=== PATIENT | female | born 1970 | race Caucasian/White ===

== ENCOUNTER 2017-06-16 09:23 | Emergency (ER) | payer MEDICAID, OTHER ==
[~2017-06-16] VITALS: Ht 160 cm; Wt 68.4 kg
[~2017-06-16 09:23] MED LIST: ASPI1TAB2 PO; prenatal
[2017-06-16 09:25] VITALS: Ht 160 cm; Wt 68.4 kg
--- NOTE | 2017-06-16 11:37 | RADRPT ---
PROCEDURE: US Abdomen. CLINICAL INDICATION: abdominal pain , jaundice TECHNIQUE: Multiple real-time images were acquired of the patient's right upper quadrant abdomen a nd retroperitoneum utilizing a high resolution transducer. COMPARISON: None FINDINGS: The liver demonstrates increased and heterogeneous echogenicity. The liver is enlarged in size and no focal solid lesions are seen. The liver measures 21.3 cm in length. The portal vein is patent wit h normal direction of flow. No intrahepatic biliary dilatation is seen. No gallstones are identified within the gallbladder. There is no pericholecystic fluid or gallbladd er wall thickening. The common bile duct measures 5 mm in maximal dimension. The visualized portions of the pancreas are unremarkable. The tail of the pancreas is not seen. No free fluid is identified. The right kidney is normal in size, and demonstrate normal echogenicity and cortical thickness. The right kidney measures 10.7 cm in long dimension. There is no evidence of hydronephrosis. There are no kidney stones. RPTAT: AA IMPRESSION: Mild hepatomegaly with fatty infiltration of the liver. .Aric Tenorio MD, Date Time Electronically viewed and signed by .Aric Tenorio MD, on 06/16/2017 11:37 .S/
--- NOTE | 2017-06-16 11:38 | ERD ---
ER Documentation Chief Complaint Chief Complaint SENT BY PCP FOR ASSESSMENT FOR JAUNDICE HPI This is a 47-year-old female with known liver disease, hepatitis, gallstones who is presenting with progressive jaundice and scleral icterus for 1-2 weeks. She has noticed mild increase in abdominal distension as well. She has no abdominal pain or nausea or vomiting or urination/BM changes. She is not lightheaded or dizzy. She does take Tylenol occasionally for discomfort, but she does not endorse taking too much. She does not have any recent travel. She last traveled 1 year ago to [place]. The patient reports that this has happened before, but she does not know why. She called her PCP office. A nurse called and suggested that she be evaluated in the ER as they did not have any appointments. The patient denies feeling sick recently. The patient denies fever or chills. The patient has had no headache or vision changes. The patient does not endorse neck or back pain. The patient has had no chest pain or shortness of breath or trouble breathing, but she does endorse a chronic cough at night for 3 -4 months. The patient has had no focal deficits. The patient has had no weakness or numbness or tingling to the face or extremities. ROS All systems reviewed and are negative except as per history of present illness. Medications Home Meds Discontinued Reported Medications Aspirin/Acetaminophen/Caffeine (Excedrin Caplet) 1 Tab Tablet, 1 TAB PO Y 06/06/11 [] No Conflict Check 05/20/10 Allergies Allergies: Coded Allergies: No Known Drug Allergies (Verified Allergy, 06/06/11) Uncoded Allergies: none (Allergy, Mild, 05/20/10) PMhx/Soc History of Surgery: No Anesthesia Reaction: No Hx Neurological Disorder: No Hx Respiratory Disorders: No Hx Cardiac Disorders: No Hx Psychiatric Problems: No Hx Miscellaneous Medical Probl: Yes (Liver dysfunction, Chronic Hepatitis, Cholelithiasis) Hx Alcohol Use: Yes (2 drinks per day) Hx Substance Use: No Hx Tobacco Use: No FmHx Family History: No coronary disease, No diabetes Physical Exam Vitals Vital Signs Date Time Temp Pulse Resp B/P Pulse Ox O2 Delivery O2 Flow Rate FiO2 06/16/17 12:51 87 16 121/64 97 Room Air 06/16/17 09:25 97.8 92 18 111/59 97 Physical Exam Const: No apparent distress, well-developed, well-nourished Head: Atraumatic Eyes: Normal Conjunctiva. Extraocular movements intact. + Scleral icterus ENT: Normal External Ears, Nose and Mouth. Neck: Full range of motion. ~ No meningismus. Resp: Clear to auscultation bilaterally Cardio: Regular rate and rhythm, no murmurs Abd: Soft, + mild distension, + upper abdominal discomfort. Normal bowel sounds Skin: No petechiae or rashes, + jaundice Back: No midline or flank tenderness Ext: No cyanosis, or edema Neur: Awake and alert, oriented 4. Cranial nerves intact. No facial droop. Normal strength and sensation in all extremities. Coordination with finger to nose normal. Psych: Normal Mood and Affect Result Diagram: 06/16/17 1135 06/16/17 1135 Results 24 hrs Laboratory Tests Test 06/16/17 11:00 06/16/17 11:35 06/16/17 11:50 Urine Color SHAYLA Urine Clarity CLOUDY Urine pH 5.0 Urine Specific [place] 1.028 Urine Ketones 1+mg/dL Urine Nitrite NEGATIVEmg/dL Urine Bilirubin 2+mg/dL Urine Urobilinogen 2+mg/dL Urine Leukocyte Esterase NEGATIVELeu/ul Urine Microscopic RBC 1/HPF Urine Microscopic WBC 2/HPF Urine Squamous Epithelial Cells FEW/HPF Urine Hyaline Casts FEW/HPF Urine Mucus MANY/HPF Urine Hemoglobin NEGATIVEmg/dL Urine Glucose 1+mg/dL Urine Total Protein 2+mg/dl White Blood Count 13.510^3/ul Red Blood Count 3.1810^6/ul Hemoglobin 9.2g/dl Hematocrit 29.1% Mean Corpuscular Volume 91.5fl Mean Corpuscular Hemoglobin 28.9pg Mean Corpuscular Hemoglobin Concent 31.6g/dl Red Cell Distribution Width 22.7% Platelet Count 38202^3/UL Mean Platelet Volume 12.3fl Neutrophils % 82.0% Lymphocytes % 10.0% Monocytes % 6.3% Eosinophils % 0.5% Basophils % 0.4% Nucleated Red Blood Cells % 0.0/100WBC Neutrophils # 11.010^3/ul Lymphocytes # 1.310^3/ul Monocytes # 0.910^3/ul Eosinophils # 0.110^3/ul Basophils # 0.110^3/ul Nucleated Red Blood Cells # 0.010^3/ul Prothrombin Time 16.9Sec Prothrombin Time Ratio 1.3 INR International Normalized Ratio 1.37 Activated Partial Thromboplast Time 43.7Sec Sodium Level 138mmol/L Potassium Level 3.9mmol/L Chloride Level 102mmol/L Carbon Dioxide Level 27mmol/L Anion Gap 13 Blood Urea Nitrogen 5mg/dl Creatinine 0.39mg/dl Glucose Level 97mg/dl Calcium Level 8.3mg/dl Total Bilirubin 8.9mg/dl Direct Bilirubin 6.90mg/dl Indirect Bilirubin 2.0mg/dl Aspartate Amino Transf (AST/SGOT) 194IU/L Alanine Aminotransferase (ALT/SGPT) 35IU/L Alkaline Phosphatase 320IU/L Total Protein 7.8g/dl Albumin 3.1g/dl Globulin 4.70g/dl Albumin/Globulin Ratio 0.65 Lipase 36U/L Hepatitis B Surface Antigen NEGATIVE Hepatitis B Core Total Antibody NEGATIVE Hepatitis C Antibody NEGATIVE Serum HCG, Qualitative NEGATIVE Current Medications Medications (Trade) Dose Ordered Sig/Kay Route PRN Reason Start Time Stop Time Status Last Admin Dose Admin IV Flush 10 ml 10 ml STK-MED ONCE .ROUTE 06/16/17 14:00 06/16/17 14:01 DC 06/16/17 14:00 Sodium Chloride (NS) 100 ml @ ud STK-MED ONCE .ROUTE 06/16/17 14:00 06/16/17 14:01 DC 06/16/17 14:00 Iohexol (Omnipaque 300mg/ ml) 150 ml STK-MED ONCE .ROUTE 06/16/17 14:00 06/16/17 14:01 DC 06/16/17 14:00 Procedures/[facility] MDM The patient's presentation warrants further investigation. The patient currently has asymptomatic jaundice. She reports that this has happened before. Upon review of records, the patient was admitted for similar symptoms in 2010. She had persistent hepatitis despite a negative viral panel and no obvious obstructive pathology. She was ultimately discharged. Of note, the patient reportedly was hypothyroid, but she is no longer taking medication now. The patient does not have symptoms consistent with hypothyroidism at this time. This may be worked up further as an outpatient. With respect to her jaundice. I intend to obtain blood work and imaging. The patient may require an ERCP, but I am not convinced at this stage that she requires admission. LABS The patient's blood work was obtained and reviewed. The patient's CBC shows mild leukocytosis with left shift. This appears to be chronic leukocytosis. The patient is afebrile and does not appear systemically ill. I do not suspect a systemic infection. The patient is mildly anemic today, but this also appears to be her baseline. The patient's platelet count is unremarkable. The patient' s BMP shows no signs of metabolic or electrolyte emergencies. The patient has normal renal function testing. The patient's lipase is also within normal limits. The patient's hepatic function testing reveals a significant direct hyperbilirubinemia, indicating a likely obstructive pathology. The patient also has a transaminitis. The patient's LFTs are incrementally worse than they were 6 years ago, but they were quite elevated at that time as well. The patient's HBV and HCV studies are negative. The patient has no diarrhea, does not appear infected, is not homeless and is not an IVD user. I do not suspect HAV. The patient does endorse EtOH use. Alcoholic vs autoimmune cirrhosis are possibilities. IMAGING CXR FINDINGS: The heart and mediastinum are within normal limits. There are mild right lower lobe linear atelectatic changes. The lungs are otherwise clear. There is no pleural effusion or pneumothorax. IMPRESSION: Mild right lower lobe linear atelectatic changes. Electronically viewed and signed by .Aric Tenorio MD, MD on 06/16/2017 11: 47 US Abd FINDINGS: The liver demonstrates increased and heterogeneous echogenicity. The liver is enlarged in size and no focal solid lesions are seen. The liver measures 21.3 cm in length. The portal vein is patent with normal direction of flow. No intrahepatic biliary dilatation is seen. No gallstones are identified within the gallbladder. There is no pericholecystic fluid or gallbladder wall thickening. The common bile duct measures 5 mm in maximal dimension. The visualized portions of the pancreas are unremarkable. The tail of the pancreas is not seen. No free fluid is identified. The right kidney is normal in size, and demonstrate normal echogenicity and cortical thickness. The right kidney measures 10.7 cm in long dimension. There is no evidence of hydronephrosis. There are no kidney stones. IMPRESSION: Mild hepatomegaly with fatty infiltration of the liver. Electronically viewed and signed by .Aric Tenorio MD, MD on 06/16/2017 11: 37 CT Abd/Pelvis 1. Hepatomegaly and liver cirrhosis. No definitive abnormal liver masses or lesions noted at this time. 2. Splenomegaly and likely underlying portal hypertension. 3. Mild lower abdominal/pelvic ascites. 4. No evidence of bowel obstruction. The appendix is within normal limits. 5. 3.0 cm exophytic mass within the fundus of the uterus, probably leiomyoma. Electronically viewed and signed by Physician Rox on 06/16/2017 14:38 TREATMENT/DISPOSITION The patient is presenting with asymptomatic jaundice. She has a history of hepatitis and this remains true today. The patient's imaging studies demonstrate hepatomegaly and cirrhosis, which the patient is already aware. There is no obvious evidence of cholecystitis, cholelithiasis, choledocholithiasis, pancreatitis, hepatic or pancreatic mass. There was an incidental finding of a leiomyoma on the uterus, which may be worked up as an outpatient. The patient was offered admission for further evaluation. However, the risks and benefits of admission versus outpatient workup were discussed, and the patient preferred outpatient treatment at this time. The patient has not shown any signs of hemodynamic instability. She may require an ERCP for further evaluation, but I have less suspicion for choledocholithiasis given the chronicity of her symptoms in addition to her lack of pain. At this time, I feel that the patient stable for discharge. He will need follow -up with his primary care physician in 1-3 days who may also coordinate referral to a manager transit. He will be given strict precautions with which to return to the emergency department. Departure Diagnosis: Primary Impression: Conjugated hyperbilirubinemia Additional Impressions: Jaundice Scleral icterus Liver disease Anemia Anemia type: unspecified type Qualified Code: D64.9 - Anemia, unspecified type Leukocytosis, unspecified Hepatitis Condition: Stable JONATHAN LABOY MD Jun 16, 2017 11:38
--- NOTE | 2017-06-16 11:47 | RADRPT ---
PROCEDURE: XR Chest. CLINICAL INDICATION: abdominal pain TECHNIQUE: Single frontal view of the chest was obtained COMPARISON: None FINDINGS: The heart and mediastinum are within normal limits. There are mild right lower lobe linear atelectatic changes. The lungs are otherwise clear. There is no pleural effusion or pneumothorax. RPTAT: AA IMPRESSION: Mild right lower lobe linear atelectatic changes. .Aric Tenorio MD, MD Date Time Electronically viewed and signed by .Aric Tenorio MD, on 06/16/2017 11:47 .S/
[2017-06-16 11:50] LABS: HAAIG REFLEX REFLEX FILED
[2017-06-16 11:56] LABS: ABNORMAL IP MESSAGE 1; BASOPHIL # 0.1 10^3/ul (0.0-0.1); BASOPHILS % 0.4 % (0.0-2.0); EOSINOPHILS # 0.1 10^3/ul (0.0-0.5); EOSINOPHILS % 0.5 % (0.0-7.0); HEMATOCRIT 29.1 % (37.0-47.0); HEMOGLOBIN 9.2 g/dl (12.0-16.0); LYMPHOCYTES # 1.3 10^3/ul (0.8-2.9); MEAN CORPUSCULAR HEMOGLOBIN 28.9 pg (29.0-33.0); MEAN CORPUSCULAR HGB CONC 31.6 g/dl (32.0-37.0); MEAN CORPUSCULAR VOLUME 91.5 fl (82.0-101.0); MEAN PLATELET VOLUME 12.3 fl (7.4-10.4); MONOCYTE # 0.9 10^3/ul (0.3-0.9); MONOCYTES % 6.3 % (0.0-11.0); PLATELET COUNT 239 10^3/UL (140-415); RED BLOOD COUNT 3.18 10^6/ul (4.20-5.40); RED CELL DISTRIBUTION WIDTH 22.7 % (11.5-14.5); WHITE BLOOD COUNT 13.5 10^3/ul (4.8-10.8)
[2017-06-16 11:57] LABS: POSITIVE DIFF @See below
[2017-06-16 12:12] LABS: ADD UMIC YES; UR ASCORBIC ACID 20 mg/dL (NEGATIVE); UR BILIRUBIN (Dip) 2+ mg/dL (NEGATIVE); UR BLOOD (Dip) NEGATIVE (NEGATIVE); UR CLARITY CLOUDY (CLEAR); UR COLOR AMBER (YELLOW); UR GLUCOSE (Dip) 1+ mg/dL (NEGATIVE); UR KETONES (Dip) 1+ mg/dL (NEGATIVE); UR LEUKOCYTE ESTERASE (Dip) NEGATIVE Leu/ul (NEGATIVE); UR MUCUS MANY /HPF (NONE SEEN); UR NITRITE (Dip) NEGATIVE (NEGATIVE); UR RBC 1 /HPF (0-5); UR SPECIFIC GRAVITY (Dip) 1.028 (1.003-1.030); UR SQUAMOUS EPITHELIAL CELL FEW /HPF (FEW); UR TOTAL PROTEIN (Dip) 2+ mg/dl (NEGATIVE); UR UROBILINOGEN (Dip) 2+ mg/dL (NEGATIVE)
[2017-06-16 12:13] LABS: INR 1.37; PROTIME 16.9 Sec (12.2-14.2); PT RATIO 1.3
[2017-06-16 12:14] LABS: PARTIAL THROMBOPLASTIN TIME 43.7 Sec (25.0-35.0)
[2017-06-16 12:28] LABS: ALANINE AMINOTRANSFERASE 35 IU/L (13-69); ALBUMIN 3.1 g/dl (3.3-4.9); ALBUMIN/GLOBULIN RATIO 0.65; ALKALINE PHOSPHATASE 320 IU/L (42-121); ANION GAP 13 (8-16); ASPARTATE AMINO TRANSFERASE 194 IU/L (15-46); BILIRUBIN,TOTAL 8.9 mg/dl (0.2-1.3); BLOOD UREA NITROGEN 5 mg/dl (7-20); CALCIUM 8.3 mg/dl (8.4-10.2); CARBON DIOXIDE 27 mmol/L (21-31); CHLORIDE 102 mmol/L (97-110); CREATININE 0.39 mg/dl (0.44-1.00); GLUCOSE 97 mg/dl (70-220); POTASSIUM 3.9 mmol/L (3.5-5.1); SODIUM 138 mmol/L (135-144); TOTAL PROTEIN 7.8 g/dl (6.1-8.1)
[2017-06-16 12:51] VITALS: BP 121/64; PULSE 87; RESP 16
[2017-06-16 13:17] LABS: HEPATITIS B CORE ANTIBODY NEGATIVE (NEGATIVE)
[2017-06-16] MEDS ORDERED: SOD CHLORIDE 0.9% 100 ML ONE (14:00)
[2017-06-16] MEDS ORDERED: IOHEXOL 300MG/ML 150 ML BTL ONE (14:00)
--- NOTE | 2017-06-16 14:39 | RADRPT ---
PROCEDURE: CT ABDOMEN AND PELVIS WITH IV CONTRAST. CLINICAL INDICATION: History of jaundice with abdominal distension TECHNIQUE: CT scan of the abdomen and pelvis without contrast was performed on a multidetector hig h-resolution CT scanner following the use of IV contrast. 90 cc Omnipaque-300 was administered. Mika nal and sagittal reformatted images were obtained from the axial source images. Images were reviewed on a high-resolution PACS workstation. The total exam CTDI equals 10.7 mGy and the total exam DLP e quals 640 mGy-cm. One or more of the following dose reduction techniques were used: Automated exposure control. Adjustment of the mA and/or kV according to patient size. Use of iterative reconstruction technique. DICOM images are available. COMPARISON: None FINDINGS: CT abdomen: The lung bases are clear. The heart size is within limits. There is no significant pericardial effus ion. Hepatic morphology demonstrates nodular appearance of the borders of the liver. Gallbladder is parti ally contracted. No intrahepatic or extrahepatic biliary dilatation. There is heterogeneous appearan ce of the liver parenchyma. The liver is enlarged. The spleen is enlarged. The pancreas is within normal limits. There is dilatation of the splenic vei n.. Both adrenal glands are within normal limits. Both kidneys are in normal anatomic position. No evidence of obstruction or hydronephrosis. No gross renal/ureteric calculi. The visualized GI tract demonstrate normal caliber loops of small and large bowel. No evidence of len wel obstruction. The appendix is within normal limits. The aorta is unremarkable. Several shoddy retroperitoneal lymph nodes are identified. CT pelvis: Small amount of free fluid within the pelvis. The bladder is unremarkable. The uterus is identified and there is a exophytic mass within the fundus, measuring 3.0 cm. No significant pelvic lymphadenop athy. The visualized osseous structures appears to be within normal limits. IMPRESSION: 1. Hepatomegaly and liver cirrhosis. No definitive abnormal liver masses or lesions noted at this ti me. 2. Splenomegaly and likely underlying portal hypertension. 3. Mild lower abdominal/pelvic ascites. 4. No evidence of bowel obstruction. The appendix is within normal limits. 5. 3.0 cm exophytic mass within the fundus of the uterus, probably leiomyoma. RPTAT: AAPP Farida Harris, Physician Date Time Electronically viewed and signed by Farida Harris Physician on 06/16/2017 14:38 JL/
== END 2017-06-16 18:44 | disposition home or self-care (01) ==
LOC: E/R 09:23
DX: H15.89 Other disorders of sclera (principal); R40.2252 Coma scale, best verbal response, oriented, at arrival to emergency department; D64.9 Anemia, unspecified; D72.829 Elevated white blood cell count, unspecified; K75.9 Inflammatory liver disease, unspecified; R40.2142 Coma scale, eyes open, spontaneous, at arrival to emergency department; R40.2362 Coma scale, best motor response, obeys commands, at arrival to emergency department; R07.9 Chest pain, unspecified
CPT/HCPCS: 36415; 71010; 74177; 76705; 80053; 81001; 83690; 84703; 85025; 85610; 85730; 86704; 86709; 86803; 87340; Q9967; Z7502; Z7610

== ENCOUNTER 2017-06-25 14:34 | Inpatient (IN) | payer OTHER ==
[~2017-06-25] VITALS: Ht 160 cm; Wt 70.2 kg
[2017-06-25] MEDS: morphine 4 MG/ML VIAL IV STA ×2 (00:15→20:00)
[2017-06-25] MEDS ORDERED: ONDANSETRON 4 MG INJ IV STA ×2 (16:58→19:50)
[2017-06-25] MEDS ORDERED: morphine 4 MG/ML VIAL IV STA (16:58)
[2017-06-25] MEDS ORDERED: SOD CHLORIDE 0.9% 500 ML IV STA (16:58)
[2017-06-25 17:34] LABS: BASOPHIL # 0.1 10^3/ul (0.0-0.1); BASOPHILS % 0.5 % (0.0-2.0); EOSINOPHILS # 0.2 10^3/ul (0.0-0.5); EOSINOPHILS % 1.1 % (0.0-7.0); HEMATOCRIT 27.3 % (37.0-47.0); HEMOGLOBIN 8.8 g/dl (12.0-16.0); LYMPHOCYTES # 1.2 10^3/ul (0.8-2.9); LYMPHOCYTES % 8.3 % (15.0-51.0); MEAN CORPUSCULAR HEMOGLOBIN 28.7 pg (29.0-33.0); MEAN CORPUSCULAR HGB CONC 32.2 g/dl (32.0-37.0); MEAN CORPUSCULAR VOLUME 88.9 fl (82.0-101.0); MEAN PLATELET VOLUME 11.7 fl (7.4-10.4); MONOCYTE # 1.1 10^3/ul (0.3-0.9); MONOCYTES % 7.8 % (0.0-11.0); NEUTROPHIL # 11.3 10^3/ul (1.6-7.5); NEUTROPHILS % 81.2 % (39.0-77.0); PLATELET COUNT 224 10^3/UL (140-415); RED BLOOD COUNT 3.07 10^6/ul (4.20-5.40); RED CELL DISTRIBUTION WIDTH 21.1 % (11.5-14.5); WHITE BLOOD COUNT 13.9 10^3/ul (4.8-10.8)
[2017-06-25 17:46] LABS: ADD UMIC YES; UR ASCORBIC ACID NEGATIVE (NEGATIVE); UR BILIRUBIN (Dip) 2+ mg/dL (NEGATIVE); UR BLOOD (Dip) 1+ mg/dL (NEGATIVE); UR CLARITY SLIGHTLY CLOUDY (CLEAR); UR COLOR AMBER (YELLOW); UR GLUCOSE (Dip) 1+ mg/dL (NEGATIVE); UR KETONES (Dip) NEGATIVE (NEGATIVE); UR LEUKOCYTE ESTERASE (Dip) NEGATIVE Leu/ul (NEGATIVE); UR MUCUS FEW /HPF (NONE SEEN); UR NITRITE (Dip) NEGATIVE (NEGATIVE); UR RBC 1 /HPF (0-5); UR SPECIFIC GRAVITY (Dip) 1.018 (1.003-1.030); UR SQUAMOUS EPITHELIAL CELL MANY /HPF (FEW); UR TOTAL PROTEIN (Dip) 1+ mg/dl (NEGATIVE); UR UROBILINOGEN (Dip) 2+ mg/dL (NEGATIVE)
[2017-06-25 18:26] LABS: ALBUMIN/GLOBULIN RATIO 0.6; BILIRUBIN,DIRECT 9.9 mg/dl (0.00-0.20); BILIRUBIN,INDIRECT 1.6 mg/dl (0-1.1); BILIRUBIN,TOTAL 11.5 mg/dl (0.2-1.3); CALCIUM 8.3 mg/dl (8.4-10.2); CREATININE 2.87 mg/dl (0.44-1.00); POTASSIUM 4.7 mmol/L (3.5-5.1)
[2017-06-25] MEDS ORDERED: SOD CHLORIDE 0.9% 1,000 ML IV STA (19:50)
[2017-06-25 20:19] LABS: INR 1.5; PROTIME 18.2 Sec (12.2-14.2); PT RATIO 1.4
[2017-06-25 20:20] LABS: PARTIAL THROMBOPLASTIN TIME 47.6 Sec (25.0-35.0)
--- NOTE | 2017-06-25 20:30 | RADRPT ---
PROCEDURE: XR Chest. CLINICAL INDICATION: Chest pain. Abdominal pain TECHNIQUE: Portable AP upright view of the chest was obtained. COMPARISON: None. FINDINGS: The cardiomediastinal silhouette is within normal limits. The lungs are clear. There is no evidenc e for pleural effusion, pneumothorax or pulmonary vascular congestion. The osseous structures are i ntact with no evidence for acute abnormality. No free air is demonstrated below the diaphragm. RPTAT:HJJR IMPRESSION: No evidence for acute intrathoracic pathology. Physician Moreno Date Time Electronically viewed and signed by Physician Moreno on 06/25/2017 20:30 /
[2017-06-25 22:08] LABS: LACTIC ACID 1.2 mmol/L (0.5-2.0)
--- NOTE | 2017-06-25 22:22 | RADRPT ---
PROCEDURE: CT abdomen and pelvis without contrast. CLINICAL INDICATION: Abdominal pain. Abnormal liver with portal venous hypertension and splenomegal y. Ascites. TECHNIQUE: Noncontrast CT examination of the abdomen and pelvis, with axial, sagittal and coronal r eformatted images. Automated dose exposure control was employed. CTDI: 10.73 mGy and DLP: 639.58 mGy-cm. COMPARISON: CT abdomen and pelvis dated 06/16/2017. FINDINGS: CT abdomen: The lung bases are clear. The heart size is normal, without pericardial thickening or effusion. Since 06/16/2017 there is increased ascites over the interval with fluid over the liver and spleen, in the bilateral pericolic gutters. The liver enlarged, with evidence of cirrhosis and demonstrates fatty infiltration, similar in appea matt to prior examination. The spleen remains enlarged. There is portal venous hypertension. The s tomach is partially collapsed, but is grossly unremarkable. The pancreas as visualized is normal. The gallbladder contains a fluid-fluid level, suggesting stones versus gallbladder sludge. There is gallbladder wall thickening versus pericholecystic fluid and recommend ultrasound correlation. These gallbladder findings are new over the interval since 06/16/2017. The biliary tree is unremarkable a nd there is no evidence for biliary dilatation. The adrenal glands are symmetric and normal. The k idneys are symmetrically unremarkable as well. No renal calculus or obstructive uropathy or mass les ion is seen. The aorta is of normal caliber. Aortic vascular calcifications are not present. There is no retrop eritoneal lymphadenopathy. The myrna hepatis region is clear. The bowel and mesentery, as visualiz ed, are equally unremarkable. CT pelvis: Increased moderate to large ascites in the pelvis. There are likely uterine fibroids. The pelvic org ans are normal. The pelvic sidewalls and inguinal regions are clear. The sigmoid colon and rectum are all unremarkable. No mass, lymphadenopathy, or free fluid is seen. No acute inflammation is se en. The air-filled appendix is unremarkable. The surrounding osseous structures are remarkable for mild degenerative spondylosis of the spine. N o osteolytic or osteoblastic lesion is detected. IMPRESSION: 1. Enlarged cirrhotic liver with likely fatty infiltration. 2. Gallbladder wall thickening versus pericholecystic with gallstones versus sludge, new over the in terval, and recommend ultrasound correlation. 3. Splenomegaly again seen, with changes of portal venous hypertension. 4. Increased ascites in the abdomen over the interval since 06/16/2017. 5. Increased ascites in the pelvis over the interval. RPTAT: [facility] Physician Sherley Date Time Electronically viewed and signed by Malik Bender Physician on 06/25/2017 22:22 RS/
--- NOTE | 2017-06-25 23:04 | RADRPT ---
PROCEDURE: Abdominal ultrasound, limited. CLINICAL INDICATION: Abdominal pain. TECHNIQUE: Multiple real-time images were acquired of the patient's right upper abdomen utilizing a high resolution transducer. COMPARISON: 06/16/2017. FINDINGS: The liver demonstrates heterogeneous echogenicity and increased size measuring 19.7 cm. There are m ultiple poorly defined nodules within the liver measuring up to 3 cm in size. There is no intrahepat ic biliary ductal dilatation. The portal vein is patent. The gallbladder is not distended. No gal lstones are identified. There is echogenic sludge within the gallbladder. There is a negative sonog raphic Daniel's sign. There is pericholecystic fluid and gallbladder wall thickening measuring up to 9.3 mm. The common bile duct measures 3.6 mm in maximal dimension. The visualized portions of the pancreas are unremarkable. There is mild to moderate ascites. The right kidney is normal size and echogenicity measuring 10.5 cm. There is no focal renal mass id entified. There are two echogenic calculi within the mid and upper pole of the right kidney measurin g 5 and 7 mm. There is no obstructive uropathy. IMPRESSION: Enlarged liver with heterogeneous nodules suggestive of cirrhosis. Gallbladder sludge with moderate gallbladder wall thickening and pericholecystic fluid. Mild to moderate ascites. Nonobstructing right renal calculi. .Quirino Colorado MD, MD Date Time Electronically viewed and signed by .Quirino Colorado MD, MD on 06/25/2017 23:04 .T/
[2017-06-26] MEDS ORDERED: CEFTRIAXONE 1 GM INJ IM ONE
[2017-06-26] MEDS ORDERED: ONDANSETRON 4 MG INJ IV PRN
[2017-06-26] MEDS ORDERED: ACETAMINOPHEN 325 MG TAB PO PRN
[2017-06-26] MEDS ORDERED: metroNIDAZOLE 500 MG/NS (PMX) 100 ML IVPB ONE
--- NOTE | 2017-06-26 00:33 | ERD ---
ER Documentation Chief Complaint Chief Complaint ABD PAIN, N/V, JAUNDICE NOTED HPI 47-year-old female presents for both right upper quadrant and left upper quadrant pain with some nausea and vomiting is been increasing for the last couple of days.. She denies any fever and chills. She noticed that she is more jaundiced. She has not had jaundice like this for some time and it occurred only one other instance. States that she has been in another hospital recently she was diagnosed with acute cholecystitis but discharged. She has a history of liver failure. ROS All systems reviewed and are negative except as per history of present illness. Medications Home Meds No Active Prescriptions or Reported Meds Allergies Allergies: Coded Allergies: No Known Drug Allergies (Verified Allergy, 06/06/11) Uncoded Allergies: none (Allergy, Mild, 05/20/10) PMhx/Soc History of Surgery: No Anesthesia Reaction: No Hx Neurological Disorder: No Hx Respiratory Disorders: No Hx Cardiac Disorders: No Hx Psychiatric Problems: No Hx Miscellaneous Medical Probl: Yes (Liver dysfunction, Chronic Hepatitis, Cholelithiasis, splenomegaly) Hx Alcohol Use: Yes (2 drinks per day) Hx Substance Use: No Hx Tobacco Use: No Smoking Status: Never smoker Physical Exam Vitals Vital Signs Date Time Temp Pulse Resp B/P Pulse Ox O2 Delivery O2 Flow Rate FiO2 06/25/17 20:30 97.9 86 16 122/63 98 Room Air 06/25/17 18:30 97.7 97 18 108/58 97 Room Air 06/25/17 14:37 97.7 92 18 113/58 97 Physical Exam Const: [] Head: Atraumatic Eyes: Normal Conjunctiva ENT: Normal External Ears, Nose and Mouth. Neck: Full range of motion..~ No meningismus. Resp: Clear to auscultation bilaterally Cardio: Regular rate and rhythm, no murmurs Abd: Soft, non tender, non distended. Normal bowel sounds Skin: No petechiae or rashes Back: No midline or flank tenderness Ext: No cyanosis, or edema Neur: Awake and alert Psych: Normal Mood and Affect Result Diagram: 06/25/17 1725 06/25/17 1725 Results 24 hrs Laboratory Tests Test 06/25/17 17:25 06/25/17 21:21 White Blood Count 13.910^3/ul Red Blood Count 3.0710^6/ul Hemoglobin 8.8g/dl Hematocrit 27.3% Mean Corpuscular Volume 88.9fl Mean Corpuscular Hemoglobin 28.7pg Mean Corpuscular Hemoglobin Concent 32.2g/dl Red Cell Distribution Width 21.1% Platelet Count 07202^3/UL Mean Platelet Volume 11.7fl Neutrophils % 81.2% Lymphocytes % 8.3% Monocytes % 7.8% Eosinophils % 1.1% Basophils % 0.5% Nucleated Red Blood Cells % 0.0/100WBC Neutrophils # 11.310^3/ul Lymphocytes # 1.210^3/ul Monocytes # 1.110^3/ul Eosinophils # 0.210^3/ul Basophils # 0.110^3/ul Nucleated Red Blood Cells # 0.010^3/ul Prothrombin Time 18.2Sec Prothrombin Time Ratio 1.4 INR International Normalized Ratio 1.50 Activated Partial Thromboplast Time 47.6Sec Urine Color SHAYLA Urine Clarity SLIGHTLY CLOUDY Urine pH 5.0 Urine Specific [place] 1.018 Urine Ketones NEGATIVEmg/dL Urine Nitrite NEGATIVEmg/dL Urine Bilirubin 2+mg/dL Urine Urobilinogen 2+mg/dL Urine Leukocyte Esterase NEGATIVELeu/ul Urine Microscopic RBC 1/HPF Urine Microscopic WBC 33/HPF Urine Squamous Epithelial Cells MANY/HPF Urine Mucus FEW/HPF Urine Hemoglobin 1+mg/dL Urine Glucose 1+mg/dL Urine Total Protein 1+mg/dl Sodium Level 137mmol/L Potassium Level 4.7mmol/L Chloride Level 105mmol/L Carbon Dioxide Level 15mmol/L Anion Gap 22 Blood Urea Nitrogen 18mg/dl Creatinine 2.87mg/dl Glucose Level 105mg/dl Calcium Level 8.3mg/dl Total Bilirubin 11.5mg/dl Direct Bilirubin 9.90mg/dl Indirect Bilirubin 1.6mg/dl Aspartate Amino Transf (AST/SGOT) 162IU/L Alanine Aminotransferase (ALT/SGPT) 26IU/L Alkaline Phosphatase 283IU/L Troponin I < 0.012ng/ml Total Protein 8.0g/dl Albumin 3.0g/dl Globulin 5.00g/dl Albumin/Globulin Ratio 0.60 Lipase 38U/L Lactic Acid Level 1.2mmol/L Ammonia 32umol/l Current Medications Medications (Trade) Dose Ordered Sig/Kay Route PRN Reason Start Time Stop Time Status Last Admin Dose Admin Sodium Chloride (NS) 500 ml @ 500 mls/hr Q1H STAT IV 06/25/17 16:58 06/25/17 17:57 DC 06/25/17 17:38 Morphine Sulfate (morphine) 4 mg ONCE STAT IV 06/25/17 16:58 06/25/17 17:01 DC 06/25/17 17:37 Ondansetron HCl 4 mg 4 mg ONCE STAT IV 06/25/17 16:58 06/25/17 17:01 DC 06/25/17 17:37 Sodium Chloride (NS) 1,000 ml @ 1,000 mls/hr Q1H STAT IV 06/25/17 19:50 06/25/17 20:49 DC 06/25/17 20:02 Morphine Sulfate (morphine) 4 mg ONCE STAT IV 06/25/17 19:50 06/25/17 19:52 DC 06/25/17 00:15 Ondansetron HCl (Zofran Inj) 4 mg ONCE STAT IV 06/25/17 19:50 06/25/17 19:52 DC Ceftriaxone Sodium 1 gm 1 gm ONCE ONCE IM 06/26/17 00:00 06/26/17 00:01 DC 06/25/17 23:58 Metronidazole (Flagyl 500 Mg (Pmx)) 100 ml @ 100 mls/hr ONCE ONCE IVPB 06/26/17 00:00 06/26/17 00:59 06/25/17 23:59 Ondansetron HCl (Zofran Inj) 4 mg BRIDGE ORDER PRN IV NAUSEA AND/OR VOMITING 06/26/17 00:00 06/26/17 23:59 06/26/17 00:18 Acetaminophen (Tylenol Tab) 650 mg ER BRIDGE PRN PO MILD PAIN/FEVER 06/26/17 00:00 06/26/17 23:59 Procedures/MDM Acute cholecystitis and UTI concomitantly. Does not have any vital signs concerning for sepsis. Will suspicion for SBP as patient has not been febrile and pain is easily controlled. He was given 4 mg of morphine and did not require any other pain medication. Is hydrated with normal saline. Does have a thickened gallbladder wall elevated bilirubin as well as elevated white count consistent with acute cholecystitis. She was given Rocephin and Flagyl in the emergency room and this will also treat her UTI. She is also given normal saline. Is given Zofran which resolved her nausea. Spoke with Dr. Andrade will be on consult for this patient. She is being admitted to Dr. Tello to the medical surgical floor. CT abdomen pelvis interpretation: Gallstones with wall thickening and pericystic colic fluid, no dilated duct. Cirrhotic liver with fatty infiltration and splenomegaly. Portal hypertension. No abnormal fat stranding , no fractures bowel obstruction. Gallbladder ultrasound interpretation: Fatty liver with gallstones or sludge in gallbladder wall thickening. X-ray interpretation: I see no acute process, see no widened mediastinum, no pneumothorax, no infiltrates, no fractures. Departure Diagnosis: Primary Impression: Acute cholecystitis Additional Impressions: Liver failure Renal failure UTI (urinary tract infection) Normocytic anemia Condition: Serious KEI COOMBS DO Jun 26, 2017 00:33
[2017-06-26] MEDS ORDERED: SOD CHLORIDE 0.9% 1,000 ML IV ONE (01:00)
[2017-06-26 02:26] VITALS: TEMP 97.9
[2017-06-26 02:45] VITALS: BP 100/56; PULSE 81; RESP 18
[2017-06-26 02:50] VITALS: Ht 160 cm; Wt 70.2 kg
[2017-06-26] MEDS ORDERED: DEXTROSE 5%-0.45% NACL 1,000 ML IV SCH (03:30)
[2017-06-26] MEDS ORDERED: FOLI-49 PO (04:45)
[2017-06-26] MEDS ORDERED: FER325 PO (04:45)
[2017-06-26] MEDS ORDERED: SPIR25TA PO (04:45)
[2017-06-26] MEDS ORDERED: IBUP100T46 PO (04:45)
[2017-06-26] MEDS ORDERED: B1 PO (04:45)
[2017-06-26 05:13] LABS: BASOPHIL # 0.1 10^3/ul (0.0-0.1); BASOPHILS % 0.5 % (0.0-2.0); EOSINOPHILS # 0.1 10^3/ul (0.0-0.5); HEMATOCRIT 25.3 % (37.0-47.0); HEMOGLOBIN 8.1 g/dl (12.0-16.0); LYMPHOCYTES # 0.9 10^3/ul (0.8-2.9); LYMPHOCYTES % 8.5 % (15.0-51.0); MEAN CORPUSCULAR HEMOGLOBIN 28.4 pg (29.0-33.0); MEAN CORPUSCULAR VOLUME 88.8 fl (82.0-101.0); MEAN PLATELET VOLUME 12.2 fl (7.4-10.4); MONOCYTE # 0.7 10^3/ul (0.3-0.9); MONOCYTES % 6.5 % (0.0-11.0); NEUTROPHIL # 9.2 10^3/ul (1.6-7.5); NEUTROPHILS % 82.5 % (39.0-77.0); PLATELET COUNT 203 10^3/UL (140-415); RED BLOOD COUNT 2.85 10^6/ul (4.20-5.40); RED CELL DISTRIBUTION WIDTH 20.7 % (11.5-14.5); WHITE BLOOD COUNT 11.1 10^3/ul (4.8-10.8)
[2017-06-26] MEDS: ALBUMIN HUMAN 25% 100 ML IV SCH ×2 (05:24→13:00)
[2017-06-26] MEDS ORDERED: PIPER-TAZO 3.375 GM IV (PMX) 50 ML IVPB SCH (06:00)
[2017-06-26 06:28] LABS: ALBUMIN 2.6 g/dl (3.3-4.9); ALBUMIN/GLOBULIN RATIO 0.53; BILIRUBIN,DIRECT 9.2 mg/dl (0.00-0.20); BILIRUBIN,INDIRECT 1.6 mg/dl (0-1.1); BILIRUBIN,TOTAL 10.8 mg/dl (0.2-1.3); CALCIUM 7.9 mg/dl (8.4-10.2); CREATININE 2.88 mg/dl (0.44-1.00); TOTAL PROTEIN 7.5 g/dl (6.1-8.1)
[2017-06-26] MEDS: PIPER-TAZO 2.25 GM (PMX) 50 ML IVPB SCH ×4 (06:47→23:36)
--- NOTE | 2017-06-26 07:42 | CONS ---
Date/Time of Note Date/Time of Note DATE: 06/26/17 TIME: 07:38 Assessment/Plan Assessment/Plan Additional Assessment/Plan Very high risk surgical patient with portal hypertension, cirrhosis and ascites , and now jaundice. HIDA scan has been ordered GI consultation should be sought Further recommendations will be forthcoming based on the patient's further workup and clinical course. Consultation Date/Type/Reason Admit Date/Time Jun 26, 2017 at 00:00 Date of Consultation: Jun 26, 2017 Reason for Consultation Gallbladder sludge, jaundice and possible cholecystitis Hx of Present Illness The patient is a 47-year-old female with known cirrhosis, ascites and splenomegaly. She is here because of new onset of jaundice. She has been jaundiced in the past. Imaging here shows splenomegaly with portal hypertension and increased ascites. The gallbladder is slightly thickened with some gallbladder sludge. Common duct dilatation is not noted. She has had no fevers or chills. Eyes: no complaints ENT: no complaints Respiratory: no complaints Cardiovascular: no complaints Gastrointestinal: pain (Right and left upper quadrants) Genitourinary: no complaints Skin: no complaints Neurologic: no complaints Endocrine: no complaints Lymphatic: no complaints Psychological: no complaints Immunologic: no complaints Past Medical History Medical History: no pertinent history Family History Significant Family History: no pertinent family hx Social History Alcohol Use: none Smoking Status: Never smoker Exam/Review of Systems Vital Signs Vitals Vital Signs Date Time Temp Pulse Resp B/P Pulse Ox O2 Delivery O2 Flow Rate FiO2 06/26/17 02:45 98.0 81 18 100/56 99 Room Air Intake and Output 06/25/17 06/25/17 06/26/17 15:00 23:00 07:00 Intake Total 100 ml Balance 100 ml Exam Constitutional: alert, oriented Psych: no complaints Head: normocephalic, other Eyes: other ENMT: nl external ears & nose Neck: supple Respiratory: clear to auscultation Cardiovascular: regular rate and rhythm Musculoskeletal: nl extremities to inspection Extremities: normal pulses Neurological: UPPER SHAPER II-XII intact Skin: nl turgor Results Result Diagram: 06/26/17 0443 06/26/17 0443 Results 24 hrs Laboratory Tests Test 06/25/17 17:25 06/25/17 21:21 06/26/17 04:43 White Blood Count 13.9 H 11.1 #H Red Blood Count 3.07 L 2.85 L Hemoglobin 8.8 L 8.1 L Hematocrit 27.3 L 25.3 L Mean Corpuscular Volume 88.9 88.8 Mean Corpuscular Hemoglobin 28.7 L 28.4 L Mean Corpuscular Hemoglobin Concent 32.2 32.0 Red Cell Distribution Width 21.1 H 20.7 H Platelet Count 224 203 Mean Platelet Volume 11.7 H 12.2 H Neutrophils % 81.2 H 82.5 H Lymphocytes % 8.3 L 8.5 L Monocytes % 7.8 6.5 Eosinophils % 1.1 1.0 Basophils % 0.5 0.5 Nucleated Red Blood Cells % 0.0 0.0 Neutrophils # 11.3 H 9.2 H Lymphocytes # 1.2 0.9 Monocytes # 1.1 H 0.7 Eosinophils # 0.2 0.1 Basophils # 0.1 0.1 Nucleated Red Blood Cells # 0.0 0.0 Prothrombin Time 18.2 H Prothrombin Time Ratio 1.4 INR International Normalized Ratio 1.50 Activated Partial Thromboplast Time 47.6 H Urine Color SHAYLA Urine Clarity SLIGHTLY CLOUDY A Urine pH 5.0 Urine Specific [place] 1.018 Urine Ketones NEGATIVE Urine Nitrite NEGATIVE Urine Bilirubin 2+ H Urine Urobilinogen 2+ H Urine Leukocyte Esterase NEGATIVE Urine Microscopic RBC 1 Urine Microscopic WBC 33 H Urine Squamous Epithelial Cells MANY A Urine Mucus FEW A Urine Hemoglobin 1+ H Urine Glucose 1+ H Urine Total Protein 1+ H Sodium Level 137 141 Potassium Level 4.7 4.0 Chloride Level 105 109 Carbon Dioxide Level 15 L 17 L Anion Gap 22 H 19 H Blood Urea Nitrogen 18 19 Creatinine 2.87 H 2.88 H Glucose Level 105 92 Calcium Level 8.3 L 7.9 L Total Bilirubin 11.5 H 10.8 H Direct Bilirubin 9.90 H 9.20 H Indirect Bilirubin 1.6 H 1.6 H Aspartate Amino Transf (AST/SGOT) 162 H 135 H Alanine Aminotransferase (ALT/SGPT) 26 35 Alkaline Phosphatase 283 H 233 H Troponin I < 0.012 Total Protein 8.0 7.5 Albumin 3.0 L 2.6 L Globulin 5.00 H 4.90 H Albumin/Globulin Ratio 0.60 0.53 Lipase 38 Lactic Acid Level 1.2 Ammonia 32 H Medications Medications Current Medications Dextrose/Sodium Chloride (D5-1/2ns) 1,000 ml @ 100 mls/hr Q10H IV Last administered on 06/26/17 04:10; Admin Dose 100 MLS/HR; Start 06/26/17 at 03: 30 Morphine Sulfate (morphine) 3 mg Q4H PRN IV pain; Start 06/26/17 at 03:30 Ondansetron HCl (Zofran Inj) 4 mg Q4H PRN IV NAUSEA AND/OR VOMITING; Start at 03:30 Furosemide 20 mg 20 mg DAILY IV ; Start 06/26/17 at 09:00 Albumin Human 100 ml @ 100 mls/hr Q8H IV Last administered on 06/26/17 05:24 ; Admin Dose 100 MLS/HR; Start 06/26/17 at 04:30; Stop 06/26/17 at 13:29 Piperacillin Sod/ Tazobactam Sod (Zosyn 2.25gm/ 50ml (Pmx)) 50 ml @ 100 mls/hr Q6 IVPB Last administered on 06/26/17 06:47; Admin Dose 100 MLS/HR; Start at 06:00 Influenza Virus Vaccine (Fluzone) 0.5 ml ONCE ONCE IM* ; Start 06/28/17 at 09: 00; Stop 06/28/17 at 09:01 GEO NAVARRO MD Jun 26, 2017 07:42
[2017-06-26 08:13] VITALS: BP 101/57; PULSE 16; RESP 16
[2017-06-26] MEDS ORDERED: FUROSEMIDE 20 MG INJ IV SCH (09:00)
--- NOTE | 2017-06-26 09:09 | HP ---
Date/Time of Note Date/Time of Note DATE: 06/26/17 TIME: 08:55 Assessment/Plan VTE Prophylaxis VTE Prophylaxis Intervention: SCD's Lines/Catheters IV [facility]from [facility] Peripheral IV Urinary Cath still in place: No Assessment/Plan Assessment/Plan 1. Questionable acute cholecystitis -Follow-up results of HIDA scan -Surgery is already on board will follow up recommendation -will place a GI consult -Continue pain management -Continue IV antibiotic -Note that patient is a very high-risk for surgery 2. Decompensated liver cirrhosis with ascites - think this lady will order paracentesis for diagnostic and therapeutic purposes -Will give albumin as well 3. Acute kidney injury: creatinine has jumped from 0.4 to almost 3 in about 10 days -IV fluid -will check urine electrolytes and order renal ultrasound -will place a nephrology consult. Patient is at risk for hepatorenal syndrome -hold her ibuprofen 4. Sepsis, as evidenced by leukocytosis and tachycardia, secondary to UTI -IV antibiotic -Follow-up culture results 5. Metabolic acidosis, secondary to acute renal failure -IV fluids -Treat UTI as well -Nephrology consult HPI/ROS Admit Date/Time Admit Date/Time Jun 26, 2017 at 00:00 Hx of Present Illness This is a 47-year-old female with a history of cholecystitis and cirrhosis with portal hypertension who presented to the ER complaining of abdominal pain and yellowing of her eyes and face. Patient was admitted to this hospital in 2010 for abdominal pain. At that time imaging showed cholecystitis and Marked diffuse periportal edema and a significant hepatomegaly. A HIDA scan at that time was negative and as such no cholecystectomy was done. She said about 2 weeks ago she started experiencing abdominal pain and noted yellowing of her eyes and face for which she went to an outside hospital and was started on medications including Aldactone. Patient has been drinking on a daily basis for the past 2 years after her father . She said she takes 2 shots of alcohol a day. When she presented to the ER this time, imaging showed cholecystitis. Labs shows a WBC of 14,000, hemoglobin 8.8, bicarb 15, creatinine 2.87, BUN 18, total bilirubin 11.5 with direct bilirubin of 9.9 and AST 162 and alk phos 283. Ammonia is a 32. Notes that her creatinine 10 days ago was normal at around 0.4 and now it is 2.87. One of the medications that she started taking is ibuprofen ROS Eyes: no complaints ENT: no complaints Respiratory: no complaints Cardiovascular: no complaints Gastrointestinal: pain (Right and left upper quadrants) Genitourinary: no complaints Skin: no complaints Neurologic: no complaints Lymphatic: no complaints Psychological: no complaints Immunologic: no complaints PMH/Family/Social Past Medical History Medical History: no pertinent history Social History Alcohol Use: none Smoking Status: Never smoker Exam/Review of Systems Vital Signs Vitals Vital Signs Date Time Temp Pulse Resp B/P Pulse Ox O2 Delivery O2 Flow Rate FiO2 06/26/17 08:13 98.0 16 16 101/57 95 Room Air Intake and Output 06/25/17 06/25/17 06/26/17 14:59 22:59 06:59 Intake Total 100 ml Balance 100 ml Exam Constitutional: other (No acute distress. Patient is jaundiced) Eyes: icteric Respiratory: clear to auscultation, normal air movement Cardiovascular: nl pulses, regular rate and rhythm Gastrointestinal: soft, tender Extremities: normal pulses Labs Result Diagram: 06/26/173 06/26/17 0443 Medications Medications Current Medications Dextrose/Sodium Chloride (D5-1/2ns) 1,000 ml @ 100 mls/hr Q10H IV Last administered on 06/26/17 04:10; Admin Dose 100 MLS/HR; Start 06/26/17 at 03: 30 Morphine Sulfate (morphine) 3 mg Q4H PRN IV pain; Start 06/26/17 at 03:30 Ondansetron HCl (Zofran Inj) 4 mg Q4H PRN IV NAUSEA AND/OR VOMITING; Start at 03:30 Furosemide 20 mg 20 mg DAILY IV Last administered on 06/26/17 08:13; Admin Dose 20 MG; Start 06/26/17 at 09:00 Albumin Human 100 ml @ 100 mls/hr Q8H IV Last administered on 06/26/17 05:24 ; Admin Dose 100 MLS/HR; Start 06/26/17 at 04:30; Stop 06/26/17 at 13:29 Piperacillin Sod/ Tazobactam Sod (Zosyn 2.25gm/ 50ml (Pmx)) 50 ml @ 100 mls/hr Q6 IVPB Last administered on 06/26/17 06:47; Admin Dose 100 MLS/HR; Start at 06:00 Influenza Virus Vaccine (Fluzone) 0.5 ml ONCE ONCE IM* ; Start 06/28/17 at 09: 00; Stop 06/28/17 at 09:01 ALAN SWEET MD Jun 26, 2017 09:05
--- NOTE | 2017-06-26 10:56 | CONS ---
Date/Time of Note Date/Time of Note DATE: 06/26/17 TIME: 10:07 Assessment/Plan Assessment/Plan Chief Complaint/Hosp Course Summary Assessment and Plan: Assessment: Questionable acute cholecystitis Decompensated alcoholic liver cirrhosis with ascites Acute kidney injury Sepsis Metabolic acidosis Plan: DF 33.8- with questionable cholecystitis- will not start steroids Paracentesis- pending HIDA scan- pending Monitor H/h transfuse for HGB less than 7.5 May need EGD in near future Alcohol cessation discussed Further recommendations based on clinical course. Patient seen in collaboration with Dr. Ny Chief Complaint/Reason for Visit: Decompensated liver cirrhosis with ascites Possible acute cholecystitis History of Present Illness: This is a 47 year old [place]ic speaking female (an full time staff interpreter was used) with past medical history of migraines and alcoholic liver cirrhosis. Presented to the ER with worsening LUQ abd pain radiating to the back and new onset Jaundice. She states she felt like her abd was growing in size and pain progressively worsened. She treated pain with Tylenol 1000mg BID x2 weeks, at the same time she was treating migraine pain with ibuprofen 2 tabs every 3-4 hours for the past 2 weeks.. She was dx cirrhosis 5 years ago, has not follow- up with hepatology. Pt with long history of alcoholism starting at the age of 14, was able to quit twice before but recently started drinking again, r/t the passing of her father. Labs today WBC 11.1, Hgb 8.1 Plt 203, Bilirubin 10.8, AST 135, ALT 35, PT18.2, INR 1.5, Ammonia 32. Imaging revels splenomegaly with portal hypertension and increased ascites from 06/16/17. The gallbladder is slightly thickened with some gallbladder sludge. Common duct dilatation is not noted. She currently denies nausea/vomiting, hematemesis, hematochezia, melena , unintentional weight loss, dysphagia, odynophagia, or change in bowel habits. She has never had an EGD or colonoscopy. DF 33.8, will not start steroids at this this time in view of possible underlying infection. Past Medical History: Migraines Alcoholic cirrhosis Allergies: No known drug allergies PHYSICAL EXAMINATION: GENERAL: Well developed, well nourished, alert & oriented x 3, in no acute distress, forgetful SKIN: No lesions, no stigmata chronic liver disease, no evidence of bleeding diathesis, jaundice LYMPHATIC: No palpable lymphadenopathy. HEAD: Normocephalic, atraumatic, no tenderness. EYES: Pupils equal reactive to light and accommodation, full extraocular movements, sclera clear, icteric, no discharge. EARS/NOSE AND THROAT: Ears normal, nose normal, NECK: Supple, CHEST: Inspection within normal limits. CARDIOVASCULAR: Heart: Regular rate and rhythm,. RESPIRATORY: Lungs clear to auscultation GASTROINTESTINAL AND LIVER: Abdomen: Soft, non tenderness, non-distended, no hernias, no masses, moderate ascites, splenomegaly, no guarding, no rebound tenderness, normoactive bowel sounds. Rectal: Deferred. GENITOURINARY: Female genitalia within normal limits. EXTREMITIES: No cyanosis, clubbing or edema. Problems: Consultation Date/Type/Reason Admit Date/Time Jun 26, 2017 at 00:00 Date of Consultation: Jun 26, 2017 Type of Consultation: GI Review of Systems: Gastrointestinal and liver: [As noted in HPI] [positive for:] [Negative for: Anorexia, dysphagia, odynophagia, pyrosis, regurgitation, nausea, vomiting, early satiety, bloating, abdominal pain, food intolerance, diarrhea, constipation, change in bowel habits, laxative use, hematemesis, melena, hematochezia, and rectal symptoms, incontinence, jaundice.] Constitutional: no complaints Eyes: no complaints ENT: no complaints Respiratory: no complaints Cardiovascular: no complaints Genitourinary: no complaints Musculoskeletal: no complaints Skin: other (Jaundice) Neurologic: no complaints Past Medical History Medical History: no pertinent history Social History Alcohol Use: none Smoking Status: Never smoker Exam/Review of Systems Vital Signs Vitals Vital Signs Date Time Temp Pulse Resp B/P Pulse Ox O2 Delivery O2 Flow Rate FiO2 06/26/17 08:13 98.0 16 16 101/57 95 Room Air Intake and Output 06/25/17 06/25/17 06/26/17 14:59 22:59 06:59 Intake Total 100 ml Balance 100 ml Results Result Diagram: 06/26/17 0443 06/26/17 044 Results 24 hrs Laboratory Tests Test 06/25/17 17:25 06/25/17 21:21 06/26/17 04:43 White Blood Count 13.9 H 11.1 #H Red Blood Count 3.07 L 2.85 L Hemoglobin 8.8 L 8.1 L Hematocrit 27.3 L 25.3 L Mean Corpuscular Volume 88.9 88.8 Mean Corpuscular Hemoglobin 28.7 L 28.4 L Mean Corpuscular Hemoglobin Concent 32.2 32.0 Red Cell Distribution Width 21.1 H 20.7 H Platelet Count 224 203 Mean Platelet Volume 11.7 H 12.2 H Neutrophils % 81.2 H 82.5 H Lymphocytes % 8.3 L 8.5 L Monocytes % 7.8 6.5 Eosinophils % 1.1 1.0 Basophils % 0.5 0.5 Nucleated Red Blood Cells % 0.0 0.0 Neutrophils # 11.3 H 9.2 H Lymphocytes # 1.2 0.9 Monocytes # 1.1 H 0.7 Eosinophils # 0.2 0.1 Basophils # 0.1 0.1 Nucleated Red Blood Cells # 0.0 0.0 Prothrombin Time 18.2 H Prothrombin Time Ratio 1.4 INR International Normalized Ratio 1.50 Activated Partial Thromboplast Time 47.6 H Urine Color SHAYLA Urine Clarity SLIGHTLY CLOUDY A Urine pH 5.0 Urine Specific [place] 1.018 Urine Ketones NEGATIVE Urine Nitrite NEGATIVE Urine Bilirubin 2+ H Urine Urobilinogen 2+ H Urine Leukocyte Esterase NEGATIVE Urine Microscopic RBC 1 Urine Microscopic WBC 33 H Urine Squamous Epithelial Cells MANY A Urine Mucus FEW A Urine Hemoglobin 1+ H Urine Glucose 1+ H Urine Total Protein 1+ H Sodium Level 137 141 Potassium Level 4.7 4.0 Chloride Level 105 109 Carbon Dioxide Level 15 L 17 L Anion Gap 22 H 19 H Blood Urea Nitrogen 18 19 Creatinine 2.87 H 2.88 H Glucose Level 105 92 Calcium Level 8.3 L 7.9 L Total Bilirubin 11.5 H 10.8 H Direct Bilirubin 9.90 H 9.20 H Indirect Bilirubin 1.6 H 1.6 H Aspartate Amino Transf (AST/SGOT) 162 H 135 H Alanine Aminotransferase (ALT/SGPT) 26 35 Alkaline Phosphatase 283 H 233 H Troponin I < 0.012 Total Protein 8.0 7.5 Albumin 3.0 L 2.6 L Globulin 5.00 H 4.90 H Albumin/Globulin Ratio 0.60 0.53 Lipase 38 Lactic Acid Level 1.2 Ammonia 32 H Thyroid Stimulating Hormone (TSH) 4.430 Medications Medications Current Medications Dextrose/Sodium Chloride (D5-1/2ns) 1,000 ml @ 100 mls/hr Q10H IV Last administered on 11/25/17at 04:10; Admin Dose 100 MLS/HR; Start 06/26/17 at 03: 30 Morphine Sulfate (morphine) 3 mg Q4H PRN IV pain; Start 06/26/17 at 03:30 Ondansetron HCl (Zofran Inj) 4 mg Q4H PRN IV NAUSEA AND/OR VOMITING; Start at 03:30 Furosemide 20 mg 20 mg DAILY IV Last administered on 06/26/17 08:13; Admin Dose 20 MG; Start 06/26/17 at 09:00 Albumin Human 100 ml @ 100 mls/hr Q8H IV Last administered on 06/26/17 05:24 ; Admin Dose 100 MLS/HR; Start 06/26/17 at 04:30; Stop 06/26/17 at 13:29 Piperacillin Sod/ Tazobactam Sod (Zosyn 2.25gm/ 50ml (Pmx)) 50 ml @ 100 mls/hr Q6 IVPB Last administered on 06/26/17 06:47; Admin Dose 100 MLS/HR; Start at 06:00 Influenza Virus Vaccine (Fluzone) 0.5 ml ONCE ONCE IM* ; Start 06/28/17 at 09: 00; Stop 06/28/17 at 09:01 Copies To: CC: FRANCINE NY MD, VICTORIA Jun 26, 2017 10:46 ABE KRISHNA Jun 26, 2017 10:46
--- NOTE | 2017-06-26 11:01 | PN ---
Date/Time of Note Date/Time of Note DATE: 06/26/17 TIME: 10:54 Assessment/Plan VTE Prophylaxis VTE Prophylaxis Intervention: ambulation Lines/Catheters IV C[facility]ter Type (from [facility]): Peripheral IV Urinary Cath still in place: No Assessment/Plan Chief Complaint/Hosp Course Assessment and plan 1. Possible cholecystitis. Surgeon following. Plan for HIDA scan. We will follow-up with results. Provide with analgesics as needed. Continue IV hydration. 2. Decompensated liver cirrhosis with ascites. Plan for paracentesis today. We will follow-up on cytology. Porcelain Enamel Repairer is following. Follow-up on hepatitis serology. Patient reportedly had been drinking alcohol regularly for 2 years. Cessation was advised. 3. Acute renal insufficiency. Will get sign shop supervisor consultation. Monitor renal panel. Medications to be renally dosed. 4. Sepsis secondary to UTI. Continue antibiotics. Follow-up on final cultures. 5. Metabolic acidosis likely secondary to acute renal insufficiency and possible UTI. Monitor. Aviation Electrical Technician follow. Disposition plan: Tentative plan for paracentesis. Follow-up on cytology. Continue in-house monitoring. Discussed plan of care with Dr. Mukherjee Problems: Subjective 24 Hr Interval Summary Free Text/Dictation Reports less abdominal pain at this time. still jaundiced with icteric sclera Exam/Review of Systems Vital Signs Vitals Vital Signs Date Time Temp Pulse Resp B/P Pulse Ox O2 Delivery O2 Flow Rate FiO2 06/26/17 08:13 98.0 16 16 101/57 95 Room Air Intake and Output 06/25/17 06/25/17 06/26/17 15:00 23:00 07:00 Intake Total 100 ml Balance 100 ml Exam Constitutional: alert, oriented Psych: nl mood/affect, no complaints Head: normocephalic Eyes: icteric Neck: non-tender, supple Respiratory: clear to auscultation, normal air movement Gastrointestinal: soft Musculoskeletal: nl extremities to inspection, nl gait and stance Extremities: normal pulses Neurological: OCCUPATIONAL THERAPY DEPARTMENT CHAIR II-XII intact, nl mental status, nl speech Skin: other (Jaundice) Results Result Diagram: 06/26/17 0443 06/26/17 0443 Results 24 hrs Laboratory Tests Test 06/25/17 17:25 06/25/17 21:21 06/26/17 04:43 White Blood Count 13.9 H 11.1 #H Red Blood Count 3.07 L 2.85 L Hemoglobin 8.8 L 8.1 L Hematocrit 27.3 L 25.3 L Mean Corpuscular Volume 88.9 88.8 Mean Corpuscular Hemoglobin 28.7 L 28.4 L Mean Corpuscular Hemoglobin Concent 32.2 32.0 Red Cell Distribution Width 21.1 H 20.7 H Platelet Count 224 203 Mean Platelet Volume 11.7 H 12.2 H Neutrophils % 81.2 H 82.5 H Lymphocytes % 8.3 L 8.5 L Monocytes % 7.8 6.5 Eosinophils % 1.1 1.0 Basophils % 0.5 0.5 Nucleated Red Blood Cells % 0.0 0.0 Neutrophils # 11.3 H 9.2 H Lymphocytes # 1.2 0.9 Monocytes # 1.1 H 0.7 Eosinophils # 0.2 0.1 Basophils # 0.1 0.1 Nucleated Red Blood Cells # 0.0 0.0 Prothrombin Time 18.2 H Prothrombin Time Ratio 1.4 INR International Normalized Ratio 1.50 Activated Partial Thromboplast Time 47.6 H Urine Color SHAYLA Urine Clarity SLIGHTLY CLOUDY A Urine pH 5.0 Urine Specific Laughlin 1.018 Urine Ketones NEGATIVE Urine Nitrite NEGATIVE Urine Bilirubin 2+ H Urine Urobilinogen 2+ H Urine Leukocyte Esterase NEGATIVE Urine Microscopic RBC 1 Urine Microscopic WBC 33 H Urine Squamous Epithelial Cells MANY A Urine Mucus FEW A Urine Hemoglobin 1+ H Urine Glucose 1+ H Urine Total Protein 1+ H Sodium Level 137 141 Potassium Level 4.7 4.0 Chloride Level 105 109 Carbon Dioxide Level 15 L 17 L Anion Gap 22 H 19 H Blood Urea Nitrogen 18 19 Creatinine 2.87 H 2.88 H Glucose Level 105 92 Calcium Level 8.3 L 7.9 L Total Bilirubin 11.5 H 10.8 H Direct Bilirubin 9.90 H 9.20 H Indirect Bilirubin 1.6 H 1.6 H Aspartate Amino Transf (AST/SGOT) 162 H 135 H Alanine Aminotransferase (ALT/SGPT) 26 35 Alkaline Phosphatase 283 H 233 H Troponin I < 0.012 Total Protein 8.0 7.5 Albumin 3.0 L 2.6 L Globulin 5.00 H 4.90 H Albumin/Globulin Ratio 0.60 0.53 Lipase 38 Lactic Acid Level 1.2 Ammonia 32 H Thyroid Stimulating Hormone (TSH) 4.430 Medications Medications Current Medications Dextrose/Sodium Chloride (D5-1/2ns) 1,000 ml @ 100 mls/hr Q10H IV Last administered on 06/26/17 04:10; Admin Dose 100 MLS/HR; Start 06/26/17 at 03: 30 Morphine Sulfate (morphine) 3 mg Q4H PRN IV pain; Start 06/26/17 at 03:30 Ondansetron HCl (Zofran Inj) 4 mg Q4H PRN IV NAUSEA AND/OR VOMITING; Start at 03:30 Furosemide 20 mg 20 mg DAILY IV Last administered on 06/26/17 08:13; Admin Dose 20 MG; Start 06/26/17 at 09:00 Albumin Human 100 ml @ 100 mls/hr Q8H IV Last administered on 06/26/17 05:24 ; Admin Dose 100 MLS/HR; Start 06/26/17 at 04:30; Stop 06/26/17 at 13:29 Piperacillin Sod/ Tazobactam Sod (Zosyn 2.25gm/ 50ml (Pmx)) 50 ml @ 100 mls/hr Q6 IVPB Last administered on 06/26/17 06:47; Admin Dose 100 MLS/HR; Start at 06:00 Influenza Virus Vaccine (Fluzone) 0.5 ml ONCE ONCE IM* ; Start 06/28/17 at 09: 00; Stop 06/28/17 at 09:01 MADAY VALDEZ Jun 26, 2017 11:01
[2017-06-26 11:06] LABS: HAAIG REFLEX REFLEX FILED
[2017-06-26 12:01] LABS: HEPATITIS B CORE ANTIBODY NEGATIVE (NEGATIVE)
[2017-06-26] MEDS: morphine 4 MG/ML VIAL IV PRN ×2 (12:18→21:55)
--- NOTE | 2017-06-26 14:50 | CONS ---
Date/Time of Note Date/Time of Note DATE: 06/26/17 TIME: 14:30 Assessment/Plan Assessment/Plan Chief Complaint/Hosp Course # BARBARA May be due to NSAID use and Bactrim. Prerenal azotemia, ATN and HRS are also possible in this clinical setting. Agree with IV hydration and albumin. Stop furosemide. Urine for sodium is pending. Monitor renal function. # Metabolic acidosis. Add NaHCO3 to IVF. # Cirrhosis with ascites. GI work up in progress # Leukocytosis. Blood and urine cultures pending, receiving antibiotics. # Anemia. Check iron studies, stool OB Problems: Consultation Date/Type/Reason Admit Date/Time Jun 26, 2017 at 00:00 Type of Consultation: Nephrology Hx of Present Illness The patient is a 47 year old female with a history of ALD/cirrhosis who was admitted with abdominal pain and jaundice. She reports that she was hospitalized at [facility] last week for a UTI. She was discharged on Bactrim, Spironolactone and Ibuprofen 600 mg. She then developed left sided abdominal pain radiating to the back. She was found on admission to have an elevated WBC, abnormal LFTs and an elevated serum creatinine level. She denies any known history of renal disease. She states that her urine out has been normal without dysuria or hematuria. Past Medical History Medical History: other (cirrhosis ) Past Surgical History Past Surgical Hx: no surgical history Family History Significant Family History: diabetes Social History Alcohol Use: heavy Smoking Status: Never smoker Drug Use: none Exam/Review of Systems Vital Signs Vitals Vital Signs Date Time Temp Pulse Resp B/P Pulse Ox O2 Delivery O2 Flow Rate FiO2 06/26/17 08:13 98.0 16 16 101/57 95 Room Air Intake and Output 06/25/17 06/25/17 06/26/17 15:00 23:00 07:00 Intake Total 200 ml Balance 200 ml Exam Constitutional: alert, oriented Head: atraumatic, normocephalic Neck: supple, No jvd Respiratory: clear to auscultation Cardiovascular: regular rate and rhythm Gastrointestinal: distended Extremities: No edema Skin: other (jaundice) Results Result Diagram: 06/26/17 0443 06/26/17 0443 Results 24 hrs Laboratory Tests Test 06/25/17 17:25 06/25/17 21:21 06/26/17 04:43 White Blood Count 13.9 H 11.1 #H Red Blood Count 3.07 L 2.85 L Hemoglobin 8.8 L 8.1 L Hematocrit 27.3 L 25.3 L Mean Corpuscular Volume 88.9 88.8 Mean Corpuscular Hemoglobin 28.7 L 28.4 L Mean Corpuscular Hemoglobin Concent 32.2 32.0 Red Cell Distribution Width 21.1 H 20.7 H Platelet Count 224 203 Mean Platelet Volume 11.7 H 12.2 H Neutrophils % 81.2 H 82.5 H Lymphocytes % 8.3 L 8.5 L Monocytes % 7.8 6.5 Eosinophils % 1.1 1.0 Basophils % 0.5 0.5 Nucleated Red Blood Cells % 0.0 0.0 Neutrophils # 11.3 H 9.2 H Lymphocytes # 1.2 0.9 Monocytes # 1.1 H 0.7 Eosinophils # 0.2 0.1 Basophils # 0.1 0.1 Nucleated Red Blood Cells # 0.0 0.0 Prothrombin Time 18.2 H Prothrombin Time Ratio 1.4 INR International Normalized Ratio 1.50 Activated Partial Thromboplast Time 47.6 H Urine Color SHAYLA Urine Clarity SLIGHTLY CLOUDY A Urine pH 5.0 Urine Specific Mallory 1.018 Urine Ketones NEGATIVE Urine Nitrite NEGATIVE Urine Bilirubin 2+ H Urine Urobilinogen 2+ H Urine Leukocyte Esterase NEGATIVE Urine Microscopic RBC 1 Urine Microscopic WBC 33 H Urine Squamous Epithelial Cells MANY A Urine Mucus FEW A Urine Hemoglobin 1+ H Urine Glucose 1+ H Urine Total Protein 1+ H Sodium Level 137 141 Potassium Level 4.7 4.0 Chloride Level 105 109 Carbon Dioxide Level 15 L 17 L Anion Gap 22 H 19 H Blood Urea Nitrogen 18 19 Creatinine 2.87 H 2.88 H Glucose Level 105 92 Calcium Level 8.3 L 7.9 L Total Bilirubin 11.5 H 10.8 H Direct Bilirubin 9.90 H 9.20 H Indirect Bilirubin 1.6 H 1.6 H Aspartate Amino Transf (AST/SGOT) 162 H 135 H Alanine Aminotransferase (ALT/SGPT) 26 35 Alkaline Phosphatase 283 H 233 H Troponin I < 0.012 Total Protein 8.0 7.5 Albumin 3.0 L 2.6 L Globulin 5.00 H 4.90 H Albumin/Globulin Ratio 0.60 0.53 Lipase 38 Lactic Acid Level 1.2 Ammonia 32 H Thyroid Stimulating Hormone (TSH) 4.430 Hepatitis B Surface Antigen NEGATIVE Hepatitis B Core Total Antibody NEGATIVE Hepatitis C Antibody NEGATIVE Medications Medications Current Medications Dextrose/Sodium Chloride (D5-1/2ns) 1,000 ml @ 100 mls/hr Q10H IV Last administered on 06/26/17 04:10; Admin Dose 100 MLS/HR; Start 06/26/17 at 03: 30 Morphine Sulfate (morphine) 3 mg Q4H PRN IV pain Last administered on 12:18; Admin Dose 3 MG; Start 06/26/17 at 03:30 Ondansetron HCl (Zofran Inj) 4 mg Q4H PRN IV NAUSEA AND/OR VOMITING; Start at 03:30 Furosemide 20 mg 20 mg DAILY IV Last administered on 06/26/17 08:13; Admin Dose 20 MG; Start 06/26/17 at 09:00 Piperacillin Sod/ Tazobactam Sod (Zosyn 2.25gm/ 50ml (Pmx)) 50 ml @ 100 mls/hr Q6 IVPB Last administered on 06/26/17 12:11; Admin Dose 100 MLS/HR; Start at 06:00 Influenza Virus Vaccine (Fluzone) 0.5 ml ONCE ONCE IM* ; Start 06/28/17 at 09: 00; Stop 06/28/17 at 09:01 MARY ROY MD Jun 26, 2017 14:40
[2017-06-26 15:45] VITALS: BP 95/52; RESP 18
[2017-06-26] MEDS: SODIUM BICARBONATE (IV ADD) 100 MEQ in DEXTROSE 5% 900 ML IV SCH (16:38)
--- NOTE | 2017-06-26 17:40 | RADRPT ---
PROCEDURE: Ultrasound four quadrants CLINICAL INDICATION: Abdominal distension. Evaluate for ascites for diagnostic paracentesis. TECHNIQUE: Sonographic evaluation of the four quadrants of the abdomen was performed. [place]anilla-scale imaging was utilized. Images were reviewed on a high-resolution PACS workstation. COMPARISON: Ultrasound dated 06/25/2017 FINDINGS: Small amount of ascites is seen. The deepest fluid pocket measures less than 2 cm. No safe window was identified for paracentesis in all 4 quadrants of the abdomen despite using posit ional maneuvers to collect the fluid in 1 area. Paracentesis was declined due to risk of bowel perforation IMPRESSION: 1. Small ascites. 2. Paracentesis was declined due to not having a safe window to perform the procedure. RPTAT: QQ .Aston Lock MD, Date Time Electronically viewed and signed by .Aston Lock MD, on 06/26/2017 11:54 .M/
[2017-06-26 19:20] VITALS: BP 94/57; RESP 18
[2017-06-27 02:05] VITALS: BP 98/55; RESP 18
[2017-06-27] MEDS: SODIUM BICARBONATE (IV ADD) 100 MEQ in DEXTROSE 5% 900 ML IV SCH ×3 (03:39→22:00)
[2017-06-27 05:59] LABS: BASOPHIL # 0.1 10^3/ul (0.0-0.1); BASOPHILS % 0.6 % (0.0-2.0); EOSINOPHILS # 0.1 10^3/ul (0.0-0.5); EOSINOPHILS % 1.4 % (0.0-7.0); HEMATOCRIT 21.9 % (37.0-47.0); HEMOGLOBIN 7.1 g/dl (12.0-16.0); LYMPHOCYTES # 0.9 10^3/ul (0.8-2.9); LYMPHOCYTES % 9.7 % (15.0-51.0); MEAN CORPUSCULAR HEMOGLOBIN 28.5 pg (29.0-33.0); MEAN CORPUSCULAR HGB CONC 32.4 g/dl (32.0-37.0); MONOCYTE # 0.8 10^3/ul (0.3-0.9); MONOCYTES % 8.9 % (0.0-11.0); NEUTROPHIL # 7.3 10^3/ul (1.6-7.5); NEUTROPHILS % 78.5 % (39.0-77.0); PLATELET COUNT 176 10^3/UL (140-415); RED BLOOD COUNT 2.49 10^6/ul (4.20-5.40); RED CELL DISTRIBUTION WIDTH 20.3 % (11.5-14.5); WHITE BLOOD COUNT 9.4 10^3/ul (4.8-10.8)
[2017-06-27 06:27] LABS: MAGNESIUM 2.3 mg/dl (1.7-2.5)
[2017-06-27 06:28] LABS: ALBUMIN 2.8 g/dl (3.3-4.9); ALBUMIN/GLOBULIN RATIO 0.65; BILIRUBIN,DIRECT 9.5 mg/dl (0.00-0.20); BILIRUBIN,INDIRECT 1.8 mg/dl (0-1.1); BILIRUBIN,TOTAL 11.3 mg/dl (0.2-1.3); CALCIUM 7.4 mg/dl (8.4-10.2); CREATININE 3.23 mg/dl (0.44-1.00); POTASSIUM 3.8 mmol/L (3.5-5.1); TOTAL PROTEIN 7.1 g/dl (6.1-8.1)
[2017-06-27 06:34] LABS: IRON 43 ug/dl (35-150)
[2017-06-27 06:43] LABS: TOTAL IRON BINDING CAPACITY 265 ug/dl (241-421)
[2017-06-27] MEDS: PIPER-TAZO 2.25 GM (PMX) 50 ML IVPB SCH ×3 (06:53→17:23)
[2017-06-27 07:21] VITALS: BP 99/59; RESP 18
--- NOTE | 2017-06-27 09:42 | PN ---
Date/Time of Note Date/Time of Note DATE: 06/27/17 TIME: 09:41 Assessment/Plan Lines/Catheters IV Catheter Type (from [facility]): Peripheral IV Vega in Place (from [facility]): No Assessment/Plan Chief Complaint/Hosp Course The patient is a 47-year-old female with known cirrhosis, ascites and splenomegaly. She is here because of new onset of jaundice. She has been jaundiced in the past. Imaging here shows splenomegaly with portal hypertension and increased ascites. The gallbladder is slightly thickened with some gallbladder sludge. Common duct dilatation is not noted. She has had no fevers or chills. Problems: Assessment/Plan Pending blood transfusion today HIDA scan tomorrow Subjective 24 Hr Interval Summary Patient states that she is more comfortable today Hematocrit is down to 21 Exam/Review of Systems Vital Signs Vitals Vital Signs Date Time Temp Pulse Resp B/P Pulse Ox O2 Delivery O2 Flow Rate FiO2 06/27/17 07:21 98.1 89 18 99/59 92 06/26/17 08:13 Room Air Intake and Output 06/26/17 06/26/17 06/27/17 15:00 23:00 07:00 Intake Total 200 ml 1050 ml 1150 ml Output Total 300 ml Balance 200 ml 1050 ml 850 ml Results Result Diagram: 06/27/17 0425 06/27/17 0425 GEO NAVARRO MD Jun 27, 2017 09:42
--- NOTE | 2017-06-27 10:48 | PN ---
Date/Time of Note Date/Time of Note DATE: 06/27/17 TIME: 10:44 Assessment/Plan VTE Prophylaxis VTE Prophylaxis Intervention: SCD's Lines/Catheters IV Catheter Type (from [facility]): Peripheral IV Urinary Cath still in place: No Assessment/Plan Chief Complaint/Hosp Course Assessment and plan 1. Possible cholecystitis. Surgeon following. Plan for HIDA scan. We will follow-up with results. Provide with analgesics as needed. Continue IV hydration. 2. Decompensated liver cirrhosis with ascites. Paracentesis was held due to small ascites. We will follow-up on cytology once paracentesis performed . Urology Nurse is following. hepatitis serology so far negative. Patient reportedly had been drinking alcohol regularly for 2 years. Cessation was advised. 3. Acute renal insufficiency. Will get second time worker consultation. Monitor renal panel. Medications to be renally dosed. 4. Sepsis secondary to UTI. Continue antibiotics. Follow-up on final cultures. 5. Metabolic acidosis likely secondary to acute renal insufficiency and possible UTI. Monitor. Geriatric Nurse follow. Disposition plan: awaiting HIDA scan. follow up with surgeon recs. more anemic today. f/u repeat H&H and transfuse blood products as needed. Discussed plan of care with Dr. Mukherjee Problems: Subjective 24 Hr Interval Summary Free Text/Dictation no reports of abd pain a this time Exam/Review of Systems Vital Signs Vitals Vital Signs Date Time Temp Pulse Resp B/P Pulse Ox O2 Delivery O2 Flow Rate FiO2 06/27/17 07:21 98.1 89 18 99/59 92 06/26/17 08:13 Room Air Intake and Output 06/26/17 06/26/17 06/27/17 15:00 23:00 07:00 Intake Total 200 ml 1050 ml 1150 ml Output Total 300 ml Balance 200 ml 1050 ml 850 ml Exam Constitutional: alert, oriented Psych: nl mood/affect, no complaints Head: normocephalic Eyes: icteric Neck: non-tender, supple Respiratory: clear to auscultation, normal air movement Gastrointestinal: soft minimally distended Musculoskeletal: nl extremities to inspection, nl gait and stance Extremities: normal pulses Neurological: AUDIT PRACTICE INTERN II-XII intact, nl mental status, nl speech Skin: other (Jaundice) Results Result Diagram: 06/27/175 06/27/175 Results 24 hrs Laboratory Tests Test 06/27/17 04:25 White Blood Count 9.4 Red Blood Count 2.49 L Hemoglobin 7.1 L Hematocrit 21.9 L Mean Corpuscular Volume 88.0 Mean Corpuscular Hemoglobin 28.5 L Mean Corpuscular Hemoglobin Concent 32.4 Red Cell Distribution Width 20.3 H Platelet Count 176 Mean Platelet Volume 12.0 H Neutrophils % 78.5 H Lymphocytes % 9.7 L Monocytes % 8.9 Eosinophils % 1.4 Basophils % 0.6 Nucleated Red Blood Cells % 0.0 Neutrophils # 7.3 Lymphocytes # 0.9 Monocytes # 0.8 Eosinophils # 0.1 Basophils # 0.1 Nucleated Red Blood Cells # 0.0 Sodium Level 139 Potassium Level 3.8 Chloride Level 105 Carbon Dioxide Level 21 Anion Gap 17 H Blood Urea Nitrogen 20 Creatinine 3.23 H Glucose Level 96 Calcium Level 7.4 L Phosphorus Level 5.0 H Magnesium Level 2.3 Iron Level 43 Total Iron Binding Capacity 265 Percent Iron Saturation 16 L Ferritin 24.9 Total Bilirubin 11.3 H Direct Bilirubin 9.50 H Indirect Bilirubin 1.8 H Aspartate Amino Transf (AST/SGOT) 133 H Alanine Aminotransferase (ALT/SGPT) 30 Alkaline Phosphatase 200 H Total Protein 7.1 Albumin 2.8 L Globulin 4.30 H Albumin/Globulin Ratio 0.65 Medications Medications Current Medications Morphine Sulfate (morphine) 3 mg Q4H PRN IV pain Last administered on 21:55; Admin Dose 3 MG; Start 06/26/17 at 03:30 Ondansetron HCl 4 mg 4 mg Q4H PRN IV NAUSEA AND/OR VOMITING; Start 06/26/17 at 03:30 Piperacillin Sod/ Tazobactam Sod (Zosyn 2.25gm/ 50ml (Pmx)) 50 ml @ 100 mls/hr Q6 IVPB Last administered on 06/27/17 06:53; Admin Dose 100 MLS/HR; Start at 06:00 Influenza Virus Vaccine 0.5 ml 0.5 ml ONCE ONCE IM* ; Start 06/28/17 at 09:00; Stop 06/28/17 at 09:01 Sodium Bicarbonate/ Dextrose (Na Bicarb/D5W) 1,000 ml @ 100 mls/hr Q10H IV Last administered on 06/27/17 03:39; Admin Dose 100 MLS/HR; Start 06/26/17 at 16:00 MADAY VALDEZ Jun 27, 2017 10:48
--- NOTE | 2017-06-27 11:03 | PN ---
Date/Time of Note Date/Time of Note DATE: 06/27/17 TIME: 11:01 Assessment/Plan VTE Prophylaxis VTE Prophylaxis Intervention: SCD's Lines/Catheters IV [facility] Type (from [facility]): Peripheral IV Urinary Cath still in place: No Assessment/Plan Chief Complaint/Hosp Course Summary Assessment and Plan: Assessment: Questionable acute cholecystitis Decompensated alcoholic liver cirrhosis with ascites Acute kidney injury Sepsis Metabolic acidosis Plan: DF 33.8- with questionable cholecystitis- will not start steroids Paracentesis- canceled to do small amount of fluid HIDA scan- pending Hgb dropped repeat h/h has been ordered, transfuse as needed May need EGD in near future Alcohol cessation discussed Further recommendations based on clinical course. Patient seen in collaboration with Dr. Ny Subjective: Course reviewed with nursing staff Patient interviewed and examined All labs, imaging and other results reviewed The patient continue to c/o LUQ pain, during examination pt also c/o epigastric pain with palpation. Will continue pain management, and an order has been placed to recheck h/h, will transfuse as needed. Pt may need EGD in near future. PHYSICAL EXAMINATION: GENERAL: Well developed, well nourished, alert & oriented x 3, in no acute distress, forgetful SKIN: No lesions, no stigmata chronic liver disease, no evidence of bleeding diathesis, jaundice LYMPHATIC: No palpable lymphadenopathy. HEAD: Normocephalic, atraumatic, no tenderness. EYES: Pupils equal reactive to light and accommodation, full extraocular movements, sclera clear, icteric, no discharge. EARS/NOSE AND THROAT: Ears normal, nose normal, NECK: Supple, CHEST: Inspection within normal limits. CARDIOVASCULAR: Heart: Regular rate and rhythm,. RESPIRATORY: Lungs clear to auscultation GASTROINTESTINAL AND LIVER: Abdomen: Soft, non tenderness, non-distended, no hernias, no masses, moderate ascites, splenomegaly, no guarding, no rebound tenderness, normoactive bowel sounds. Rectal: Deferred. GENITOURINARY: Female genitalia within normal limits. EXTREMITIES: No cyanosis, clubbing or edema. Problems: Exam/Review of Systems Vital Signs Vitals Vital Signs Date Time Temp Pulse Resp B/P Pulse Ox O2 Delivery O2 Flow Rate FiO2 06/27/17 07:21 98.1 89 18 99/59 92 06/26/17 08:13 Room Air Intake and Output 06/26/17 06/26/17 06/27/17 14:59 22:59 06:59 Intake Total 200 ml 1050 ml 1150 ml Output Total 300 ml Balance 200 ml 1050 ml 850 ml Results Result Diagram: 06/27/17 0425 06/27/17 0425 Results 24 hrs Laboratory Tests Test 06/27/17 04:25 White Blood Count 9.4 Red Blood Count 2.49 L Hemoglobin 7.1 L Hematocrit 21.9 L Mean Corpuscular Volume 88.0 Mean Corpuscular Hemoglobin 28.5 L Mean Corpuscular Hemoglobin Concent 32.4 Red Cell Distribution Width 20.3 H Platelet Count 176 Mean Platelet Volume 12.0 H Neutrophils % 78.5 H Lymphocytes % 9.7 L Monocytes % 8.9 Eosinophils % 1.4 Basophils % 0.6 Nucleated Red Blood Cells % 0.0 Neutrophils # 7.3 Lymphocytes # 0.9 Monocytes # 0.8 Eosinophils # 0.1 Basophils # 0.1 Nucleated Red Blood Cells # 0.0 Sodium Level 139 Potassium Level 3.8 Chloride Level 105 Carbon Dioxide Level 21 Anion Gap 17 H Blood Urea Nitrogen 20 Creatinine 3.23 H Glucose Level 96 Calcium Level 7.4 L Phosphorus Level 5.0 H Magnesium Level 2.3 Iron Level 43 Total Iron Binding Capacity 265 Percent Iron Saturation 16 L Ferritin 24.9 Total Bilirubin 11.3 H Direct Bilirubin 9.50 H Indirect Bilirubin 1.8 H Aspartate Amino Transf (AST/SGOT) 133 H Alanine Aminotransferase (ALT/SGPT) 30 Alkaline Phosphatase 200 H Total Protein 7.1 Albumin 2.8 L Globulin 4.30 H Albumin/Globulin Ratio 0.65 Medications Medications Current Medications Morphine Sulfate (morphine) 3 mg Q4H PRN IV pain Last administered on 21:55; Admin Dose 3 MG; Start 06/26/17 at 03:30 Ondansetron HCl 4 mg 4 mg Q4H PRN IV NAUSEA AND/OR VOMITING; Start 06/26/17 at 03:30 Piperacillin Sod/ Tazobactam Sod (Zosyn 2.25gm/ 50ml (Pmx)) 50 ml @ 100 mls/hr Q6 IVPB Last administered on 06/27/17 06:53; Admin Dose 100 MLS/HR; Start at 06:00 Influenza Virus Vaccine 0.5 ml 0.5 ml ONCE ONCE IM* ; Start 06/28/17 at 09:00; Stop 06/28/17 at 09:01 Sodium Bicarbonate/ Dextrose (Na Bicarb/D5W) 1,000 ml @ 100 mls/hr Q10H IV Last administered on 06/27/17t 03:39; Admin Dose 100 MLS/HR; Start 06/26/17 at 16:00 Ferrous Sulfate (Ferrous Sulfate (Ec)) 325 mg BID PO ; Start 06/27/17 at 21:00 ABE KRISHNA Jun 27, 2017 11:03
[2017-06-27] MEDS: morphine 4 MG/ML VIAL IV PRN ×3 (11:04→22:19)
[2017-06-27 11:12] LABS: INR 1.66; PROTIME 19.7 Sec (12.2-14.2); PT RATIO 1.5
[2017-06-27 14:36] LABS: HEMATOCRIT 22.8 % (37.0-47.0); HEMOGLOBIN 7.4 g/dl (12.0-16.0)
--- NOTE | 2017-06-27 14:47 | CONS ---
Date/Time of Note Date/Time of Note DATE: 06/27/17 TIME: 14:45 Assessment/Plan Assessment/Plan Chief Complaint/Hosp Course # BARBARA May be due to NSAID use and Bactrim. Prerenal azotemia, ATN and HRS are also possible in this clinical setting. Creatinine is higher today. Quoc pending. continue IVF and albumin. If no renal improvement and low Quoc, start Midodrine and Otreotide. # Metabolic acidosis. Improved # Cirrhosis with ascites. GI work up in progress # Leukocytosis. Blood and urine cultures negative so far, receiving antibiotics. # Anemia. r/o GI blood loss. stool OB is pending. Problems: Consultation Date/Type/Reason Admit Date/Time Jun 26, 2017 at 00:00 Initial Consult Date 06/26/17 Type of Consultation: Nephrology 24 HR Interval Summary Free Text/Dictation Complains of intermittent Left sided abdominal pain Exam/Review of Systems Vital Signs Vitals Vital Signs Date Time Temp Pulse Resp B/P Pulse Ox O2 Delivery O2 Flow Rate FiO2 06/27/17 07:21 98.1 89 18 99/59 92 06/26/17 08:13 Room Air Intake and Output 06/26/17 06/26/17 06/27/17 15:00 23:00 07:00 Intake Total 200 ml 1050 ml 1150 ml Output Total 300 ml Balance 200 ml 1050 ml 850 ml Exam Constitutional: alert Head: atraumatic, normocephalic Neck: No jvd Respiratory: clear to auscultation Cardiovascular: regular rate and rhythm Gastrointestinal: distended, tender (mild left sided tenderness, no rebound) Extremities: No edema Results Result Diagram: 06/27/17 1412 06/27/17 0425 Results 24 hrs Laboratory Tests Test 06/27/17 04:25 06/27/17 10:12 06/27/17 14:12 White Blood Count 9.4 Red Blood Count 2.49 L Hemoglobin 7.1 L 7.4 L Hematocrit 21.9 L 22.8 L Mean Corpuscular Volume 88.0 Mean Corpuscular Hemoglobin 28.5 L Mean Corpuscular Hemoglobin Concent 32.4 Red Cell Distribution Width 20.3 H Platelet Count 176 Mean Platelet Volume 12.0 H Neutrophils % 78.5 H Lymphocytes % 9.7 L Monocytes % 8.9 Eosinophils % 1.4 Basophils % 0.6 Nucleated Red Blood Cells % 0.0 Neutrophils # 7.3 Lymphocytes # 0.9 Monocytes # 0.8 Eosinophils # 0.1 Basophils # 0.1 Nucleated Red Blood Cells # 0.0 Sodium Level 139 Potassium Level 3.8 Chloride Level 105 Carbon Dioxide Level 21 Anion Gap 17 H Blood Urea Nitrogen 20 Creatinine 3.23 H Glucose Level 96 Calcium Level 7.4 L Phosphorus Level 5.0 H Magnesium Level 2.3 Iron Level 43 Total Iron Binding Capacity 265 Percent Iron Saturation 16 L Ferritin 24.9 Total Bilirubin 11.3 H Direct Bilirubin 9.50 H Indirect Bilirubin 1.8 H Aspartate Amino Transf (AST/SGOT) 133 H Alanine Aminotransferase (ALT/SGPT) 30 Alkaline Phosphatase 200 H Total Protein 7.1 Albumin 2.8 L Globulin 4.30 H Albumin/Globulin Ratio 0.65 Prothrombin Time 19.7 H Prothrombin Time Ratio 1.5 INR International Normalized Ratio 1.66 Medications Medications Current Medications Morphine Sulfate (morphine) 3 mg Q4H PRN IV pain Last administered on 11:04; Admin Dose 3 MG; Start 06/26/17 at 03:30 Ondansetron HCl 4 mg 4 mg Q4H PRN IV NAUSEA AND/OR VOMITING; Start 06/26/17 at 03:30 Piperacillin Sod/ Tazobactam Sod (Zosyn 2.25gm/ 50ml (Pmx)) 50 ml @ 100 mls/hr Q6 IVPB Last administered on 06/27/17 12:03; Admin Dose 100 MLS/HR; Start at 06:00 Influenza Virus Vaccine 0.5 ml 0.5 ml ONCE ONCE IM* ; Start 06/28/17 at 09:00; Stop 06/28/17 at 09:01 Sodium Bicarbonate/ Dextrose (Na Bicarb/D5W) 1,000 ml @ 100 mls/hr Q10H IV Last administered on 06/27/17 13:05; Admin Dose 100 MLS/HR; Start 06/26/17 at 16:00 Ferrous Sulfate (Ferrous Sulfate (Ec)) 325 mg BID PO ; Start 06/27/17 at 21:00 Pantoprazole (Protonix Iv) 40 mg DAILY@06 IV ; Start 06/28/17 at 06:00 Lactulose (Enulose) 20 gm DAILY PRN PO CONSTIPATION; Start 11/26/17 at 14:30 MARY ROY MD Jun 27, 2017 14:47
[2017-06-27 15:06] LABS: COLLECTION PERIOD 24 hrs
[2017-06-27] MEDS: ALBUMIN HUMAN 25% 100 ML IV SCH ×2 (15:24→23:07)
[2017-06-27 19:15] VITALS: BP 109/64; RESP 16
[2017-06-27] MEDS: FERROUS SULFATE (EC) 325 MG TAB PO SCH (21:46)
[2017-06-27] MEDS: LACTULOSE 30ML CUP PO PRN (21:46)
[2017-06-27] MEDS: ONDANSETRON 4 MG INJ IV PRN (22:19)
[2017-06-28] MEDS: PIPER-TAZO 2.25 GM (PMX) 50 ML IVPB SCH ×5 (00:30→23:56)
[2017-06-28 02:10] VITALS: BP 108/59; RESP 16
[2017-06-28] MEDS: SODIUM BICARBONATE (IV ADD) 100 MEQ in DEXTROSE 5% 900 ML IV SCH ×4 (03:56→22:37)
--- NOTE | 2017-06-28 06:19 | RADRPT ---
PROCEDURE: XR Abdomen. CLINICAL INDICATION: Abdominal distension TECHNIQUE: AP abdomen x-ray. COMPARISON: CT from 06/25/2017 FINDINGS: Slightly coarse lung markings of the visualized lung bases. Marked splenomegaly. No gross evidence f or bowel obstruction. Relatively gasless abdomen which is likely due to the underlying ascites. Rect al air is seen. No gross acute bony abnormality.. IMPRESSION: Splenomegaly and known underlying ascites. No gross bowel obstruction. RPTAT: [facility] Physician Roshni Date Time Electronically viewed and signed by Lucy Zayas Physician on 06/28/2017 06:18 LE/
[2017-06-28] MEDS: PANTOPRAZOLE 40 MG INJ IV SCH (06:37)
[2017-06-28] MEDS: ALBUMIN HUMAN 25% 100 ML IV SCH (07:09)
[2017-06-28 07:29] VITALS: BP 105/58; RESP 20
--- NOTE | 2017-06-28 08:09 | CONS ---
Date/Time of Note Date/Time of Note DATE: 06/28/17 TIME: 07:58 Assessment/Plan Assessment/Plan Chief Complaint/Hosp Course 1. Acute renal failure. The patient's serum creatinine is slightly higher than yesterday; however, her urine output has increased from 400 to 800 cc. This is a good sign that the patient could be in a recovery phase of ATN. The other consideration is that she has either prerenal azotemia and or hepatorenal syndrome. Her urine sodium is low which would be consistent with hepatorenal syndrome however if her urine output continues to increase then that would be against the diagnosis of hepatorenal syndrome. I have asked the nurses to do strict I&O's. Will continue current IV fluids of D5W with sodium bicarbonate. 2. Cirrhosis of the liver with high bilirubin, low albumin. Coagulopathy 3. Left upper quadrant abdominal pain 4. Anemia , consider blood transfusion. 5. Will try to get records from [facility] emergency room prior to this admission. Problems: Consultation Date/Type/Reason Admit Date/Time Jun 26, 2017 at 00:00 Initial Consult Date 06/26/17 Type of Consultation: Nephrology 24 HR Interval Summary Free Text/Dictation This patient is being seen today for acute renal failure. The patient says that she feels better today. She still has some left upper quadrant abdominal pain. According to the nurses history from Wednesday when the patient came in she was at [facility] emergency room and they sent her home with prescriptions for ibuprofen, Aldactone, folic acid and vitamin B12 Constitutional: improved Exam/Review of Systems Vital Signs Vitals Vital Signs Date Time Temp Pulse Resp B/P Pulse Ox O2 Delivery O2 Flow Rate FiO2 06/28/17 07:29 98.1 84 20 105/58 96 06/26/17 08:13 Room Air Intake and Output 06/27/17 06/27/17 06/28/17 15:00 23:00 07:00 Intake Total 900 ml 550 ml 850 ml Output Total 300 ml 500 ml Balance 900 ml 250 ml 350 ml Exam Constitutional: alert, oriented Neck: non-tender, supple Respiratory: clear to auscultation, normal air movement Cardiovascular: regular rate and rhythm Gastrointestinal: distended, soft, tender Musculoskeletal: nl extremities to inspection Results Result Diagram: 06/27/17 1412 06/27/17 0425 Results 24 hrs Laboratory Tests Test 06/27/17 10:12 06/27/17 14:12 06/27/17 15:00 Prothrombin Time 19.7 H Prothrombin Time Ratio 1.5 INR International Normalized Ratio 1.66 Hemoglobin 7.4 L Hematocrit 22.8 L Urine Collection Duration 24 Urine Total Volume (Sodium) 500 Urine Sodium 24 Hour < 26 L Medications Medications Current Medications Morphine Sulfate (morphine) 3 mg Q4H PRN IV pain Last administered on 22:19; Admin Dose 3 MG; Start 06/26/17 at 03:30 Ondansetron HCl 4 mg 4 mg Q4H PRN IV NAUSEA AND/OR VOMITING Last administered on 06/27/17 22:19; Admin Dose 4 MG; Start 06/26/17 at 03:30 Piperacillin Sod/ Tazobactam Sod (Zosyn 2.25gm/ 50ml (Pmx)) 50 ml @ 100 mls/hr Q6 IVPB Last administered on 06/28/17 06:35; Admin Dose 100 MLS/HR; Start at 06:00 Influenza Virus Vaccine 0.5 ml 0.5 ml ONCE ONCE IM* ; Start 06/28/17 at 09:00; Stop 06/28/17 at 09:01 Sodium Bicarbonate/ Dextrose (Na Bicarb/D5W) 1,000 ml @ 100 mls/hr Q10H IV Last administered on 06/28/17 03:56; Admin Dose 100 MLS/HR; Start 06/26/17 at 16:00 Ferrous Sulfate (Ferrous Sulfate (Ec)) 325 mg BID PO Last administered on 06/27 21:46; Admin Dose 325 MG; Start 06/27/17 at 21:00 Pantoprazole (Protonix Iv) 40 mg DAILY@06 IV Last administered on 06/28/17 06 :37; Admin Dose 40 MG; Start 06/28/17 at 06:00 Lactulose 20 gm 20 gm DAILY PRN PO CONSTIPATION Last administered on 21:46; Admin Dose 20 GM; Start 06/27/17 at 14:30 Albumin Human (Albumin Human 25%) 100 ml @ 100 mls/hr Q8H IV Last administered on 06/28/17 07:09; Admin Dose 100 MLS/HR; Start 06/27/17 at 15: 00; Stop 06/28/17 at 07:59 PERLA VANESSA MD Jun 28, 2017 08:09
[2017-06-28] MEDS: FERROUS SULFATE (EC) 325 MG TAB PO SCH ×2 (08:35→21:59)
[2017-06-28] MEDS ORDERED: INFLUENZA VIRUS VACCINE 0.5 ML (DISPENSING) IM* ONE (09:00)
[2017-06-28 09:29] LABS: BASOPHILS % 0.3 % (0.0-2.0); EOSINOPHILS # 0.2 10^3/ul (0.0-0.5); EOSINOPHILS % 1.4 % (0.0-7.0); HEMATOCRIT 27.9 % (37.0-47.0); HEMOGLOBIN 9.3 g/dl (12.0-16.0); LYMPHOCYTES % 8.4 % (15.0-51.0); MEAN CORPUSCULAR HGB CONC 33.3 g/dl (32.0-37.0); MEAN CORPUSCULAR VOLUME 86.9 fl (82.0-101.0); MEAN PLATELET VOLUME 12.2 fl (7.4-10.4); MONOCYTE # 0.9 10^3/ul (0.3-0.9); NEUTROPHIL # 9.4 10^3/ul (1.6-7.5); NEUTROPHILS % 80.9 % (39.0-77.0); PLATELET COUNT 159 10^3/UL (140-415); RED BLOOD COUNT 3.21 10^6/ul (4.20-5.40); RED CELL DISTRIBUTION WIDTH 19.6 % (11.5-14.5); WHITE BLOOD COUNT 11.6 10^3/ul (4.8-10.8)
--- NOTE | 2017-06-28 09:43 | PN ---
Date/Time of Note Date/Time of Note DATE: 06/28/17 TIME: 09:42 Assessment/Plan VTE Prophylaxis VTE Prophylaxis Intervention: SCD's Lines/Catheters IV Catheter Type (from [facility]): Saline Lock Urinary Cath still in place: No Assessment/Plan Chief Complaint/Hosp Course 1. Suspected acute cholecystitis. CT abdomen showing gallbladder wall thickening versus pericholecystic with gallstones versus sludge. Gallbladder ultrasound showing gallbladder sludge with moderate gallbladder wall thickening and pericholecystic fluid. On empiric antibiotics. Pending HIDA scan. Being followed by gastroenterology and general surgery. 2. Decompensated alcoholic liver cirrhosis with ascites and portal hypertension. Continue lactulose. Unable to use diuretics because of underlying worsening renal function. 3. Acute kidney injury. Etiology unclear. Continue IV hydration and albumin. Stop diuretics at this time. 4. Metabolic acidosis. Most probably secondary to underlying worsening renal function. Management as per nephrology. 5. Anemia. Normocytic, normochromic. Probably secondary to underlying end- stage liver disease. Iron panel showing low iron saturation. Status post 2 units of PRBC transfusion. 6. Transaminitis with hyperbilirubinemia. Most probably secondary to #1 and # 2. Avoid hepatotoxic medications. Being followed by gastroenterology. 7. Positive urinalysis on admission. Urine culture negative. No current evidence of any underlying sepsis. 8. Fluids, electrolytes, and nutrition. NPO except for medications. 9. DVT prophylaxis. Bilateral sequential compression devices. 10. Plan. Await HIDA scan results. Trend LFTs. Follow recommendations from gastroenterology and general surgery. Case discussed with Dr. Dneg. Problems: Subjective 24 Hr Interval Summary Free Text/Dictation Denies any abdominal pain. Exam/Review of Systems Vital Signs Vitals Vital Signs Date Time Temp Pulse Resp B/P Pulse Ox O2 Delivery O2 Flow Rate FiO2 06/28/17 07:29 98.1 84 20 105/58 96 06/26/17 08:13 Room Air Intake and Output 06/27/17 06/27/17 06/28/17 14:59 22:59 06:59 Intake Total 900 ml 550 ml 850 ml Output Total 300 ml 500 ml Balance 900 ml 250 ml 350 ml Exam General: Adequately build 47 year-old female lying in bed in no apparent distress. HEENT: Normocephalic, atraumatic. Eyes: Icteric sclerae, conjunctivae clear. ENT : Nasal septum midline, oral mucosa moist. Neck supple, no JVD noticed. Respiratory: Bilaterally diminished breath sounds. No use of accessory muscles of respiration. No adventitious breath sounds. Cardiovascular: S1, S2 heard. Regular rate and rhythm. Abdomen: Soft. Bowel sounds positive in all 4 quadrants. Minimal distention. Left upper quadrant tenderness. Genitourinary: Deferred. Extremities: No cyanosis, no clubbing. Peripheral pulses palpable. Neurologic: Cranial nerves II through XII grossly intact. The patient is awake, alert, and oriented. Skin: Normal skin turgor. No skin rashes. Icterus. Results Result Diagram: 06/28/17 0843 06/27/17 0425 Results 24 hrs Laboratory Tests Test 06/27/17 10:12 06/27/17 14:12 06/27/17 15:00 06/28/17 08:43 Prothrombin Time 19.7 H Prothrombin Time Ratio 1.5 INR International Normalized Ratio 1.66 Hemoglobin 7.4 L 9.3 #L Hematocrit 22.8 L 27.9 #L Urine Collection Duration 24 Urine Total Volume (Sodium) 500 Urine Sodium 24 Hour < 26 L White Blood Count 11.6 #H Red Blood Count 3.21 #L Mean Corpuscular Volume 86.9 Mean Corpuscular Hemoglobin 29.0 Mean Corpuscular Hemoglobin Concent 33.3 Red Cell Distribution Width 19.6 H Platelet Count 159 Mean Platelet Volume 12.2 H Neutrophils % 80.9 H Lymphocytes % 8.4 L Monocytes % 8.0 Eosinophils % 1.4 Basophils % 0.3 Nucleated Red Blood Cells % 0.0 Neutrophils # 9.4 H Lymphocytes # 1.0 Monocytes # 0.9 Eosinophils # 0.2 Basophils # 0.0 Nucleated Red Blood Cells # 0.0 Medications Medications Current Medications Morphine Sulfate (morphine) 3 mg Q4H PRN IV pain Last administered on 22:19; Admin Dose 3 MG; Start 06/26/17 at 03:30 Ondansetron HCl 4 mg 4 mg Q4H PRN IV NAUSEA AND/OR VOMITING Last administered on 06/27/17 22:19; Admin Dose 4 MG; Start 06/26/17 at 03:30 Piperacillin Sod/ Tazobactam Sod 50 ml @ 100 mls/hr Q6 IVPB Last administered on 06/28/17 06:35; Admin Dose 100 MLS/HR; Start 06/26/17 at 06:00 Sodium Bicarbonate/ Dextrose (Na Bicarb/D5W) 1,000 ml @ 100 mls/hr Q10H IV Last administered on 06/28/17 03:56; Admin Dose 100 MLS/HR; Start 06/26/17 at 16:00 Ferrous Sulfate (Ferrous Sulfate (Ec)) 325 mg BID PO Last administered on 06/28 08:35; Admin Dose 325 MG; Start 06/27/17 at 21:00 Pantoprazole (Protonix Iv) 40 mg DAILY@06 IV Last administered on 06/28/17 06 :37; Admin Dose 40 MG; Start 06/28/17 at 06:00 Lactulose (Enulose) 20 gm DAILY PRN PO CONSTIPATION Last administered on 21:46; Admin Dose 20 GM; Start 06/27/17 at 14:30 RAKESH WEBBER NP Jun 28, 2017 09:43
[2017-06-28 09:47] LABS: ALBUMIN 3.2 g/dl (3.3-4.9); ALBUMIN/GLOBULIN RATIO 0.72; BILIRUBIN,DIRECT 11.1 mg/dl (0.00-0.20); BILIRUBIN,INDIRECT 2.4 mg/dl (0-1.1); BILIRUBIN,TOTAL 13.5 mg/dl (0.2-1.3); CREATININE 2.84 mg/dl (0.44-1.00); POTASSIUM 3.5 mmol/L (3.5-5.1); TOTAL PROTEIN 7.6 g/dl (6.1-8.1)
--- NOTE | 2017-06-28 11:24 | PN ---
Date/Time of Note Date/Time of Note DATE: 06/28/17 TIME: 11:23 Assessment/Plan Lines/Catheters IV Catheter Type (from [facility]): Saline Lock Vega in Place (from [facility]): No Assessment/Plan Chief Complaint/Hosp Course The patient is a 47-year-old female with known cirrhosis, ascites and splenomegaly. She is here because of new onset of jaundice. She has been jaundiced in the past. Imaging here shows splenomegaly with portal hypertension and increased ascites. The gallbladder is slightly thickened with some gallbladder sludge. Common duct dilatation is not noted. She has had no fevers or chills. Problems: Assessment/Plan Awaiting HIDA scan. HIDA scan may be nondiagnostic because of hyperbilirubinemia. The patient is an extraordinarily high surgical risk Subjective 24 Hr Interval Summary Bilirubin worsening Exam/Review of Systems Vital Signs Vitals Vital Signs Date Time Temp Pulse Resp B/P Pulse Ox O2 Delivery O2 Flow Rate FiO2 06/28/17 07:29 98.1 84 20 105/58 96 06/26/17 08:13 Room Air Intake and Output 06/27/17 06/27/17 06/28/17 15:00 23:00 07:00 Intake Total 900 ml 550 ml 850 ml Output Total 300 ml 500 ml Balance 900 ml 250 ml 350 ml Results Result Diagram: 06/28/17 0843 06/28/17 0843 GEO NAVARRO MD Jun 28, 2017 11:24
[2017-06-28] MEDS: morphine 4 MG/ML VIAL IV PRN ×2 (11:59→19:11)
--- NOTE | 2017-06-28 14:33 | RADRPT ---
PROCEDURE: HIDA scan CLINICAL INDICATION: 47 -year-old patient with abdominal pain. TECHNIQUE: Following the intravenous injection of 8.4 mCi of Tc-99m Mebrofenin, multiple anterior dynamic images of the abdomen along with numerous planar spot images of the abdomen were obtained up to 4 hours post injection. COMPARISON: June 08, 2011. FINDINGS: The liver is visualized, demonstrates persistent homogeneous distribution of radionuclide. Multiple images of the abdomen obtained up to 60 minutes post injection do not reveal biliary cleara nce of activity. Delayed views of the abdomen obtained at 4 hours post injection demonstrate a visualization of the g allbladder. There is no visualization of the gastrointestinal activity up to 4 hours post injection. IMPRESSION: 1. No evidence of a cystic duct obstruction. 2. Nonvisualization of the gastrointestinal activity up to 4 hours post injection. 3. Persistent liver uptake most compatible with parenchymal liver disease. RPTAT: HH .Missy Patel MD, MD Date Time Electronically viewed and signed by .Missy Patel MD, MD on 06/28/2017 14:32 .L/
[2017-06-28 15:44] VITALS: BP 100/56; RESP 20
--- NOTE | 2017-06-28 18:23 | PN ---
Date/Time of Note Date/Time of Note DATE: 06/28/17 TIME: 18:15 Assessment/Plan VTE Prophylaxis VTE Prophylaxis Intervention: ambulation Lines/Catheters IV [facility] Saline Lock Urinary Cath still in place: No Assessment/Plan Chief Complaint/Hosp Course Assessment: Questionable acute cholecystitis/ Negative HIDA Decompensated alcoholic liver cirrhosis with ascites Acute kidney injury Sepsis Metabolic acidosis Plan: DF 33.8- with questionable cholecystitis- will not start steroids Paracentesis- canceled to do small amount of fluid HIDA scan- negative for obstruction Hgb is stable, transfuse as needed May need EGD in near future Alcohol cessation discussed Further recommendations based on clinical course. Patient seen in collaboration with Dr. Ny Subjective: Course reviewed with nursing staff Patient interviewed and examined All labs, imaging and other results reviewed The patient continue to c/o LUQ pain radiating to the back, during examination pt also c/o epigastric pain with palpation. Will continue pain management, and an order has been placed to recheck h/h, will transfuse as needed. Pt may need EGD in near future. PHYSICAL EXAMINATION: GENERAL: Well developed, well nourished, alert & oriented x 3, in no acute distress, forgetful SKIN: No lesions, no stigmata chronic liver disease, no evidence of bleeding diathesis. Pruritic and jaundiced LYMPHATIC: No palpable lymphadenopathy. HEAD: Normocephalic, atraumatic, no tenderness. EYES: Pupils equal reactive to light and accommodation, full extraocular movements, sclera clear, icteric, no discharge. EARS/NOSE AND THROAT: Ears normal, nose normal, NECK: Supple, CHEST: Inspection within normal limits. CARDIOVASCULAR: Heart: Regular rate and rhythm,. RESPIRATORY: Lungs clear to auscultation GASTROINTESTINAL AND LIVER: Abdomen: Soft, non tenderness, non-distended, no hernias, no masses, moderate ascites, splenomegaly, no guarding, no rebound tenderness, normoactive bowel sounds. Rectal: Deferred. GENITOURINARY: Female genitalia within normal limits. EXTREMITIES: No cyanosis, clubbing or edema. Problems: Exam/Review of Systems Vital Signs Vitals Vital Signs Date Time Temp Pulse Resp B/P Pulse Ox O2 Delivery O2 Flow Rate FiO2 06/28/17 15:44 98.7 86 20 100/56 97 06/26/17 08:13 Room Air Intake and Output 06/27/17 06/27/17 06/28/17 15:00 23:00 07:00 Intake Total 900 ml 550 ml 850 ml Output Total 300 ml 500 ml Balance 900 ml 250 ml 350 ml Results Result Diagram: 06/28/17 0843 06/28/17 0843 Results 24 hrs Laboratory Tests Test 06/28/17 04:59 06/28/17 08:43 Stool Occult Blood POSITIVE White Blood Count 11.6 #H Red Blood Count 3.21 #L Hemoglobin 9.3 #L Hematocrit 27.9 #L Mean Corpuscular Volume 86.9 Mean Corpuscular Hemoglobin 29.0 Mean Corpuscular Hemoglobin Concent 33.3 Red Cell Distribution Width 19.6 H Platelet Count 159 Mean Platelet Volume 12.2 H Neutrophils % 80.9 H Lymphocytes % 8.4 L Monocytes % 8.0 Eosinophils % 1.4 Basophils % 0.3 Nucleated Red Blood Cells % 0.0 Neutrophils # 9.4 H Lymphocytes # 1.0 Monocytes # 0.9 Eosinophils # 0.2 Basophils # 0.0 Nucleated Red Blood Cells # 0.0 Sodium Level 142 Potassium Level 3.5 Chloride Level 102 Carbon Dioxide Level 27 Anion Gap 17 H Blood Urea Nitrogen 18 Creatinine 2.84 H Glucose Level 110 Calcium Level 8.0 L Total Bilirubin 13.5 H Direct Bilirubin 11.10 H Indirect Bilirubin 2.4 H Aspartate Amino Transf (AST/SGOT) 131 H Alanine Aminotransferase (ALT/SGPT) 30 Alkaline Phosphatase 174 H Total Protein 7.6 Albumin 3.2 L Globulin 4.40 H Albumin/Globulin Ratio 0.72 Medications Medications Current Medications Morphine Sulfate (morphine) 3 mg Q4H PRN IV pain Last administered on 11:59; Admin Dose 3 MG; Start 06/26/17 at 03:30 Ondansetron HCl 4 mg 4 mg Q4H PRN IV NAUSEA AND/OR VOMITING Last administered on 06/27/17 22:19; Admin Dose 4 MG; Start 06/26/17 at 03:30 Piperacillin Sod/ Tazobactam Sod 50 ml @ 100 mls/hr Q6 IVPB Last administered on 06/28/17 17:14; Admin Dose 100 MLS/HR; Start 06/26/17 at 06:00 Sodium Bicarbonate/ Dextrose (Na Bicarb/D5W) 1,000 ml @ 100 mls/hr Q10H IV Last administered on 06/28/17 03:56; Admin Dose 100 MLS/HR; Start 06/26/17 at 16:00 Ferrous Sulfate (Ferrous Sulfate (Ec)) 325 mg BID PO Last administered on 06/28 08:35; Admin Dose 325 MG; Start 06/27/17 at 21:00 Pantoprazole (Protonix Iv) 40 mg DAILY@06 IV Last administered on 06/28/17 06 :37; Admin Dose 40 MG; Start 06/28/17 at 06:00 Lactulose (Enulose) 20 gm DAILY PRN PO CONSTIPATION Last administered on 21:46; Admin Dose 20 GM; Start 06/27/17 at 14:30 COMPA GUARDADO NP Jun 28, 2017 18:23
[2017-06-28 20:10] VITALS: BP 104/62; RESP 20
[2017-06-29 02:21] VITALS: BP 104/59; RESP 18
[2017-06-29] MEDS: SODIUM BICARBONATE (IV ADD) 100 MEQ in DEXTROSE 5% 900 ML IV SCH (04:00)
[2017-06-29 05:24] LABS: BASOPHILS % 0.3 % (0.0-2.0); EOSINOPHILS # 0.2 10^3/ul (0.0-0.5); EOSINOPHILS % 1.3 % (0.0-7.0); HEMATOCRIT 25.8 % (37.0-47.0); LYMPHOCYTES # 1.1 10^3/ul (0.8-2.9); LYMPHOCYTES % 8.8 % (15.0-51.0); MEAN CORPUSCULAR HEMOGLOBIN 29.3 pg (29.0-33.0); MEAN CORPUSCULAR HGB CONC 34.9 g/dl (32.0-37.0); MEAN PLATELET VOLUME 11.7 fl (7.4-10.4); MONOCYTE # 1.1 10^3/ul (0.3-0.9); MONOCYTES % 8.3 % (0.0-11.0); NEUTROPHIL # 10.2 10^3/ul (1.6-7.5); NEUTROPHILS % 80.2 % (39.0-77.0); NUCLEATED RED BLOOD CELLS% 0.2 /100WBC (0.0-0.0); PLATELET COUNT 151 10^3/UL (140-415); RED BLOOD COUNT 3.07 10^6/ul (4.20-5.40); RED CELL DISTRIBUTION WIDTH 19.3 % (11.5-14.5); WHITE BLOOD COUNT 12.7 10^3/ul (4.8-10.8)
[2017-06-29 05:49] LABS: MAGNESIUM 2.1 mg/dl (1.7-2.5); PHOSPHORUS 3.3 mg/dl (2.5-4.9)
[2017-06-29] MEDS: PANTOPRAZOLE 40 MG INJ IV SCH (05:50)
[2017-06-29] MEDS: PIPER-TAZO 2.25 GM (PMX) 50 ML IVPB SCH (05:50)
[2017-06-29 05:52] LABS: ALBUMIN 3.2 g/dl (3.3-4.9); ALBUMIN/GLOBULIN RATIO 0.78; BILIRUBIN,DIRECT 11.1 mg/dl (0.00-0.20); BILIRUBIN,INDIRECT 2.4 mg/dl (0-1.1); BILIRUBIN,TOTAL 13.5 mg/dl (0.2-1.3); CREATININE 2.62 mg/dl (0.44-1.00); TOTAL PROTEIN 7.3 g/dl (6.1-8.1)
[2017-06-29 05:56] LABS: POTASSIUM 2.7 mmol/L (3.5-5.1)
[2017-06-29] MEDS ORDERED: POTASSIUM CHLORIDE (SR) 20 MEQ TAB PO STA (05:58)
[2017-06-29] MEDS ORDERED: POTASSIUM CHLORIDE 250 ML IVPB ONE (07:30)
[2017-06-29 08:18] VITALS: BP 103/61; RESP 18
--- NOTE | 2017-06-29 08:36 | CONS ---
Date/Time of Note Date/Time of Note DATE: 06/29/17 TIME: 08:31 Assessment/Plan Assessment/Plan Chief Complaint/Hosp Course 1. Acute renal failure. The patient's serum creatinine is lower than yesterday and she is nonoliguric. This is most consistent with a recovery phase of ATN. The other consideration is that she has either prerenal azotemia and or hepatorenal syndrome. I have asked the nurses to do strict I&O's. I will stop her IV fluids. 2. Cirrhosis of the liver with high bilirubin, low albumin. Coagulopathy 3. Left upper quadrant abdominal pain 4. Anemia , consider blood transfusion. 5. Will try to get records from [facility] emergency room prior to this admission. 6. Her potassium is low and is being replaced. Problems: Consultation Date/Type/Reason Admit Date/Time Jun 26, 2017 at 00:00 Initial Consult Date 06/26/17 Type of Consultation: Nephrology 24 HR Interval Summary Free Text/Dictation She is awake and responsive this morning. She says she feels better. She is having much less left upper quadrant abdominal pain. She is taking clear liquids orally. Constitutional: improved, no complaints Exam/Review of Systems Vital Signs Vitals Vital Signs Date Time Temp Pulse Resp B/P Pulse Ox O2 Delivery O2 Flow Rate FiO2 06/29/17 08:18 98.2 86 18 103/61 90 06/26/17 08:13 Room Air Intake and Output 06/28/17 06/28/17 06/29/17 14:59 22:59 06:59 Intake Total 200 ml 1170 ml 1000 ml Output Total 300 ml 400 ml Balance 200 ml 870 ml 600 ml Exam Constitutional: alert, oriented, well developed Eyes: icteric Respiratory: clear to auscultation Cardiovascular: edema, regular rate and rhythm Gastrointestinal: ascites, distended Extremities: edema Results Result Diagram: 06/29/17 0453 06/29/17 0453 Results 24 hrs Laboratory Tests Test 06/28/17 08:43 06/29/17 04:53 06/29/17 06:23 White Blood Count 11.6 #H 12.7 H Red Blood Count 3.21 #L 3.07 L Hemoglobin 9.3 #L 9.0 L Hematocrit 27.9 #L 25.8 L Mean Corpuscular Volume 86.9 84.0 Mean Corpuscular Hemoglobin 29.0 29.3 Mean Corpuscular Hemoglobin Concent 33.3 34.9 Red Cell Distribution Width 19.6 H 19.3 H Platelet Count 159 151 Mean Platelet Volume 12.2 H 11.7 H Neutrophils % 80.9 H 80.2 H Lymphocytes % 8.4 L 8.8 L Monocytes % 8.0 8.3 Eosinophils % 1.4 1.3 Basophils % 0.3 0.3 Nucleated Red Blood Cells % 0.0 0.2 H Neutrophils # 9.4 H 10.2 H Lymphocytes # 1.0 1.1 Monocytes # 0.9 1.1 H Eosinophils # 0.2 0.2 Basophils # 0.0 0.0 Nucleated Red Blood Cells # 0.0 0.0 Sodium Level 142 139 Potassium Level 3.5 2.7 *L Chloride Level 102 96 L Carbon Dioxide Level 27 28 Anion Gap 17 H 18 H Blood Urea Nitrogen 18 17 Creatinine 2.84 H 2.62 H Glucose Level 110 112 Calcium Level 8.0 L 8.0 L Total Bilirubin 13.5 H 13.5 H Direct Bilirubin 11.10 H 11.10 H Indirect Bilirubin 2.4 H 2.4 H Aspartate Amino Transf (AST/SGOT) 131 H 114 H Alanine Aminotransferase (ALT/SGPT) 30 24 Alkaline Phosphatase 174 H 154 H Total Protein 7.6 7.3 Albumin 3.2 L 3.2 L Globulin 4.40 H 4.10 H Albumin/Globulin Ratio 0.72 0.78 Phosphorus Level 3.3 Magnesium Level 2.1 Ammonia 81 #H Lipase 26 Lab Scanned Report BLOOD TRANSFUSION Medications Medications Current Medications Morphine Sulfate (morphine) 3 mg Q4H PRN IV pain Last administered on 19:11; Admin Dose 3 MG; Start 06/26/17 at 03:30 Ondansetron HCl 4 mg 4 mg Q4H PRN IV NAUSEA AND/OR VOMITING Last administered on 06/27/17 22:19; Admin Dose 4 MG; Start 06/26/17 at 03:30 Piperacillin Sod/ Tazobactam Sod 50 ml @ 100 mls/hr Q6 IVPB Last administered on 06/29/17 05:50; Admin Dose 100 MLS/HR; Start 06/26/17 at 06:00 Sodium Bicarbonate/ Dextrose (Na Bicarb/D5W) 1,000 ml @ 100 mls/hr Q10H IV Last administered on 06/28/17 22:37; Admin Dose 100 MLS/HR; Start 06/26/17 at 16:00 Ferrous Sulfate (Ferrous Sulfate (Ec)) 325 mg BID PO Last administered on 06/28 21:59; Admin Dose 325 MG; Start 06/27/17 at 21:00 Pantoprazole (Protonix Iv) 40 mg DAILY@06 IV Last administered on 06/29/17 05 :50; Admin Dose 40 MG; Start 06/28/17 at 06:00 Lactulose 20 gm 20 gm DAILY PRN PO CONSTIPATION Last administered on 21:46; Admin Dose 20 GM; Start 06/27/17 at 14:30 Potassium Chloride (KCl 40 MEQ/250 ML NS) 250 ml @ 62.5 mls/hr ONCE ONCE IVPB Last administered on 06/29/17 06:50; Admin Dose 62.5 MLS/HR; Start at 07:30; Stop 06/29/17 at 11:29 PERLA VANESSA MD Jun 29, 2017 08:36
[2017-06-29] MEDS: FERROUS SULFATE (EC) 325 MG TAB PO SCH ×2 (08:44→21:05)
[2017-06-29] MEDS: CHOLESTYRAMINE 4 GM PACKET PO SCH ×3 (08:47→17:10)
--- NOTE | 2017-06-29 08:48 | PN ---
Date/Time of Note Date/Time of Note DATE: 06/29/17 TIME: 08:44 Assessment/Plan VTE Prophylaxis VTE Prophylaxis Intervention: SCD's Lines/Catheters IV [facility]from [facility]): Peripheral IV Urinary Cath still in place: No Assessment/Plan Chief Complaint/Hosp Course 1. Suspected acute cholecystitis. CT abdomen showing gallbladder wall thickening versus pericholecystic with gallstones versus sludge. Gallbladder ultrasound showing gallbladder sludge with moderate gallbladder wall thickening and pericholecystic fluid. On empiric antibiotics. HIDA scan showing no evidence of cystic duct obstruction, but persistent liver uptake most compatible with parenchymal liver disease. Being followed by gastroenterology and general surgery. Will discontinue antibiotics since the patient has no evidence of any acute cholecystitis. The patient remains afebrile. 2. Decompensated alcoholic liver cirrhosis with ascites and portal hypertension. Continue lactulose. Unable to use diuretics because of underlying worsening renal function. 3. Acute kidney injury. Etiology unclear. Improving. Being followed by nephrology. 4. Metabolic acidosis. Most probably secondary to underlying worsening renal function. Management as per nephrology. 5. Anemia. Normocytic, normochromic. Probably secondary to underlying end- stage liver disease. Iron panel showing low iron saturation. Status post 2 units of PRBC transfusion. 6. Transaminitis with hyperbilirubinemia. Most probably secondary to #1 and # 2. Avoid hepatotoxic medications. Being followed by gastroenterology. 7. Positive urinalysis on admission. Urine culture negative. No current evidence of any underlying sepsis. Will discontinue antibiotics. 8. Fluids, electrolytes, and nutrition. On clear liquids. Advance diet. 9. DVT prophylaxis. Bilateral sequential compression devices. 10. Plan. Trend LFTs. Follow recommendations from gastroenterology and general surgery. Advance diet as tolerated. Replete potassium. Case discussed with Dr. Deng. Case discussed with nephrology. Problems: Subjective 24 Hr Interval Summary Free Text/Dictation Denies any abdominal pain. Exam/Review of Systems Vital Signs Vitals Vital Signs Date Time Temp Pulse Resp B/P Pulse Ox O2 Delivery O2 Flow Rate FiO2 06/29/17 08:18 98.2 86 18 103/61 90 06/26/17 08:13 Room Air Intake and Output 06/28/17 06/28/17 06/29/17 14:59 22:59 06:59 Intake Total 200 ml 1170 ml 1000 ml Output Total 300 ml 400 ml Balance 200 ml 870 ml 600 ml Exam General: Adequately build 47 year-old female lying in bed in no apparent distress. HEENT: Normocephalic, atraumatic. Eyes: Icteric sclerae, conjunctivae clear. ENT : Nasal septum midline, oral mucosa moist. Neck supple, no JVD noticed. Respiratory: Bilaterally diminished breath sounds. No use of accessory muscles of respiration. No adventitious breath sounds. Cardiovascular: S1, S2 heard. Regular rate and rhythm. Abdomen: Soft. Bowel sounds positive in all 4 quadrants. Minimal distention. Left upper quadrant tenderness. Genitourinary: Deferred. Extremities: No cyanosis, no clubbing. Peripheral pulses palpable. Neurologic: Cranial nerves II through XII grossly intact. The patient is awake, alert, and oriented. Skin: Normal skin turgor. No skin rashes. Icterus. Results Result Diagram: 06/29/17 0453 06/29/17 0453 Results 24 hrs Laboratory Tests Test 06/29/17 04:53 06/29/17 06:23 White Blood Count 12.7 H Red Blood Count 3.07 L Hemoglobin 9.0 L Hematocrit 25.8 L Mean Corpuscular Volume 84.0 Mean Corpuscular Hemoglobin 29.3 Mean Corpuscular Hemoglobin Concent 34.9 Red Cell Distribution Width 19.3 H Platelet Count 151 Mean Platelet Volume 11.7 H Neutrophils % 80.2 H Lymphocytes % 8.8 L Monocytes % 8.3 Eosinophils % 1.3 Basophils % 0.3 Nucleated Red Blood Cells % 0.2 H Neutrophils # 10.2 H Lymphocytes # 1.1 Monocytes # 1.1 H Eosinophils # 0.2 Basophils # 0.0 Nucleated Red Blood Cells # 0.0 Sodium Level 139 Potassium Level 2.7 *L Chloride Level 96 L Carbon Dioxide Level 28 Anion Gap 18 H Blood Urea Nitrogen 17 Creatinine 2.62 H Glucose Level 112 Calcium Level 8.0 L Phosphorus Level 3.3 Magnesium Level 2.1 Total Bilirubin 13.5 H Direct Bilirubin 11.10 H Indirect Bilirubin 2.4 H Aspartate Amino Transf (AST/SGOT) 114 H Alanine Aminotransferase (ALT/SGPT) 24 Alkaline Phosphatase 154 H Ammonia 81 #H Total Protein 7.3 Albumin 3.2 L Globulin 4.10 H Albumin/Globulin Ratio 0.78 Lipase 26 Lab Scanned Report BLOOD TRANSFUSION Medications Medications Current Medications Morphine Sulfate (morphine) 3 mg Q4H PRN IV pain Last administered on 19:11; Admin Dose 3 MG; Start 06/26/17 at 03:30 Ondansetron HCl 4 mg 4 mg Q4H PRN IV NAUSEA AND/OR VOMITING Last administered on 06/27/17 22:19; Admin Dose 4 MG; Start 06/26/17 at 03:30 Piperacillin Sod/ Tazobactam Sod (Zosyn 2.25gm/ 50ml (Pmx)) 50 ml @ 100 mls/hr Q6 IVPB Last administered on 06/29/17 05:50; Admin Dose 100 MLS/HR; Start at 06:00 Ferrous Sulfate (Ferrous Sulfate (Ec)) 325 mg BID PO Last administered on 06/28 21:59; Admin Dose 325 MG; Start 06/27/17 at 21:00 Pantoprazole (Protonix Iv) 40 mg DAILY@06 IV Last administered on 06/29/17 05 :50; Admin Dose 40 MG; Start 06/28/17 at 06:00 Lactulose 20 gm 20 gm DAILY PRN PO CONSTIPATION Last administered on 21:46; Admin Dose 20 GM; Start 06/27/17 at 14:30 Potassium Chloride (KCl 40 MEQ/250 ML NS) 250 ml @ 62.5 mls/hr ONCE ONCE IVPB Last administered on 06/29/17 06:50; Admin Dose 62.5 MLS/HR; Start at 07:30; Stop 06/29/17 at 11:29 RAKESH WEBBER NP Jun 29, 2017 08:48
[2017-06-29 14:00] VITALS: BP 112/65; RESP 18
--- NOTE | 2017-06-29 14:38 | PN ---
Date/Time of Note Date/Time of Note DATE: 06/29/17 TIME: 14:35 Assessment/Plan VTE Prophylaxis VTE Prophylaxis Intervention: heparin Lines/Catheters IV [facility] Type (from [facility]): Peripheral IV Urinary Cath still in place: No Assessment/Plan Chief Complaint/Hosp Course Assessment: Alcoholic hepatitis Liver cirrhosis with ascites Ruled out acute cholecystitis- negative HIDA Acute kidney injury Sepsis Metabolic acidosis Plan: DF 33.8- with questionable cholecystitis- will not start steroids Paracentesis- canceled to do small amount of fluid HIDA scan- negative for obstruction Hgb is stable, transfuse as needed May need EGD in near future Alcohol cessation discussed Further recommendations based on clinical course. Patient seen in collaboration with Dr. Ny Subjective: Course reviewed with nursing staff Patient interviewed and examined All labs, imaging and other results reviewed The patient continue to c/o LUQ pain radiating to the back, during examination pt also c/o epigastric pain with palpation. Patient states she had two stools today with a tinge of blood. Will continue monitoring H&H, will transfuse as needed. Pt may need EGD in near future. PHYSICAL EXAMINATION: GENERAL: Well developed, well nourished, alert & oriented x 3, in no acute distress, forgetful SKIN: No lesions, no stigmata chronic liver disease, no evidence of bleeding diathesis. Pruritic and jaundiced LYMPHATIC: No palpable lymphadenopathy. HEAD: Normocephalic, atraumatic, no tenderness. EYES: Pupils equal reactive to light and accommodation, full extraocular movements, sclera clear, icteric, no discharge. EARS/NOSE AND THROAT: Ears normal, nose normal, NECK: Supple, CHEST: Inspection within normal limits. CARDIOVASCULAR: Heart: Regular rate and rhythm,. RESPIRATORY: Lungs clear to auscultation GASTROINTESTINAL AND LIVER: Abdomen: Soft, non tenderness, non-distended, no hernias, no masses, moderate ascites, splenomegaly, no guarding, no rebound tenderness, normoactive bowel sounds. Rectal: Deferred. GENITOURINARY: Female genitalia within normal limits. EXTREMITIES: No cyanosis, clubbing or edema. Problems: Exam/Review of Systems Vital Signs Vitals Vital Signs Date Time Temp Pulse Resp B/P Pulse Ox O2 Delivery O2 Flow Rate FiO2 06/29/17 14:00 97.5 87 18 112/65 95 06/26/17 08:13 Room Air Intake and Output 06/28/17 06/28/17 06/29/17 14:59 22:59 06:59 Intake Total 200 ml 1170 ml 1000 ml Output Total 300 ml 400 ml Balance 200 ml 870 ml 600 ml Results Result Diagram: 06/29/17 0453 06/29/17 0453 Results 24 hrs Laboratory Tests Test 06/29/17 04:53 06/29/17 06:23 White Blood Count 12.7 H Red Blood Count 3.07 L Hemoglobin 9.0 L Hematocrit 25.8 L Mean Corpuscular Volume 84.0 Mean Corpuscular Hemoglobin 29.3 Mean Corpuscular Hemoglobin Concent 34.9 Red Cell Distribution Width 19.3 H Platelet Count 151 Mean Platelet Volume 11.7 H Neutrophils % 80.2 H Lymphocytes % 8.8 L Monocytes % 8.3 Eosinophils % 1.3 Basophils % 0.3 Nucleated Red Blood Cells % 0.2 H Neutrophils # 10.2 H Lymphocytes # 1.1 Monocytes # 1.1 H Eosinophils # 0.2 Basophils # 0.0 Nucleated Red Blood Cells # 0.0 Sodium Level 139 Potassium Level 2.7 *L Chloride Level 96 L Carbon Dioxide Level 28 Anion Gap 18 H Blood Urea Nitrogen 17 Creatinine 2.62 H Glucose Level 112 Calcium Level 8.0 L Phosphorus Level 3.3 Magnesium Level 2.1 Total Bilirubin 13.5 H Direct Bilirubin 11.10 H Indirect Bilirubin 2.4 H Aspartate Amino Transf (AST/SGOT) 114 H Alanine Aminotransferase (ALT/SGPT) 24 Alkaline Phosphatase 154 H Ammonia 81 #H Total Protein 7.3 Albumin 3.2 L Globulin 4.10 H Albumin/Globulin Ratio 0.78 Lipase 26 Lab Scanned Report BLOOD TRANSFUSION Medications Medications Current Medications Morphine Sulfate (morphine) 3 mg Q4H PRN IV pain Last administered on 19:11; Admin Dose 3 MG; Start 06/26/17 at 03:30 Ondansetron HCl (Zofran Inj) 4 mg Q4H PRN IV NAUSEA AND/OR VOMITING Last administered on 06/27/17 22:19; Admin Dose 4 MG; Start 06/26/17 at 03:30 Ferrous Sulfate (Ferrous Sulfate (Ec)) 325 mg BID PO Last administered on 06/29 08:44; Admin Dose 325 MG; Start 06/27/17 at 21:00 Pantoprazole (Protonix Iv) 40 mg DAILY@06 IV Last administered on 06/29/17 05 :50; Admin Dose 40 MG; Start 06/28/17 at 06:00 Lactulose (Enulose) 20 gm DAILY PRN PO CONSTIPATION Last administered on 21:46; Admin Dose 20 GM; Start 06/27/17 at 14:30 COMPA GUARDADO NP Jun 29, 2017 14:38 COMPA GUARDADO NP Jun 29, 2017 14:38
--- NOTE | 2017-06-29 18:11 | PN ---
Date/Time of Note Date/Time of Note DATE: 06/29/17 TIME: 18:10 Assessment/Plan Lines/Catheters IV Catheter Type (from [facility]): Peripheral IV Vega in Place (from [facility]): No Assessment/Plan Chief Complaint/Hosp Course The patient is a 47-year-old female with known cirrhosis, ascites and splenomegaly. She is here because of new onset of jaundice. She has been jaundiced in the past. Imaging here shows splenomegaly with portal hypertension and increased ascites. The gallbladder is slightly thickened with some gallbladder sludge. Common duct dilatation is not noted. She has had no fevers or chills. Problems: Assessment/Plan No evidence of acute cholecystitis. As there are no further surgical recommendations, will sign off and see again prn your request. Subjective 24 Hr Interval Summary HIDA scan completed and is negative Exam/Review of Systems Vital Signs Vitals Vital Signs Date Time Temp Pulse Resp B/P Pulse Ox O2 Delivery O2 Flow Rate FiO2 06/29/17 14:00 97.5 87 18 112/65 95 06/26/17 08:13 Room Air Intake and Output 06/28/17 06/28/17 06/29/17 14:59 22:59 06:59 Intake Total 200 ml 1170 ml 1000 ml Output Total 300 ml 400 ml Balance 200 ml 870 ml 600 ml Results Result Diagram: 06/29/17 0453 06/29/17 0453 GEO NAVARRO MD Jun 29, 2017 18:11
[2017-06-29 20:05] VITALS: BP 109/60
[2017-06-29] MEDS: morphine 4 MG/ML VIAL IV PRN (21:12)
[2017-06-30 02:25] VITALS: BP 99/57; RESP 18
[2017-06-30 05:47] LABS: BASOPHIL # 0.1 10^3/ul (0.0-0.1); BASOPHILS % 0.5 % (0.0-2.0); EOSINOPHILS # 0.1 10^3/ul (0.0-0.5); EOSINOPHILS % 1.1 % (0.0-7.0); HEMATOCRIT 27.5 % (37.0-47.0); HEMOGLOBIN 9.2 g/dl (12.0-16.0); LYMPHOCYTES # 1.5 10^3/ul (0.8-2.9); LYMPHOCYTES % 11.7 % (15.0-51.0); MEAN CORPUSCULAR HEMOGLOBIN 28.9 pg (29.0-33.0); MEAN CORPUSCULAR HGB CONC 33.5 g/dl (32.0-37.0); MEAN CORPUSCULAR VOLUME 86.5 fl (82.0-101.0); MEAN PLATELET VOLUME 11.2 fl (7.4-10.4); MONOCYTE # 1.2 10^3/ul (0.3-0.9); MONOCYTES % 9.2 % (0.0-11.0); NEUTROPHIL # 9.6 10^3/ul (1.6-7.5); NEUTROPHILS % 76.3 % (39.0-77.0); NUCLEATED RED BLOOD CELLS% 0.2 /100WBC (0.0-0.0); PLATELET COUNT 154 10^3/UL (140-415); RED BLOOD COUNT 3.18 10^6/ul (4.20-5.40); RED CELL DISTRIBUTION WIDTH 19.6 % (11.5-14.5); WHITE BLOOD COUNT 12.6 10^3/ul (4.8-10.8)
[2017-06-30] MEDS: PANTOPRAZOLE 40 MG INJ IV SCH (05:51)
[2017-06-30 06:09] LABS: MAGNESIUM 2.1 mg/dl (1.7-2.5); PHOSPHORUS 3.2 mg/dl (2.5-4.9)
[2017-06-30 06:23] LABS: ALBUMIN 2.9 g/dl (3.3-4.9); ALBUMIN/GLOBULIN RATIO 0.64; BILIRUBIN,DIRECT 11.5 mg/dl (0.00-0.20); BILIRUBIN,INDIRECT 2.5 mg/dl (0-1.1); CALCIUM 8.7 mg/dl (8.4-10.2); CREATININE 2.7 mg/dl (0.44-1.00); POTASSIUM 3.8 mmol/L (3.5-5.1); TOTAL PROTEIN 7.4 g/dl (6.1-8.1)
[2017-06-30 07:54] VITALS: BP 104/59; RESP 20
[2017-06-30] MEDS: CHOLESTYRAMINE 4 GM PACKET PO SCH ×3 (08:08→17:33)
[2017-06-30] MEDS: FERROUS SULFATE (EC) 325 MG TAB PO SCH ×2 (08:08→21:03)
--- NOTE | 2017-06-30 11:02 | PN ---
Date/Time of Note Date/Time of Note DATE: 06/30/17 TIME: 10:59 Assessment/Plan VTE Prophylaxis VTE Prophylaxis Intervention: SCD's Lines/Catheters IV C[facility]ter Type (from [facility]): [place] Urinary Cath still in place: No Assessment/Plan Chief Complaint/Hosp Course Chief Complaint/Hosp Course Assessment: Alcoholic hepatitis Liver cirrhosis with ascites Questionable cholecystitis- negative HIDA Acute kidney injury Sepsis Metabolic acidosis Plan: DF 33.8- with questionable cholecystitis- will not start steroids Paracentesis- canceled to do small amount of fluid Hgb is stable, transfuse as needed Will need EGD in near future Alcohol cessation discussed Start Aldactone 100 mg p.o. twice daily Change diet to 2 g sodium with 1500 mL fluid restriction per 24 hours Patient seen in collaboration with Dr. Ny Subjective: Course reviewed with nursing staff Patient interviewed and examined All labs, imaging and other results reviewed The patient continue to c/o LUQ, during examination pt also c/o epigastric pain with palpation. Stool positive for OB, H/H currently stable. Will continue to monitor. Start diuretics, will initiate fluid restriction and 2 g sodium diet. Patient will need EGD in near future. Continue to monitor H/H. PHYSICAL EXAMINATION: GENERAL: Well developed, well nourished, alert & oriented x 3, in no acute distress, forgetful SKIN: No lesions, no stigmata chronic liver disease, no evidence of bleeding diathesis. Pruritic and jaundiced LYMPHATIC: No palpable lymphadenopathy. HEAD: Normocephalic, atraumatic, no tenderness. EYES: Pupils equal reactive to light and accommodation, full extraocular movements, sclera clear, icteric, no discharge. EARS/NOSE AND THROAT: Ears normal, nose normal, NECK: Supple, CHEST: Inspection within normal limits. CARDIOVASCULAR: Heart: Regular rate and rhythm,. RESPIRATORY: Lungs clear to auscultation GASTROINTESTINAL AND LIVER: Abdomen: Soft, non tenderness, non-distended, no hernias, no masses, moderate ascites, splenomegaly, no guarding, no rebound tenderness, normoactive bowel sounds. Rectal: Deferred. GENITOURINARY: Female genitalia within normal limits. EXTREMITIES: No cyanosis, clubbing or edema. Problems: Exam/Review of Systems Vital Signs Vitals Vital Signs Date Time Temp Pulse Resp B/P Pulse Ox O2 Delivery O2 Flow Rate FiO2 06/30/17 07:54 98.1 94 20 104/59 95 06/26/17 08:13 Room Air Intake and Output 06/29/17 06/29/17 06/30/17 15:00 23:00 07:00 Intake Total 300 ml 520 ml 400 ml Output Total 200 ml 300 ml Balance 300 ml 320 ml 100 ml Results Result Diagram: 06/30/17 0454 06/30/17 0454 Results 24 hrs Laboratory Tests Test 06/30/17 04:54 White Blood Count 12.6 H Red Blood Count 3.18 L Hemoglobin 9.2 L Hematocrit 27.5 L Mean Corpuscular Volume 86.5 Mean Corpuscular Hemoglobin 28.9 L Mean Corpuscular Hemoglobin Concent 33.5 Red Cell Distribution Width 19.6 H Platelet Count 154 Mean Platelet Volume 11.2 H Neutrophils % 76.3 Lymphocytes % 11.7 L Monocytes % 9.2 Eosinophils % 1.1 Basophils % 0.5 Nucleated Red Blood Cells % 0.2 H Neutrophils # 9.6 H Lymphocytes # 1.5 Monocytes # 1.2 H Eosinophils # 0.1 Basophils # 0.1 Nucleated Red Blood Cells # 0.0 Sodium Level 140 Potassium Level 3.8 Chloride Level 101 Carbon Dioxide Level 28 Anion Gap 15 Blood Urea Nitrogen 19 Creatinine 2.70 H Glucose Level 81 Calcium Level 8.7 Phosphorus Level 3.2 Magnesium Level 2.1 Total Bilirubin 14.0 H Direct Bilirubin 11.50 H Indirect Bilirubin 2.5 H Aspartate Amino Transf (AST/SGOT) 118 H Alanine Aminotransferase (ALT/SGPT) 22 Alkaline Phosphatase 156 H Ammonia 51 H Total Protein 7.4 Albumin 2.9 L Globulin 4.50 H Albumin/Globulin Ratio 0.64 Medications Medications Current Medications Morphine Sulfate (morphine) 3 mg Q4H PRN IV pain Last administered on 21:12; Admin Dose 3 MG; Start 06/26/17 at 03:30 Ondansetron HCl (Zofran Inj) 4 mg Q4H PRN IV NAUSEA AND/OR VOMITING Last administered on 06/27/17 22:19; Admin Dose 4 MG; Start 06/26/17 at 03:30 Ferrous Sulfate (Ferrous Sulfate (Ec)) 325 mg BID PO Last administered on 06/30 08:08; Admin Dose 325 MG; Start 06/27/17 at 21:00 Pantoprazole (Protonix Iv) 40 mg DAILY@06 IV Last administered on 06/30/17 05 :51; Admin Dose 40 MG; Start 06/28/17 at 06:00 Lactulose (Enulose) 20 gm DAILY PRN PO CONSTIPATION Last administered on 21:46; Admin Dose 20 GM; Start 06/27/17 at 14:30 ABE KRISHNA Jun 30, 2017 11:02
--- NOTE | 2017-06-30 11:12 | PN ---
Date/Time of Note Date/Time of Note DATE: 06/30/17 TIME: 11:11 Assessment/Plan VTE Prophylaxis VTE Prophylaxis Intervention: SCD's Lines/Catheters IV Catheter Type (from [facility]): Saline Lock Urinary Cath still in place: No Assessment/Plan Chief Complaint/Hosp Course 1. Symptomatic cholelithiasis. No evidence of cholecystitis. CT abdomen showing gallbladder wall thickening versus pericholecystic with gallstones versus sludge. Gallbladder ultrasound showing gallbladder sludge with moderate gallbladder wall thickening and pericholecystic fluid. On empiric antibiotics. HIDA scan showing no evidence of cystic duct obstruction, but persistent liver uptake most compatible with parenchymal liver disease. Being followed by gastroenterology and general surgery. 2. Decompensated alcoholic liver cirrhosis with ascites and portal hypertension. Continue lactulose. Being followed by gastroenterology. 3. Acute kidney injury. Etiology unclear. Improving. Being followed by nephrology. 4. Metabolic acidosis. Resolved. 5. Anemia. Normocytic, normochromic. Probably secondary to underlying end- stage liver disease. Iron panel showing low iron saturation. Status post 2 units of PRBC transfusion. On iron supplements. 6. Transaminitis with hyperbilirubinemia. Most probably secondary to #1 and # 2. Avoid hepatotoxic medications. Being followed by gastroenterology. 7. Fluids, electrolytes, and nutrition. 2 g sodium diet. 9. DVT prophylaxis. Bilateral sequential compression devices. 10. Plan. Trend LFTs. Follow recommendations from gastroenterology and general surgery. Case discussed with Dr. Deng. Case discussed with nephrology. Problems: Subjective 24 Hr Interval Summary Free Text/Dictation Denies any abdominal pain. Tolerating oral intake. Exam/Review of Systems Vital Signs Vitals Vital Signs Date Time Temp Pulse Resp B/P Pulse Ox O2 Delivery O2 Flow Rate FiO2 06/30/17 07:54 98.1 94 20 104/59 95 06/26/17 08:13 Room Air Intake and Output 06/29/17 06/29/17 06/30/17 14:59 22:59 06:59 Intake Total 300 ml 520 ml 400 ml Output Total 200 ml 300 ml Balance 300 ml 320 ml 100 ml Exam General: Adequately build 47 year-old female lying in bed in no apparent distress. HEENT: Normocephalic, atraumatic. Eyes: Icteric sclerae, conjunctivae clear. ENT : Nasal septum midline, oral mucosa moist. Neck supple, no JVD noticed. Respiratory: Bilaterally diminished breath sounds. No use of accessory muscles of respiration. No adventitious breath sounds. Cardiovascular: S1, S2 heard. Regular rate and rhythm. Abdomen: Soft. Bowel sounds positive in all 4 quadrants. Minimal distention. Left upper quadrant tenderness. Genitourinary: Deferred. Extremities: No cyanosis, no clubbing. Peripheral pulses palpable. Neurologic: Cranial nerves II through XII grossly intact. The patient is awake, alert, and oriented. Skin: Normal skin turgor. No skin rashes. Icterus. Results Result Diagram: 06/30/17 0454 06/30/17 0454 Results 24 hrs Laboratory Tests Test 06/30/17 04:54 White Blood Count 12.6 H Red Blood Count 3.18 L Hemoglobin 9.2 L Hematocrit 27.5 L Mean Corpuscular Volume 86.5 Mean Corpuscular Hemoglobin 28.9 L Mean Corpuscular Hemoglobin Concent 33.5 Red Cell Distribution Width 19.6 H Platelet Count 154 Mean Platelet Volume 11.2 H Neutrophils % 76.3 Lymphocytes % 11.7 L Monocytes % 9.2 Eosinophils % 1.1 Basophils % 0.5 Nucleated Red Blood Cells % 0.2 H Neutrophils # 9.6 H Lymphocytes # 1.5 Monocytes # 1.2 H Eosinophils # 0.1 Basophils # 0.1 Nucleated Red Blood Cells # 0.0 Sodium Level 140 Potassium Level 3.8 Chloride Level 101 Carbon Dioxide Level 28 Anion Gap 15 Blood Urea Nitrogen 19 Creatinine 2.70 H Glucose Level 81 Calcium Level 8.7 Phosphorus Level 3.2 Magnesium Level 2.1 Total Bilirubin 14.0 H Direct Bilirubin 11.50 H Indirect Bilirubin 2.5 H Aspartate Amino Transf (AST/SGOT) 118 H Alanine Aminotransferase (ALT/SGPT) 22 Alkaline Phosphatase 156 H Ammonia 51 H Total Protein 7.4 Albumin 2.9 L Globulin 4.50 H Albumin/Globulin Ratio 0.64 Medications Medications Current Medications Morphine Sulfate (morphine) 3 mg Q4H PRN IV pain Last administered on 21:12; Admin Dose 3 MG; Start 06/26/17 at 03:30 Ondansetron HCl (Zofran Inj) 4 mg Q4H PRN IV NAUSEA AND/OR VOMITING Last administered on 06/27/17 22:19; Admin Dose 4 MG; Start 06/26/17 at 03:30 Ferrous Sulfate (Ferrous Sulfate (Ec)) 325 mg BID PO Last administered on 06/30 08:08; Admin Dose 325 MG; Start 06/27/17 at 21:00 Pantoprazole (Protonix Iv) 40 mg DAILY@06 IV Last administered on 06/30/17 05 :51; Admin Dose 40 MG; Start 06/28/17 at 06:00 Lactulose (Enulose) 20 gm DAILY PRN PO CONSTIPATION Last administered on 21:46; Admin Dose 20 GM; Start 06/27/17 at 14:30 RAKESH WEBBER [employer] Jun 30, 2017 11:12
[2017-06-30 15:22] VITALS: BP 111/62; RESP 20
[2017-06-30] MEDS ORDERED: FUROSEMIDE 40 MG INJ IV SCH (15:30)
[2017-06-30] MEDS: ALBUMIN HUMAN 25% 100 ML IV SCH ×2 (16:28→21:05)
[2017-06-30] MEDS: morphine 4 MG/ML VIAL IV PRN (16:35)
[2017-06-30] MEDS ORDERED: SPIRONOLACTONE 50 MG TAB PO SCH (18:00)
--- NOTE | 2017-06-30 18:27 | CONS ---
Date/Time of Note Date/Time of Note DATE: 06/30/17 TIME: 18:18 Assessment/Plan Assessment/Plan Chief Complaint/Hosp Course 1. Acute renal failure. The patient's serum creatinine is about the same as yesterday. She is nonoliguric; however, her urine output has decreased and she is developing more edema.. I am going to start her on albumin and Lasix IV to see if that will stimulate a diuresis. I have asked the nurses to do strict I&O 's. I have stopped her IV fluids. I am trying to get her old records from a hospitalization a week ago to assess her prior renal function. 2. Cirrhosis of the liver with high bilirubin, low albumin. Coagulopathy 3. Left upper quadrant abdominal pain 4. Anemia , consider blood transfusion if her hemoglobin and hematocrit decreased further. Problems: Consultation Date/Type/Reason Admit Date/Time Jun 26, 2017 at 00:00 Initial Consult Date 06/26/17 Type of Consultation: Nephrology 24 HR Interval Summary Free Text/Dictation Patient is sitting up in her room. She has no new complaints. She says that she still has some left upper quadrant abdominal pain but it is better than it was previously. Constitutional: no complaints Exam/Review of Systems Vital Signs Vitals Vital Signs Date Time Temp Pulse Resp B/P Pulse Ox O2 Delivery O2 Flow Rate FiO2 06/30/17 15:22 98.3 90 20 111/62 96 06/26/17 08:13 Room Air Intake and Output 06/29/17 06/29/17 06/30/17 15:00 23:00 07:00 Intake Total 300 ml 520 ml 400 ml Output Total 200 ml 300 ml Balance 300 ml 320 ml 100 ml Exam Constitutional: alert, oriented Neck: supple Respiratory: clear to auscultation Cardiovascular: edema, regular rate and rhythm Gastrointestinal: ascites, distended, soft, tender Extremities: edema Results Result Diagram: 06/30/17 0454 06/30/17 0454 Results 24 hrs Laboratory Tests Test 06/30/17 04:54 White Blood Count 12.6 H Red Blood Count 3.18 L Hemoglobin 9.2 L Hematocrit 27.5 L Mean Corpuscular Volume 86.5 Mean Corpuscular Hemoglobin 28.9 L Mean Corpuscular Hemoglobin Concent 33.5 Red Cell Distribution Width 19.6 H Platelet Count 154 Mean Platelet Volume 11.2 H Neutrophils % 76.3 Lymphocytes % 11.7 L Monocytes % 9.2 Eosinophils % 1.1 Basophils % 0.5 Nucleated Red Blood Cells % 0.2 H Neutrophils # 9.6 H Lymphocytes # 1.5 Monocytes # 1.2 H Eosinophils # 0.1 Basophils # 0.1 Nucleated Red Blood Cells # 0.0 Sodium Level 140 Potassium Level 3.8 Chloride Level 101 Carbon Dioxide Level 28 Anion Gap 15 Blood Urea Nitrogen 19 Creatinine 2.70 H Glucose Level 81 Calcium Level 8.7 Phosphorus Level 3.2 Magnesium Level 2.1 Total Bilirubin 14.0 H Direct Bilirubin 11.50 H Indirect Bilirubin 2.5 H Aspartate Amino Transf (AST/SGOT) 118 H Alanine Aminotransferase (ALT/SGPT) 22 Alkaline Phosphatase 156 H Ammonia 51 H Total Protein 7.4 Albumin 2.9 L Globulin 4.50 H Albumin/Globulin Ratio 0.64 Medications Medications Current Medications Morphine Sulfate (morphine) 3 mg Q4H PRN IV pain Last administered on 16:35; Admin Dose 3 MG; Start 06/26/17 at 03:30 Ondansetron HCl (Zofran Inj) 4 mg Q4H PRN IV NAUSEA AND/OR VOMITING Last administered on 06/27/17 22:19; Admin Dose 4 MG; Start 06/26/17 at 03:30 Ferrous Sulfate (Ferrous Sulfate (Ec)) 325 mg BID PO Last administered on 06/30 08:08; Admin Dose 325 MG; Start 06/27/17 at 21:00 Pantoprazole (Protonix Iv) 40 mg DAILY@06 IV Last administered on 06/30/17 05 :51; Admin Dose 40 MG; Start 06/28/17 at 06:00 Lactulose 20 gm 20 gm DAILY PRN PO CONSTIPATION Last administered on 21:46; Admin Dose 20 GM; Start 06/27/17 at 14:30 Albumin Human (Albumin Human 25%) 100 ml @ 100 mls/hr BID IV Last administered on 06/30/17 16:28; Admin Dose 100 MLS/HR; Start 06/30/17 at 14: 15; Stop 07/01/17 at 09:59 PERLA VANESSA MD Jun 30, 2017 18:27
[2017-06-30 20:00] VITALS: BP 108/67; RESP 18
[2017-06-30] MEDS: FUROSEMIDE 40 MG INJ IV SCH (22:14)
[2017-07-01 02:00] VITALS: BP 116/68; RESP 19
[2017-07-01 05:19] LABS: BASOPHIL # 0.1 10^3/ul (0.0-0.1); BASOPHILS % 0.4 % (0.0-2.0); EOSINOPHILS # 0.1 10^3/ul (0.0-0.5); EOSINOPHILS % 1.1 % (0.0-7.0); HEMATOCRIT 25.9 % (37.0-47.0); HEMOGLOBIN 8.7 g/dl (12.0-16.0); LYMPHOCYTES # 1.5 10^3/ul (0.8-2.9); LYMPHOCYTES % 12.6 % (15.0-51.0); MEAN CORPUSCULAR HEMOGLOBIN 29.3 pg (29.0-33.0); MEAN CORPUSCULAR HGB CONC 33.6 g/dl (32.0-37.0); MEAN CORPUSCULAR VOLUME 87.2 fl (82.0-101.0); MEAN PLATELET VOLUME 11.9 fl (7.4-10.4); MONOCYTES % 8.2 % (0.0-11.0); NEUTROPHIL # 8.8 10^3/ul (1.6-7.5); NEUTROPHILS % 76.7 % (39.0-77.0); PLATELET COUNT 131 10^3/UL (140-415); RED BLOOD COUNT 2.97 10^6/ul (4.20-5.40); WHITE BLOOD COUNT 11.5 10^3/ul (4.8-10.8)
[2017-07-01 05:33] LABS: PHOSPHORUS 3.4 mg/dl (2.5-4.9)
[2017-07-01 05:41] LABS: ALBUMIN 3.2 g/dl (3.3-4.9); ALBUMIN/GLOBULIN RATIO 0.82; BILIRUBIN,DIRECT 11.5 mg/dl (0.00-0.20); BILIRUBIN,INDIRECT 2.5 mg/dl (0-1.1); CALCIUM 8.7 mg/dl (8.4-10.2); CREATININE 2.69 mg/dl (0.44-1.00); POTASSIUM 3.5 mmol/L (3.5-5.1); TOTAL PROTEIN 7.1 g/dl (6.1-8.1)
[2017-07-01] MEDS: PANTOPRAZOLE (EC) 40 MG TAB PO SCH (05:53)
[2017-07-01 07:26] VITALS: BP 109/62; RESP 19
[2017-07-01 07:30] LABS: ANISOCYTOSIS 1+ (0-0); BASOPHILS % (M) 1 % (0-2); BURR CELLS 1+ (0-0); EOSINOPHILS % (M) 1 % (0-7); GIANT THROMBO% (M) 1 % (0-0); MONOCYTES % (M) 9 % (0-11); PLATELET ESTIMATE DECREASED; POIKILOCYTOSIS 1+ (0-0); POLYCHROMASIA 1+ (0-0)
[2017-07-01] MEDS: ALBUMIN HUMAN 25% 100 ML IV SCH (08:35)
[2017-07-01] MEDS: CHOLESTYRAMINE 4 GM PACKET PO SCH ×2 (09:09→11:56)
[2017-07-01] MEDS: LACTULOSE 30ML CUP PO PRN (09:09)
[2017-07-01] MEDS: FERROUS SULFATE (EC) 325 MG TAB PO SCH ×2 (09:09→20:10)
--- NOTE | 2017-07-01 09:50 | PN ---
Date/Time of Note Date/Time of Note DATE: 07/01/17 TIME: 09:49 Assessment/Plan VTE Prophylaxis VTE Prophylaxis Intervention: SCD's Lines/Catheters IV Catheter Type (from [facility]): Saline Lock Urinary Cath still in place: No Assessment/Plan Chief Complaint/Hosp Course 1. Symptomatic cholelithiasis. No evidence of cholecystitis. CT abdomen showing gallbladder wall thickening versus pericholecystic with gallstones versus sludge. Gallbladder ultrasound showing gallbladder sludge with moderate gallbladder wall thickening and pericholecystic fluid. HIDA scan showing no evidence of cystic duct obstruction, but persistent liver uptake most compatible with parenchymal liver disease. Being followed by gastroenterology and general surgery. 2. Decompensated alcoholic liver cirrhosis with ascites and portal hypertension. Continue lactulose. Being followed by gastroenterology. 3. Acute kidney injury. Etiology unclear. Improving. Being followed by nephrology. 4. Metabolic acidosis. Resolved. 5. Anemia. Normocytic, normochromic. Probably secondary to underlying end- stage liver disease. Iron panel showing low iron saturation. Status post 2 units of PRBC transfusion. On iron supplements. 6. Transaminitis with hyperbilirubinemia. Most probably secondary to #1 and # 2. Avoid hepatotoxic medications. Being followed by gastroenterology. 7. Fluids, electrolytes, and nutrition. 2 g sodium diet. 9. DVT prophylaxis. Bilateral sequential compression devices. 10. Plan. Trend LFTs. Follow recommendations from gastroenterology and general surgery. Case discussed with Dr. Deng. Problems: Subjective 24 Hr Interval Summary Free Text/Dictation Complains of more abdominal distention. Exam/Review of Systems Vital Signs Vitals Vital Signs Date Time Temp Pulse Resp B/P Pulse Ox O2 Delivery O2 Flow Rate FiO2 07/01/17 07:26 98.0 101 19 109/62 98 Intake and Output 06/30/17 06/30/17 07/01/17 15:00 23:00 07:00 Intake Total 100 ml 400 ml Output Total 850 ml Balance 100 ml -450 ml Exam General: Adequately build 47 year-old female lying in bed in no apparent distress. HEENT: Normocephalic, atraumatic. Eyes: Icteric sclerae, conjunctivae clear. ENT : Nasal septum midline, oral mucosa moist. Neck supple, no JVD noticed. Respiratory: Bilaterally diminished breath sounds. No use of accessory muscles of respiration. No adventitious breath sounds. Cardiovascular: S1, S2 heard. Regular rate and rhythm. Abdomen: Soft. Bowel sounds positive in all 4 quadrants. Minimal distention. Left upper quadrant tenderness. Genitourinary: Deferred. Extremities: No cyanosis, no clubbing. Peripheral pulses palpable. Bilateral lower extremity 2+ pitting edema. Neurologic: Cranial nerves II through XII grossly intact. The patient is awake, alert, and oriented. Skin: Normal skin turgor. No skin rashes. Icterus. Results Result Diagram: 07/01/174 07/01/174 Results 24 hrs Laboratory Tests Test 07/01/17 04:24 White Blood Count 11.5 H Red Blood Count 2.97 L Hemoglobin 8.7 L Hematocrit 25.9 L Mean Corpuscular Volume 87.2 Mean Corpuscular Hemoglobin 29.3 Mean Corpuscular Hemoglobin Concent 33.6 Red Cell Distribution Width 20.0 H Platelet Count 131 L Mean Platelet Volume 11.9 H Neutrophils % 76.7 Segmented Neutrophils % (Manual) 55 Band Neutrophils % (Manual) 16 H Lymphocytes % 12.6 L Lymphocytes % (Manual) 16 Monocytes % 8.2 Monocytes % (Manual) 9 Eosinophils % 1.1 Eosinophils % (Manual) 1 Basophils % 0.4 Basophils % (Manual) 1 Nucleated Red Blood Cells % 0.0 Neutrophils # 8.8 H Neutrophils # (Manual) 6.5 Band Neutrophils # 1.8 H Absolute Lymphocytes (Manual) 1.8 Lymphocytes # 1.5 Monocytes # 1.0 H Absolute Monocytes (Manual) 1.0 H Eosinophils # 0.1 Basophils # 0.1 Basophils # (Manual) 0.1 H Nucleated Red Blood Cells # 0.0 Platelet Estimate DECREASED Giant Platelets 1 H Polychromasia 1+ Poikilocytosis 1+ Anisocytosis 1+ Sodium Level 139 Potassium Level 3.5 Chloride Level 101 Carbon Dioxide Level 26 Anion Gap 16 Blood Urea Nitrogen 21 H Creatinine 2.69 H Glucose Level 81 Calcium Level 8.7 Phosphorus Level 3.4 Magnesium Level 2.0 Total Bilirubin 14.0 H Direct Bilirubin 11.50 H Indirect Bilirubin 2.5 H Aspartate Amino Transf (AST/SGOT) 93 H Alanine Aminotransferase (ALT/SGPT) 28 Alkaline Phosphatase 132 H Ammonia 41 H Total Protein 7.1 Albumin 3.2 L Globulin 3.90 H Albumin/Globulin Ratio 0.82 Medications Medications Current Medications Morphine Sulfate (morphine) 3 mg Q4H PRN IV pain Last administered on 16:35; Admin Dose 3 MG; Start 06/26/17 at 03:30 Ondansetron HCl (Zofran Inj) 4 mg Q4H PRN IV NAUSEA AND/OR VOMITING Last administered on 06/27/17 22:19; Admin Dose 4 MG; Start 06/26/17 at 03:30 Ferrous Sulfate (Ferrous Sulfate (Ec)) 325 mg BID PO Last administered on 07/01 09:09; Admin Dose 325 MG; Start 06/27/17 at 21:00 Lactulose 20 gm 20 gm DAILY PRN PO CONSTIPATION Last administered on 09:09; Admin Dose 20 GM; Start 06/27/17 at 14:30 Albumin Human (Albumin Human 25%) 100 ml @ 100 mls/hr BID IV Last administered on 07/01/17 08:35; Admin Dose 100 MLS/HR; Start 06/30/17 at 14: 15; Stop 07/01/17 at 09:59 Furosemide (Lasix) 40 mg BID@10,22 IV Last administered on 06/30/17 22:14; Admin Dose 40 MG; Start 06/30/17 at 22:00; Stop 07/01/17 at 10:01 Pantoprazole (Protonix Tab) 40 mg DAILY@06 PO Last administered on 07/01/17 05:53; Admin Dose 40 MG; Start 07/01/17 at 06:00 RAKESH WEBBER NP Jul 01, 2017 09:50
[2017-07-01] MEDS: FUROSEMIDE 40 MG INJ IV SCH ×2 (10:29→18:02)
[2017-07-01] MEDS ORDERED: POTASSIUM CHLORIDE (SR) 20 MEQ TAB PO STA (13:29)
--- NOTE | 2017-07-01 13:40 | CONS ---
Date/Time of Note Date/Time of Note DATE: 07/01/17 TIME: 13:36 Assessment/Plan Assessment/Plan Chief Complaint/Hosp Course 1. Acute renal failure. The patient's serum creatinine is about the same as yesterday. She is nonoliguric; however, her urine output has increased from yesterday but she is developing more edema and ascites.. Her urine output increased to 850 cc yesterday. I am assuming this is in response to the albumin and Lasix she was given yesterday. I will continue the IV Lasix for now. I am trying to get her old records from a hospitalization a week ago to assess her prior renal function. 2. Cirrhosis of the liver with high bilirubin, low albumin. Coagulopathy 3. Left upper quadrant abdominal pain 4. Anemia , consider blood transfusion if her hemoglobin and hematocrit decreases further. Problems: Consultation Date/Type/Reason Admit Date/Time Jun 26, 2017 at 00:00 Initial Consult Date 06/26/17 Type of Consultation: Nephrology 24 HR Interval Summary Free Text/Dictation Patient complains of abdominal distention. She is urinating. She says that she is not eating because of the abdominal distention. Exam/Review of Systems Vital Signs Vitals Vital Signs Date Time Temp Pulse Resp B/P Pulse Ox O2 Delivery O2 Flow Rate FiO2 07/01/17 07:26 98.0 101 19 109/62 98 Intake and Output 06/30/17 06/30/17 07/01/17 15:00 23:00 07:00 Intake Total 100 ml 400 ml Output Total 850 ml Balance 100 ml -450 ml Exam Constitutional: alert, frail, obese, oriented Neck: non-tender, supple Respiratory: diminished breath sounds Cardiovascular: edema, regular rate and rhythm Gastrointestinal: ascites, distended, tender Extremities: edema Results Result Diagram: 07/01/17 0424 07/01/17 0424 Results 24 hrs Laboratory Tests Test 07/01/17 04:24 White Blood Count 11.5 H Red Blood Count 2.97 L Hemoglobin 8.7 L Hematocrit 25.9 L Mean Corpuscular Volume 87.2 Mean Corpuscular Hemoglobin 29.3 Mean Corpuscular Hemoglobin Concent 33.6 Red Cell Distribution Width 20.0 H Platelet Count 131 L Mean Platelet Volume 11.9 H Neutrophils % 76.7 Segmented Neutrophils % (Manual) 55 Band Neutrophils % (Manual) 16 H Lymphocytes % 12.6 L Lymphocytes % (Manual) 16 Monocytes % 8.2 Monocytes % (Manual) 9 Eosinophils % 1.1 Eosinophils % (Manual) 1 Basophils % 0.4 Basophils % (Manual) 1 Nucleated Red Blood Cells % 0.0 Neutrophils # 8.8 H Neutrophils # (Manual) 6.5 Band Neutrophils # 1.8 H Absolute Lymphocytes (Manual) 1.8 Lymphocytes # 1.5 Monocytes # 1.0 H Absolute Monocytes (Manual) 1.0 H Eosinophils # 0.1 Basophils # 0.1 Basophils # (Manual) 0.1 H Nucleated Red Blood Cells # 0.0 Platelet Estimate DECREASED Giant Platelets 1 H Polychromasia 1+ Poikilocytosis 1+ Anisocytosis 1+ Sodium Level 139 Potassium Level 3.5 Chloride Level 101 Carbon Dioxide Level 26 Anion Gap 16 Blood Urea Nitrogen 21 H Creatinine 2.69 H Glucose Level 81 Calcium Level 8.7 Phosphorus Level 3.4 Magnesium Level 2.0 Total Bilirubin 14.0 H Direct Bilirubin 11.50 H Indirect Bilirubin 2.5 H Aspartate Amino Transf (AST/SGOT) 93 H Alanine Aminotransferase (ALT/SGPT) 28 Alkaline Phosphatase 132 H Ammonia 41 H Total Protein 7.1 Albumin 3.2 L Globulin 3.90 H Albumin/Globulin Ratio 0.82 Medications Medications Current Medications Morphine Sulfate (morphine) 3 mg Q4H PRN IV pain Last administered on 16:35; Admin Dose 3 MG; Start 06/26/17 at 03:30 Ondansetron HCl (Zofran Inj) 4 mg Q4H PRN IV NAUSEA AND/OR VOMITING Last administered on 06/27/17 22:19; Admin Dose 4 MG; Start 06/26/17 at 03:30 Ferrous Sulfate (Ferrous Sulfate (Ec)) 325 mg BID PO Last administered on 07/01 09:09; Admin Dose 325 MG; Start 06/27/17 at 21:00 Pantoprazole (Protonix Tab) 40 mg DAILY@06 PO Last administered on 07/01/17 05:53; Admin Dose 40 MG; Start 07/01/17 at 06:00 Lactulose (Enulose) 20 gm Q8 PO ; Start 07/01/17 at 14:00 PERLA VANESSA MD Jul 01, 2017 13:40
[2017-07-01] MEDS: LACTULOSE 30ML CUP PO SCH ×2 (14:04→21:55)
[2017-07-01 15:30] VITALS: BP 121/65; RESP 19
[2017-07-01] MEDS: morphine 4 MG/ML VIAL IV PRN (18:01)
--- NOTE | 2017-07-01 19:13 | PN ---
Date/Time of Note Date/Time of Note DATE: 07/01/17 TIME: 19:06 Assessment/Plan VTE Prophylaxis VTE Prophylaxis Intervention: SCD's Lines/Catheters [facility] Saline Lock Urinary Cath still in place: No Assessment/Plan Chief Complaint/Hosp Course Assessment: Alcoholic hepatitis Liver cirrhosis with ascites Abdominal pain No evidence of cholecystitis- negative HIDA Acute kidney injury Sepsis Metabolic acidosis Plan: DF 33.8-no steroids Hgb is stable, transfuse as needed Alcohol cessation a must Start Aldactone 100 mg p.o. twice daily Change diet to 2 g sodium with 1500 mL fluid restriction per 24 hours Paracentesis Subjective: Course reviewed with nursing staff Patient interviewed and examined All labs, imaging and other results reviewed The patient continue to c/o LUQ pain On diuretics but increasing abd distention Will request re-attempt at guided paracentesis for diagnostic and theraputic benefit PHYSICAL EXAMINATION: GENERAL: Well developed, well nourished, alert & oriented x 3, in no acute distress, forgetful SKIN: Jaundiced. No lesions, + stigmata chronic liver disease, no evidence of bleeding diathesis. Pruritic and jaundiced LYMPHATIC: No palpable lymphadenopathy. HEAD: Normocephalic, atraumatic, no tenderness. EYES: Pupils equal reactive to light and accommodation, full extraocular movements, sclera clear, icteric, no discharge. EARS/NOSE AND THROAT: Ears normal, nose normal, NECK: Supple, CHEST: Inspection within normal limits. CARDIOVASCULAR: Heart: Regular rate and rhythm,. RESPIRATORY: Lungs clear to auscultation GASTROINTESTINAL AND LIVER: Abdomen: Soft, Moderate LUQ/epigastric tenderness, moderately distended, no hernias, no masses, moderate ascites, splenomegaly, no guarding, no rebound tenderness, normoactive bowel sounds. Rectal: Deferred. GENITOURINARY: Female genitalia within normal limits. EXTREMITIES: No cyanosis, clubbing or edema. Problems: Exam/Review of Systems Vital Signs Vitals Vital Signs Date Time Temp Pulse Resp B/P Pulse Ox O2 Delivery O2 Flow Rate FiO2 07/01/17 15:30 98.2 79 19 121/65 97 Intake and Output 06/30/17 06/30/17 07/01/17 15:00 23:00 07:00 Intake Total 100 ml 400 ml Output Total 850 ml Balance 100 ml -450 ml Results Result Diagram: 07/01/17 0424 07/01/17 0424 Results 24 hrs Laboratory Tests Test 07/01/17 04:24 White Blood Count 11.5 H Red Blood Count 2.97 L Hemoglobin 8.7 L Hematocrit 25.9 L Mean Corpuscular Volume 87.2 Mean Corpuscular Hemoglobin 29.3 Mean Corpuscular Hemoglobin Concent 33.6 Red Cell Distribution Width 20.0 H Platelet Count 131 L Mean Platelet Volume 11.9 H Neutrophils % 76.7 Segmented Neutrophils % (Manual) 55 Band Neutrophils % (Manual) 16 H Lymphocytes % 12.6 L Lymphocytes % (Manual) 16 Monocytes % 8.2 Monocytes % (Manual) 9 Eosinophils % 1.1 Eosinophils % (Manual) 1 Basophils % 0.4 Basophils % (Manual) 1 Nucleated Red Blood Cells % 0.0 Neutrophils # 8.8 H Neutrophils # (Manual) 6.5 Band Neutrophils # 1.8 H Absolute Lymphocytes (Manual) 1.8 Lymphocytes # 1.5 Monocytes # 1.0 H Absolute Monocytes (Manual) 1.0 H Eosinophils # 0.1 Basophils # 0.1 Basophils # (Manual) 0.1 H Nucleated Red Blood Cells # 0.0 Platelet Estimate DECREASED Giant Platelets 1 H Polychromasia 1+ Poikilocytosis 1+ Anisocytosis 1+ Sodium Level 139 Potassium Level 3.5 Chloride Level 101 Carbon Dioxide Level 26 Anion Gap 16 Blood Urea Nitrogen 21 H Creatinine 2.69 H Glucose Level 81 Calcium Level 8.7 Phosphorus Level 3.4 Magnesium Level 2.0 Total Bilirubin 14.0 H Direct Bilirubin 11.50 H Indirect Bilirubin 2.5 H Aspartate Amino Transf (AST/SGOT) 93 H Alanine Aminotransferase (ALT/SGPT) 28 Alkaline Phosphatase 132 H Ammonia 41 H Total Protein 7.1 Albumin 3.2 L Globulin 3.90 H Albumin/Globulin Ratio 0.82 Medications Medications Current Medications Morphine Sulfate (morphine) 3 mg Q4H PRN IV pain Last administered on 18:01; Admin Dose 3 MG; Start 06/26/17 at 03:30 Ondansetron HCl (Zofran Inj) 4 mg Q4H PRN IV NAUSEA AND/OR VOMITING Last administered on 06/27/17 22:19; Admin Dose 4 MG; Start 06/26/17 at 03:30 Ferrous Sulfate (Ferrous Sulfate (Ec)) 325 mg BID PO Last administered on 07/01 09:09; Admin Dose 325 MG; Start 06/27/17 at 21:00 Pantoprazole (Protonix Tab) 40 mg DAILY@06 PO Last administered on 07/01/17 05:53; Admin Dose 40 MG; Start 07/01/17 at 06:00 Lactulose (Enulose) 20 gm Q8 PO Last administered on 07/01/17 14:04; Admin Dose 20 GM; Start 07/01/17 at 14:00 FRANCINE SCHNEIDER MD Jul 01, 2017 19:13
[2017-07-01 19:53] VITALS: BP 106/62; PULSE 96; RESP 18
[2017-07-01] MEDS: SPIRONOLACTONE 50 MG TAB PO SCH (21:55)
[2017-07-02 02:00] VITALS: BP 104/61; RESP 18
[2017-07-02 05:10] LABS: BASOPHILS % 0.3 % (0.0-2.0); EOSINOPHILS # 0.2 10^3/ul (0.0-0.5); EOSINOPHILS % 1.1 % (0.0-7.0); HEMATOCRIT 27.4 % (37.0-47.0); HEMOGLOBIN 8.9 g/dl (12.0-16.0); LYMPHOCYTES # 1.3 10^3/ul (0.8-2.9); LYMPHOCYTES % 9.6 % (15.0-51.0); MEAN CORPUSCULAR HEMOGLOBIN 28.8 pg (29.0-33.0); MEAN CORPUSCULAR HGB CONC 32.5 g/dl (32.0-37.0); MEAN CORPUSCULAR VOLUME 88.7 fl (82.0-101.0); MEAN PLATELET VOLUME 11.2 fl (7.4-10.4); MONOCYTE # 0.9 10^3/ul (0.3-0.9); MONOCYTES % 6.7 % (0.0-11.0); NEUTROPHIL # 11.2 10^3/ul (1.6-7.5); NEUTROPHILS % 80.5 % (39.0-77.0); PLATELET COUNT 137 10^3/UL (140-415); RED BLOOD COUNT 3.09 10^6/ul (4.20-5.40); RED CELL DISTRIBUTION WIDTH 20.2 % (11.5-14.5); WHITE BLOOD COUNT 13.9 10^3/ul (4.8-10.8)
[2017-07-02 05:12] LABS: POSITIVE DIFF @See below
[2017-07-02 05:38] LABS: ALBUMIN 3.2 g/dl (3.3-4.9); ALBUMIN/GLOBULIN RATIO 0.78; BILIRUBIN,INDIRECT 2.7 mg/dl (0-1.1); BILIRUBIN,TOTAL 15.7 mg/dl (0.2-1.3); CALCIUM 9.4 mg/dl (8.4-10.2); CREATININE 2.69 mg/dl (0.44-1.00); POTASSIUM 3.5 mmol/L (3.5-5.1); TOTAL PROTEIN 7.3 g/dl (6.1-8.1)
[2017-07-02] MEDS: SPIRONOLACTONE 50 MG TAB PO SCH (05:39)
[2017-07-02] MEDS: PANTOPRAZOLE (EC) 40 MG TAB PO SCH (05:39)
[2017-07-02] MEDS: LACTULOSE 30ML CUP PO SCH ×3 (05:39→22:00)
[2017-07-02] MEDS: FUROSEMIDE 40 MG INJ IV SCH ×2 (05:39→17:36)
[2017-07-02 05:40] LABS: MAGNESIUM 1.9 mg/dl (1.7-2.5); PHOSPHORUS 3.2 mg/dl (2.5-4.9)
[2017-07-02 07:53] VITALS: BP 106/66; RESP 19
--- NOTE | 2017-07-02 08:30 | PN ---
Date/Time of Note Date/Time of Note DATE: 07/02/17 TIME: 08:29 Assessment/Plan VTE Prophylaxis VTE Prophylaxis Intervention: SCD's Lines/Catheters IV Catheter Type (from [facility]): Saline Lock Urinary Cath still in place: No Assessment/Plan Chief Complaint/Hosp Course 1. Symptomatic cholelithiasis. No evidence of cholecystitis. CT abdomen showing gallbladder wall thickening versus pericholecystic with gallstones versus sludge. Gallbladder ultrasound showing gallbladder sludge with moderate gallbladder wall thickening and pericholecystic fluid. HIDA scan showing no evidence of cystic duct obstruction, but persistent liver uptake most compatible with parenchymal liver disease. Being followed by gastroenterology. 2. Decompensated alcoholic liver cirrhosis with ascites and portal hypertension. Continue lactulose. Being followed by gastroenterology. 3. Acute kidney injury. Etiology unclear. Improving. Being followed by nephrology. 4. Metabolic acidosis. Resolved. 5. Anemia. Normocytic, normochromic. Probably secondary to underlying end- stage liver disease. Iron panel showing low iron saturation. Status post 2 units of PRBC transfusion. On iron supplements. 6. Transaminitis with hyperbilirubinemia. Most probably secondary to #1 and # 2. Avoid hepatotoxic medications. Being followed by gastroenterology. 7. Fluids, electrolytes, and nutrition. 2 g sodium diet. Fluid restriction. 9. DVT prophylaxis. Bilateral sequential compression devices. 10. Plan. Trend LFTs. Patient scheduled for a paracentesis today. Diuresis as per nephrology. Case discussed with Dr. Deng. Problems: Subjective 24 Hr Interval Summary Free Text/Dictation Denies any abdominal pain. Exam/Review of Systems Vital Signs Vitals Vital Signs Date Time Temp Pulse Resp B/P Pulse Ox O2 Delivery O2 Flow Rate FiO2 07/02/17 07:53 98.0 94 19 106/66 98 07/01/17 19:53 Room Air Intake and Output 07/01/17 07/01/17 07/02/17 14:59 22:59 06:59 Intake Total 100 ml 440 ml 500 ml Output Total 500 ml 750 ml Balance 100 ml -60 ml -250 ml Exam General: Adequately build 47 year-old female lying in bed in no apparent distress. HEENT: Normocephalic, atraumatic. Eyes: Icteric sclerae, conjunctivae clear. ENT : Nasal septum midline, oral mucosa moist. Neck supple, no JVD noticed. Respiratory: Bilaterally diminished breath sounds. No use of accessory muscles of respiration. No adventitious breath sounds. Cardiovascular: S1, S2 heard. Regular rate and rhythm. Abdomen: Soft. Bowel sounds positive in all 4 quadrants. Minimal distention. Left upper quadrant tenderness. Genitourinary: Deferred. Extremities: No cyanosis, no clubbing. Peripheral pulses palpable. Bilateral lower extremity 2+ pitting edema. Neurologic: Cranial nerves II through XII grossly intact. The patient is awake, alert, and oriented. Skin: Normal skin turgor. No skin rashes. Icterus. Results Result Diagram: 07/02/1743907/02/17439 Results 24 hrs Laboratory Tests Test 07/02/17 04:40 White Blood Count 13.9 #H Red Blood Count 3.09 L Hemoglobin 8.9 L Hematocrit 27.4 L Mean Corpuscular Volume 88.7 Mean Corpuscular Hemoglobin 28.8 L Mean Corpuscular Hemoglobin Concent 32.5 Red Cell Distribution Width 20.2 H Platelet Count 137 L Mean Platelet Volume 11.2 H Neutrophils % 80.5 H Lymphocytes % 9.6 L Monocytes % 6.7 Eosinophils % 1.1 Basophils % 0.3 Nucleated Red Blood Cells % 0.0 Neutrophils # 11.2 H Lymphocytes # 1.3 Monocytes # 0.9 Eosinophils # 0.2 Basophils # 0.0 Nucleated Red Blood Cells # 0.0 Sodium Level 143 Potassium Level 3.5 Chloride Level 103 Carbon Dioxide Level 27 Anion Gap 17 H Blood Urea Nitrogen 22 H Creatinine 2.69 H Glucose Level 95 Calcium Level 9.4 Phosphorus Level 3.2 Magnesium Level 1.9 Total Bilirubin 15.7 H Direct Bilirubin 13.00 H Indirect Bilirubin 2.7 H Aspartate Amino Transf (AST/SGOT) 108 H Alanine Aminotransferase (ALT/SGPT) 30 Alkaline Phosphatase 129 H Ammonia 50 H Total Protein 7.3 Albumin 3.2 L Globulin 4.10 H Albumin/Globulin Ratio 0.78 Medications Medications Current Medications Morphine Sulfate (morphine) 3 mg Q4H PRN IV pain Last administered on 18:01; Admin Dose 3 MG; Start 06/26/17 at 03:30 Ondansetron HCl (Zofran Inj) 4 mg Q4H PRN IV NAUSEA AND/OR VOMITING Last administered on 06/27/17 22:19; Admin Dose 4 MG; Start 06/26/17 at 03:30 Ferrous Sulfate (Ferrous Sulfate (Ec)) 325 mg BID PO Last administered on 07/01 20:10; Admin Dose 325 MG; Start 06/27/17 at 21:00 Pantoprazole (Protonix Tab) 40 mg DAILY@06 PO Last administered on 07/02/17 05 :39; Admin Dose 40 MG; Start 07/01/17 at 06:00 Lactulose (Enulose) 20 gm Q8 PO Last administered on 07/02/17 05:39; Admin Dose 20 GM; Start 07/01/17 at 14:00 RAKESH WEBBER NP Jul 02, 2017 08:30
--- NOTE | 2017-07-02 09:09 | CONS ---
Date/Time of Note Date/Time of Note DATE: 07/02/17 TIME: 09:02 Assessment/Plan Assessment/Plan Chief Complaint/Hosp Course 1. Acute renal failure. The patient's serum creatinine has remained the same over the last several days. She is nonoliguric and her urine output has increased while being on IV Lasix.. I will continue the IV Lasix for now. I received old records on her from [facility]. She was there in the emergency room on 06/18/2017 and her serum creatinine at that time was 0.55. The patient was sent home on ibuprofen and Spironolactone. 2. Cirrhosis of the liver with rising bilirubin, low albumin , edema and ascites. She is going for a paracentesis today. Coagulopathy 3. Left upper quadrant abdominal pain , which has persisted. 4. Anemia , consider blood transfusion if her hemoglobin and hematocrit decreases further. Problems: Consultation Date/Type/Reason Admit Date/Time Jun 26, 2017 at 00:00 Initial Consult Date 06/26/17 Type of Consultation: Nephrology 24 HR Interval Summary Free Text/Dictation She is awake and alert today. She continues to complain of left upper quadrant abdominal pain. She has a distended abdomen from ascites. Exam/Review of Systems Vital Signs Vitals Vital Signs Date Time Temp Pulse Resp B/P Pulse Ox O2 Delivery O2 Flow Rate FiO2 07/02/17 07:53 98.0 94 19 106/66 98 07/01/17 19:53 Room Air Intake and Output 07/01/17 07/01/17 07/02/17 15:00 23:00 07:00 Intake Total 100 ml 440 ml 500 ml Output Total 500 ml 750 ml Balance 100 ml -60 ml -250 ml Exam Constitutional: alert, frail, oriented Eyes: icteric Respiratory: diminished breath sounds Cardiovascular: edema, regular rate and rhythm Gastrointestinal: ascites, distended, tender Extremities: edema Results Result Diagram: 07/02/17 0440 07/02/17 0440 Results 24 hrs Laboratory Tests Test 07/02/17 04:40 White Blood Count 13.9 #H Red Blood Count 3.09 L Hemoglobin 8.9 L Hematocrit 27.4 L Mean Corpuscular Volume 88.7 Mean Corpuscular Hemoglobin 28.8 L Mean Corpuscular Hemoglobin Concent 32.5 Red Cell Distribution Width 20.2 H Platelet Count 137 L Mean Platelet Volume 11.2 H Neutrophils % 80.5 H Lymphocytes % 9.6 L Monocytes % 6.7 Eosinophils % 1.1 Basophils % 0.3 Nucleated Red Blood Cells % 0.0 Neutrophils # 11.2 H Lymphocytes # 1.3 Monocytes # 0.9 Eosinophils # 0.2 Basophils # 0.0 Nucleated Red Blood Cells # 0.0 Sodium Level 143 Potassium Level 3.5 Chloride Level 103 Carbon Dioxide Level 27 Anion Gap 17 H Blood Urea Nitrogen 22 H Creatinine 2.69 H Glucose Level 95 Calcium Level 9.4 Phosphorus Level 3.2 Magnesium Level 1.9 Total Bilirubin 15.7 H Direct Bilirubin 13.00 H Indirect Bilirubin 2.7 H Aspartate Amino Transf (AST/SGOT) 108 H Alanine Aminotransferase (ALT/SGPT) 30 Alkaline Phosphatase 129 H Ammonia 50 H Total Protein 7.3 Albumin 3.2 L Globulin 4.10 H Albumin/Globulin Ratio 0.78 Medications Medications Current Medications Morphine Sulfate (morphine) 3 mg Q4H PRN IV pain Last administered on 18:01; Admin Dose 3 MG; Start 06/26/17 at 03:30 Ondansetron HCl (Zofran Inj) 4 mg Q4H PRN IV NAUSEA AND/OR VOMITING Last administered on 06/27/17 22:19; Admin Dose 4 MG; Start 06/26/17 at 03:30 Ferrous Sulfate (Ferrous Sulfate (Ec)) 325 mg BID PO Last administered on 07/01 20:10; Admin Dose 325 MG; Start 06/27/17 at 21:00 Pantoprazole (Protonix Tab) 40 mg DAILY@06 PO Last administered on 07/02/17 05 :39; Admin Dose 40 MG; Start 07/01/17 at 06:00 Lactulose (Enulose) 20 gm Q8 PO Last administered on 07/02/17 05:39; Admin Dose 20 GM; Start 07/01/17 at 14:00 PERLA VANESSA MD Jul 02, 2017 09:09
[2017-07-02] MEDS ORDERED: LIDOCAINE 1% (MPF) 5 ML VIAL ONE (09:46)
--- NOTE | 2017-07-02 11:13 | RADRPT ---
PROCEDURE: Ultrasound guided paracentesis. CLINICAL INDICATION: Ascites and shortness of breath. COMPARISON: No prior studies are available for comparison. TECHNIQUE: The risks, benefits, and alternatives were explained to the patient and/or the patient's family, inc luding but not limited to bleeding, infection, pain, visceral or vascular damage, shock, and . The patient and/or the patient's family understood the risks and the alternatives and wished to pro ceed with the procedure. Informed written consent was obtained. A procedural time out was performed . The patient's name, date of , and procedure to be performed were verified. Utilizing ultrasound guidance, optimal location for entry to the peritoneal cavity was ascertained. The overlying skin was prepped and draped in the usual sterile fashion. Approximately 10 ml of 1% Xylocaine was injected locally for pain control. Using ultrasound guidance, an 8 [place] catheter wa s introduced into the peritoneal cavity in the Thelower quadrant without difficulty. FINDINGS: Initial images demonstrate ascites. Approximately 2.2 liters of serous fluid was aspirated and sent for laboratory analysis. The patient tolerated the procedure well without complication. IMPRESSION: 1. Successful ultrasound-guided paracentesis. RPTAT: QQ .Wm Hagen MD, MD Date Time Electronically viewed and signed by .Wm Hagen MD, on 07/02/2017 11:13 .R/
--- NOTE | 2017-07-02 11:54 | PN ---
Date/Time of Note Date/Time of Note DATE: 07/02/17 TIME: 11:48 Assessment/Plan VTE Prophylaxis VTE Prophylaxis Intervention: SCD's Lines/Catheters IV C[facility]ter Type (from [facility]): Saline Lock Urinary Cath still in place: No Assessment/Plan Chief Complaint/Hosp Course Chief Complaint/Hosp Course Assessment: Alcoholic hepatitis Liver cirrhosis with ascites Abdominal pain No evidence of cholecystitis- negative HIDA Acute kidney injury Sepsis Metabolic acidosis Plan: DF 33.8-no steroids Hgb is stable, transfuse as needed Alcohol cessation a must Continue Lasix Change diet to 2 g sodium with 1500 mL fluid restriction per 24 hours S/p Paracentesis with 2.2 liters removed- pathology/lab pending Pt seen in collaboration with Dr. Ny Subjective: Course reviewed with nursing staff Patient interviewed and examined All labs, imaging and other results reviewed The patient is doing much better, family at bedside Remains on diuretics S/p guided paracentesis for diagnostic and therapeutic benefit completed this am , patient tolerated procedure well. Continue close observation PHYSICAL EXAMINATION: GENERAL: Well developed, well nourished, alert & oriented x 3, in no acute distress, forgetful SKIN: Jaundiced. No lesions, + stigmata chronic liver disease, no evidence of bleeding diathesis. Pruritic and jaundiced LYMPHATIC: No palpable lymphadenopathy. HEAD: Normocephalic, atraumatic, no tenderness. EYES: Pupils equal reactive to light and accommodation, full extraocular movements, sclera clear, icteric, no discharge. EARS/NOSE AND THROAT: Ears normal, nose normal, NECK: Supple, CHEST: Inspection within normal limits. CARDIOVASCULAR: Heart: Regular rate and rhythm,. RESPIRATORY: Lungs clear to auscultation GASTROINTESTINAL AND LIVER: Abdomen: Soft, Moderate LUQ/epigastric tenderness, moderately distended, no hernias, no masses, moderate ascites, splenomegaly, no guarding, no rebound tenderness, normoactive bowel sounds. Rectal: Deferred. GENITOURINARY: Female genitalia within normal limits. EXTREMITIES: No cyanosis, clubbing or edema. Problems: Exam/Review of Systems Vital Signs Vitals Vital Signs Date Time Temp Pulse Resp B/P Pulse Ox O2 Delivery O2 Flow Rate FiO2 07/02/17 07:53 98.0 94 19 106/66 98 07/01/17 19:53 Room Air Intake and Output 07/01/17 07/01/17 07/02/17 15:00 23:00 07:00 Intake Total 100 ml 440 ml 500 ml Output Total 500 ml 750 ml Balance 100 ml -60 ml -250 ml Results Result Diagram: 07/02/1743907/02/17439 Results 24 hrs Laboratory Tests Test 07/02/17 04:40 White Blood Count 13.9 #H Red Blood Count 3.09 L Hemoglobin 8.9 L Hematocrit 27.4 L Mean Corpuscular Volume 88.7 Mean Corpuscular Hemoglobin 28.8 L Mean Corpuscular Hemoglobin Concent 32.5 Red Cell Distribution Width 20.2 H Platelet Count 137 L Mean Platelet Volume 11.2 H Neutrophils % 80.5 H Lymphocytes % 9.6 L Monocytes % 6.7 Eosinophils % 1.1 Basophils % 0.3 Nucleated Red Blood Cells % 0.0 Neutrophils # 11.2 H Lymphocytes # 1.3 Monocytes # 0.9 Eosinophils # 0.2 Basophils # 0.0 Nucleated Red Blood Cells # 0.0 Sodium Level 143 Potassium Level 3.5 Chloride Level 103 Carbon Dioxide Level 27 Anion Gap 17 H Blood Urea Nitrogen 22 H Creatinine 2.69 H Glucose Level 95 Calcium Level 9.4 Phosphorus Level 3.2 Magnesium Level 1.9 Total Bilirubin 15.7 H Direct Bilirubin 13.00 H Indirect Bilirubin 2.7 H Aspartate Amino Transf (AST/SGOT) 108 H Alanine Aminotransferase (ALT/SGPT) 30 Alkaline Phosphatase 129 H Ammonia 50 H Total Protein 7.3 Albumin 3.2 L Globulin 4.10 H Albumin/Globulin Ratio 0.78 Medications Medications Current Medications Morphine Sulfate (morphine) 3 mg Q4H PRN IV pain Last administered on 18:01; Admin Dose 3 MG; Start 06/26/17 at 03:30 Ondansetron HCl (Zofran Inj) 4 mg Q4H PRN IV NAUSEA AND/OR VOMITING Last administered on 06/27/17 22:19; Admin Dose 4 MG; Start 06/26/17 at 03:30 Ferrous Sulfate (Ferrous Sulfate (Ec)) 325 mg BID PO Last administered on 07/01 20:10; Admin Dose 325 MG; Start 06/27/17 at 21:00 Pantoprazole (Protonix Tab) 40 mg DAILY@06 PO Last administered on 07/02/17 05 :39; Admin Dose 40 MG; Start 07/01/17 at 06:00 Lactulose (Enulose) 20 gm Q8 PO Last administered on 07/02/17t 05:39; Admin Dose 20 GM; Start 07/01/17 at 14:00 ABE KRISHNA Jul 02, 2017 11:53
[2017-07-02] MEDS: FERROUS SULFATE (EC) 325 MG TAB PO SCH ×2 (13:16→21:07)
[2017-07-02 15:15] VITALS: BP 111/62; RESP 18
[2017-07-02] MEDS: morphine 4 MG/ML VIAL IV PRN ×2 (17:55→22:01)
[2017-07-02 19:30] VITALS: BP 109/57; RESP 18
[2017-07-02 19:45] VITALS: BP 107/58; PULSE 92
[2017-07-03 02:10] VITALS: BP 107/63; RESP 20
[2017-07-03 06:09] LABS: BASOPHILS % 0.1 % (0.0-2.0); EOSINOPHILS # 0.2 10^3/ul (0.0-0.5); EOSINOPHILS % 1.2 % (0.0-7.0); HEMATOCRIT 25.7 % (37.0-47.0); HEMOGLOBIN 8.6 g/dl (12.0-16.0); LYMPHOCYTES # 1.4 10^3/ul (0.8-2.9); LYMPHOCYTES % 10.3 % (15.0-51.0); MEAN CORPUSCULAR HEMOGLOBIN 29.7 pg (29.0-33.0); MEAN CORPUSCULAR HGB CONC 33.5 g/dl (32.0-37.0); MEAN CORPUSCULAR VOLUME 88.6 fl (82.0-101.0); MEAN PLATELET VOLUME 12.1 fl (7.4-10.4); MONOCYTE # 0.9 10^3/ul (0.3-0.9); NEUTROPHIL # 10.5 10^3/ul (1.6-7.5); NEUTROPHILS % 80.3 % (39.0-77.0); PLATELET COUNT 126 10^3/UL (140-415); RED CELL DISTRIBUTION WIDTH 20.5 % (11.5-14.5); WHITE BLOOD COUNT 13.1 10^3/ul (4.8-10.8)
[2017-07-03 06:19] LABS: MAGNESIUM 1.6 mg/dl (1.7-2.5); PHOSPHORUS 3.3 mg/dl (2.5-4.9)
[2017-07-03 06:23] LABS: ALBUMIN 2.9 g/dl (3.3-4.9); ALBUMIN/GLOBULIN RATIO 0.69; BILIRUBIN,DIRECT 12.4 mg/dl (0.00-0.20); BILIRUBIN,INDIRECT 2.6 mg/dl (0-1.1); CALCIUM 8.9 mg/dl (8.4-10.2); CREATININE 2.51 mg/dl (0.44-1.00); TOTAL PROTEIN 7.1 g/dl (6.1-8.1)
[2017-07-03] MEDS: LACTULOSE 30ML CUP PO SCH ×3 (06:47→21:10)
[2017-07-03] MEDS: PANTOPRAZOLE (EC) 40 MG TAB PO SCH (06:47)
[2017-07-03 07:01] LABS: POTASSIUM 2.9 mmol/L (3.5-5.1)
[2017-07-03] MEDS ORDERED: POTASSIUM CHLORIDE (SR) 20 MEQ TAB PO ONE (07:30)
[2017-07-03 08:00] VITALS: BP 111/59; RESP 18
[2017-07-03] MEDS: FERROUS SULFATE (EC) 325 MG TAB PO SCH ×2 (08:28→21:10)
[2017-07-03] MEDS ORDERED: MAGNESIUM SULFATE 2 GM/50 ML 50 ML IVPB ONE (09:00)
[2017-07-03] MEDS ORDERED: POTASSIUM CHLORIDE 250 ML IVPB ONE (09:00)
--- NOTE | 2017-07-03 10:28 | CONS ---
Date/Time of Note Date/Time of Note DATE: 07/03/17 TIME: 10:26 Assessment/Plan Assessment/Plan Additional Assessment/Plan 1. Acute renal failure. The patient's serum creatinine has remained the same over the last several days. She is nonoliguric and her urine output has increased while being on IV Lasix.. I will continue the IV Lasix for now. I received old records on her from [facility]. She was there in the emergency room on 06/18/2017 and her serum creatinine at that time was 0.55. The patient was sent home on ibuprofen and Spironolactone.cr better today at 2.5. replace k and dc lasix/ am labs 2. Cirrhosis of the liver with rising bilirubin, low albumin , edema and ascites. S/p paracentesis today. Coagulopathy 3. Left upper quadrant abdominal pain , better 4. Anemia , consider blood transfusion if her hemoglobin and hematocrit decreases further. Consultation Date/Type/Reason Admit Date/Time Jun 26, 2017 at 00:00 Initial Consult Date 06/26/17 Type of Consultation: Nephrology 24 HR Interval Summary Free Text/Dictation better. ambulating. no complaints Exam/Review of Systems Vital Signs Vitals Vital Signs Date Time Temp Pulse Resp B/P Pulse Ox O2 Delivery O2 Flow Rate FiO2 07/03/17 08:00 98.0 94 18 111/59 95 07/01/17 19:53 Room Air Intake and Output 07/02/17 07/02/17 07/03/17 15:00 23:00 07:00 Intake Total 640 ml 460 ml Output Total 900 ml 600 ml Balance -260 ml -140 ml Exam Constitutional: alert, oriented (deeply jaundiced) Psych: no complaints Head: normocephalic Neck: non-tender, supple Respiratory: clear to auscultation Cardiovascular: edema, nl pulses, regular rate and rhythm Gastrointestinal: distended, soft Results Result Diagram: 07/03/17 0456 07/03/17 0456 Results 24 hrs Laboratory Tests Test 07/03/17 04:56 White Blood Count 13.1 H Red Blood Count 2.90 L Hemoglobin 8.6 L Hematocrit 25.7 L Mean Corpuscular Volume 88.6 Mean Corpuscular Hemoglobin 29.7 Mean Corpuscular Hemoglobin Concent 33.5 Red Cell Distribution Width 20.5 H Platelet Count 126 L Mean Platelet Volume 12.1 H Neutrophils % 80.3 H Lymphocytes % 10.3 L Monocytes % 7.0 Eosinophils % 1.2 Basophils % 0.1 Nucleated Red Blood Cells % 0.0 Neutrophils # 10.5 H Lymphocytes # 1.4 Monocytes # 0.9 Eosinophils # 0.2 Basophils # 0.0 Nucleated Red Blood Cells # 0.0 Sodium Level 142 Potassium Level 2.9 *L Chloride Level 104 Carbon Dioxide Level 27 Anion Gap 14 Blood Urea Nitrogen 23 H Creatinine 2.51 H Glucose Level 90 Calcium Level 8.9 Phosphorus Level 3.3 Magnesium Level 1.6 L Total Bilirubin 15.0 H Direct Bilirubin 12.40 H Indirect Bilirubin 2.6 H Aspartate Amino Transf (AST/SGOT) 110 H Alanine Aminotransferase (ALT/SGPT) 26 Alkaline Phosphatase 125 H Ammonia 68 H Total Protein 7.1 Albumin 2.9 L Globulin 4.20 H Albumin/Globulin Ratio 0.69 Medications Medications Current Medications Morphine Sulfate (morphine) 3 mg Q4H PRN IV pain Last administered on 22:01; Admin Dose 3 MG; Start 06/26/17 at 03:30 Ondansetron HCl (Zofran Inj) 4 mg Q4H PRN IV NAUSEA AND/OR VOMITING Last administered on 06/27/17 22:19; Admin Dose 4 MG; Start 06/26/17 at 03:30 Ferrous Sulfate (Ferrous Sulfate (Ec)) 325 mg BID PO Last administered on 08:28; Admin Dose 325 MG; Start 06/27/17 at 21:00 Pantoprazole (Protonix Tab) 40 mg DAILY@06 PO Last administered on 07/03/17 06 :47; Admin Dose 40 MG; Start 07/01/17 at 06:00 Lactulose 20 gm 20 gm Q8 PO Last administered on 07/03/17 06:47; Admin Dose 20 GM; Start 07/01/17 at 14:00 Potassium Chloride 250 ml @ 62.5 mls/hr ONCE ONCE IVPB ; Start 07/03/17 at 09: 00; Stop 07/03/17 at 12:59 Magnesium Sulfate (Magnesium Sulfate 2 Gm/50 ml) 50 ml @ 25 mls/hr ONCE ONCE IVPB Last administered on 07/03/17 08:28; Admin Dose 25 MLS/HR; Start at 09:00; Stop 07/03/17 at 10:59 PHUONG LYNCH MD Jul 03, 2017 10:28
--- NOTE | 2017-07-03 12:05 | PN ---
Date/Time of Note Date/Time of Note DATE: 07/03/17 TIME: 12:04 Assessment/Plan VTE Prophylaxis VTE Prophylaxis Intervention: SCD's Lines/Catheters IV Catheter Type (from [facility]): Saline Lock Urinary Cath still in place: No Assessment/Plan Chief Complaint/Hosp Course 1. Symptomatic cholelithiasis. -No evidence of cholecystitis. -Status post surgical evaluation. No surgical intervention. 2. Decompensated alcoholic liver cirrhosis with ascites and portal hypertension. -Continue lactulose. -Status post ultrasound-guided paracentesis on 07/02/2017 3. Acute kidney injury. -Nephrology following. 4. Metabolic acidosis. -Resolved. 5. Anemia. Normocytic, normochromic. -On iron supplements. 6. Transaminitis with hyperbilirubinemia. -Most probably secondary to #1 and #2. -Avoid hepatotoxic medications. 7. Fluids, electrolytes, and nutrition. -2 g sodium diet. -Fluid restriction. 9. DVT prophylaxis. -Bilateral sequential compression devices. 10. Plan. -Trend LFTs. -Await clearance from gastroenterology before discharge. Case discussed with Dr. Mauricio. Problems: Subjective 24 Hr Interval Summary Free Text/Dictation Denies any abdominal pain. "Feeling sleepy." Exam/Review of Systems Vital Signs Vitals Vital Signs Date Time Temp Pulse Resp B/P Pulse Ox O2 Delivery O2 Flow Rate FiO2 07/03/17 08:00 98.0 94 18 111/59 95 07/01/17 19:53 Room Air Intake and Output 07/02/17 07/02/17 07/03/17 15:00 23:00 07:00 Intake Total 640 ml 460 ml Output Total 900 ml 600 ml Balance -260 ml -140 ml Exam General: Adequately build 47 year-old female lying in bed in no apparent distress. HEENT: Normocephalic, atraumatic. Eyes: Icteric sclerae, conjunctivae clear. ENT : Nasal septum midline, oral mucosa moist. Neck supple, no JVD noticed. Respiratory: Bilaterally diminished breath sounds. No use of accessory muscles of respiration. No adventitious breath sounds. Cardiovascular: S1, S2 heard. Regular rate and rhythm. Abdomen: Soft. Bowel sounds positive in all 4 quadrants. Minimal distention. Left upper quadrant tenderness. Genitourinary: Deferred. Extremities: No cyanosis, no clubbing. Peripheral pulses palpable. Bilateral lower extremity 2+ pitting edema. Neurologic: Cranial nerves II through XII grossly intact. The patient is awake, alert, and oriented. Skin: Normal skin turgor. No skin rashes. Icterus. Results Result Diagram: 07/03/17 0456 07/03/17 0456 Results 24 hrs Laboratory Tests Test 07/03/17 04:56 White Blood Count 13.1 H Red Blood Count 2.90 L Hemoglobin 8.6 L Hematocrit 25.7 L Mean Corpuscular Volume 88.6 Mean Corpuscular Hemoglobin 29.7 Mean Corpuscular Hemoglobin Concent 33.5 Red Cell Distribution Width 20.5 H Platelet Count 126 L Mean Platelet Volume 12.1 H Neutrophils % 80.3 H Lymphocytes % 10.3 L Monocytes % 7.0 Eosinophils % 1.2 Basophils % 0.1 Nucleated Red Blood Cells % 0.0 Neutrophils # 10.5 H Lymphocytes # 1.4 Monocytes # 0.9 Eosinophils # 0.2 Basophils # 0.0 Nucleated Red Blood Cells # 0.0 Sodium Level 142 Potassium Level 2.9 *L Chloride Level 104 Carbon Dioxide Level 27 Anion Gap 14 Blood Urea Nitrogen 23 H Creatinine 2.51 H Glucose Level 90 Calcium Level 8.9 Phosphorus Level 3.3 Magnesium Level 1.6 L Total Bilirubin 15.0 H Direct Bilirubin 12.40 H Indirect Bilirubin 2.6 H Aspartate Amino Transf (AST/SGOT) 110 H Alanine Aminotransferase (ALT/SGPT) 26 Alkaline Phosphatase 125 H Ammonia 68 H Total Protein 7.1 Albumin 2.9 L Globulin 4.20 H Albumin/Globulin Ratio 0.69 Medications Medications Current Medications Morphine Sulfate (morphine) 3 mg Q4H PRN IV pain Last administered on 22:01; Admin Dose 3 MG; Start 06/26/17 at 03:30 Ondansetron HCl (Zofran Inj) 4 mg Q4H PRN IV NAUSEA AND/OR VOMITING Last administered on 06/27/17 22:19; Admin Dose 4 MG; Start 06/26/17 at 03:30 Ferrous Sulfate (Ferrous Sulfate (Ec)) 325 mg BID PO Last administered on 08:28; Admin Dose 325 MG; Start 06/27/17 at 21:00 Pantoprazole (Protonix Tab) 40 mg DAILY@06 PO Last administered on 07/03/17 06 :47; Admin Dose 40 MG; Start 07/01/17 at 06:00 Lactulose 20 gm 20 gm Q8 PO Last administered on 07/03/17 06:47; Admin Dose 20 GM; Start 07/01/17 at 14:00 Potassium Chloride (KCl 40 MEQ/250 ML NS) 250 ml @ 62.5 mls/hr ONCE ONCE IVPB Last administered on 07/03/17 11:45; Admin Dose 62.5 MLS/HR; Start 07/03/17 at 09:00; Stop 07/03/17 at 12:59 RAKESH WEBBER NP Jul 03, 2017 12:05
--- NOTE | 2017-07-03 13:40 | PN ---
Date/Time of Note Date/Time of Note DATE: 07/03/17 TIME: 13:11 Assessment/Plan VTE Prophylaxis VTE Prophylaxis Intervention: ambulation Lines/Catheters IV Catheter Type (from [facility]): Saline Lock Urinary Cath still in place: No Assessment/Plan Chief Complaint/Hosp Course Assessment: Alcoholic hepatitis Liver cirrhosis with ascites No evidence of cholecystitis- negative HIDA Acute kidney injury Sepsis Metabolic acidosis S/p Paracentesis 2.2L Encephalopathy Plan: Start Rifaximin 550 mg BID DF 33.8- with questionable cholecystitis- will not start steroids Hgb is stable, transfuse as needed Tolerating diet well- 2 g sodium with 1500 mL fluid restriction per 24 hours Continue Lactulose and PPIs EGD in near future Alcohol cessation discussed Further recommendations based on clinical course. Patient seen in collaboration with Dr. Ny Subjective: Course reviewed with nursing staff Patient interviewed and examined All labs, imaging and other results reviewed Paracentesis site is covered with Band-Aid. No signs of infection, no erythema , no pain, no discharge from the site. Complaining of feeling tired today. Today her ammonia level increased from 50 to 68. Patient is c/o moderate LUQ pain, during examination pt also c/o epigastric pain with palpation. Will continue monitoring H&H, will transfuse as needed. Pt may need EGD in near future. S/p diagnostic guided paracentesis Continue close observation PHYSICAL EXAMINATION: GENERAL: Well developed, well nourished, alert & oriented x 3, in no acute distress, sleepy. SKIN: No lesions, no stigmata chronic liver disease, no evidence of bleeding diathesis. Jaundiced LYMPHATIC: No palpable lymphadenopathy. HEAD: Normocephalic, atraumatic, no tenderness. EYES: Pupils equal reactive to light and accommodation, full extraocular movements, sclera clear, icteric, no discharge. EARS/NOSE AND THROAT: Ears normal, nose normal, NECK: Supple, CHEST: Inspection within normal limits. CARDIOVASCULAR: Heart: Regular rate and rhythm,. RESPIRATORY: Lungs clear to auscultation GASTROINTESTINAL AND LIVER: Abdomen: Soft, left upper quadrant tenderness, non- distended, no hernias, no masses, moderate ascites, splenomegaly, no guarding, no rebound tenderness, normoactive bowel sounds. Rectal: Deferred. GENITOURINARY: Female genitalia within normal limits. EXTREMITIES: No cyanosis, clubbing or edema. Problems: Exam/Review of Systems Vital Signs Vitals Vital Signs Date Time Temp Pulse Resp B/P Pulse Ox O2 Delivery O2 Flow Rate FiO2 07/03/17 08:00 98.0 94 18 111/59 95 07/01/17 19:53 Room Air Intake and Output 07/02/17 07/02/17 07/03/17 15:00 23:00 07:00 Intake Total 640 ml 460 ml Output Total 900 ml 600 ml Balance -260 ml -140 ml Results Result Diagram: 07/03/17 0456 07/03/17 0456 Results 24 hrs Laboratory Tests Test 07/03/17 04:56 White Blood Count 13.1 H Red Blood Count 2.90 L Hemoglobin 8.6 L Hematocrit 25.7 L Mean Corpuscular Volume 88.6 Mean Corpuscular Hemoglobin 29.7 Mean Corpuscular Hemoglobin Concent 33.5 Red Cell Distribution Width 20.5 H Platelet Count 126 L Mean Platelet Volume 12.1 H Neutrophils % 80.3 H Lymphocytes % 10.3 L Monocytes % 7.0 Eosinophils % 1.2 Basophils % 0.1 Nucleated Red Blood Cells % 0.0 Neutrophils # 10.5 H Lymphocytes # 1.4 Monocytes # 0.9 Eosinophils # 0.2 Basophils # 0.0 Nucleated Red Blood Cells # 0.0 Sodium Level 142 Potassium Level 2.9 *L Chloride Level 104 Carbon Dioxide Level 27 Anion Gap 14 Blood Urea Nitrogen 23 H Creatinine 2.51 H Glucose Level 90 Calcium Level 8.9 Phosphorus Level 3.3 Magnesium Level 1.6 L Total Bilirubin 15.0 H Direct Bilirubin 12.40 H Indirect Bilirubin 2.6 H Aspartate Amino Transf (AST/SGOT) 110 H Alanine Aminotransferase (ALT/SGPT) 26 Alkaline Phosphatase 125 H Ammonia 68 H Total Protein 7.1 Albumin 2.9 L Globulin 4.20 H Albumin/Globulin Ratio 0.69 Medications Medications Current Medications Morphine Sulfate (morphine) 3 mg Q4H PRN IV pain Last administered on 22:01; Admin Dose 3 MG; Start 06/26/17 at 03:30 Ondansetron HCl (Zofran Inj) 4 mg Q4H PRN IV NAUSEA AND/OR VOMITING Last administered on 06/27/17 22:19; Admin Dose 4 MG; Start 06/26/17 at 03:30 Ferrous Sulfate (Ferrous Sulfate (Ec)) 325 mg BID PO Last administered on 08:28; Admin Dose 325 MG; Start 06/27/17 at 21:00 Pantoprazole (Protonix Tab) 40 mg DAILY@06 PO Last administered on 07/03/17 06 :47; Admin Dose 40 MG; Start 07/01/17 at 06:00 Lactulose (Enulose) 20 gm Q8 PO Last administered on 07/03/17 06:47; Admin Dose 20 GM; Start 07/01/17 at 14:00 COMPA GUARDADO NP Jul 03, 2017 13:33
[2017-07-03] MEDS: morphine 4 MG/ML VIAL IV PRN ×2 (13:55→22:23)
[2017-07-03 19:55] VITALS: BP 103/54; RESP 18
[2017-07-03] MEDS: RIFAXIMIN 550 MG TAB PO SCH (21:10)
[2017-07-04 02:17] VITALS: BP 95/53; RESP 18
[2017-07-04 05:35] LABS: BASOPHILS % 0.1 % (0.0-2.0); EOSINOPHILS # 0.1 10^3/ul (0.0-0.5); HEMATOCRIT 25.8 % (37.0-47.0); HEMOGLOBIN 8.6 g/dl (12.0-16.0); LYMPHOCYTES # 1.4 10^3/ul (0.8-2.9); LYMPHOCYTES % 9.8 % (15.0-51.0); MEAN CORPUSCULAR HEMOGLOBIN 29.9 pg (29.0-33.0); MEAN CORPUSCULAR HGB CONC 33.3 g/dl (32.0-37.0); MEAN CORPUSCULAR VOLUME 89.6 fl (82.0-101.0); MEAN PLATELET VOLUME 11.1 fl (7.4-10.4); MONOCYTE # 0.9 10^3/ul (0.3-0.9); MONOCYTES % 6.4 % (0.0-11.0); NEUTROPHIL # 11.7 10^3/ul (1.6-7.5); NEUTROPHILS % 81.2 % (39.0-77.0); PLATELET COUNT 117 10^3/UL (140-415); RED BLOOD COUNT 2.88 10^6/ul (4.20-5.40); RED CELL DISTRIBUTION WIDTH 20.8 % (11.5-14.5); WHITE BLOOD COUNT 14.4 10^3/ul (4.8-10.8)
[2017-07-04 05:57] LABS: ALBUMIN 2.9 g/dl (3.3-4.9); ALBUMIN/GLOBULIN RATIO 0.76; BILIRUBIN,DIRECT 12.6 mg/dl (0.00-0.20); BILIRUBIN,INDIRECT 2.6 mg/dl (0-1.1); BILIRUBIN,TOTAL 15.2 mg/dl (0.2-1.3); CALCIUM 8.6 mg/dl (8.4-10.2); CREATININE 2.38 mg/dl (0.44-1.00); POTASSIUM 4.3 mmol/L (3.5-5.1); TOTAL PROTEIN 6.7 g/dl (6.1-8.1)
[2017-07-04] MEDS: LACTULOSE 30ML CUP PO SCH ×3 (06:04→20:36)
[2017-07-04] MEDS: PANTOPRAZOLE (EC) 40 MG TAB PO SCH (06:04)
[2017-07-04 06:09] LABS: MAGNESIUM 2.3 mg/dl (1.7-2.5); PHOSPHORUS 3.3 mg/dl (2.5-4.9)
[2017-07-04 07:45] VITALS: BP 114/57; RESP 18
[2017-07-04] MEDS: FERROUS SULFATE (EC) 325 MG TAB PO SCH ×2 (08:30→20:36)
[2017-07-04] MEDS: RIFAXIMIN 550 MG TAB PO SCH ×2 (08:30→20:36)
--- NOTE | 2017-07-04 08:52 | PN ---
Date/Time of Note Date/Time of Note DATE: 07/04/17 TIME: 08:51 Assessment/Plan VTE Prophylaxis VTE Prophylaxis Intervention: SCD's Lines/Catheters IV Catheter Type (from [facility]): Saline Lock Urinary Cath still in place: No Assessment/Plan Chief Complaint/Hosp Course 1. Symptomatic cholelithiasis. -No evidence of cholecystitis. -Status post surgical evaluation. No surgical intervention. 2. Decompensated alcoholic liver cirrhosis with ascites and portal hypertension. -Continue lactulose. -Status post ultrasound-guided paracentesis on 07/02/2017 3. Acute kidney injury. -Nephrology following. 4. Metabolic acidosis. -Resolved. 5. Anemia. Normocytic, normochromic. -On iron supplements. 6. Transaminitis with hyperbilirubinemia. -Most probably secondary to #1 and #2. -Avoid hepatotoxic medications. 7. Fluids, electrolytes, and nutrition. -2 g sodium diet. -Fluid restriction. 9. DVT prophylaxis. -Bilateral sequential compression devices. 10. Plan. -Trend LFTs. -Await clearance from gastroenterology before discharge. Case discussed with Dr. Mauricio. Problems: Subjective 24 Hr Interval Summary Free Text/Dictation Denies any abdominal pain. Exam/Review of Systems Vital Signs Vitals Vital Signs Date Time Temp Pulse Resp B/P Pulse Ox O2 Delivery O2 Flow Rate FiO2 07/04/17 07:45 98.0 97 18 114/57 98 07/01/17 19:53 Room Air Intake and Output 07/03/17 07/03/17 07/04/17 15:00 23:00 07:00 Intake Total 360 ml Output Total 600 ml Balance -240 ml Exam General: Adequately build 47 year-old female lying in bed in no apparent distress. HEENT: Normocephalic, atraumatic. Eyes: Icteric sclerae, conjunctivae clear. ENT : Nasal septum midline, oral mucosa moist. Neck supple, no JVD noticed. Respiratory: Bilaterally diminished breath sounds. No use of accessory muscles of respiration. No adventitious breath sounds. Cardiovascular: S1, S2 heard. Regular rate and rhythm. Abdomen: Soft. Bowel sounds positive in all 4 quadrants. Minimal distention. Left upper quadrant tenderness. Genitourinary: Deferred. Extremities: No cyanosis, no clubbing. Peripheral pulses palpable. Bilateral lower extremity 2+ pitting edema. Neurologic: Cranial nerves II through XII grossly intact. The patient is awake, alert, and oriented. Skin: Normal skin turgor. No skin rashes. Icterus. Results Result Diagram: 07/04/17 0436 07/04/17 0437 Results 24 hrs Laboratory Tests Test 07/04/17 04:36 07/04/17 04:37 White Blood Count 14.4 H Red Blood Count 2.88 L Hemoglobin 8.6 L Hematocrit 25.8 L Mean Corpuscular Volume 89.6 Mean Corpuscular Hemoglobin 29.9 Mean Corpuscular Hemoglobin Concent 33.3 Red Cell Distribution Width 20.8 H Platelet Count 117 L Mean Platelet Volume 11.1 H Neutrophils % 81.2 H Lymphocytes % 9.8 L Monocytes % 6.4 Eosinophils % 1.0 Basophils % 0.1 Nucleated Red Blood Cells % 0.0 Neutrophils # 11.7 H Lymphocytes # 1.4 Monocytes # 0.9 Eosinophils # 0.1 Basophils # 0.0 Nucleated Red Blood Cells # 0.0 Phosphorus Level 3.3 Magnesium Level 2.3 Sodium Level 142 Potassium Level 4.3 Chloride Level 107 Carbon Dioxide Level 24 Anion Gap 15 Blood Urea Nitrogen 25 H Creatinine 2.38 H Glucose Level 99 Calcium Level 8.6 Total Bilirubin 15.2 H Direct Bilirubin 12.60 H Indirect Bilirubin 2.6 H Aspartate Amino Transf (AST/SGOT) 114 H Alanine Aminotransferase (ALT/SGPT) 30 Alkaline Phosphatase 130 H Ammonia 60 H Total Protein 6.7 Albumin 2.9 L Globulin 3.80 H Albumin/Globulin Ratio 0.76 Medications Medications Current Medications Morphine Sulfate (morphine) 3 mg Q4H PRN IV pain Last administered on 22:23; Admin Dose 3 MG; Start 06/26/17 at 03:30 Ondansetron HCl (Zofran Inj) 4 mg Q4H PRN IV NAUSEA AND/OR VOMITING Last administered on 06/27/17 22:19; Admin Dose 4 MG; Start 06/26/17 at 03:30 Ferrous Sulfate (Ferrous Sulfate (Ec)) 325 mg BID PO Last administered on 08:30; Admin Dose 325 MG; Start 06/27/17 at 21:00 Pantoprazole (Protonix Tab) 40 mg DAILY@06 PO Last administered on 07/04/17 06 :04; Admin Dose 40 MG; Start 07/01/17 at 06:00 Lactulose (Enulose) 20 gm Q8 PO Last administered on 07/04/17 06:04; Admin Dose 20 GM; Start 07/01/17 at 14:00 Rifaximin (Xifaxan) 550 mg BID PO Last administered on 07/04/17 08:30; Admin Dose 550 MG; Start 07/03/17 at 21:00 RAKESH WEBBER NP Jul 04, 2017 08:52
[2017-07-04 14:00] VITALS: BP 108/54; RESP 19
--- NOTE | 2017-07-04 14:56 | CONS ---
Date/Time of Note Date/Time of Note DATE: 07/04/17 TIME: 14:54 Assessment/Plan Assessment/Plan Additional Assessment/Plan 1. Acute renal failure. .improving. lytes better. cont to monitor 2. Cirrhosis of the liver with rising bilirubin, low albumin , edema and ascites. S/p paracentesis . Coagulopathy 3. Left upper quadrant abdominal pain , better 4. Anemia , consider blood transfusion if her hemoglobin and hematocrit decreases further. Consultation Date/Type/Reason Admit Date/Time Jun 26, 2017 at 00:00 Initial Consult Date 06/26/17 Type of Consultation: Nephrology 24 HR Interval Summary Free Text/Dictation feels ok. has some leg swelling Exam/Review of Systems Vital Signs Vitals Vital Signs Date Time Temp Pulse Resp B/P Pulse Ox O2 Delivery O2 Flow Rate FiO2 07/04/17 07:45 98.0 97 18 114/57 98 07/01/17 19:53 Room Air Intake and Output 07/03/17 07/03/17 07/04/17 14:59 22:59 06:59 Intake Total 360 ml Output Total 600 ml Balance -240 ml Exam Constitutional: alert, oriented (jaundiced) Head: atraumatic, normocephalic Neck: non-tender, supple Respiratory: clear to auscultation, diminished breath sounds Cardiovascular: edema (1-2+), nl pulses, regular rate and rhythm Gastrointestinal: distended, soft Results Result Diagram: 07/04/17 0436 07/04/17 0437 Results 24 hrs Laboratory Tests Test 07/04/17 04:36 07/04/17 04:37 White Blood Count 14.4 H Red Blood Count 2.88 L Hemoglobin 8.6 L Hematocrit 25.8 L Mean Corpuscular Volume 89.6 Mean Corpuscular Hemoglobin 29.9 Mean Corpuscular Hemoglobin Concent 33.3 Red Cell Distribution Width 20.8 H Platelet Count 117 L Mean Platelet Volume 11.1 H Neutrophils % 81.2 H Lymphocytes % 9.8 L Monocytes % 6.4 Eosinophils % 1.0 Basophils % 0.1 Nucleated Red Blood Cells % 0.0 Neutrophils # 11.7 H Lymphocytes # 1.4 Monocytes # 0.9 Eosinophils # 0.1 Basophils # 0.0 Nucleated Red Blood Cells # 0.0 Phosphorus Level 3.3 Magnesium Level 2.3 Sodium Level 142 Potassium Level 4.3 Chloride Level 107 Carbon Dioxide Level 24 Anion Gap 15 Blood Urea Nitrogen 25 H Creatinine 2.38 H Glucose Level 99 Calcium Level 8.6 Total Bilirubin 15.2 H Direct Bilirubin 12.60 H Indirect Bilirubin 2.6 H Aspartate Amino Transf (AST/SGOT) 114 H Alanine Aminotransferase (ALT/SGPT) 30 Alkaline Phosphatase 130 H Ammonia 60 H Total Protein 6.7 Albumin 2.9 L Globulin 3.80 H Albumin/Globulin Ratio 0.76 Medications Medications Current Medications Morphine Sulfate (morphine) 3 mg Q4H PRN IV pain Last administered on 22:23; Admin Dose 3 MG; Start 06/26/17 at 03:30 Ondansetron HCl (Zofran Inj) 4 mg Q4H PRN IV NAUSEA AND/OR VOMITING Last administered on 06/27/17 22:19; Admin Dose 4 MG; Start 06/26/17 at 03:30 Ferrous Sulfate (Ferrous Sulfate (Ec)) 325 mg BID PO Last administered on 08:30; Admin Dose 325 MG; Start 06/27/17 at 21:00 Pantoprazole (Protonix Tab) 40 mg DAILY@06 PO Last administered on 07/04/17 06 :04; Admin Dose 40 MG; Start 07/01/17 at 06:00 Lactulose (Enulose) 20 gm Q8 PO Last administered on 07/04/17 13:15; Admin Dose 20 GM; Start 07/01/17 at 14:00 Rifaximin (Xifaxan) 550 mg BID PO Last administered on 07/04/17 08:30; Admin Dose 550 MG; Start 07/03/17 at 21:00 PHUONG LYNCH MD Jul 04, 2017 14:56
--- NOTE | 2017-07-04 15:50 | PN ---
Date/Time of Note Date/Time of Note DATE: 07/04/17 TIME: 15:43 Assessment/Plan VTE Prophylaxis VTE Prophylaxis Intervention: ambulation, SCD's Lines/Catheters IV Catheter Type (from [facility]): Saline Lock Urinary Cath still in place: No Assessment/Plan Chief Complaint/Hosp Course Assessment: Alcoholic hepatitis Liver cirrhosis with ascites No evidence of cholecystitis- negative HIDA Acute kidney injury Sepsis Metabolic acidosis S/p Paracentesis 2.2L Encephalopathy-resolved Plan: Continue rifaximin DF 33.8- no steroids Hgb is stable, transfuse as needed Tolerating diet well- 2 g sodium with 1500 mL fluid restriction per 24 hours Continue Lactulose and PPIs EGD in near future Alcohol cessation discussed Patient signed off to the hospitalist, GI team available for consultation upon request Patient seen in collaboration with Dr. Ny Subjective: Course reviewed with nursing staff Patient interviewed and examined All labs, imaging and other results reviewed Paracentesis site is clear. No signs of infection, no erythema, no pain, no discharge from the site. Patient has a lot more energy today. Abdominal pain is improving. Pt may need EGD in near future. From GI standpoint patient is appropriate for outpatient management. PHYSICAL EXAMINATION: GENERAL: Well developed, well nourished, alert & oriented x 3, in no acute distress, sleepy. SKIN: No lesions, no stigmata chronic liver disease, no evidence of bleeding diathesis. Jaundiced. Pitting edema bilateral lower extremities. LYMPHATIC: No palpable lymphadenopathy. HEAD: Normocephalic, atraumatic, no tenderness. EYES: Pupils equal reactive to light and accommodation, full extraocular movements, sclera clear, icteric, no discharge. EARS/NOSE AND THROAT: Ears normal, nose normal, NECK: Supple, CHEST: Inspection within normal limits. CARDIOVASCULAR: Heart: Regular rate and rhythm,. RESPIRATORY: Lungs clear to auscultation GASTROINTESTINAL AND LIVER: Abdomen: Soft, left upper quadrant tenderness, non- distended, no hernias, no masses, moderate ascites, splenomegaly, no guarding, no rebound tenderness, normoactive bowel sounds. Rectal: Deferred. GENITOURINARY: Female genitalia within normal limits. EXTREMITIES: No cyanosis, clubbing or edema. Problems: Exam/Review of Systems Vital Signs Vitals Vital Signs Date Time Temp Pulse Resp B/P Pulse Ox O2 Delivery O2 Flow Rate FiO2 07/04/17 07:45 98.0 97 18 114/57 98 07/01/17 19:53 Room Air Intake and Output 07/03/17 07/03/17 07/04/17 15:00 23:00 07:00 Intake Total 360 ml Output Total 600 ml Balance -240 ml Results Result Diagram: 07/04/17 0436 07/04/17 0437 Results 24 hrs Laboratory Tests Test 07/04/17 04:36 07/04/17 04:37 White Blood Count 14.4 H Red Blood Count 2.88 L Hemoglobin 8.6 L Hematocrit 25.8 L Mean Corpuscular Volume 89.6 Mean Corpuscular Hemoglobin 29.9 Mean Corpuscular Hemoglobin Concent 33.3 Red Cell Distribution Width 20.8 H Platelet Count 117 L Mean Platelet Volume 11.1 H Neutrophils % 81.2 H Lymphocytes % 9.8 L Monocytes % 6.4 Eosinophils % 1.0 Basophils % 0.1 Nucleated Red Blood Cells % 0.0 Neutrophils # 11.7 H Lymphocytes # 1.4 Monocytes # 0.9 Eosinophils # 0.1 Basophils # 0.0 Nucleated Red Blood Cells # 0.0 Phosphorus Level 3.3 Magnesium Level 2.3 Sodium Level 142 Potassium Level 4.3 Chloride Level 107 Carbon Dioxide Level 24 Anion Gap 15 Blood Urea Nitrogen 25 H Creatinine 2.38 H Glucose Level 99 Calcium Level 8.6 Total Bilirubin 15.2 H Direct Bilirubin 12.60 H Indirect Bilirubin 2.6 H Aspartate Amino Transf (AST/SGOT) 114 H Alanine Aminotransferase (ALT/SGPT) 30 Alkaline Phosphatase 130 H Ammonia 60 H Total Protein 6.7 Albumin 2.9 L Globulin 3.80 H Albumin/Globulin Ratio 0.76 Medications Medications Current Medications Morphine Sulfate (morphine) 3 mg Q4H PRN IV pain Last administered on 22:23; Admin Dose 3 MG; Start 06/26/17 at 03:30 Ondansetron HCl (Zofran Inj) 4 mg Q4H PRN IV NAUSEA AND/OR VOMITING Last administered on 06/27/17 22:19; Admin Dose 4 MG; Start 06/26/17 at 03:30 Ferrous Sulfate (Ferrous Sulfate (Ec)) 325 mg BID PO Last administered on 08:30; Admin Dose 325 MG; Start 06/27/17 at 21:00 Pantoprazole (Protonix Tab) 40 mg DAILY@06 PO Last administered on 07/04/17 06 :04; Admin Dose 40 MG; Start 07/01/17 at 06:00 Lactulose (Enulose) 20 gm Q8 PO Last administered on 07/04/17 13:15; Admin Dose 20 GM; Start 07/01/17 at 14:00 Rifaximin (Xifaxan) 550 mg BID PO Last administered on 07/04/17 08:30; Admin Dose 550 MG; Start 07/03/17 at 21:00 COMPA GUARDADO NP Jul 04, 2017 15:50
[2017-07-04 19:16] VITALS: BP 106/51; RESP 16
[2017-07-04] MEDS: morphine 4 MG/ML VIAL IV PRN (22:06)
[2017-07-05 01:42] VITALS: BP 103/61; RESP 16
[2017-07-05] MEDS: PANTOPRAZOLE (EC) 40 MG TAB PO SCH (05:13)
[2017-07-05] MEDS: LACTULOSE 30ML CUP PO SCH ×3 (05:13→20:21)
[2017-07-05 05:31] LABS: BASOPHILS % 0.1 % (0.0-2.0); EOSINOPHILS # 0.2 10^3/ul (0.0-0.5); EOSINOPHILS % 1.2 % (0.0-7.0); HEMATOCRIT 26.1 % (37.0-47.0); HEMOGLOBIN 8.6 g/dl (12.0-16.0); LYMPHOCYTES # 1.5 10^3/ul (0.8-2.9); LYMPHOCYTES % 9.3 % (15.0-51.0); MEAN CORPUSCULAR HEMOGLOBIN 29.8 pg (29.0-33.0); MEAN CORPUSCULAR VOLUME 90.3 fl (82.0-101.0); MEAN PLATELET VOLUME 12.1 fl (7.4-10.4); MONOCYTE # 0.9 10^3/ul (0.3-0.9); MONOCYTES % 5.8 % (0.0-11.0); NEUTROPHIL # 13.2 10^3/ul (1.6-7.5); NEUTROPHILS % 81.9 % (39.0-77.0); PLATELET COUNT 120 10^3/UL (140-415); RED BLOOD COUNT 2.89 10^6/ul (4.20-5.40); RED CELL DISTRIBUTION WIDTH 21.5 % (11.5-14.5); WHITE BLOOD COUNT 16.2 10^3/ul (4.8-10.8)
[2017-07-05 05:59] LABS: MAGNESIUM 2.2 mg/dl (1.7-2.5); PHOSPHORUS 3.6 mg/dl (2.5-4.9)
[2017-07-05 06:11] LABS: ALBUMIN 2.9 g/dl (3.3-4.9); ALBUMIN/GLOBULIN RATIO 0.63; BILIRUBIN,INDIRECT 2.6 mg/dl (0-1.1); BILIRUBIN,TOTAL 15.6 mg/dl (0.2-1.3); CREATININE 2.34 mg/dl (0.44-1.00); POTASSIUM 3.9 mmol/L (3.5-5.1); TOTAL PROTEIN 7.5 g/dl (6.1-8.1)
[2017-07-05 07:47] VITALS: BP 98/53; RESP 19
[2017-07-05] MEDS: FERROUS SULFATE (EC) 325 MG TAB PO SCH ×2 (08:21→20:20)
[2017-07-05] MEDS: RIFAXIMIN 550 MG TAB PO SCH ×2 (08:21→20:20)
--- NOTE | 2017-07-05 13:52 | CONS ---
Date/Time of Note Date/Time of Note DATE: 07/05/17 TIME: 13:42 Assessment/Plan Assessment/Plan Chief Complaint/Hosp Course 1. Acute renal failure. The patient's serum creatinine is slowly decreasing consistent with improving renal function. Her clinical course is most consistent with resolving ATN. This was probably due to taking nonsteroidal anti-inflammatory drugs prior to admission. I suspect her kidney function will continue to improve so long as she does not take nephrotoxic drugs such as nonsteroidal anti-inflammatory drugs. She still has ascites and edema. I will try her on a course of IV Lasix . 2. Cirrhosis of the liver with rising bilirubin, low albumin , edema and coagulopathy. Her white blood count is up to 16, 200. The paracentesis that was done last week was not sent for any diagnostic studies or culture. I would think one would want to rule out spontaneous peritonitis. 3. Left upper quadrant abdominal pain , which has persisted. 4. Anemia , consider blood transfusion if her hemoglobin and hematocrit decreases further. Problems: Consultation Date/Type/Reason Admit Date/Time Jun 26, 2017 at 00:00 Initial Consult Date 06/26/17 Type of Consultation: Nephrology 24 HR Interval Summary Free Text/Dictation This patient says that she is feeling better. She continues to have left upper quadrant abdominal pain. She is eating. Constitutional: improved Exam/Review of Systems Vital Signs Vitals Vital Signs Date Time Temp Pulse Resp B/P Pulse Ox O2 Delivery O2 Flow Rate FiO2 07/05/17 07:47 98.0 71 19 98/53 98 07/01/17 19:53 Room Air Intake and Output 07/04/17 07/04/17 07/05/17 15:00 23:00 07:00 Intake Total 360 ml 700 ml Output Total 800 ml Balance -440 ml 700 ml Exam Constitutional: alert, frail, obese, oriented Respiratory: diminished breath sounds Cardiovascular: edema, regular rate and rhythm Gastrointestinal: ascites, soft, tender Extremities: edema Results Result Diagram: 07/05/17 0435 07/05/17 0435 Results 24 hrs Laboratory Tests Test 07/05/17 04:35 White Blood Count 16.2 H Red Blood Count 2.89 L Hemoglobin 8.6 L Hematocrit 26.1 L Mean Corpuscular Volume 90.3 Mean Corpuscular Hemoglobin 29.8 Mean Corpuscular Hemoglobin Concent 33.0 Red Cell Distribution Width 21.5 H Platelet Count 120 L Mean Platelet Volume 12.1 H Neutrophils % 81.9 H Lymphocytes % 9.3 L Monocytes % 5.8 Eosinophils % 1.2 Basophils % 0.1 Nucleated Red Blood Cells % 0.0 Neutrophils # 13.2 H Lymphocytes # 1.5 Monocytes # 0.9 Eosinophils # 0.2 Basophils # 0.0 Nucleated Red Blood Cells # 0.0 Sodium Level 143 Potassium Level 3.9 Chloride Level 107 Carbon Dioxide Level 23 Anion Gap 17 H Blood Urea Nitrogen 27 H Creatinine 2.34 H Glucose Level 102 Calcium Level 9.0 Phosphorus Level 3.6 Magnesium Level 2.2 Total Bilirubin 15.6 H Direct Bilirubin 13.00 H Indirect Bilirubin 2.6 H Aspartate Amino Transf (AST/SGOT) 121 H Alanine Aminotransferase (ALT/SGPT) 30 Alkaline Phosphatase 134 H Ammonia 55 H Total Protein 7.5 Albumin 2.9 L Globulin 4.60 H Albumin/Globulin Ratio 0.63 Medications Medications Current Medications Morphine Sulfate (morphine) 3 mg Q4H PRN IV pain Last administered on 22:06; Admin Dose 3 MG; Start 06/26/17 at 03:30 Ondansetron HCl (Zofran Inj) 4 mg Q4H PRN IV NAUSEA AND/OR VOMITING Last administered on 06/27/17 22:19; Admin Dose 4 MG; Start 06/26/17 at 03:30 Ferrous Sulfate (Ferrous Sulfate (Ec)) 325 mg BID PO Last administered on 08:21; Admin Dose 325 MG; Start 06/27/17 at 21:00 Pantoprazole (Protonix Tab) 40 mg DAILY@06 PO Last administered on 07/05/17 05 :13; Admin Dose 40 MG; Start 07/01/17 at 06:00 Lactulose (Enulose) 20 gm Q8 PO Last administered on 07/05/17 13:06; Admin Dose 20 GM; Start 07/01/17 at 14:00 Rifaximin (Xifaxan) 550 mg BID PO Last administered on 07/05/17 08:21; Admin Dose 550 MG; Start 07/03/17 at 21:00 PERLA VANESSA MD Jul 05, 2017 13:52
[2017-07-05] MEDS ORDERED: FUROSEMIDE 40 MG INJ IV ONE (14:00)
--- NOTE | 2017-07-05 14:05 | PN ---
Date/Time of Note Date/Time of Note DATE: 07/05/17 TIME: 14:03 Assessment/Plan VTE Prophylaxis VTE Prophylaxis Intervention: SCD's Lines/Catheters IV C[facility]ter Type (from [facility] Saline Lock Urinary Cath still in place: No Assessment/Plan Chief Complaint/Hosp Course Assessment and plan 1. Symptomatic cholelithiasis. Patient status post surgical intervention. Analgesics as needed. 2. Decompensated alcoholic liver cirrhosis with ascites and portal hypertension. Continue lactulose. Of note patient did have ultrasound-guided paracentesis on July 02, 2017. 3. Acute kidney injury. Overall appears stable. Manual Machinist following. Medications to be renally dosed. 4. Metabolic acidosis. Resolved at present. 5. Iron deficiency anemia. Continue on iron supplement. 6. Transaminitis with hyperbilirubinemia secondary to #1 and #2. Monitor level. Disposition plan: Monitor LFT. Noted with elevation and white blood cell count. Follow-up on cultures. Discharge when medically stable and cleared by consultants. Discussed plan of care with Dr. Mukherjee Problems: Subjective 24 Hr Interval Summary Free Text/Dictation patient resting at this time. denies any pain. comfortable at present Exam/Review of Systems Vital Signs Vitals Vital Signs Date Time Temp Pulse Resp B/P Pulse Ox O2 Delivery O2 Flow Rate FiO2 07/05/17 07:47 98.0 71 19 98/53 98 07/01/17 19:53 Room Air Intake and Output 07/04/17 07/04/17 07/05/17 15:00 23:00 07:00 Intake Total 360 ml 700 ml Output Total 800 ml Balance -440 ml 700 ml Exam Constitutional: alert, oriented Psych: nl mood/affect Head: normocephalic Eyes: icteric Neck: supple, No jvd Respiratory: clear to auscultation, normal air movement Cardiovascular: nl pulses, regular rate and rhythm Gastrointestinal: soft Musculoskeletal: No swelling Neurological: GROUNDS AND NURSERY SPECIALIST II-XII intact, nl mental status, nl speech Skin: other (jaundice) Results Result Diagram: 07/05/17 0435 07/05/17 0435 Results 24 hrs Laboratory Tests Test 07/05/17 04:35 White Blood Count 16.2 H Red Blood Count 2.89 L Hemoglobin 8.6 L Hematocrit 26.1 L Mean Corpuscular Volume 90.3 Mean Corpuscular Hemoglobin 29.8 Mean Corpuscular Hemoglobin Concent 33.0 Red Cell Distribution Width 21.5 H Platelet Count 120 L Mean Platelet Volume 12.1 H Neutrophils % 81.9 H Lymphocytes % 9.3 L Monocytes % 5.8 Eosinophils % 1.2 Basophils % 0.1 Nucleated Red Blood Cells % 0.0 Neutrophils # 13.2 H Lymphocytes # 1.5 Monocytes # 0.9 Eosinophils # 0.2 Basophils # 0.0 Nucleated Red Blood Cells # 0.0 Sodium Level 143 Potassium Level 3.9 Chloride Level 107 Carbon Dioxide Level 23 Anion Gap 17 H Blood Urea Nitrogen 27 H Creatinine 2.34 H Glucose Level 102 Calcium Level 9.0 Phosphorus Level 3.6 Magnesium Level 2.2 Total Bilirubin 15.6 H Direct Bilirubin 13.00 H Indirect Bilirubin 2.6 H Aspartate Amino Transf (AST/SGOT) 121 H Alanine Aminotransferase (ALT/SGPT) 30 Alkaline Phosphatase 134 H Ammonia 55 H Total Protein 7.5 Albumin 2.9 L Globulin 4.60 H Albumin/Globulin Ratio 0.63 Medications Medications Current Medications Morphine Sulfate (morphine) 3 mg Q4H PRN IV pain Last administered on 22:06; Admin Dose 3 MG; Start 06/26/17 at 03:30 Ondansetron HCl (Zofran Inj) 4 mg Q4H PRN IV NAUSEA AND/OR VOMITING Last administered on 06/27/17 22:19; Admin Dose 4 MG; Start 06/26/17 at 03:30 Ferrous Sulfate (Ferrous Sulfate (Ec)) 325 mg BID PO Last administered on 08:21; Admin Dose 325 MG; Start 06/27/17 at 21:00 Pantoprazole (Protonix Tab) 40 mg DAILY@06 PO Last administered on 07/05/17 05 :13; Admin Dose 40 MG; Start 07/01/17 at 06:00 Lactulose (Enulose) 20 gm Q8 PO Last administered on 07/05/17 13:06; Admin Dose 20 GM; Start 07/01/17 at 14:00 Rifaximin (Xifaxan) 550 mg BID PO Last administered on 07/05/17 08:21; Admin Dose 550 MG; Start 07/03/17 at 21:00 MADAY VALDEZ Jul 05, 2017 14:05
[2017-07-05 15:30] VITALS: BP 101/61; RESP 19
[2017-07-05] MEDS: morphine 4 MG/ML VIAL IV PRN ×2 (16:41→22:33)
[2017-07-05 19:35] VITALS: BP 98/50; RESP 16
[2017-07-05 19:45] LABS: HEMATOCRIT 23.8 % (37.0-47.0); HEMOGLOBIN 7.9 g/dl (12.0-16.0)
[2017-07-05] MEDS: ONDANSETRON 4 MG INJ IV PRN (22:33)
[2017-07-05 22:47] VITALS: BP 95/50; RESP 16
[2017-07-05 23:30] LABS: ABNORMAL IP MESSAGE 1; BASOPHILS % 0.1 % (0.0-2.0); EOSINOPHILS # 0.2 10^3/ul (0.0-0.5); EOSINOPHILS % 0.9 % (0.0-7.0); HEMATOCRIT 21.6 % (37.0-47.0); HEMOGLOBIN 7.2 g/dl (12.0-16.0); LYMPHOCYTES # 1.6 10^3/ul (0.8-2.9); LYMPHOCYTES % 7.5 % (15.0-51.0); MEAN CORPUSCULAR HEMOGLOBIN 30.1 pg (29.0-33.0); MEAN CORPUSCULAR HGB CONC 33.3 g/dl (32.0-37.0); MEAN CORPUSCULAR VOLUME 90.4 fl (82.0-101.0); MEAN PLATELET VOLUME 11.9 fl (7.4-10.4); MONOCYTE # 1.6 10^3/ul (0.3-0.9); MONOCYTES % 7.4 % (0.0-11.0); NEUTROPHIL # 17.5 10^3/ul (1.6-7.5); NEUTROPHILS % 81.4 % (39.0-77.0); PLATELET COUNT 132 10^3/UL (140-415); RED BLOOD COUNT 2.39 10^6/ul (4.20-5.40); RED CELL DISTRIBUTION WIDTH 21.6 % (11.5-14.5); WHITE BLOOD COUNT 21.5 10^3/ul (4.8-10.8)
[2017-07-05 23:47] LABS: POSITIVE DIFF @See below
[2017-07-06] VITALS (21 sets, daily range): BP systolic 81–103; BP diastolic 48–57; PULSE 96–107; RESP 16
[2017-07-06] MEDS: PANTOPRAZOLE IV 80 MG in SOD CHLORIDE 0.9% 100 ML IV SCH ×3 (00:56→21:00)
[2017-07-06] MEDS: OCTREOTIDE 1 MG in SOD CHLORIDE 0.9% 95 ML IV SCH ×2 (01:39→21:00)
[2017-07-06 04:07] LABS: ABNORMAL IP MESSAGE 1; BASOPHILS % 0.1 % (0.0-2.0); EOSINOPHILS # 0.1 10^3/ul (0.0-0.5); EOSINOPHILS % 0.6 % (0.0-7.0); HEMATOCRIT 19.5 % (37.0-47.0); LYMPHOCYTES % 8.6 % (15.0-51.0); MEAN CORPUSCULAR HGB CONC 33.8 g/dl (32.0-37.0); MEAN CORPUSCULAR VOLUME 91.5 fl (82.0-101.0); MEAN PLATELET VOLUME 12.1 fl (7.4-10.4); MONOCYTE # 1.5 10^3/ul (0.3-0.9); MONOCYTES % 6.4 % (0.0-11.0); NEUTROPHIL # 18.8 10^3/ul (1.6-7.5); NEUTROPHILS % 81.8 % (39.0-77.0); PLATELET COUNT 135 10^3/UL (140-415); RED BLOOD COUNT 2.13 10^6/ul (4.20-5.40); RED CELL DISTRIBUTION WIDTH 21.8 % (11.5-14.5)
[2017-07-06 04:09] LABS: ALBUMIN 2.6 g/dl (3.3-4.9); ALBUMIN/GLOBULIN RATIO 0.68; BILIRUBIN,DIRECT 12.2 mg/dl (0.00-0.20); BILIRUBIN,INDIRECT 2.2 mg/dl (0-1.1); BILIRUBIN,TOTAL 14.4 mg/dl (0.2-1.3); CALCIUM 8.3 mg/dl (8.4-10.2); CREATININE 2.76 mg/dl (0.44-1.00); POTASSIUM 4.7 mmol/L (3.5-5.1); TOTAL PROTEIN 6.4 g/dl (6.1-8.1)
[2017-07-06 04:23] LABS: HEMOGLOBIN 6.6 g/dl (12.0-16.0); POSITIVE DIFF @See below
[2017-07-06] MEDS: LACTULOSE 30ML CUP PO SCH ×3 (05:49→21:00)
[2017-07-06] MEDS: RIFAXIMIN 550 MG TAB PO SCH ×2 (09:18→21:00)
[2017-07-06] MEDS: FERROUS SULFATE (EC) 325 MG TAB PO SCH ×2 (09:18→21:00)
[2017-07-06 09:31] LABS: ANISOCYTOSIS 2+ (0-0); EOSINOPHILS % (M) 4 % (0-7); GIANT THROMBO% (M) 1 % (0-0); MONOCYTES % (M) 3 % (0-11); PLATELET ESTIMATE NORMAL; POLYCHROMASIA 3+ (0-0); REACTIVE LYMPHOCYTES% (M) 4 % (0-0)
[2017-07-06] MEDS: morphine 4 MG/ML VIAL IV PRN ×2 (10:52→16:24)
--- NOTE | 2017-07-06 11:22 | PN ---
Date/Time of Note Date/Time of Note DATE: 07/06/17 TIME: 11:15 Assessment/Plan VTE Prophylaxis VTE Prophylaxis Intervention: SCD's Lines/Catheters IV C[facility] Type (from [facility] Peripheral IV Urinary Cath still in place: No Assessment/Plan Chief Complaint/Hosp Course Alcoholic hepatitis Liver cirrhosis with ascites No evidence of cholecystitis- negative HIDA Acute kidney injury Sepsis Metabolic acidosis S/p Paracentesis 2.2L Encephalopathy-resolved Plan: Monitor H/H, transfuse as below 7.5 EGD and colonoscopy tomorrow Patient seen in collaboration with Dr. Ny Subjective: Course reviewed with nursing staff Patient interviewed and examined All labs, imaging and other results reviewed Pt c/o hematemesis and hematochezia over night, will plan for EGD and colonoscopy tomorrow. Continue to monitor H/H, transfuse as needed PHYSICAL EXAMINATION: GENERAL: Well developed, well nourished, alert & oriented x 3, in no acute distress, sleepy. SKIN: No lesions, no stigmata chronic liver disease, no evidence of bleeding diathesis. Jaundiced. Pitting edema bilateral lower extremities. LYMPHATIC: No palpable lymphadenopathy. HEAD: Normocephalic, atraumatic, no tenderness. EYES: Pupils equal reactive to light and accommodation, full extraocular movements, sclera clear, icteric, no discharge. EARS/NOSE AND THROAT: Ears normal, nose normal, NECK: Supple, CHEST: Inspection within normal limits. CARDIOVASCULAR: Heart: Regular rate and rhythm,. RESPIRATORY: Lungs clear to auscultation GASTROINTESTINAL AND LIVER: Abdomen: Soft, left upper quadrant tenderness, non- distended, no hernias, no masses, moderate ascites, splenomegaly, no guarding, no rebound tenderness, normoactive bowel sounds. Rectal: Deferred. GENITOURINARY: Female genitalia within normal limits. EXTREMITIES: No cyanosis, clubbing or edema. Problems: Exam/Review of Systems Vital Signs Vitals Vital Signs Date Time Temp Pulse Resp B/P Pulse Ox O2 Delivery O2 Flow Rate FiO2 07/06/17 08:00 98 07/06/17 07:44 98.3 16 85/50 95 Intake and Output 07/05/17 07/05/17 07/06/17 14:59 22:59 06:59 Intake Total 600 ml 685 ml Output Total 500 ml Balance 100 ml 685 ml Results Result Diagram: 07/06/17 0325 07/06/17 0325 Results 24 hrs Laboratory Tests Test 07/05/17 19:37 07/05/17 23:22 07/06/17 03:25 Hemoglobin 7.9 L 7.2 L 6.6 *L Hematocrit 23.8 L 21.6 L 19.5 L White Blood Count 21.5 #H 23.0 H Red Blood Count 2.39 L 2.13 L Mean Corpuscular Volume 90.4 91.5 Mean Corpuscular Hemoglobin 30.1 31.0 Mean Corpuscular Hemoglobin Concent 33.3 33.8 Red Cell Distribution Width 21.6 H 21.8 H Platelet Count 132 L 135 L Mean Platelet Volume 11.9 H 12.1 H Neutrophils % 81.4 H 81.8 H Lymphocytes % 7.5 L 8.6 L Monocytes % 7.4 6.4 Eosinophils % 0.9 0.6 Basophils % 0.1 0.1 Nucleated Red Blood Cells % 0.0 0.0 Neutrophils # 17.5 H 18.8 H Lymphocytes # 1.6 2.0 Monocytes # 1.6 H 1.5 H Eosinophils # 0.2 0.1 Basophils # 0.0 0.0 Nucleated Red Blood Cells # 0.0 0.0 Segmented Neutrophils % (Manual) 67 Band Neutrophils % (Manual) 14 H Lymphocytes % (Manual) 8 L Reactive Lymphocytes % (Manual) 4 H Monocytes % (Manual) 3 Eosinophils % (Manual) 4 Neutrophils # (Manual) 16.1 H Band Neutrophils # 3.2 H Absolute Lymphocytes (Manual) 1.8 Reactive Lymphocytes # 0.9 H Absolute Monocytes (Manual) 0.6 Platelet Estimate NORMAL Giant Platelets 1 H Polychromasia 3+ Anisocytosis 2+ Macrocytosis 1+ Sodium Level 140 Potassium Level 4.7 Chloride Level 108 Carbon Dioxide Level 20 L Anion Gap 17 H Blood Urea Nitrogen 30 H Creatinine 2.76 H Glucose Level 102 Calcium Level 8.3 L Total Bilirubin 14.4 H Direct Bilirubin 12.20 H Indirect Bilirubin 2.2 H Aspartate Amino Transf (AST/SGOT) 100 H Alanine Aminotransferase (ALT/SGPT) 31 Alkaline Phosphatase 112 Total Protein 6.4 # Albumin 2.6 L Globulin 3.80 H Albumin/Globulin Ratio 0.68 Medications Medications Current Medications Morphine Sulfate (morphine) 3 mg Q4H PRN IV pain Last administered on 10:52; Admin Dose 3 MG; Start 06/26/17 at 03:30 Ondansetron HCl (Zofran Inj) 4 mg Q4H PRN IV NAUSEA AND/OR VOMITING Last administered on 07/05/17 22:33; Admin Dose 4 MG; Start 06/26/17 at 03:30 Ferrous Sulfate (Ferrous Sulfate (Ec)) 325 mg BID PO Last administered on 09:18; Admin Dose 325 MG; Start 06/27/17 at 21:00 Pantoprazole (Protonix Tab) 40 mg DAILY@06 PO Last administered on 07/05/17 05 :13; Admin Dose 40 MG; Start 07/01/17 at 06:00; Status Future Hold Lactulose (Enulose) 20 gm Q8 PO Last administered on 07/06/17 05:49; Admin Dose 20 GM; Start 07/01/17 at 14:00 Rifaximin 550 mg 550 mg BID PO Last administered on 07/06/17 09:18; Admin Dose 550 MG; Start 07/03/17 at 21:00 Pantoprazole 80 mg/Sodium Chloride 100 ml @ 10 mls/hr Q10H IV Last administered on 07/06/17 09:39; Admin Dose 10 MLS/HR; Start 07/05/17 at 23:00 Octreotide Acetate/Sodium Chloride (Sandostatin/NS) 100 ml @ 5 mls/hr Q20H IV Last administered on 07/06/17 01:39; Admin Dose 5 MLS/HR; Start 07/06/17 at 00: 30 ABE KRISHNA Jul 06, 2017 11:22
[2017-07-06] MEDS ORDERED: BISACODYL (EC) 5 MG TAB PO ONE (11:30)
[2017-07-06 11:34] LABS: HEMATOCRIT 22.6 % (37.0-47.0); HEMOGLOBIN 7.5 g/dl (12.0-16.0)
--- NOTE | 2017-07-06 11:56 | PN ---
Date/Time of Note Date/Time of Note DATE: 07/06/17 TIME: 11:50 Assessment/Plan VTE Prophylaxis VTE Prophylaxis Intervention: SCD's Lines/Catheters IV Catheter Type (from [facility]): Peripheral IV Urinary Cath still in place: No Assessment/Plan Chief Complaint/Hosp Course Assessment and plan 1. Symptomatic cholelithiasis. Patient status post surgical intervention. Analgesics as needed. 2. Decompensated alcoholic liver cirrhosis with ascites and portal hypertension. Continue lactulose. Of note patient did have ultrasound-guided paracentesis on July 02, 2017. With abdominal distention again, plan for paracentesis 3. Acute kidney injury. Overall appears stable. Communication Spec following. Medications to be renally dosed. 4. Metabolic acidosis. Resolved at present. 5. Iron deficiency anemia. Continue on iron supplement. Noted to be worse today. Patient transfused PRBC. Will monitor H&H. GI consult following. 6. Transaminitis with hyperbilirubinemia secondary to #1 and #2. Monitor level. 7. Leukocytosis. Etiology unknown. Will get ID consult to follow. Disposition plan: ID consult to follow for worsening leukocytosis. Will follow up with paracentesis. Continue in-house monitoring. GI consult to follow for worsening anemia and plan for EGD/colonoscopy Discussed plan of care with Dr. Mukherjee Problems: Subjective 24 Hr Interval Summary Free Text/Dictation reports some abd discomfort Exam/Review of Systems Vital Signs Vitals Vital Signs Date Time Temp Pulse Resp B/P Pulse Ox O2 Delivery O2 Flow Rate FiO2 07/06/17 08:00 98 07/06/17 07:44 98.3 16 85/50 95 Intake and Output 07/05/17 07/05/17 07/06/17 15:00 23:00 07:00 Intake Total 600 ml 685 ml Output Total 500 ml Balance 100 ml 685 ml Exam Constitutional: alert, oriented Psych: nl mood/affect Head: normocephalic Eyes: icteric Neck: supple, No jvd Respiratory: clear to auscultation, normal air movement Cardiovascular: nl pulses, regular rate and rhythm Gastrointestinal: distended, slightly firm Musculoskeletal: No swelling Neurological: SCHOOL COMMISSIONER II-XII intact, nl mental status, nl speech Skin: other (jaundice) Results Result Diagram: 07/06/17 1107 07/06/17 0325 Results 24 hrs Laboratory Tests Test 07/05/17 19:37 07/05/17 23:22 07/06/17 03:25 07/06/17 11:07 Hemoglobin 7.9 L 7.2 L 6.6 *L 7.5 L Hematocrit 23.8 L 21.6 L 19.5 L 22.6 L White Blood Count 21.5 #H 23.0 H Red Blood Count 2.39 L 2.13 L Mean Corpuscular Volume 90.4 91.5 Mean Corpuscular Hemoglobin 30.1 31.0 Mean Corpuscular Hemoglobin Concent 33.3 33.8 Red Cell Distribution Width 21.6 H 21.8 H Platelet Count 132 L 135 L Mean Platelet Volume 11.9 H 12.1 H Neutrophils % 81.4 H 81.8 H Lymphocytes % 7.5 L 8.6 L Monocytes % 7.4 6.4 Eosinophils % 0.9 0.6 Basophils % 0.1 0.1 Nucleated Red Blood Cells % 0.0 0.0 Neutrophils # 17.5 H 18.8 H Lymphocytes # 1.6 2.0 Monocytes # 1.6 H 1.5 H Eosinophils # 0.2 0.1 Basophils # 0.0 0.0 Nucleated Red Blood Cells # 0.0 0.0 Segmented Neutrophils % (Manual) 67 Band Neutrophils % (Manual) 14 H Lymphocytes % (Manual) 8 L Reactive Lymphocytes % (Manual) 4 H Monocytes % (Manual) 3 Eosinophils % (Manual) 4 Neutrophils # (Manual) 16.1 H Band Neutrophils # 3.2 H Absolute Lymphocytes (Manual) 1.8 Reactive Lymphocytes # 0.9 H Absolute Monocytes (Manual) 0.6 Platelet Estimate NORMAL Giant Platelets 1 H Polychromasia 3+ Anisocytosis 2+ Macrocytosis 1+ Sodium Level 140 Potassium Level 4.7 Chloride Level 108 Carbon Dioxide Level 20 L Anion Gap 17 H Blood Urea Nitrogen 30 H Creatinine 2.76 H Glucose Level 102 Calcium Level 8.3 L Total Bilirubin 14.4 H Direct Bilirubin 12.20 H Indirect Bilirubin 2.2 H Aspartate Amino Transf (AST/SGOT) 100 H Alanine Aminotransferase (ALT/SGPT) 31 Alkaline Phosphatase 112 Total Protein 6.4 # Albumin 2.6 L Globulin 3.80 H Albumin/Globulin Ratio 0.68 Medications Medications Current Medications Morphine Sulfate (morphine) 3 mg Q4H PRN IV pain Last administered on 10:52; Admin Dose 3 MG; Start 06/26/17 at 03:30 Ondansetron HCl (Zofran Inj) 4 mg Q4H PRN IV NAUSEA AND/OR VOMITING Last administered on 07/05/17 22:33; Admin Dose 4 MG; Start 06/26/17 at 03:30 Ferrous Sulfate (Ferrous Sulfate (Ec)) 325 mg BID PO Last administered on 09:18; Admin Dose 325 MG; Start 06/27/17 at 21:00 Pantoprazole (Protonix Tab) 40 mg DAILY@06 PO Last administered on 07/05/17 05 :13; Admin Dose 40 MG; Start 07/01/17 at 06:00; Status Future Hold Lactulose (Enulose) 20 gm Q8 PO Last administered on 07/06/17 05:49; Admin Dose 20 GM; Start 07/01/17 at 14:00 Rifaximin 550 mg 550 mg BID PO Last administered on 07/06/17 09:18; Admin Dose 550 MG; Start 07/03/17 at 21:00 Pantoprazole 80 mg/Sodium Chloride 100 ml @ 10 mls/hr Q10H IV Last administered on 07/06/17 09:39; Admin Dose 10 MLS/HR; Start 07/05/17 at 23:00 Octreotide Acetate/Sodium Chloride (Sandostatin/NS) 100 ml @ 5 mls/hr Q20H IV Last administered on 07/06/17 01:39; Admin Dose 5 MLS/HR; Start 07/06/17 at 00: 30 Magnesium Citrate (Citroma) 300 ml ONCE ONCE PO ; Start 07/06/17 at 17:30; Stop 07/06/17 at 17:31 Polyethylene Glycol (Miralax) 119 gm ONCE ONCE PO ; Start 07/06/17 at 18:30; Stop 07/06/17 at 18:31 MADAY VALDEZ Jul 06, 2017 11:56
[2017-07-06 12:33] LABS: INR 2.16; PROTIME 24.6 Sec (11.9-14.9); PT RATIO 1.9
[2017-07-06 15:05] LABS: HEMATOCRIT 24.1 % (37.0-47.0); HEMOGLOBIN 8.1 g/dl (12.0-16.0)
[2017-07-06] MEDS ORDERED: OCTREOTIDE 1 MG in SOD CHLORIDE 0.9% 95 ML IV SCH (17:30)
[2017-07-06] MEDS ORDERED: PANTOPRAZOLE IV 80 MG in SOD CHLORIDE 0.9% 100 ML IV SCH (17:30)
[2017-07-06] MEDS ORDERED: MAGNESIUM CITRATE 300 ML BTL PO ONE (17:30)
[2017-07-06 17:49] LABS: HEMATOCRIT 21.6 % (37.0-47.0); HEMOGLOBIN 7.3 g/dl (12.0-16.0)
--- NOTE | 2017-07-06 18:20 | CONS ---
DATE OF ADMISSION: 06/26/2017 DATE OF CONSULTATION: 07/06/2017 TYPE OF CONSULTATION: Infectious disease. REASON FOR CONSULTATION: Antibiotic management. HISTORY OF PRESENT ILLNESS: Esmer Harper is a 47-year-old female who has a history of cholecystitis, comes in now with decompensated liver cirrhosis with ascites. Past problems include: 1. Cholecystitis. 2. Cirrhosis with portal hypertension, probably secondary to alcoholism. 3. Abdominal pain. The patient comes in with jaundice. About 2 weeks ago, she started to experience abdominal pain and noted yellowing of her eyes and face. She went to an outside hospital and was started on Aldactone . She has been drinking alcohol on a daily basis for the past 2 years after her father . She says that she takes 2 shots of alcohol per day. On admission, her white count was 14,000, hem oglobin was 8.8, BUN and creatinine were 18 and 2.87, total bilirubin 11.5, direct was 9.9, AST 162, alk phos 283, ammonia 32. Ten days ago, her creatinine was normal at 0.4; now, it is 2.87. She verde s been on ibuprofen. HOSPITAL COURSE: Her white count on the today is 23,000, H and H of 6.6 and 19.5, platelet coun t of 135,000 with 67 polys, 14 bands, her BUN and creatinine 30/2.76 as noted. Urine shows 2+ bilir ubin, negative for leukocyte esterase and nitrites. Urine is negative. Blood cultures are ne gative. She had an ultrasound and a paracentesis on the where 2.2 liters of fluid was taken off . Abdominal x-ray: Splenomegaly and underlying ascites. A CT scan of the abdomen and pelvis shows enlarged cirrhotic liver with likely fatty infiltration, gallbladder wall thickening versus pericho lecystic with gallstone versus sludge, splenomegaly with changes of portal hypertension, increased a scites in the abdomen. This was from 06/25, prior to her paracentesis. HIDA scan showed no evidenc e of cystic duct obstruction, nonvisualization of the GI activity up to 4 hours post-injection, pers istent liver uptake most compatible with parenchymal liver disease. The patient is on lactulose and rifaximin. Currently, she is felt to have ongoing symptomatic cholelithiasis as well as decompensa tu alcoholic liver disease. The patient was seen by GI and an EGD and colonoscopy are planned for tomorrow. Currently, the patient is afebrile. The fluid from the peritoneal cavity was not culture d. PAST MEDICAL HISTORY: Operations as outlined. FAMILY HISTORY: Noncontributory. SOCIAL HISTORY: She does not smoke, drink or abuse drugs. ALLERGIES: NONE TO PENICILLIN, SULFA OR FOODS. MEDICATIONS: Per chart. REVIEW OF SYSTEMS: Noncontributory. PHYSICAL EXAMINATION: GENERAL: The patient is a well-developed, well-nourished female who is alert, responsive, in no acu te distress. VITAL SIGNS: Stable. She is afebrile. SKIN: Without generalized rash. She is icteric. HEENT: Within normal limits. NECK: Supple. LYMPH NODES: None palpable. CHEST: Decreased breath sounds at the bases. HEART: Without murmur or gallop. ABDOMEN: Soft, markedly distended with ascitic fluid. EXTREMITIES: Without cyanosis, clubbing or edema. RECTAL AND GENITAL: Deferred. NEUROLOGIC: No focal neurological abnormalities. IMPRESSION AND PLAN: The patient has significant alcoholic cirrhosis with ascites. She has choleli thiasis and in addition, her white count has gone up to 23,000, although she is afebrile. The urine had 33 white cells per high-power field. It was negative for nitrite and leukocyte esterase. The peritoneal fluid was not checked. Her serologies for hepatitis A, B and C were essentially negative . I would consider re-aspirating the peritoneal fluid to rule out spontaneous bacterial peritonitis and then placing the patient on broad-spectrum antibiotic therapy. At this point, she had a blood culture yesterday and a urine culture. As noted, they are negative. I will dictate my findings to the hospitalist, Dr. Ny and Dr. Andrade who noted that she had no evidence of acute cholecystitis . Dictated By: JAISON LOFTON MD, JD/SHAE Conf#: [id number] DID#: [id number] CC: ALAN SWEET MD;*EndCC*
[2017-07-06] MEDS ORDERED: POLYETHYLENE GLYCOL 3350 119 GM POWDER PO ONE (18:30)
[2017-07-06] MEDS ORDERED: SOD CHLORIDE 0.9% 250 ML IV ONE ×2 (18:30)
[2017-07-06] MEDS: SOD CHLORIDE 0.9% 1,000 ML IV SCH ×2 (18:30→21:01)
--- NOTE | 2017-07-06 18:33 | CONS ---
Date/Time of Note Date/Time of Note DATE: 07/06/17 TIME: 18:26 Assessment/Plan Assessment/Plan Chief Complaint/Hosp Course 1. Acute renal failure. The patient's serum creatinine went up today. She has been having gastrointestinal bleeding today. Her blood pressure is low. Her hemoglobin and hematocrit are low. She is being transferred to the intensive care unit. She is going to have a 2 unit blood transfusion. I have ordered a bolus of normal saline and a normal saline drip until she gets to the intensive care unit. If her blood pressure is below 90 systolic I would start her on a Levophed drip. 2. Cirrhosis of the liver with rising bilirubin, low albumin , edema and coagulopathy. Her white blood count is up to 23,000. The paracentesis that was done last week was not sent for any diagnostic studies or culture. I agree that she needs another paracentesis done for diagnostic studies cell count and culture. Need to rule out spontaneous peritonitis. 3. Left upper quadrant abdominal pain , is less today. 4. Anemia , she is now having active GI bleeding. She has a blood transfusion ordered. She will be transferred to the ICU for close monitoring. She is scheduled for a EGD tomorrow. Problems: Consultation Date/Type/Reason Admit Date/Time Jun 26, 2017 at 00:00 Initial Consult Date 06/26/17 Type of Consultation: Nephrology 24 HR Interval Summary Free Text/Dictation The patient is awake and alert. She has had hematemesis and some blood per rectum. Her H&H has dropped down and she is being transferred to the intensive care unit and is going to have a blood transfusion. Exam/Review of Systems Vital Signs Vitals Vital Signs Date Time Temp Pulse Resp B/P Pulse Ox O2 Delivery O2 Flow Rate FiO2 07/06/17 16:12 97.8 100 16 81/53 97 Intake and Output 07/05/17 07/05/17 07/06/17 15:00 23:00 07:00 Intake Total 600 ml 685 ml Output Total 500 ml Balance 100 ml 685 ml Exam Constitutional: alert, frail, obese, oriented Head: normocephalic Eyes: icteric ENMT: nl external ears & nose, nl lips & teeth, nl nasal mucosa & septum Respiratory: diminished breath sounds Cardiovascular: edema, regular rate and rhythm Gastrointestinal: ascites, distended, soft Extremities: edema Results Result Diagram: 07/06/17 1737 07/06/17 0325 Results 24 hrs Laboratory Tests Test 07/05/17 19:37 07/05/17 23:22 07/06/17 03:25 07/06/17 11:07 Hemoglobin 7.9 L 7.2 L 6.6 *L 7.5 L Hematocrit 23.8 L 21.6 L 19.5 L 22.6 L White Blood Count 21.5 #H 23.0 H Red Blood Count 2.39 L 2.13 L Mean Corpuscular Volume 90.4 91.5 Mean Corpuscular Hemoglobin 30.1 31.0 Mean Corpuscular Hemoglobin Concent 33.3 33.8 Red Cell Distribution Width 21.6 H 21.8 H Platelet Count 132 L 135 L Mean Platelet Volume 11.9 H 12.1 H Neutrophils % 81.4 H 81.8 H Lymphocytes % 7.5 L 8.6 L Monocytes % 7.4 6.4 Eosinophils % 0.9 0.6 Basophils % 0.1 0.1 Nucleated Red Blood Cells % 0.0 0.0 Neutrophils # 17.5 H 18.8 H Lymphocytes # 1.6 2.0 Monocytes # 1.6 H 1.5 H Eosinophils # 0.2 0.1 Basophils # 0.0 0.0 Nucleated Red Blood Cells # 0.0 0.0 Segmented Neutrophils % (Manual) 67 Band Neutrophils % (Manual) 14 H Lymphocytes % (Manual) 8 L Reactive Lymphocytes % (Manual) 4 H Monocytes % (Manual) 3 Eosinophils % (Manual) 4 Neutrophils # (Manual) 16.1 H Band Neutrophils # 3.2 H Absolute Lymphocytes (Manual) 1.8 Reactive Lymphocytes # 0.9 H Absolute Monocytes (Manual) 0.6 Platelet Estimate NORMAL Giant Platelets 1 H Polychromasia 3+ Anisocytosis 2+ Macrocytosis 1+ Sodium Level 140 Potassium Level 4.7 Chloride Level 108 Carbon Dioxide Level 20 L Anion Gap 17 H Blood Urea Nitrogen 30 H Creatinine 2.76 H Glucose Level 102 Calcium Level 8.3 L Total Bilirubin 14.4 H Direct Bilirubin 12.20 H Indirect Bilirubin 2.2 H Aspartate Amino Transf (AST/SGOT) 100 H Alanine Aminotransferase (ALT/SGPT) 31 Alkaline Phosphatase 112 Total Protein 6.4 # Albumin 2.6 L Globulin 3.80 H Albumin/Globulin Ratio 0.68 Test 07/06/17 11:52 07/06/17 14:22 07/06/17 17:37 Prothrombin Time 24.6 H Prothrombin Time Ratio 1.9 INR International Normalized Ratio 2.16 Hemoglobin 8.1 L 7.3 L Hematocrit 24.1 L 21.6 L Medications Medications Current Medications Morphine Sulfate (morphine) 3 mg Q4H PRN IV pain Last administered on 16:24; Admin Dose 3 MG; Start 06/26/17 at 03:30 Ondansetron HCl (Zofran Inj) 4 mg Q4H PRN IV NAUSEA AND/OR VOMITING Last administered on 07/05/17 22:33; Admin Dose 4 MG; Start 06/26/17 at 03:30 Ferrous Sulfate (Ferrous Sulfate (Ec)) 325 mg BID PO Last administered on 09:18; Admin Dose 325 MG; Start 06/27/17 at 21:00 Lactulose (Enulose) 20 gm Q8 PO Last administered on 07/06/17 13:37; Admin Dose 20 GM; Start 07/01/17 at 14:00 Rifaximin 550 mg 550 mg BID PO Last administered on 07/06/17 09:18; Admin Dose 550 MG; Start 07/03/17 at 21:00 Pantoprazole 80 mg/Sodium Chloride 100 ml @ 10 mls/hr Q10H IV Last administered on 07/06/17 09:39; Admin Dose 10 MLS/HR; Start 07/05/17 at 23:00 Octreotide Acetate/Sodium Chloride (Sandostatin/NS) 100 ml @ 5 mls/hr Q20H IV Last administered on 07/06/17 01:39; Admin Dose 5 MLS/HR; Start 07/06/17 at 00: 30 Polyethylene Glycol 119 gm 119 gm ONCE ONCE PO ; Start 07/06/17 at 18:30; Stop 07/06/17 at 18:31 Sodium Chloride 250 ml @ 250 mls/hr Q1H ONCE IV ; Start 07/06/17 at 18:30; Stop 07/06/17 at 19:29 Sodium Chloride 250 ml @ 250 mls/hr Q1H ONCE IV ; Start 07/06/17 at 18:30; Stop 07/06/17 at 19:29; Status UNV Sodium Chloride (NS) 1,000 ml @ 100 mls/hr Q10H IV ; Start 07/06/17 at 18:30; Status UNV PERLA VANESSA MD Jul 06, 2017 18:33
[2017-07-06] MEDS ORDERED: NORepinephrine 8MG/250 ML (PMX 250 ML IV PRN (21:00)
[2017-07-06] MEDS: ONDANSETRON 4 MG INJ IV PRN (22:26)
[2017-07-07] VITALS (58 sets, daily range): BP systolic 68–127; BP diastolic 33–93; PULSE 89–117; RESP 11–28
[2017-07-07 01:25] LABS: HEMOGLOBIN 9.3 g/dl (12.0-16.0)
[2017-07-07] MEDS: morphine 4 MG/ML VIAL IV PRN ×3 (02:30→20:24)
[2017-07-07] MEDS: PANTOPRAZOLE IV 80 MG in SOD CHLORIDE 0.9% 100 ML IV SCH ×2 (05:44→16:09)
[2017-07-07] MEDS: LACTULOSE 30ML CUP PO SCH ×3 (05:44→21:14)
[2017-07-07] MEDS: ONDANSETRON 4 MG INJ IV PRN (05:44)
[2017-07-07 05:52] LABS: ABNORMAL IP MESSAGE 1; HEMATOCRIT 26.6 % (37.0-47.0); MEAN CORPUSCULAR HGB CONC 33.8 g/dl (32.0-37.0); MEAN CORPUSCULAR VOLUME 88.7 fl (82.0-101.0); MEAN PLATELET VOLUME 11.9 fl (7.4-10.4); PLATELET COUNT 160 10^3/UL (140-415); RED CELL DISTRIBUTION WIDTH 19.3 % (11.5-14.5); WHITE BLOOD COUNT 28.4 10^3/ul (4.8-10.8)
[2017-07-07] MEDS ORDERED: POLYETHYLENE GLYCOL 3350 119 GM POWDER PO ONE (06:00)
[2017-07-07 06:22] LABS: POSITIVE DIFF @See below
[2017-07-07 06:38] LABS: CALCIUM 8.5 mg/dl (8.4-10.2); CREATININE 3.89 mg/dl (0.44-1.00); POTASSIUM 5.2 mmol/L (3.5-5.1)
[2017-07-07] MEDS ORDERED: BISACODYL (EC) 5 MG TAB PO ONE (08:00)
[2017-07-07] MEDS: FERROUS SULFATE (EC) 325 MG TAB PO SCH ×2 (08:43→21:14)
[2017-07-07] MEDS: RIFAXIMIN 550 MG TAB PO SCH ×2 (08:44→21:14)
[2017-07-07 09:36] LABS: ANISOCYTOSIS 1+ (0-0); BURR CELLS 1+ (0-0); EOSINOPHILS % (M) 2 % (0-7); GIANT THROMBO% (M) 1 % (0-0); MONOCYTES % (M) 3 % (0-11); MYELOCYTES % (M) 1 % (0-0); PLATELET ESTIMATE NORMAL; POIKILOCYTOSIS 1+ (0-0); POLYCHROMASIA 3+ (0-0); REACTIVE LYMPHOCYTES% (M) 1 % (0-0)
[2017-07-07] MEDS ORDERED: LIDOCAINE 1% (MPF) 5 ML VIAL SC ONE ×2 (11:30→12:00)
--- NOTE | 2017-07-07 11:32 | PN ---
Date/Time of Note Date/Time of Note DATE: 07/07/17 TIME: 11:28 Assessment/Plan VTE Prophylaxis VTE Prophylaxis Intervention: SCD's Lines/Catheters IV Catheter Type (from [facility]): Peripheral IV Urinary Cath still in place: No Assessment/Plan Chief Complaint/Hosp Course Assessment and plan 1. Symptomatic cholelithiasis. Patient status post surgical intervention. Analgesics as needed. 2. Decompensated alcoholic liver cirrhosis with ascites and portal hypertension. Continue lactulose. Of note patient did have ultrasound-guided paracentesis on July 02, 2017. Noted with worsening abdominal distention at this time. Will follow up with repeat paracentesis and follow-up on cultures . 3. Acute kidney injury. Overall appears stable. Ladle Puller following. Medications to be renally dosed. 4. Metabolic acidosis. Resolved at present. 5. Iron deficiency anemia. Continue on iron supplement. 6. Transaminitis with hyperbilirubinemia secondary to #1 and #2. Monitor level. Disposition plan: Paracentesis is pending. Was sent ICU reportedly for worsening anemia. Monitor H&H and transfuse blood products as needed. Discussed plan of care with Dr. Mukherjee Problems: Subjective 24 Hr Interval Summary Free Text/Dictation Reports of abdominal pain. Noted with more distended abdomen at this time. Exam/Review of Systems Vital Signs Vitals Vital Signs Date Time Temp Pulse Resp B/P Pulse Ox O2 Delivery O2 Flow Rate FiO2 07/07/17 08:00 98 07/07/17 07:30 97/54 98 Room Air 07/07/17 04:00 98.4 07/06/17 16:12 16 Intake and Output 07/06/17 07/06/17 07/07/17 15:00 23:00 07:00 Intake Total 820 ml Output Total 550 ml 0 ml Balance 270 ml 0 ml Exam Constitutional: alert, oriented Psych: nl mood/affect Head: normocephalic Eyes: icteric Neck: supple, No jvd Respiratory: clear to auscultation, normal air movement Cardiovascular: nl pulses, regular rate and rhythm Gastrointestinal: distended, more today. Musculoskeletal: No swelling Neurological: KETTLE CHIPPER II-XII intact, nl mental status, nl speech Skin: other (jaundice) Results Result Diagram: 07/07/17 0502 07/07/17 0502 Results 24 hrs Laboratory Tests Test 07/06/17 11:52 07/06/17 14:22 07/06/17 17:37 07/07/17 01:19 Prothrombin Time 24.6 H Prothrombin Time Ratio 1.9 INR International Normalized Ratio 2.16 Hemoglobin 8.1 L 7.3 L 9.3 #L Hematocrit 24.1 L 21.6 L 27.0 #L Test 07/07/17 05:01 07/07/17 05:02 Lab Scanned Report BLOOD TRANSFUSION White Blood Count 28.4 #H Red Blood Count 3.00 #L Hemoglobin 9.0 L Hematocrit 26.6 L Mean Corpuscular Volume 88.7 Mean Corpuscular Hemoglobin 30.0 Mean Corpuscular Hemoglobin Concent 33.8 Red Cell Distribution Width 19.3 H Platelet Count 160 Mean Platelet Volume 11.9 H Neutrophils % Segmented Neutrophils % (Manual) 66 Band Neutrophils % (Manual) 18 H Lymphocytes % Lymphocytes % (Manual) 9 L Reactive Lymphocytes % (Manual) 1 H Monocytes % Monocytes % (Manual) 3 Eosinophils % Eosinophils % (Manual) 2 Basophils % Myelocytes % (Manual) 1 H Nucleated Red Blood Cells % 0.0 Neutrophils # Neutrophils # (Manual) 20.2 H Band Neutrophils # 5.1 H Absolute Lymphocytes (Manual) 2.5 Lymphocytes # Reactive Lymphocytes # 0.2 H Monocytes # Absolute Monocytes (Manual) 0.8 Eosinophils # Basophils # Myelocytes # 0.2 H Nucleated Red Blood Cells # Platelet Estimate NORMAL Giant Platelets 1 H Polychromasia 3+ Poikilocytosis 1+ Anisocytosis 1+ Macrocytosis 1+ Sodium Level 140 Potassium Level 5.2 H Chloride Level 106 Carbon Dioxide Level 22 Anion Gap 17 H Blood Urea Nitrogen 36 H Creatinine 3.89 #H Glucose Level 141 Calcium Level 8.5 Medications Medications Current Medications Morphine Sulfate (morphine) 3 mg Q4H PRN IV pain Last administered on 02:30; Admin Dose 3 MG; Start 06/26/17 at 03:30 Ondansetron HCl (Zofran Inj) 4 mg Q4H PRN IV NAUSEA AND/OR VOMITING Last administered on 07/07/17 05:44; Admin Dose 4 MG; Start 06/26/17 at 03:30 Ferrous Sulfate (Ferrous Sulfate (Ec)) 325 mg BID PO Last administered on 08:43; Admin Dose 325 MG; Start 06/27/17 at 21:00 Lactulose (Enulose) 20 gm Q8 PO Last administered on 07/07/17 05:44; Admin Dose 20 GM; Start 07/01/17 at 14:00 Rifaximin 550 mg 550 mg BID PO Last administered on 07/07/17 08:44; Admin Dose 550 MG; Start 07/03/17 at 21:00 Pantoprazole 80 mg/Sodium Chloride 100 ml @ 10 mls/hr Q10H IV Last administered on 07/07/17 05:44; Admin Dose 10 MLS/HR; Start 07/05/17 at 23:00 Octreotide Acetate 1 mg/ Sodium Chloride 100 ml @ 5 mls/hr Q20H IV Last administered on 07/06/17 21:00; Admin Dose 5 MLS/HR; Start 07/06/17 at 00:30 Sodium Chloride 1,000 ml @ 100 mls/hr Q10H IV Last administered on 07/06/17 21:01; Admin Dose 100 MLS/HR; Start 07/06/17 at 18:30 Norepinephrine/ Dextrose (Levophed/D5W) 500 ml @ 1.87 mls/hr TITRATE PRN IV BLOOD PRESSURE SUPPORT; Start 07/07/17 at 06:00 Lidocaine (Xylocaine 1% (Mpf)) 5 ml ONCE ONCE SC ; Start 07/07/17 at 11:30; Stop 07/07/17 at 11:31 MADAY VALDEZ Jul 07, 2017 11:32
[2017-07-07] MEDS: SOD CHLORIDE 0.9% 1,000 ML IV SCH (12:01)
[2017-07-07 12:14] LABS: HEMATOCRIT 25.6 % (37.0-47.0); HEMOGLOBIN 8.8 g/dl (12.0-16.0)
[2017-07-07] MEDS ORDERED: CEFEPIME 1GM/50 ML (PMX) 50 ML IVPB SCH (12:30)
[2017-07-07] MEDS ORDERED: VANCOMYCIN IV PER PHARMACY XX SCH (12:30)
--- NOTE | 2017-07-07 12:40 | PN ---
DATE: 07/07/2017 SUBJECTIVE: Patient was transferred to ICU secondary to active gastrointestinal bleeding current aw marium, comfortable. She is on Protonix and octreotide drips. No fevers. VITAL SIGNS: Temperature 98.1, pulse 98, respirations 15, blood pressure 97/54, saturation 94 on ro om air. INDWELLINGS: Peripheral IV, NG tube. LABORATORY DATA: WBC 28.4, hemoglobin and hematocrit 9 and 26.6, platelets 160. Sodium 140, potass ium 5.2, BUN 36, creatinine 3.89. MICROBIOLOGY: Blood culture negative. Urine culture pending. DIAGNOSTICS: No chest x-ray this morning. PHYSICAL EXAMINATION: GENERAL: This is a well-developed, obese, middle-aged woman who is awake, in no distress. HEENT: Head atraumatic, normocephalic. Sclerae anicteric. Buccal mucosa dry. NECK: Supple. CHEST: Rise symmetrical. Breath sounds diminished to bases. HEART: S1, S2. ABDOMEN: Distended, soft. Bowel tones present. EXTREMITIES: Without cyanosis. SKIN: Positive for jaundice. ASSESSMENT: 1. Leukocytosis, likely reactive. Rule out infectious, etiology. 2. Decompensated liver cirrhosis with ascites, status post paracentesis done on 07/02/2017, no cult ures sent. No cytology in the computer. 3. Acute kidney injury, possibly hepatorenal syndrome. 4. Acute anemia. 5. Symptomatic cholelithiasis without evidence of acute cholecystitis. PLAN: The patient is hemodynamically and clinically stable. She is being seen by multiple consulta nts. White blood cell count is tracing up. She is at high risk for spontaneous bacterial peritonit is. We are going to start her on vancomycin and cefepime. peritoneal fluid for culture and g min stain. Will order chest x-ray to make sure she is not developing pneumonia. Dictated By: FARHAT GARDINER RN DOCUMENTATION for JAISON ROBLERO/NTS Conf#: [id number] DID#: [id number]
[2017-07-07] MEDS ORDERED: DEXTROSE 5%-0.45% NACL 1,000 ML IV SCH (14:00)
--- NOTE | 2017-07-07 14:02 | RADRPT ---
PROCEDURE: Chest x-ray CLINICAL INDICATION: Nasogastric tube placement TECHNIQUE: Chest single view COMPARISON: 06/25/2017 FINDINGS: There is interval placement nasogastric tube which extends into the stomach. The heart is normal in size. The pulmonary vessels are normal in caliber. Lung volumes are low. No confluent pneumonia see n.. The costophrenic angles are sharp. The visualized bony thorax is unremarkable. IMPRESSION: 1. interval placement nasogastric tube which extends into the stomach. 2. Low lung volumes RPTAT: HH .Sg Magallanes MD, MD Date Time Electronically viewed and signed by .Sg Magallanes MD, on 07/07/2017 14:02 .W/
--- NOTE | 2017-07-07 14:12 | CONS ---
Date/Time of Note Date/Time of Note DATE: 07/07/17 TIME: 14:06 Assessment/Plan Assessment/Plan Chief Complaint/Hosp Course 1. Acute renal failure. The patient's serum creatinine is higher today. She has been having gastrointestinal bleeding today. Her blood pressure is low. Her hemoglobin and hematocrit have been low. She has been getting transfused with blood and with fresh frozen plasma. I did tell her and her family that her renal function was decreased today. I even brought up the possibility of needing dialysis if her kidneys continue to fail. If her blood pressure is below 90 systolic I would start her on a Levophed drip. 2. Cirrhosis of the liver with rising bilirubin, low albumin , edema and coagulopathy. Her white blood count is up to 28,000. The paracentesis that was done last week was not sent for any diagnostic studies or culture. I agree that she needs another paracentesis done for diagnostic studies cell count and culture. Need to rule out spontaneous peritonitis. 3. Left upper quadrant abdominal pain , is less today. 4. Anemia , she is now having active GI bleeding. She has a blood transfusion ordered. She is now in the ICU for close monitoring. Problems: Consultation Date/Type/Reason Admit Date/Time Jun 26, 2017 at 00:00 Initial Consult Date 06/26/17 Type of Consultation: Nephrology 24 HR Interval Summary Free Text/Dictation She is now in the intensive care unit after having gastrointestinal bleeding and dropping her blood pressure. She has continued to have rectal bleeding. She does have an NG tube in place. She is awake and alert. Exam/Review of Systems Vital Signs Vitals Vital Signs Date Time Temp Pulse Resp B/P Pulse Ox O2 Delivery O2 Flow Rate FiO2 07/07/17 12:00 97.9 98 12 100/55 93 Room Air Intake and Output 07/06/17 07/06/17 07/07/17 14:59 22:59 06:59 Intake Total 1280 ml 1025 ml Output Total 550 ml Balance 1280 ml 475 ml Exam Constitutional: alert, frail, oriented Respiratory: diminished breath sounds Cardiovascular: edema, regular rate and rhythm Gastrointestinal: ascites Extremities: edema Results Result Diagram: 07/07/17 1206 07/07/17 0502 Results 24 hrs Laboratory Tests Test 07/06/17 14:22 07/06/17 17:37 07/07/17 01:19 07/07/17 05:01 Hemoglobin 8.1 L 7.3 L 9.3 #L Hematocrit 24.1 L 21.6 L 27.0 #L Lab Scanned Report BLOOD TRANSFUSION Test 07/07/17 05:02 07/07/17 12:06 White Blood Count 28.4 #H Red Blood Count 3.00 #L Hemoglobin 9.0 L 8.8 L Hematocrit 26.6 L 25.6 L Mean Corpuscular Volume 88.7 Mean Corpuscular Hemoglobin 30.0 Mean Corpuscular Hemoglobin Concent 33.8 Red Cell Distribution Width 19.3 H Platelet Count 160 Mean Platelet Volume 11.9 H Neutrophils % Segmented Neutrophils % (Manual) 66 Band Neutrophils % (Manual) 18 H Lymphocytes % Lymphocytes % (Manual) 9 L Reactive Lymphocytes % (Manual) 1 H Monocytes % Monocytes % (Manual) 3 Eosinophils % Eosinophils % (Manual) 2 Basophils % Myelocytes % (Manual) 1 H Nucleated Red Blood Cells % 0.0 Neutrophils # Neutrophils # (Manual) 20.2 H Band Neutrophils # 5.1 H Absolute Lymphocytes (Manual) 2.5 Lymphocytes # Reactive Lymphocytes # 0.2 H Monocytes # Absolute Monocytes (Manual) 0.8 Eosinophils # Basophils # Myelocytes # 0.2 H Nucleated Red Blood Cells # Platelet Estimate NORMAL Giant Platelets 1 H Polychromasia 3+ Poikilocytosis 1+ Anisocytosis 1+ Macrocytosis 1+ Sodium Level 140 Potassium Level 5.2 H Chloride Level 106 Carbon Dioxide Level 22 Anion Gap 17 H Blood Urea Nitrogen 36 H Creatinine 3.89 #H Glucose Level 141 Calcium Level 8.5 Medications Medications Current Medications Morphine Sulfate (morphine) 3 mg Q4H PRN IV pain Last administered on 11:42; Admin Dose 3 MG; Start 06/26/17 at 03:30 Ondansetron HCl (Zofran Inj) 4 mg Q4H PRN IV NAUSEA AND/OR VOMITING Last administered on 07/07/17 05:44; Admin Dose 4 MG; Start 06/26/17 at 03:30 Ferrous Sulfate (Ferrous Sulfate (Ec)) 325 mg BID PO Last administered on 08:43; Admin Dose 325 MG; Start 06/27/17 at 21:00 Lactulose (Enulose) 20 gm Q8 PO Last administered on 07/07/17 13:19; Admin Dose 20 GM; Start 07/01/17 at 14:00 Rifaximin 550 mg 550 mg BID PO Last administered on 07/07/17 08:44; Admin Dose 550 MG; Start 07/03/17 at 21:00 Pantoprazole 80 mg/Sodium Chloride 100 ml @ 10 mls/hr Q10H IV Last administered on 07/07/17 05:44; Admin Dose 10 MLS/HR; Start 07/05/17 at 23:00 Octreotide Acetate 1 mg/ Sodium Chloride 100 ml @ 5 mls/hr Q20H IV Last administered on 07/06/17 21:00; Admin Dose 5 MLS/HR; Start 07/06/17 at 00:30 Norepinephrine 16 mg/Dextrose 500 ml @ 1.87 mls/hr TITRATE PRN IV BLOOD PRESSURE SUPPORT; Start 07/07/17 at 06:00 Cefepime HCl 0.5 gm/Sodium Chloride 50 ml @ 100 mls/hr Q24H IVPB ; Start at 14:00 Vancomycin HCl 1.25 gm/Sodium Chloride 250 ml @ 83.333 mls/ hr ONCE IVPB ; Start 07/07/17 at 14:30; Stop 07/07/17 at 23:59 Vancomycin HCl 750 mg/Dextrose/ Water 150 ml @ 75 mls/hr Q48H IVPB ; Start 07/09/17 at 14:30 Dextrose/Sodium Chloride (D5-1/2ns) 1,000 ml @ 60 mls/hr [id number] IV ; Start at 14:00 PERLA VANESSA MD Jul 07, 2017 14:12
[2017-07-07] MEDS ORDERED: VANCOMYCIN 1.25 GM in SOD CHLORIDE 0.9% 250 ML IVPB SCH (14:30)
[2017-07-07] MEDS: OCTREOTIDE 1 MG in SOD CHLORIDE 0.9% 95 ML IV SCH (14:38)
[2017-07-07] MEDS: CEFEPIME HCL 0.5 GM in SOD CHLORIDE 0.9% 50 ML IVPB SCH (14:39)
--- NOTE | 2017-07-07 15:07 | RADRPT ---
PROCEDURE: XR Chest. CLINICAL INDICATION: Check PICC line position. TECHNIQUE: Single frontal view. COMPARISON: Prior study done earlier the same day. FINDINGS: There is a left arm PICC line with the tip in the cavoatrial junction. There is mild atelectasis at the lung bases. The lungs are otherwise clear. The nasogastric tube tip is in the stomach. The heart size is normal. There is no pleural effusion. There is no pneumothorax. IMPRESSION: 1. Left arm PICC line tip in satisfactory position. 2. Mild atelectasis at the lung bases. 3. Nasogastric tube tip in the stomach. RPTAT: QQ .Wm Hagen MD, MD Date Time Electronically viewed and signed by .Wm Hagen MD, on 07/07/2017 15:07 .R/
--- NOTE | 2017-07-07 15:08 | RADRPT ---
PROCEDURE: XR Chest. CLINICAL INDICATION: Check PICC line position. TECHNIQUE: Single frontal view. COMPARISON: 07/07/2017. FINDINGS: There is a left arm PICC line with the tip coiled in the left subclavian vein. Mild atelectasis is present at the lung bases. The lungs are otherwise clear. The nasogastric tube tip is in the stomach . The heart size is normal. There is no pleural effusion. There is no pneumothorax. IMPRESSION: 1. Left arm PICC line tip coiled in the left subclavian vein. This should be repositioned. PICC leonides e nurse aware. 2. Nasogastric tube tip in the stomach. 3. Mild atelectasis at the lung bases. RPTAT: QQ .Wm Hagen MD, Date Time Electronically viewed and signed by .Wm Hagen MD, on 07/07/2017 15:08 .R/
--- NOTE | 2017-07-07 16:05 | RADRPT ---
PROCEDURE: US guidance for PICC line CLINICAL INDICATION: PICC line placement TECHNIQUE: Multiple real-time images were acquired of the patient's arm utilizing a high resolutio n transducer. This was performed by the PICC line nurse for venous access. COMPARISON: None FINDINGS: Ultrasound guidance for PICC line placement. IMPRESSION: Ultrasound guidance for PICC line placement. RPTAT: AA .Aric Tenorio MD, MD Date Time Electronically viewed and signed by .Aric Tenorio MD, on 07/07/2017 16:05 .S/
[2017-07-07] MEDS ORDERED: SOD CHLORIDE 0.9% 100 ML ONE (17:48)
--- NOTE | 2017-07-07 18:39 | HPN ---
Date/Time of Note Date/Time of Note DATE: 07/07/17 TIME: 18:39 Interval H&P Admission Note Pt. seen H&P reviewed: No system changes FRANCINE SCHNEIDER MD Jul 07, 2017 18:39
[2017-07-07] MEDS ORDERED: LIDOCAINE 2% (SDV) 5 ML INJ ONE (18:41)
[2017-07-07] MEDS ORDERED: PROPOFOL 40 ML ONE (18:41)
[2017-07-07 18:54] LABS: HEMATOCRIT 23.6 % (37.0-47.0)
--- NOTE | 2017-07-07 19:29 | OPPN ---
Date/Time of Note Date/Time of Note DATE: 07/07/17 TIME: 19:25 Proc Note GI Procedure Date 07/07/17 Indication: other (GI bleeding/hematemesis) Pre-procedure Diagnosis GI bleeding/hematemesis Post-procedure Diagnosis Impression: Grade III/IV esophageal varices with stigmata recent bleeding Post endoscopic variceal ligation 5 Portal hypertensive gastropathy. Otherwise normal EGD. Plan: Continue Protonix and octreotide drip Clear liquid diet Monitor H&H transfuse for hemoglobin less than 7.5 Continue lactulose and rifaximin . Procedure Performed: Endoscopy (Plus endoscopic variceal ligation) Surgeon FRANCINE SCHNEIDER MD See signature line Needle Straightener none Anesthesia Type: MAC Anesthesiologist: ASHISH HERNÁNDEZ MD Tourniquet Time none EBL none Transfusion required none Biopsy 1: None Grafts/Implants Endoscopic variceal ligation 5 Tubes/Drains none Complication(s) none Disposition: other (ICU) Procedure Description After informed consent, with the patient/relatives understanding the procedure, its indications, potential risks and complications, including but not limited to : allergic reaction, bleeding, perforation or infection, and after all pertinent questions were answered to the patients satisfaction, the patient/ relatives signed witnessed informed consent. Following this, premedication was administered slowly IV push under careful cardiovascular and respiratory monitoring with pulse oximetry, automatic blood pressure, and court monitor. Once the sedative effect was achieved the patient was place in the left lateral decubitus, the panendoscope was introduced and advanced under visual control. Careful examination of the upper gastrointestinal tract, both on insertion as well as withdrawal of the instrument disclosing the following findings: ESOPHAGUS: the mucosa of the entire esophagus was carefully examined and showed the following findings: There are grade III/IV esophageal varices with stigmata recent bleeding. Endoscopic variceal ligation was applied 5 upon completion of the examination and with no complications. Otherwise the mucosa appears within normal limits. There is no evidence of esophagitis, neoplasm, or stricture. No Hiatal Hernia identified. STOMACH: Upon entrance to the stomach air was insufflated, the gastric garcia distended normally. The mucosa of the fundus, body and antrum of the stomach was carefully examined both head-on and on retroflexion, and showed the following findings: There is erythema, congestion of the mucosa consistent with portal hypertensive gastropathy. Otherwise the mucosa appears within normal limits with no abnormalities. There is no evidence of gastritis, ulcers or neoplasm. PYLORUS: The pylorus was carefully examined and showed the following findings: the pylorus appears patent and within normal limits, with no evidence of gastric outlet obstruction. DUODENUM: The duodenal mucosa was carefully examined in the duodenal bulb as well as the second portion of the duodenum and showed the following findings: the mucosa appears unremarkable with no evidence of duodenitis, ulcer or neoplasm. Copies To: CC: FRANCINE SCHNEIDER MD, MORDO MD Jul 07, 2017 19:29
[2017-07-08] VITALS (47 sets, daily range): BP systolic 80–103; BP diastolic 48–73; PULSE 95–113; RESP 12–27
[2017-07-08 01:04] LABS: HEMATOCRIT 23.3 % (37.0-47.0); HEMOGLOBIN 7.9 g/dl (12.0-16.0)
[2017-07-08] MEDS: PANTOPRAZOLE IV 80 MG in SOD CHLORIDE 0.9% 100 ML IV SCH ×2 (05:22→16:45)
[2017-07-08 06:03] LABS: BASOPHILS % 0.1 % (0.0-2.0); EOSINOPHILS # 0.2 10^3/ul (0.0-0.5); EOSINOPHILS % 0.9 % (0.0-7.0); HEMATOCRIT 21.5 % (37.0-47.0); HEMOGLOBIN 7.3 g/dl (12.0-16.0); LYMPHOCYTES # 1.3 10^3/ul (0.8-2.9); LYMPHOCYTES % 7.6 % (15.0-51.0); MEAN CORPUSCULAR HEMOGLOBIN 30.5 pg (29.0-33.0); MEAN PLATELET VOLUME 12.5 fl (7.4-10.4); MONOCYTE # 1.1 10^3/ul (0.3-0.9); MONOCYTES % 6.3 % (0.0-11.0); NEUTROPHIL # 14.8 10^3/ul (1.6-7.5); PLATELET COUNT 127 10^3/UL (140-415); RED BLOOD COUNT 2.39 10^6/ul (4.20-5.40); RED CELL DISTRIBUTION WIDTH 19.5 % (11.5-14.5); WHITE BLOOD COUNT 17.7 10^3/ul (4.8-10.8)
[2017-07-08] MEDS: LACTULOSE 30ML CUP PO SCH ×3 (06:22→21:03)
[2017-07-08 06:29] LABS: CALCIUM 7.9 mg/dl (8.4-10.2); CREATININE 3.84 mg/dl (0.44-1.00); POTASSIUM 3.9 mmol/L (3.5-5.1)
[2017-07-08 08:57] LABS: INR 1.95; PROTIME 22.7 Sec (11.9-14.9); PT RATIO 1.8; THROMBIN TIME 21.8 SEC (13.8-19.1)
[2017-07-08 08:58] LABS: PARTIAL THROMBOPLASTIN TIME 46.7 Sec (25.0-35.0)
[2017-07-08] MEDS: FERROUS SULFATE (EC) 325 MG TAB PO SCH ×2 (09:05→21:03)
[2017-07-08] MEDS: RIFAXIMIN 550 MG TAB PO SCH ×2 (09:05→21:03)
--- NOTE | 2017-07-08 09:43 | CONS ---
Date/Time of Note Date/Time of Note DATE: 07/08/17 TIME: 09:37 Assessment/Plan Assessment/Plan Chief Complaint/Hosp Course 1. Acute renal failure. The patient's serum creatinine is about the same as yesterday. She has not had any hematemesis today. Her blood pressure is low but stable. Her hemoglobin and hematocrit have been low. She has been getting transfused with blood and with fresh frozen plasma. If her blood pressure is below 90 systolic I would start her on a Levophed drip. She has been in positive fluid balance the last 3 days. I am hoping that her renal function will improve. If it does not then she may need dialysis. I did discuss this with her and her family yesterday. I will discontinue the IV fluids. If her urine output does not increase then I will add Lasix. 2. Cirrhosis of the liver with rising bilirubin, low albumin , edema and coagulopathy. 3. Left upper quadrant abdominal pain , is less today. 4. Anemia , she was having active GI bleeding. She has a blood transfusion ordered. She is now in the ICU for close monitoring. Problems: Consultation Date/Type/Reason Admit Date/Time Jun 26, 2017 at 00:00 Initial Consult Date 06/26/17 Type of Consultation: Nephrology 24 HR Interval Summary Free Text/Dictation She is in the intensive care unit. She is sitting up taking oral fluids. She had a huge ED yesterday and was found to have esophageal varices post bleeding. They were ligated. Constitutional: no complaints Exam/Review of Systems Vital Signs Vitals Vital Signs Date Time Temp Pulse Resp B/P Pulse Ox O2 Delivery O2 Flow Rate FiO2 07/08/17 07:30 98.5 103 18 97/58 97 Room Air 07/08/17 02:00 2.0 Intake and Output 07/07/17 07/07/17 07/08/17 15:00 23:00 07:00 Intake Total 770 ml 1980 ml 525 ml Output Total 0 ml 210 ml 155 ml Balance 770 ml 1770 ml 370 ml Exam Constitutional: alert, frail, obese, oriented Eyes: icteric Neck: non-tender, supple Respiratory: diminished breath sounds Cardiovascular: edema, regular rate and rhythm Gastrointestinal: ascites, distended, non-tender Extremities: edema Results Result Diagram: 07/08/17 0813 07/08/17 0520 Results 24 hrs Laboratory Tests Test 07/07/17 12:06 07/07/17 18:35 07/08/17 00:28 07/08/17 04:53 Hemoglobin 8.8 L 8.0 L 7.9 L Hematocrit 25.6 L 23.6 L 23.3 L Lab Scanned Report BLOOD TRANSFUSION Test 07/08/17 05:20 07/08/17 08:13 07/08/17 08:14 White Blood Count 17.7 #H Red Blood Count 2.39 #L Hemoglobin 7.3 L Hematocrit 21.5 L Mean Corpuscular Volume 90.0 Mean Corpuscular Hemoglobin 30.5 Mean Corpuscular Hemoglobin Concent 34.0 Red Cell Distribution Width 19.5 H Platelet Count 127 #L 125 L Mean Platelet Volume 12.5 H Neutrophils % 84.0 H Lymphocytes % 7.6 L Monocytes % 6.3 Eosinophils % 0.9 Basophils % 0.1 Nucleated Red Blood Cells % 0.0 Neutrophils # 14.8 H Lymphocytes # 1.3 Monocytes # 1.1 H Eosinophils # 0.2 Basophils # 0.0 Nucleated Red Blood Cells # 0.0 Sodium Level 142 Potassium Level 3.9 Chloride Level 110 Carbon Dioxide Level 19 L Anion Gap 17 H Blood Urea Nitrogen 36 H Creatinine 3.84 H Glucose Level 146 Calcium Level 7.9 L Prothrombin Time 22.7 H Prothrombin Time Ratio 1.8 INR International Normalized Ratio 1.95 Activated Partial Thromboplast Time 46.7 H Thrombin Time 21.8 H Magnesium Level 2.1 Medications Medications Current Medications Morphine Sulfate (morphine) 3 mg Q4H PRN IV pain Last administered on 20:24; Admin Dose 3 MG; Start 06/26/17 at 03:30 Ondansetron HCl (Zofran Inj) 4 mg Q4H PRN IV NAUSEA AND/OR VOMITING Last administered on 07/07/17 05:44; Admin Dose 4 MG; Start 06/26/17 at 03:30 Ferrous Sulfate (Ferrous Sulfate (Ec)) 325 mg BID PO Last administered on 09:05; Admin Dose 325 MG; Start 06/27/17 at 21:00 Lactulose (Enulose) 20 gm Q8 PO Last administered on 07/08/17 06:22; Admin Dose 20 GM; Start 07/01/17 at 14:00 Rifaximin 550 mg 550 mg BID PO Last administered on 07/08/17 09:05; Admin Dose 550 MG; Start 07/03/17 at 21:00 Pantoprazole 80 mg/Sodium Chloride 100 ml @ 10 mls/hr Q10H IV Last administered on 07/08/17 05:22; Admin Dose 10 MLS/HR; Start 07/05/17 at 23:00 Octreotide Acetate 1 mg/ Sodium Chloride 100 ml @ 5 mls/hr Q20H IV Last administered on 07/07/17 14:38; Admin Dose 5 MLS/HR; Start 07/06/17 at 00:30 Norepinephrine 16 mg/Dextrose 500 ml @ 1.87 mls/hr TITRATE PRN IV BLOOD PRESSURE SUPPORT; Start 07/07/17 at 06:00 Cefepime HCl 0.5 gm/Sodium Chloride 50 ml @ 100 mls/hr Q24H IVPB Last administered on 07/07/17 14:39; Admin Dose 100 MLS/HR; Start 07/07/17 at 14:00 Vancomycin HCl 750 mg/Dextrose/ Water 150 ml @ 75 mls/hr Q48H IVPB ; Start 07/09/17 at 14:30 Dextrose/Sodium Chloride (D5-1/2ns) 1,000 ml @ 60 mls/hr [id number] IV Last administered on 07/07/17 17:37; Admin Dose 60 MLS/HR; Start 07/07/17 at 14:00 IV Flush (NS 10 ml) 10 ml PRN PRN IV IV PROTOCOL; Start 07/07/17 at 15:30 PERLA VANESSA MD Jul 08, 2017 09:43
--- NOTE | 2017-07-08 09:59 | PN ---
Date/Time of Note Date/Time of Note DATE: 07/08/17 TIME: 09:54 Assessment/Plan VTE Prophylaxis VTE Prophylaxis Intervention: SCD's Lines/Catheters IV Catheter Type (from Nrs): Peripheral IV Urinary Cath still in place: Yes Reason Cath still needed: other (indicate) (monitor I&O) Assessment/Plan Chief Complaint/Hosp Course Assessment and plan 1. Symptomatic cholelithiasis. Patient status post surgical intervention. Analgesics as needed. 2. Decompensated alcoholic liver cirrhosis with ascites and portal hypertension. Continue lactulose. Of note patient did have ultrasound-guided paracentesis on July 02, 2017. Still with abd distention. repeat paracentesis pending. was transfused FFP for coagulopathy. f/u with radiology if able to do procedure. 3. Acute kidney injury. worse today. f/u nephrology. possible HD if worse 4. anemia. Continue on iron supplement. Transfuse prbc as needed. Status post EGD with grade 3 to grade 4 esophageal varices seen status post variceal ligation 5. Continue to monitor H&H. 5. Transaminitis with hyperbilirubinemia secondary to #1 and #2. Monitor level. Disposition plan: Paracentesis is pending. Monitor renal function. Possible EGD if worsens. Continue ICU monitoring for now. Discussed plan of care with Dr. Mukherjee Critical CARE time: 30 minute Problems: Subjective 24 Hr Interval Summary Free Text/Dictation still with some abd discomfort. Still appears distended Exam/Review of Systems Vital Signs Vitals Vital Signs Date Time Temp Pulse Resp B/P Pulse Ox O2 Delivery O2 Flow Rate FiO2 07/08/17 08:00 102 07/08/17 07:30 98.5 18 97/58 97 Room Air 07/08/17 02:00 2.0 Intake and Output 07/07/17 07/07/17 07/08/17 14:59 22:59 06:59 Intake Total 720 ml 1970 ml 700 ml Output Total 0 ml 180 ml 185 ml Balance 720 ml 1790 ml 515 ml Exam Constitutional: alert, oriented Psych: nl mood/affect Head: normocephalic Eyes: icteric Neck: non-tender, supple Respiratory: clear to auscultation, normal air movement Cardiovascular: other (tachycardic) Gastrointestinal: distended, tender Musculoskeletal: No swelling Neurological: WATER [employer] II-XII intact, nl mental status, nl speech Skin: other (jaundice) Results Result Diagram: 07/08/17 0813 07/08/17 0520 Results 24 hrs Laboratory Tests Test 07/07/17 12:06 07/07/17 18:35 07/08/17 00:28 07/08/17 04:53 Hemoglobin 8.8 L 8.0 L 7.9 L Hematocrit 25.6 L 23.6 L 23.3 L Lab Scanned Report BLOOD TRANSFUSION Test 07/08/17 05:20 07/08/17 08:13 07/08/17 08:14 White Blood Count 17.7 #H Red Blood Count 2.39 #L Hemoglobin 7.3 L Hematocrit 21.5 L Mean Corpuscular Volume 90.0 Mean Corpuscular Hemoglobin 30.5 Mean Corpuscular Hemoglobin Concent 34.0 Red Cell Distribution Width 19.5 H Platelet Count 127 #L 125 L Mean Platelet Volume 12.5 H Neutrophils % 84.0 H Lymphocytes % 7.6 L Monocytes % 6.3 Eosinophils % 0.9 Basophils % 0.1 Nucleated Red Blood Cells % 0.0 Neutrophils # 14.8 H Lymphocytes # 1.3 Monocytes # 1.1 H Eosinophils # 0.2 Basophils # 0.0 Nucleated Red Blood Cells # 0.0 Sodium Level 142 Potassium Level 3.9 Chloride Level 110 Carbon Dioxide Level 19 L Anion Gap 17 H Blood Urea Nitrogen 36 H Creatinine 3.84 H Glucose Level 146 Calcium Level 7.9 L Prothrombin Time 22.7 H Prothrombin Time Ratio 1.8 INR International Normalized Ratio 1.95 Activated Partial Thromboplast Time 46.7 H Thrombin Time 21.8 H Magnesium Level 2.1 Medications Medications Current Medications Morphine Sulfate (morphine) 3 mg Q4H PRN IV pain Last administered on 20:24; Admin Dose 3 MG; Start 06/26/17 at 03:30 Ondansetron HCl (Zofran Inj) 4 mg Q4H PRN IV NAUSEA AND/OR VOMITING Last administered on 07/07/17 05:44; Admin Dose 4 MG; Start 06/26/17 at 03:30 Ferrous Sulfate (Ferrous Sulfate (Ec)) 325 mg BID PO Last administered on 09:05; Admin Dose 325 MG; Start 06/27/17 at 21:00 Lactulose (Enulose) 20 gm Q8 PO Last administered on 07/08/17 06:22; Admin Dose 20 GM; Start 07/01/17 at 14:00 Rifaximin 550 mg 550 mg BID PO Last administered on 07/08/17 09:05; Admin Dose 550 MG; Start 07/03/17 at 21:00 Pantoprazole 80 mg/Sodium Chloride 100 ml @ 10 mls/hr Q10H IV Last administered on 07/08/17 05:22; Admin Dose 10 MLS/HR; Start 07/05/17 at 23:00 Octreotide Acetate 1 mg/ Sodium Chloride 100 ml @ 5 mls/hr Q20H IV Last administered on 07/07/17 14:38; Admin Dose 5 MLS/HR; Start 07/06/17 at 00:30 Norepinephrine 16 mg/Dextrose 500 ml @ 1.87 mls/hr TITRATE PRN IV BLOOD PRESSURE SUPPORT; Start 07/07/17 at 06:00 Cefepime HCl 0.5 gm/Sodium Chloride 50 ml @ 100 mls/hr Q24H IVPB Last administered on 07/07/17 14:39; Admin Dose 100 MLS/HR; Start 07/07/17 at 14:00 Vancomycin HCl/ Dextrose/Water (Vancocin/D5W) 150 ml @ 75 mls/hr Q48H IVPB ; Start 07/09/17 at 14:30 IV Flush (NS 10 ml) 10 ml PRN PRN IV IV PROTOCOL; Start 07/07/17 at 15:30 MADAY VALDEZ Jul 08, 2017 09:58
[2017-07-08] MEDS: OCTREOTIDE 1 MG in SOD CHLORIDE 0.9% 95 ML IV SCH (10:04)
--- NOTE | 2017-07-08 11:56 | PN ---
Date/Time of Note Date/Time of Note DATE: 07/08/17 TIME: 11:52 Assessment/Plan VTE Prophylaxis VTE Prophylaxis Intervention: SCD's Lines/Catheters IV Catheter Type (from Nrsg): PICC Line Central line still needed: Yes (meds) Urinary Cath still in place: Yes Reason Cath still needed: other (indicate) (monitor out-put) Assessment/Plan Chief Complaint/Hosp Course Assessment Anemia EGD 07/07/17 Impression: Grade III/IV esophageal varices with stigmata recent bleeding Post endoscopic variceal ligation 5 Portal hypertensive gastropathy. Otherwise normal EGD. Alcoholic hepatitis Liver cirrhosis with ascites No evidence of cholecystitis- negative HIDA Acute kidney injury Sepsis Metabolic acidosis S/p Paracentesis 2.2L Encephalopathy- resolved Plan: Continue Protonix and octreotide drip Clear liquid diet Monitor H&H transfuse for hemoglobin less than 7.5 Continue lactulose and rifaximin Patient seen in collaboration with Dr. Ny Subjective: Course reviewed with nursing staff Patient interviewed and examined All labs, imaging and other results reviewed Pt not able to tolerate prep for colon, EGD was completed. Will continue to monitor H/H. Continue current management plan. PHYSICAL EXAMINATION: GENERAL: Well developed, well nourished, alert & oriented x 3. SKIN: No lesions, no stigmata chronic liver disease, no evidence of bleeding diathesis. Jaundiced. Pitting edema bilateral lower extremities. LYMPHATIC: No palpable lymphadenopathy. HEAD: Normocephalic, atraumatic, no tenderness. EYES: Pupils equal reactive to light and accommodation, full extraocular movements, sclera clear, icteric, no discharge. EARS/NOSE AND THROAT: Ears normal, nose normal, NECK: Supple, CHEST: Inspection within normal limits. CARDIOVASCULAR: Heart: Regular rate and rhythm,. RESPIRATORY: Lungs clear to auscultation GASTROINTESTINAL AND LIVER: Abdomen: Soft, left upper quadrant tenderness, Distended, no hernias, no masses, moderate ascites, splenomegaly, no guarding, no rebound tenderness, normoactive bowel sounds. Rectal: Deferred. GENITOURINARY: Female genitalia within normal limits. EXTREMITIES: No cyanosis, clubbing or edema. Problems: Exam/Review of Systems Vital Signs Vitals Vital Signs Date Time Temp Pulse Resp B/P Pulse Ox O2 Delivery O2 Flow Rate FiO2 07/08/17 11:00 99 15 83/51 97 Room Air 07/08/17 07:30 98.5 07/08/17 02:00 2.0 Intake and Output 07/07/17 07/07/17 07/08/17 15:00 23:00 07:00 Intake Total 770 ml 1980 ml 600 ml Output Total 0 ml 210 ml 155 ml Balance 770 ml 1770 ml 445 ml Results Result Diagram: 07/08/17 0813 07/08/17 0520 Results 24 hrs Laboratory Tests Test 07/07/17 12:06 07/07/17 18:35 07/08/17 00:28 07/08/17 04:53 Hemoglobin 8.8 L 8.0 L 7.9 L Hematocrit 25.6 L 23.6 L 23.3 L Lab Scanned Report BLOOD TRANSFUSION Test 07/08/17 05:20 07/08/17 08:13 07/08/17 08:14 White Blood Count 17.7 #H Red Blood Count 2.39 #L Hemoglobin 7.3 L Hematocrit 21.5 L Mean Corpuscular Volume 90.0 Mean Corpuscular Hemoglobin 30.5 Mean Corpuscular Hemoglobin Concent 34.0 Red Cell Distribution Width 19.5 H Platelet Count 127 #L 125 L Mean Platelet Volume 12.5 H Neutrophils % 84.0 H Lymphocytes % 7.6 L Monocytes % 6.3 Eosinophils % 0.9 Basophils % 0.1 Nucleated Red Blood Cells % 0.0 Neutrophils # 14.8 H Lymphocytes # 1.3 Monocytes # 1.1 H Eosinophils # 0.2 Basophils # 0.0 Nucleated Red Blood Cells # 0.0 Sodium Level 142 Potassium Level 3.9 Chloride Level 110 Carbon Dioxide Level 19 L Anion Gap 17 H Blood Urea Nitrogen 36 H Creatinine 3.84 H Glucose Level 146 Calcium Level 7.9 L Prothrombin Time 22.7 H Prothrombin Time Ratio 1.8 INR International Normalized Ratio 1.95 Activated Partial Thromboplast Time 46.7 H Thrombin Time 21.8 H Magnesium Level 2.1 Medications Medications Current Medications Morphine Sulfate (morphine) 3 mg Q4H PRN IV pain Last administered on 20:24; Admin Dose 3 MG; Start 06/26/17 at 03:30 Ondansetron HCl (Zofran Inj) 4 mg Q4H PRN IV NAUSEA AND/OR VOMITING Last administered on 07/07/17 05:44; Admin Dose 4 MG; Start 06/26/17 at 03:30 Ferrous Sulfate (Ferrous Sulfate (Ec)) 325 mg BID PO Last administered on 09:05; Admin Dose 325 MG; Start 06/27/17 at 21:00 Lactulose (Enulose) 20 gm Q8 PO Last administered on 07/08/17 06:22; Admin Dose 20 GM; Start 07/01/17 at 14:00 Rifaximin 550 mg 550 mg BID PO Last administered on 07/08/17 09:05; Admin Dose 550 MG; Start 07/03/17 at 21:00 Pantoprazole 80 mg/Sodium Chloride 100 ml @ 10 mls/hr Q10H IV Last administered on 07/08/17 05:22; Admin Dose 10 MLS/HR; Start 07/05/17 at 23:00 Octreotide Acetate 1 mg/ Sodium Chloride 100 ml @ 5 mls/hr Q20H IV Last administered on 07/08/17 10:04; Admin Dose 5 MLS/HR; Start 07/06/17 at 00:30 Norepinephrine 16 mg/Dextrose 500 ml @ 1.87 mls/hr TITRATE PRN IV BLOOD PRESSURE SUPPORT; Start 07/07/17 at 06:00 Cefepime HCl 0.5 gm/Sodium Chloride 50 ml @ 100 mls/hr Q24H IVPB Last administered on 07/07/17 14:39; Admin Dose 100 MLS/HR; Start 07/07/17 at 14:00 Vancomycin HCl/ Dextrose/Water (Vancocin/D5W) 150 ml @ 75 mls/hr Q48H IVPB ; Start 07/09/17 at 14:30 IV Flush 10 ml 10 ml PRN PRN IV IV PROTOCOL; Start 07/07/17 at 15:30 Fluconazole/ Sodium Chloride (Diflucan 100 Mg/ NS (Pmx)) 50 ml @ 50 mls/hr Q24H IVPB ; Start 07/08/17 at 12:00 ABE KRISHAN Jul 08, 2017 11:56
[2017-07-08] MEDS: FLUCONAZOLE 100 MG/NS (PMX) 50 ML IVPB SCH (12:15)
--- NOTE | 2017-07-08 13:05 | CONS ---
Date/Time of Note Date/Time of Note DATE: 07/08/17 TIME: 13:01 Assessment/Plan Assessment/Plan Chief Complaint/Hosp Course SUBJECTIVE: No events over night, sleeping, comfortable, getting bld tx. She is on Protonix and octreotide drips. No fevers. INDWELLINGS: PICC MICROBIOLOGY: Blood culture negative. Urine culture + Enterococcus/Ruth DIAGNOSTICS: No chest x-ray this morning. Abx: Vanco, Cefepime, Diflucan PHYSICAL EXAMINATION: GENERAL: This is a well-developed, obese, middle-aged woman who is in no distress. HEENT: Head atraumatic, normocephalic. Sclerae icteric. Buccal mucosa dry. NECK: Supple. CHEST: Rise symmetrical. Breath sounds diminished to bases. HEART: S1, S2. ABDOMEN: Distended, soft. Bowel tones present. EXTREMITIES: Without cyanosis. SKIN: Positive for jaundice. ASSESSMENT: 1. Sepsis 2 to UTI, poss SBE. 2. Decompensated liver cirrhosis with ascites, status post paracentesis done on 07/02/2017, no cultures sent. 3. Acute kidney injury, possibly hepatorenal syndrome. 4. Acute anemia. 5. Symptomatic cholelithiasis without evidence of acute cholecystitis. PLAN: The patient is hemodynamically and clinically stable. Diflucan added, continue abx, f/u recommendations consultants, bld products prn. Problems: Consultation Date/Type/Reason Admit Date/Time Jun 26, 2017 at 00:00 Initial Consult Date 06/26/17 Type of Consultation: ID Exam/Review of Systems Vital Signs Vitals Vital Signs Date Time Temp Pulse Resp B/P Pulse Ox O2 Delivery O2 Flow Rate FiO2 07/08/17 12:00 100 07/08/17 12:00 98.1 14 80/48 95 Room Air 07/08/17 02:00 2.0 Intake and Output 07/07/17 07/07/17 07/08/17 15:00 23:00 07:00 Intake Total 770 ml 1980 ml 600 ml Output Total 0 ml 210 ml 155 ml Balance 770 ml 1770 ml 445 ml Results Result Diagram: 07/08/17 0813 07/08/17 0520 Results 24 hrs Laboratory Tests Test 07/07/17 18:35 07/08/17 00:28 07/08/17 04:53 07/08/17 05:20 Hemoglobin 8.0 L 7.9 L 7.3 L Hematocrit 23.6 L 23.3 L 21.5 L Lab Scanned Report BLOOD TRANSFUSION White Blood Count 17.7 #H Red Blood Count 2.39 #L Mean Corpuscular Volume 90.0 Mean Corpuscular Hemoglobin 30.5 Mean Corpuscular Hemoglobin Concent 34.0 Red Cell Distribution Width 19.5 H Platelet Count 127 #L Mean Platelet Volume 12.5 H Neutrophils % 84.0 H Lymphocytes % 7.6 L Monocytes % 6.3 Eosinophils % 0.9 Basophils % 0.1 Nucleated Red Blood Cells % 0.0 Neutrophils # 14.8 H Lymphocytes # 1.3 Monocytes # 1.1 H Eosinophils # 0.2 Basophils # 0.0 Nucleated Red Blood Cells # 0.0 Sodium Level 142 Potassium Level 3.9 Chloride Level 110 Carbon Dioxide Level 19 L Anion Gap 17 H Blood Urea Nitrogen 36 H Creatinine 3.84 H Glucose Level 146 Calcium Level 7.9 L Test 07/08/17 08:13 07/08/17 08:14 Platelet Count 125 L Prothrombin Time 22.7 H Prothrombin Time Ratio 1.8 INR International Normalized Ratio 1.95 Activated Partial Thromboplast Time 46.7 H Thrombin Time 21.8 H Magnesium Level 2.1 Medications Medications Current Medications Morphine Sulfate (morphine) 3 mg Q4H PRN IV pain Last administered on 20:24; Admin Dose 3 MG; Start 06/26/17 at 03:30 Ondansetron HCl (Zofran Inj) 4 mg Q4H PRN IV NAUSEA AND/OR VOMITING Last administered on 07/07/17 05:44; Admin Dose 4 MG; Start 06/26/17 at 03:30 Ferrous Sulfate (Ferrous Sulfate (Ec)) 325 mg BID PO Last administered on 09:05; Admin Dose 325 MG; Start 06/27/17 at 21:00 Lactulose (Enulose) 20 gm Q8 PO Last administered on 07/08/17 06:22; Admin Dose 20 GM; Start 07/01/17 at 14:00 Rifaximin 550 mg 550 mg BID PO Last administered on 07/08/17 09:05; Admin Dose 550 MG; Start 07/03/17 at 21:00 Pantoprazole 80 mg/Sodium Chloride 100 ml @ 10 mls/hr Q10H IV Last administered on 07/08/17 05:22; Admin Dose 10 MLS/HR; Start 07/05/17 at 23:00 Octreotide Acetate 1 mg/ Sodium Chloride 100 ml @ 5 mls/hr Q20H IV Last administered on 07/08/17 10:04; Admin Dose 5 MLS/HR; Start 07/06/17 at 00:30 Norepinephrine 16 mg/Dextrose 500 ml @ 1.87 mls/hr TITRATE PRN IV BLOOD PRESSURE SUPPORT Last administered on 07/08/17 12:16; Admin Dose 3.75 MLS/HR; Start 07/07/17 at 06:00 Cefepime HCl 0.5 gm/Sodium Chloride 50 ml @ 100 mls/hr Q24H IVPB Last administered on 07/07/17 14:39; Admin Dose 100 MLS/HR; Start 07/07/17 at 14:00 Vancomycin HCl/ Dextrose/Water (Vancocin/D5W) 150 ml @ 75 mls/hr Q48H IVPB ; Start 07/09/17 at 14:30; Status Future Hold IV Flush 10 ml 10 ml PRN PRN IV IV PROTOCOL; Start 07/07/17 at 15:30 Fluconazole/ Sodium Chloride (Diflucan 100 Mg/ NS (Pmx)) 50 ml @ 50 mls/hr Q24H IVPB Last administered on 07/08/17 12:15; Admin Dose 50 MLS/HR; Start at 12:00 AFRHAT GARDINER NP Jul 08, 2017 13:05
--- NOTE | 2017-07-08 13:16 | RADRPT ---
Vent Rate: 101 bpm RR Interval: 0 msec WV Interval: 144 msec QRS Duration: 88 msec QT Interval: 376 msec QTC Interval: 487 msec P-R-T [place]: 43 - 62 - 26 degrees Sinus tachycardia Cannot rule out Anterior infarct , age undetermined Abnormal ECG Electronically Signed By: Lasha Desir [id number]
[2017-07-08 13:35] LABS: HEMATOCRIT 27.9 % (37.0-47.0); HEMOGLOBIN 9.5 g/dl (12.0-16.0)
[2017-07-08] MEDS: CEFEPIME HCL 0.5 GM in SOD CHLORIDE 0.9% 50 ML IVPB SCH (13:41)
[2017-07-08] MEDS: morphine 4 MG/ML VIAL IV PRN (13:48)
--- NOTE | 2017-07-08 16:48 | RADRPT ---
PROCEDURE: US Abdomen (limited). CLINICAL INDICATION: Abdominal pain and distension. TECHNIQUE: Multiple real-time longitudinal and transverse images of the four quadrants of the abdo men were acquired utilizing a curved array transducer. Images were reviewed on a high-resolution PAC S workstation. COMPARISON: None FINDINGS: There is a small amount of free fluid in the right lower quadrant and right upper quadrant. There is no fluid in the left side of the abdomen. There is fluid-containing bowel within the fluid. IMPRESSION: 1. Small amount of ascites. 2. Paracentesis not done due to adjacent bowel small amount of fluid. RPTAT: QQ .Wm Hagen MD, MD Date Time Electronically viewed and signed by .Wm Hagen MD, on 07/08/2017 16:47 .R/
[2017-07-08 22:09] LABS: HEMATOCRIT 25.1 % (37.0-47.0); HEMOGLOBIN 8.5 g/dl (12.0-16.0)
--- NOTE | 2017-07-08 22:31 | RADRPT ---
PROCEDURE: XR Abdomen. CLINICAL INDICATION: Abdominal distension TECHNIQUE: Portable supine AP abdomen x-rays, 2 images sent to the PACS for review. COMPARISON: 06/28/2017 FINDINGS: Increased gas within prominent loops of small bowel as occurred since the previous study There is no evidence of complete obstruction. Enlargement of the splenic shadow consistent with splenomegaly is again noted. No pathologic calcification is demonstrated. The osseous structures are unremarkable. RPTAT:HJJR IMPRESSION: 1. Compared to the study of 06/28/2017, the bowel gas pattern is not suggestive of in adynamic ileus without evidence of complete obstruction. 2. Splenomegaly is again suggested. Physician Moreno Date Time Electronically viewed and signed by Physician Moreno on 07/08/2017 22:31 /
[2017-07-09] VITALS (58 sets, daily range): BP systolic 75–116; BP diastolic 45–84; PULSE 100–113; RESP 11–31
[2017-07-09 00:57] LABS: HEMATOCRIT 24.3 % (37.0-47.0); HEMOGLOBIN 8.5 g/dl (12.0-16.0)
[2017-07-09] MEDS: PANTOPRAZOLE IV 80 MG in SOD CHLORIDE 0.9% 100 ML IV SCH ×3 (04:36→18:19)
[2017-07-09 05:49] LABS: BASOPHILS % 0.2 % (0.0-2.0); EOSINOPHILS # 0.1 10^3/ul (0.0-0.5); EOSINOPHILS % 0.6 % (0.0-7.0); HEMATOCRIT 25.1 % (37.0-47.0); HEMOGLOBIN 8.4 g/dl (12.0-16.0); LYMPHOCYTES # 1.3 10^3/ul (0.8-2.9); LYMPHOCYTES % 7.4 % (15.0-51.0); MEAN CORPUSCULAR HEMOGLOBIN 30.2 pg (29.0-33.0); MEAN CORPUSCULAR HGB CONC 33.5 g/dl (32.0-37.0); MEAN CORPUSCULAR VOLUME 90.3 fl (82.0-101.0); MEAN PLATELET VOLUME 12.2 fl (7.4-10.4); MONOCYTE # 1.1 10^3/ul (0.3-0.9); MONOCYTES % 6.1 % (0.0-11.0); NEUTROPHIL # 14.6 10^3/ul (1.6-7.5); NEUTROPHILS % 83.9 % (39.0-77.0); PLATELET COUNT 141 10^3/UL (140-415); RED BLOOD COUNT 2.78 10^6/ul (4.20-5.40); WHITE BLOOD COUNT 17.5 10^3/ul (4.8-10.8)
[2017-07-09 06:01] LABS: ALBUMIN 2.6 g/dl (3.3-4.9); ALBUMIN/GLOBULIN RATIO 0.6; BILIRUBIN,INDIRECT 2.4 mg/dl (0-1.1); CALCIUM 8.3 mg/dl (8.4-10.2); CREATININE 4.18 mg/dl (0.44-1.00); POTASSIUM 3.8 mmol/L (3.5-5.1); TOTAL PROTEIN 6.9 g/dl (6.1-8.1)
[2017-07-09 06:06] LABS: BILIRUBIN,DIRECT 15.7 mg/dl (0.00-0.20); BILIRUBIN,TOTAL 18.1 mg/dl (0.2-1.3)
[2017-07-09] MEDS: LACTULOSE 30ML CUP PO SCH ×3 (06:30→21:34)
[2017-07-09] MEDS: OCTREOTIDE 1 MG in SOD CHLORIDE 0.9% 95 ML IV SCH (08:30)
[2017-07-09] MEDS: RIFAXIMIN 550 MG TAB PO SCH ×2 (09:10→21:34)
[2017-07-09] MEDS: FERROUS SULFATE (EC) 325 MG TAB PO SCH ×2 (09:10→21:34)
--- NOTE | 2017-07-09 09:23 | CONS ---
Date/Time of Note Date/Time of Note DATE: 07/09/17 TIME: 09:19 Assessment/Plan Assessment/Plan Chief Complaint/Hosp Course 1. Acute renal failure. Her renal function has decreased and her urine output is low. She is now oliguric. I suspect she is developing hepatorenal syndrome. I will send a urine sodium. I am going to start her on a Bumex drip to see if that stimulates a diuresis. If her renal function continues to decrease then she may need dialysis. I also ordered a Levophed drip to keep her systolic blood pressure above 90. 2. Cirrhosis of the liver with rising bilirubin, low albumin , edema and coagulopathy. 3. Left upper quadrant abdominal pain , is less today. 4. Anemia , she was having active GI bleeding. She has a blood transfusion ordered. She is now in the ICU for close monitoring. She does not seem to be actively bleeding now. She did undergo a EGD and esophageal varices were ligated. Problems: Consultation Date/Type/Reason Admit Date/Time Jun 26, 2017 at 00:00 Initial Consult Date 06/26/17 Type of Consultation: ID [id number] HR Interval Summary Free Text/Dictation This patient is in the intensive care unit. She is awake and responsive. Her blood pressure has been low. Her urine output has been low. She denies any pain. Constitutional: no complaints Exam/Review of Systems Vital Signs Vitals Vital Signs Date Time Temp Pulse Resp B/P Pulse Ox O2 Delivery O2 Flow Rate FiO2 07/09/17 08:00 104 16 88/57 96 Room Air 07/09/17 07:30 97.2 07/08/17 02:00 2.0 Intake and Output 07/08/17 07/08/17 07/09/17 15:00 23:00 07:00 Intake Total 1490 ml 120 ml 205 ml Output Total 150 ml 55 ml Balance 1490 ml -30 ml 150 ml Exam Constitutional: alert, frail, obese, oriented Respiratory: diminished breath sounds Cardiovascular: edema, regular rate and rhythm Gastrointestinal: ascites, distended, soft Extremities: edema Results Result Diagram: 07/09/17 0440 07/09/17439 Results 24 hrs Laboratory Tests Test 07/08/17 13:20 07/08/17 22:00 07/09/17 00:50 07/09/17 04:40 Hemoglobin 9.5 #L 8.5 L 8.5 L 8.4 L Hematocrit 27.9 #L 25.1 L 24.3 L 25.1 L White Blood Count 17.5 H Red Blood Count 2.78 L Mean Corpuscular Volume 90.3 Mean Corpuscular Hemoglobin 30.2 Mean Corpuscular Hemoglobin Concent 33.5 Red Cell Distribution Width 19.0 H Platelet Count 141 Mean Platelet Volume 12.2 H Neutrophils % 83.9 H Lymphocytes % 7.4 L Monocytes % 6.1 Eosinophils % 0.6 Basophils % 0.2 Nucleated Red Blood Cells % 0.0 Neutrophils # 14.6 H Lymphocytes # 1.3 Monocytes # 1.1 H Eosinophils # 0.1 Basophils # 0.0 Nucleated Red Blood Cells # 0.0 Sodium Level 144 Potassium Level 3.8 Chloride Level 111 H Carbon Dioxide Level 19 L Anion Gap 18 H Blood Urea Nitrogen 37 H Creatinine 4.18 H Glucose Level 135 Calcium Level 8.3 L Magnesium Level 2.0 Total Bilirubin 18.1 H Direct Bilirubin 15.70 *H Indirect Bilirubin 2.4 H Aspartate Amino Transf (AST/SGOT) 138 H Alanine Aminotransferase (ALT/SGPT) 36 Alkaline Phosphatase 167 H Total Protein 6.9 Albumin 2.6 L Globulin 4.30 H Albumin/Globulin Ratio 0.60 Medications Medications Current Medications Morphine Sulfate (morphine) 3 mg Q4H PRN IV pain Last administered on 13:48; Admin Dose 3 MG; Start 06/26/17 at 03:30 Ondansetron HCl (Zofran Inj) 4 mg Q4H PRN IV NAUSEA AND/OR VOMITING Last administered on 07/07/17 05:44; Admin Dose 4 MG; Start 06/26/17 at 03:30 Ferrous Sulfate (Ferrous Sulfate (Ec)) 325 mg BID PO Last administered on 09:10; Admin Dose 325 MG; Start 06/27/17 at 21:00 Lactulose (Enulose) 20 gm Q8 PO Last administered on 07/09/17 06:30; Admin Dose 20 GM; Start 07/01/17 at 14:00 Rifaximin 550 mg 550 mg BID PO Last administered on 07/09/17 09:10; Admin Dose 550 MG; Start 07/03/17 at 21:00 Pantoprazole 80 mg/Sodium Chloride 100 ml @ 10 mls/hr Q10H IV Last administered on 07/09/17 09:16; Admin Dose 10 MLS/HR; Start 07/05/17 at 23:00 Octreotide Acetate 1 mg/ Sodium Chloride 100 ml @ 5 mls/hr Q20H IV Last administered on 07/08/17 10:04; Admin Dose 5 MLS/HR; Start 07/06/17 at 00:30 Norepinephrine 16 mg/Dextrose 500 ml @ 1.87 mls/hr TITRATE PRN IV BLOOD PRESSURE SUPPORT Last administered on 07/08/17 12:16; Admin Dose 3.75 MLS/HR; Start 07/07/17 at 06:00 Cefepime HCl 0.5 gm/Sodium Chloride 50 ml @ 100 mls/hr Q24H IVPB Last administered on 07/08/17 13:41; Admin Dose 100 MLS/HR; Start 07/07/17 at 14:00 Vancomycin HCl/ Dextrose/Water (Vancocin/D5W) 150 ml @ 75 mls/hr Q48H IVPB ; Start 07/09/17 at 14:30; Status Future Hold IV Flush 10 ml 10 ml PRN PRN IV IV PROTOCOL; Start 07/07/17 at 15:30 Fluconazole/ Sodium Chloride (Diflucan 100 Mg/ NS (Pmx)) 50 ml @ 50 mls/hr Q24H IVPB Last administered on 07/08/17 12:15; Admin Dose 50 MLS/HR; Start at 12:00 Miscellaneous Information (*Rx Drug Level Order Reminder*) VANCOMYCIN RANDOM ON ... ONCE ONCE XX ; Start 07/09/17 at 13:00; Stop 07/09/17 at 13:01 PERLA VANESSA MD Jul 09, 2017 09:23
[2017-07-09] MEDS: morphine 4 MG/ML VIAL IV PRN ×2 (09:43→23:40)
[2017-07-09] MEDS ORDERED: BUMETANIDE 6 MG in DEXTROSE 5% 36 ML IV ONE (10:00)
--- NOTE | 2017-07-09 10:18 | PN ---
Date/Time of Note Date/Time of Note DATE: 07/09/17 TIME: 09:49 Assessment/Plan VTE Prophylaxis VTE Prophylaxis Intervention: ambulation Lines/Catheters IV [facility]from [facility]): PICC Line Central line still needed: Yes (Medications) Urinary Cath still in place: Yes Reason Cath still needed: other (indicate) (Monitoring urine output) Assessment/Plan Chief Complaint/Hosp Course Assessment: Hepatorenal Syndrome Alcoholic hepatitis Liver cirrhosis with ascites Hypotension Anemia EGD 07/07/17 Impression: Grade III/IV esophageal varices with stigmata recent bleeding Post endoscopic variceal ligation 5 Portal hypertensive gastropathy. No evidence of cholecystitis- negative HIDA Acute kidney injury Sepsis Metabolic acidosis S/p Paracentesis 2.2L Encephalopathy-resolved Plan: Followed by manager metal start on Bumex start Levophed might need dialysis Continue Protonix and octreotide drip Clear liquid diet Monitor H&H transfuse for hemoglobin less than 7.5 Continue lactulose and rifaximin Patient seen in collaboration with Dr. Ny Subjective: Patient is c/o gas pain. Start on around the clock simethicone. Today stool color is yellow/brown. Bilirubin is 18.1 today . Patient had KUB for ascites to evaluate for paracentesis -not indicated at this time. Renal function is declining with creatinine trending up Cr 4.18. patient has Vega catheter in place. . Seen by manager metal. Plan for dialysis if current interventions will not work. Course reviewed with nursing staff Patient interviewed and examined All labs, imaging and other results reviewed PHYSICAL EXAMINATION: GENERAL: Well developed, well nourished, alert & oriented x 3, in no acute distress. SKIN: No lesions, stigmata present due to chronic liver disease, no evidence of bleeding diathesis. Jaundiced. Pitting edema bilateral lower extremities. LYMPHATIC: No palpable lymphadenopathy. HEAD: Normocephalic, atraumatic, no tenderness. EYES: Pupils equal reactive to light and accommodation, full extraocular movements, sclera clear, icteric, no discharge. EARS/NOSE AND THROAT: Ears normal, nose normal, NECK: Supple, CHEST: Inspection within normal limits. CARDIOVASCULAR: Heart: Regular rate and rhythm,. RESPIRATORY: Lungs clear to auscultation GASTROINTESTINAL AND LIVER: Abdomen: Soft, generalized tenderness, very distended, no hernias, no masses, moderate ascites, splenomegaly, no guarding, no rebound tenderness, normoactive bowel sounds. Rectal: Deferred. GENITOURINARY: Female genitalia within normal limits. EXTREMITIES: No cyanosis, clubbing or edema. Problems: Exam/Review of Systems Vital Signs Vitals Vital Signs Date Time Temp Pulse Resp B/P Pulse Ox O2 Delivery O2 Flow Rate FiO2 07/09/17 08:00 104 16 88/57 96 Room Air 07/09/17 07:30 97.2 07/08/17 02:00 2.0 Intake and Output 07/08/17 07/08/17 07/09/17 15:00 23:00 07:00 Intake Total 1490 ml 120 ml 205 ml Output Total 150 ml 55 ml Balance 1490 ml -30 ml 150 ml Results Result Diagram: 07/09/1743907/09/17439 Results 24 hrs Laboratory Tests Test 07/08/17 13:20 07/08/17 22:00 07/09/17 00:50 07/09/17 04:40 Hemoglobin 9.5 #L 8.5 L 8.5 L 8.4 L Hematocrit 27.9 #L 25.1 L 24.3 L 25.1 L White Blood Count 17.5 H Red Blood Count 2.78 L Mean Corpuscular Volume 90.3 Mean Corpuscular Hemoglobin 30.2 Mean Corpuscular Hemoglobin Concent 33.5 Red Cell Distribution Width 19.0 H Platelet Count 141 Mean Platelet Volume 12.2 H Neutrophils % 83.9 H Lymphocytes % 7.4 L Monocytes % 6.1 Eosinophils % 0.6 Basophils % 0.2 Nucleated Red Blood Cells % 0.0 Neutrophils # 14.6 H Lymphocytes # 1.3 Monocytes # 1.1 H Eosinophils # 0.1 Basophils # 0.0 Nucleated Red Blood Cells # 0.0 Sodium Level 144 Potassium Level 3.8 Chloride Level 111 H Carbon Dioxide Level 19 L Anion Gap 18 H Blood Urea Nitrogen 37 H Creatinine 4.18 H Glucose Level 135 Calcium Level 8.3 L Magnesium Level 2.0 Total Bilirubin 18.1 H Direct Bilirubin 15.70 *H Indirect Bilirubin 2.4 H Aspartate Amino Transf (AST/SGOT) 138 H Alanine Aminotransferase (ALT/SGPT) 36 Alkaline Phosphatase 167 H Total Protein 6.9 Albumin 2.6 L Globulin 4.30 H Albumin/Globulin Ratio 0.60 Medications Medications Current Medications Morphine Sulfate (morphine) 3 mg Q4H PRN IV pain Last administered on 09:43; Admin Dose 3 MG; Start 06/26/17 at 03:30 Ondansetron HCl (Zofran Inj) 4 mg Q4H PRN IV NAUSEA AND/OR VOMITING Last administered on 07/07/17 05:44; Admin Dose 4 MG; Start 06/26/17 at 03:30 Ferrous Sulfate (Ferrous Sulfate (Ec)) 325 mg BID PO Last administered on 09:10; Admin Dose 325 MG; Start 06/27/17 at 21:00 Lactulose (Enulose) 20 gm Q8 PO Last administered on 07/09/17 06:30; Admin Dose 20 GM; Start 07/01/17 at 14:00 Rifaximin 550 mg 550 mg BID PO Last administered on 07/09/17 09:10; Admin Dose 550 MG; Start 07/03/17 at 21:00 Pantoprazole 80 mg/Sodium Chloride 100 ml @ 10 mls/hr Q10H IV Last administered on 07/09/17 09:16; Admin Dose 10 MLS/HR; Start 07/05/17 at 23:00 Octreotide Acetate 1 mg/ Sodium Chloride 100 ml @ 5 mls/hr Q20H IV Last administered on 07/08/17 10:04; Admin Dose 5 MLS/HR; Start 07/06/17 at 00:30 Norepinephrine 16 mg/Dextrose 500 ml @ 1.87 mls/hr TITRATE PRN IV BLOOD PRESSURE SUPPORT Last administered on 07/08/17 12:16; Admin Dose 3.75 MLS/HR; Start 07/07/17 at 06:00 Cefepime HCl 0.5 gm/Sodium Chloride 50 ml @ 100 mls/hr Q24H IVPB Last administered on 07/08/17 13:41; Admin Dose 100 MLS/HR; Start 07/07/17 at 14:00 Vancomycin HCl/ Dextrose/Water (Vancocin/D5W) 150 ml @ 75 mls/hr Q48H IVPB ; Start 07/09/17 at 14:30; Status Future Hold IV Flush 10 ml 10 ml PRN PRN IV IV PROTOCOL; Start 07/07/17 at 15:30 Fluconazole/ Sodium Chloride (Diflucan 100 Mg/ NS (Pmx)) 50 ml @ 50 mls/hr Q24H IVPB Last administered on 07/08/17t 12:15; Admin Dose 50 MLS/HR; Start at 12:00 Miscellaneous Information VANCOMYCIN RANDOM ON ... ONCE ONCE XX ; Start 07/09/17 at 13:00; Stop 07/09/17 at 13:01 Bumetanide/ Dextrose (Bumex/D5W) 60 ml @ 10 mls/hr Q6H ONCE IV ; Start 07/09/17 at 10:00; Stop 07/09/17 at 15:59 Copies To: CC: FRANCINE NY MD, ANASTASIA NP Jul 09, 2017 10:04
[2017-07-09] MEDS: FLUCONAZOLE 100 MG/NS (PMX) 50 ML IVPB SCH (12:44)
--- NOTE | 2017-07-09 13:29 | CONS ---
Date/Time of Note Date/Time of Note DATE: 07/09/17 TIME: 13:27 Assessment/Plan Assessment/Plan Chief Complaint/Hosp Course SUBJECTIVE: Alert, looks comfortable, denies pain, no fevers WBC 17.5 platelets 141 neutrophils 83.9 BN 37 creatinine 4.18 Microbiology: Urine culture growing enterococcus species and Ruth albicans, blood cultures remain negative INDWELLINGS: PICC Abx: Vanco, Cefepime, Diflucan PHYSICAL EXAMINATION: GENERAL: This is a well-developed, middle-aged woman who is alert, in no distress. HEENT: Head atraumatic, normocephalic. Sclerae icteric. Buccal mucosa dry. NECK: Supple. CHEST: Rise symmetrical. Breath sounds diminished to bases. HEART: S1, S2. ABDOMEN: Distended, soft. Bowel tones present. EXTREMITIES: Without cyanosis. SKIN: Positive for jaundice. ASSESSMENT: 1. Sepsis 2 to UTI, rule out SBE. 2. Decompensated liver cirrhosis with ascites, status post paracentesis done on 07/02/2017, no cultures sent. 3. Acute kidney injury, possibly hepatorenal syndrome. 4. Acute anemia. 5. Symptomatic cholelithiasis without evidence of acute cholecystitis. PLAN: The patient is hemodynamically and clinically stable. Renal function gets worse, will change vancomycin to Zyvox, monitor platelet count closely Discussed with staff Problems: Consultation Date/Type/Reason Admit Date/Time Jun 26, 2017 at 00:00 Initial Consult Date 06/26/17 Type of Consultation: ID Exam/Review of Systems Vital Signs Vitals Vital Signs Date Time Temp Pulse Resp B/P Pulse Ox O2 Delivery O2 Flow Rate FiO2 07/09/17 09:30 105 17 84/62 95 Room Air 07/09/17 07:30 97.2 07/08/17 02:00 2.0 Intake and Output 07/08/17 07/08/17 07/09/17 15:00 23:00 07:00 Intake Total 1490 ml 120 ml 205 ml Output Total 150 ml 55 ml Balance 1490 ml -30 ml 150 ml Results Result Diagram: 07/09/17 0440 07/09/17 0440 Results 24 hrs Laboratory Tests Test 07/08/17 22:00 07/09/17 00:50 07/09/17 04:40 Hemoglobin 8.5 L 8.5 L 8.4 L Hematocrit 25.1 L 24.3 L 25.1 L White Blood Count 17.5 H Red Blood Count 2.78 L Mean Corpuscular Volume 90.3 Mean Corpuscular Hemoglobin 30.2 Mean Corpuscular Hemoglobin Concent 33.5 Red Cell Distribution Width 19.0 H Platelet Count 141 Mean Platelet Volume 12.2 H Neutrophils % 83.9 H Lymphocytes % 7.4 L Monocytes % 6.1 Eosinophils % 0.6 Basophils % 0.2 Nucleated Red Blood Cells % 0.0 Neutrophils # 14.6 H Lymphocytes # 1.3 Monocytes # 1.1 H Eosinophils # 0.1 Basophils # 0.0 Nucleated Red Blood Cells # 0.0 Sodium Level 144 Potassium Level 3.8 Chloride Level 111 H Carbon Dioxide Level 19 L Anion Gap 18 H Blood Urea Nitrogen 37 H Creatinine 4.18 H Glucose Level 135 Calcium Level 8.3 L Magnesium Level 2.0 Total Bilirubin 18.1 H Direct Bilirubin 15.70 *H Indirect Bilirubin 2.4 H Aspartate Amino Transf (AST/SGOT) 138 H Alanine Aminotransferase (ALT/SGPT) 36 Alkaline Phosphatase 167 H Total Protein 6.9 Albumin 2.6 L Globulin 4.30 H Albumin/Globulin Ratio 0.60 Medications Medications Current Medications Morphine Sulfate (morphine) 3 mg Q4H PRN IV pain Last administered on 09:43; Admin Dose 3 MG; Start 06/26/17 at 03:30 Ondansetron HCl (Zofran Inj) 4 mg Q4H PRN IV NAUSEA AND/OR VOMITING Last administered on 07/07/17 05:44; Admin Dose 4 MG; Start 06/26/17 at 03:30 Ferrous Sulfate (Ferrous Sulfate (Ec)) 325 mg BID PO Last administered on 09:10; Admin Dose 325 MG; Start 06/27/17 at 21:00 Lactulose (Enulose) 20 gm Q8 PO Last administered on 07/09/17 06:30; Admin Dose 20 GM; Start 07/01/17 at 14:00 Rifaximin 550 mg 550 mg BID PO Last administered on 07/09/17 09:10; Admin Dose 550 MG; Start 07/03/17 at 21:00 Pantoprazole 80 mg/Sodium Chloride 100 ml @ 10 mls/hr Q10H IV Last administered on 07/09/17 09:16; Admin Dose 10 MLS/HR; Start 07/05/17 at 23:00 Octreotide Acetate 1 mg/ Sodium Chloride 100 ml @ 5 mls/hr Q20H IV Last administered on 07/08/17 10:04; Admin Dose 5 MLS/HR; Start 07/06/17 at 00:30 Norepinephrine 16 mg/Dextrose 500 ml @ 1.87 mls/hr TITRATE PRN IV BLOOD PRESSURE SUPPORT Last administered on 07/09/17 09:51; Admin Dose 3.75 MLS/HR; Start 07/07/17 at 06:00 Cefepime HCl 0.5 gm/Sodium Chloride 50 ml @ 100 mls/hr Q24H IVPB Last administered on 07/08/17 13:41; Admin Dose 100 MLS/HR; Start 07/07/17 at 14:00 Vancomycin HCl/ Dextrose/Water (Vancocin/D5W) 150 ml @ 75 mls/hr Q48H IVPB ; Start 07/09/17 at 14:30; Status Future Hold IV Flush 10 ml 10 ml PRN PRN IV IV PROTOCOL; Start 07/07/17 at 15:30 Fluconazole/ Sodium Chloride 50 ml @ 50 mls/hr Q24H IVPB Last administered on 07/09/17 12:44; Admin Dose 50 MLS/HR; Start 07/08/17 at 12:00 Bumetanide/ Dextrose (Bumex/D5W) 60 ml @ 10 mls/hr Q6H ONCE IV Last administered on 07/09/17 10:45; Admin Dose 10 MLS/HR; Start 07/09/17 at 10:00; Stop 07/09/17 at 15:59 Simethicone (Mylicon) 80 mg Q6 GTB Last administered on 07/09/17 12:44; Admin Dose 80 MG; Start 07/09/17 at 12:00 FARHAT GARDINER NP Jul 09, 2017 13:29
[2017-07-09 13:51] LABS: HEMATOCRIT 26.7 % (37.0-47.0)
[2017-07-09] MEDS ORDERED: VANCOMYCIN 750 MG in DEXTROSE 5% 150 ML IVPB SCH (14:30)
[2017-07-09] MEDS: CEFEPIME HCL 0.5 GM in SOD CHLORIDE 0.9% 50 ML IVPB SCH (14:51)
--- NOTE | 2017-07-09 16:45 | PN ---
Date/Time of Note Date/Time of Note DATE: 07/09/17 TIME: 16:22 Assessment/Plan VTE Prophylaxis VTE Prophylaxis Intervention: SCD's Lines/Catheters IV Catheter Type (from Nrsg): PICC Line Central line still needed: Yes Urinary Cath still in place: Yes Reason Cath still needed: other (indicate) Assessment/Plan Assessment/Plan 1. UTI, on cefepime, zyvox and diflucan 2. Sepsis with septic shock, on levophed 3. Alcoholic liver disease with jaundice and portal hypertension, ascites with s /p paracentesis 4. Hepatic encephalopathy, on lactulose and refaximin 5. GI bleeding from esophageal varices, s/p ligation, on octreotide/protonix 6. Renal failure, consider hepatorenal syndrome, follow up with nephrology 7. Cholelithiasis without evidence of cholecystitis 8. Normocytic anemia, multifactorial, follow up with H/H 9. Critical care time 40 minutes Subjective 24 Hr Interval Summary Free Text/Dictation abdominal distension, on levophed Exam/Review of Systems Vital Signs Vitals Vital Signs Date Time Temp Pulse Resp B/P Pulse Ox O2 Delivery O2 Flow Rate FiO2 07/09/17 12:00 101 07/09/17 09:30 17 84/62 95 Room Air 07/09/17 07:30 97.2 07/08/17 02:00 2.0 Intake and Output 07/08/17 07/08/17 07/09/17 15:00 23:00 07:00 Intake Total 1490 ml 120 ml 205 ml Output Total 150 ml 55 ml Balance 1490 ml -30 ml 150 ml Exam Constitutional: alert, oriented, well developed Psych: nl mood/affect, no complaints Head: atraumatic, normocephalic Eyes: EOMI, PERRL, nl lids ENMT: nl external ears & nose, nl lips & teeth, nl nasal mucosa & septum Neck: non-tender, supple Respiratory: clear to auscultation, normal air movement, No congested cough, No crackles/rales, No diminished breath sounds, No intercostal retraction, No labored breathing, No other, No respirations, No tactile fremitus, No wheezing Cardiovascular: nl pulses, regular rate and rhythm, No S3, No S4, No bruits, No diastolic murmur, No edema, No gallop, No irregular rhythm, No jugular venous distention (JVD), No murmurs/extra sounds, No other, No rub, No systolic murmur Gastrointestinal: distended, tender Musculoskeletal: nl extremities to inspection Extremities: edema, normal pulses Neurological: OUTSOLE BEVELER II-XII intact, nl mental status, nl speech, nl strength Results Result Diagram: 07/09/17 1314 07/09/17 0440 Results 24 hrs Laboratory Tests Test 07/08/17 22:00 07/09/17 00:50 07/09/17 04:40 07/09/17 12:50 Hemoglobin 8.5 L 8.5 L 8.4 L Hematocrit 25.1 L 24.3 L 25.1 L White Blood Count 17.5 H Red Blood Count 2.78 L Mean Corpuscular Volume 90.3 Mean Corpuscular Hemoglobin 30.2 Mean Corpuscular Hemoglobin Concent 33.5 Red Cell Distribution Width 19.0 H Platelet Count 141 Mean Platelet Volume 12.2 H Neutrophils % 83.9 H Lymphocytes % 7.4 L Monocytes % 6.1 Eosinophils % 0.6 Basophils % 0.2 Nucleated Red Blood Cells % 0.0 Neutrophils # 14.6 H Lymphocytes # 1.3 Monocytes # 1.1 H Eosinophils # 0.1 Basophils # 0.0 Nucleated Red Blood Cells # 0.0 Sodium Level 144 Potassium Level 3.8 Chloride Level 111 H Carbon Dioxide Level 19 L Anion Gap 18 H Blood Urea Nitrogen 37 H Creatinine 4.18 H Glucose Level 135 Calcium Level 8.3 L Magnesium Level 2.0 Total Bilirubin 18.1 H Direct Bilirubin 15.70 *H Indirect Bilirubin 2.4 H Aspartate Amino Transf (AST/SGOT) 138 H Alanine Aminotransferase (ALT/SGPT) 36 Alkaline Phosphatase 167 H Total Protein 6.9 Albumin 2.6 L Globulin 4.30 H Albumin/Globulin Ratio 0.60 Urine Random Sodium 28 L Test 07/09/17 13:14 Hemoglobin 9.0 L Hematocrit 26.7 L Random Vancomycin Level 10.9 Medications Medications Current Medications Morphine Sulfate (morphine) 3 mg Q4H PRN IV pain Last administered on 09:43; Admin Dose 3 MG; Start 06/26/17 at 03:30 Ondansetron HCl (Zofran Inj) 4 mg Q4H PRN IV NAUSEA AND/OR VOMITING Last administered on 07/07/17 05:44; Admin Dose 4 MG; Start 06/26/17 at 03:30 Ferrous Sulfate (Ferrous Sulfate (Ec)) 325 mg BID PO Last administered on 09:10; Admin Dose 325 MG; Start 06/27/17 at 21:00 Lactulose (Enulose) 20 gm Q8 PO Last administered on 07/09/17 14:51; Admin Dose 20 GM; Start 07/01/17 at 14:00 Rifaximin 550 mg 550 mg BID PO Last administered on 07/09/17 09:10; Admin Dose 550 MG; Start 07/03/17 at 21:00 Pantoprazole 80 mg/Sodium Chloride 100 ml @ 10 mls/hr Q10H IV Last administered on 07/09/17 09:16; Admin Dose 10 MLS/HR; Start 07/05/17 at 23:00 Octreotide Acetate 1 mg/ Sodium Chloride 100 ml @ 5 mls/hr Q20H IV Last administered on 07/08/17 10:04; Admin Dose 5 MLS/HR; Start 07/06/17 at 00:30 Norepinephrine 16 mg/Dextrose 500 ml @ 1.87 mls/hr TITRATE PRN IV BLOOD PRESSURE SUPPORT Last administered on 07/09/17 09:51; Admin Dose 3.75 MLS/HR; Start 07/07/17 at 06:00 Cefepime HCl/ Sodium Chloride (Maxipime/NS) 50 ml @ 100 mls/hr Q24H IVPB Last administered on 07/09/17 14:51; Admin Dose 100 MLS/HR; Start 07/07/17 at 14:00 IV Flush 10 ml 10 ml PRN PRN IV IV PROTOCOL; Start 07/07/17 at 15:30 Fluconazole/ Sodium Chloride (Diflucan 100 Mg/ NS (Pmx)) 50 ml @ 50 mls/hr Q24H IVPB Last administered on 07/09/17 12:44; Admin Dose 50 MLS/HR; Start at 12:00 Simethicone (Mylicon) 80 mg Q6 GTB Last administered on 07/09/17 12:44; Admin Dose 80 MG; Start 07/09/17 at 12:00 Linezolid (Zyvox) 600 mg BID PO ; Start 07/09/17 at 21:00 DARÍO DODSON MD Jul 09, 2017 16:38
[2017-07-09 18:36] LABS: HEMATOCRIT 25.5 % (37.0-47.0); HEMOGLOBIN 8.5 g/dl (12.0-16.0)
[2017-07-09] MEDS: ZYVOX 600 MG TAB PO SCH (21:34)
[2017-07-10] VITALS (83 sets, daily range): BP systolic 79–120; BP diastolic 51–92; PULSE 98–110; RESP 11–25
[2017-07-10 00:43] LABS: HEMATOCRIT 26.5 % (37.0-47.0)
[2017-07-10] MEDS: PANTOPRAZOLE IV 80 MG in SOD CHLORIDE 0.9% 100 ML IV SCH ×2 (03:32→13:29)
[2017-07-10] MEDS ORDERED: PANTOPRAZOLE 40 MG INJ IV SCH (06:00)
[2017-07-10] MEDS: LACTULOSE 30ML CUP PO SCH ×3 (06:14→21:31)
[2017-07-10 06:32] LABS: ABNORMAL IP MESSAGE 1; BASOPHIL # 0.1 10^3/ul (0.0-0.1); BASOPHILS % 0.2 % (0.0-2.0); EOSINOPHILS # 0.3 10^3/ul (0.0-0.5); EOSINOPHILS % 1.1 % (0.0-7.0); HEMOGLOBIN 9.1 g/dl (12.0-16.0); LYMPHOCYTES # 1.7 10^3/ul (0.8-2.9); LYMPHOCYTES % 6.8 % (15.0-51.0); MEAN CORPUSCULAR HEMOGLOBIN 30.7 pg (29.0-33.0); MEAN CORPUSCULAR HGB CONC 33.7 g/dl (32.0-37.0); MEAN CORPUSCULAR VOLUME 91.2 fl (82.0-101.0); MEAN PLATELET VOLUME 12.2 fl (7.4-10.4); MONOCYTE # 1.7 10^3/ul (0.3-0.9); MONOCYTES % 6.7 % (0.0-11.0); NEUTROPHIL # 20.4 10^3/ul (1.6-7.5); NEUTROPHILS % 81.6 % (39.0-77.0); PLATELET COUNT 205 10^3/UL (140-415); RED BLOOD COUNT 2.96 10^6/ul (4.20-5.40); RED CELL DISTRIBUTION WIDTH 20.1 % (11.5-14.5)
[2017-07-10 06:50] LABS: POSITIVE DIFF @See below
[2017-07-10 06:59] LABS: ALBUMIN 2.6 g/dl (3.3-4.9); ALBUMIN/GLOBULIN RATIO 0.57; BILIRUBIN,INDIRECT 2.5 mg/dl (0-1.1); CALCIUM 8.4 mg/dl (8.4-10.2); CREATININE 4.37 mg/dl (0.44-1.00); POTASSIUM 3.4 mmol/L (3.5-5.1); TOTAL PROTEIN 7.1 g/dl (6.1-8.1)
[2017-07-10 07:22] LABS: BILIRUBIN,TOTAL 18.5 mg/dl (0.2-1.3)
[2017-07-10] MEDS: OCTREOTIDE 1 MG in SOD CHLORIDE 0.9% 95 ML IV SCH (08:07)
[2017-07-10] MEDS: ZYVOX 600 MG TAB PO SCH ×2 (08:19→21:31)
[2017-07-10] MEDS: FERROUS SULFATE (EC) 325 MG TAB PO SCH ×2 (08:19→21:31)
[2017-07-10] MEDS: RIFAXIMIN 550 MG TAB PO SCH ×2 (08:19→21:31)
--- NOTE | 2017-07-10 11:04 | PN ---
Date/Time of Note Date/Time of Note DATE: 07/10/17 TIME: 11:00 Assessment/Plan VTE Prophylaxis VTE Prophylaxis Intervention: SCD's Lines/Catheters IV Catheter Type (from Nrs): PICC Line Central line still needed: Yes (meds) Urinary Cath still in place: Yes Reason Cath still needed: other (indicate) (monitor output) Assessment/Plan Chief Complaint/Hosp Course Assessment Anemia EGD 07/07/17 Impression: Grade III/IV esophageal varices with stigmata recent bleeding Post endoscopic variceal ligation 5 Portal hypertensive gastropathy. Otherwise normal EGD. Alcoholic hepatitis Liver cirrhosis with ascites No evidence of cholecystitis- negative HIDA Acute kidney injury Sepsis Metabolic acidosis S/p Paracentesis Encephalopathy- resolved Plan: Continue with current medical management Will continue to monitor need for transfuse Patient will poor prognosis Patient seen in collaboration with Dr. Ny Subjective: Course reviewed with nursing staff Patient interviewed and examined All labs, imaging and other results reviewed Pt awake resting in bed, able to make needs known. currently hgb and plt stable , Cr continues to rise. Patient remains in ICU, with poor prognosis. PHYSICAL EXAMINATION: GENERAL: Well developed, well nourished, alert & oriented x 3. SKIN: No lesions, no stigmata chronic liver disease, no evidence of bleeding diathesis. Jaundiced. Pitting edema bilateral lower extremities. LYMPHATIC: No palpable lymphadenopathy. HEAD: Normocephalic, atraumatic, no tenderness. EYES: Pupils equal reactive to light and accommodation, full extraocular movements, icteric, no discharge. EARS/NOSE AND THROAT: Ears normal, nose normal, NECK: Supple, CHEST: Inspection within normal limits. CARDIOVASCULAR: Heart: Regular rate and rhythm,. RESPIRATORY: Lungs clear to auscultation GASTROINTESTINAL AND LIVER: Abdomen: Soft, left upper quadrant tenderness, Distended, no hernias, no masses, ascites, splenomegaly, no guarding, no rebound tenderness, normoactive bowel sounds. Rectal: Deferred. GENITOURINARY: Female genitalia within normal limits. EXTREMITIES: No cyanosis, clubbing or edema. Problems: Exam/Review of Systems Vital Signs Vitals Vital Signs Date Time Temp Pulse Resp B/P Pulse Ox O2 Delivery O2 Flow Rate FiO2 07/10/17 08:00 98.0 102 20 97/67 94 Room Air 07/08/17 02:00 2.0 Intake and Output 07/09/17 07/09/17 07/10/17 15:00 23:00 07:00 Intake Total 296.455 ml 396.50 ml 609.12 ml Output Total 138 ml 315 ml 285 ml Balance 158.455 ml 81.50 ml 324.12 ml Results Result Diagram: 07/10/17 0505 07/10/17 0505 Results 24 hrs Laboratory Tests Test 07/09/17 12:50 07/09/17 13:14 07/09/17 18:16 07/10/17 00:31 Urine Random Sodium 28 L Hemoglobin 9.0 L 8.5 L 9.0 L Hematocrit 26.7 L 25.5 L 26.5 L Random Vancomycin Level 10.9 Test 07/10/17 05:05 White Blood Count 25.0 #H Red Blood Count 2.96 L Hemoglobin 9.1 L Hematocrit 27.0 L Mean Corpuscular Volume 91.2 Mean Corpuscular Hemoglobin 30.7 Mean Corpuscular Hemoglobin Concent 33.7 Red Cell Distribution Width 20.1 H Platelet Count 205 # Mean Platelet Volume 12.2 H Neutrophils % 81.6 H Lymphocytes % 6.8 L Monocytes % 6.7 Eosinophils % 1.1 Basophils % 0.2 Nucleated Red Blood Cells % 0.0 Neutrophils # 20.4 H Lymphocytes # 1.7 Monocytes # 1.7 H Eosinophils # 0.3 Basophils # 0.1 Nucleated Red Blood Cells # 0.0 Sodium Level 142 Potassium Level 3.4 L Chloride Level 110 Carbon Dioxide Level 18 L Anion Gap 17 H Blood Urea Nitrogen 39 H Creatinine 4.37 H Glucose Level 161 Calcium Level 8.4 Total Bilirubin 18.5 H Direct Bilirubin 16.00 *H Indirect Bilirubin 2.5 H Aspartate Amino Transf (AST/SGOT) 120 H Alanine Aminotransferase (ALT/SGPT) 31 Alkaline Phosphatase 183 H Total Protein 7.1 Albumin 2.6 L Globulin 4.50 H Albumin/Globulin Ratio 0.57 Medications Medications Current Medications Morphine Sulfate (morphine) 3 mg Q4H PRN IV pain Last administered on 23:40; Admin Dose 3 MG; Start 06/26/17 at 03:30 Ondansetron HCl (Zofran Inj) 4 mg Q4H PRN IV NAUSEA AND/OR VOMITING Last administered on 07/07/17 05:44; Admin Dose 4 MG; Start 06/26/17 at 03:30 Ferrous Sulfate (Ferrous Sulfate (Ec)) 325 mg BID PO Last administered on 08:19; Admin Dose 325 MG; Start 06/27/17 at 21:00 Lactulose (Enulose) 20 gm Q8 PO Last administered on 07/10/17 06:14; Admin Dose 20 GM; Start 07/01/17 at 14:00 Rifaximin 550 mg 550 mg BID PO Last administered on 07/10/17 08:19; Admin Dose 550 MG; Start 07/03/17 at 21:00 Pantoprazole 80 mg/Sodium Chloride 100 ml @ 10 mls/hr Q10H IV Last administered on 07/10/17 03:32; Admin Dose 10 MLS/HR; Start 07/05/17 at 23:00 Octreotide Acetate 1 mg/ Sodium Chloride 100 ml @ 5 mls/hr Q20H IV Last administered on 07/10/17 08:07; Admin Dose 5 MLS/HR; Start 07/06/17 at 00:30 Norepinephrine 16 mg/Dextrose 500 ml @ 1.87 mls/hr TITRATE PRN IV BLOOD PRESSURE SUPPORT Last administered on 07/09/17 09:51; Admin Dose 3.75 MLS/HR; Start 07/07/17 at 06:00 Cefepime HCl/ Sodium Chloride (Maxipime/NS) 50 ml @ 100 mls/hr Q24H IVPB Last administered on 07/09/17 14:51; Admin Dose 100 MLS/HR; Start 07/07/17 at 14:00 IV Flush 10 ml 10 ml PRN PRN IV IV PROTOCOL; Start 07/07/17 at 15:30 Fluconazole/ Sodium Chloride (Diflucan 100 Mg/ NS (Pmx)) 50 ml @ 50 mls/hr Q24H IVPB Last administered on 07/09/17 12:44; Admin Dose 50 MLS/HR; Start at 12:00 Simethicone (Mylicon) 80 mg Q6 GTB Last administered on 07/10/17 06:14; Admin Dose 80 MG; Start 07/09/17 at 12:00 Linezolid (Zyvox) 600 mg BID PO Last administered on 07/10/17 08:19; Admin Dose 600 MG; Start 07/09/17 at 21:00 ABE KRISHNA Jul 10, 2017 11:04
--- NOTE | 2017-07-10 11:18 | PN ---
Date/Time of Note Date/Time of Note DATE: 07/10/17 TIME: 11:15 Assessment/Plan VTE Prophylaxis VTE Prophylaxis Intervention: SCD's Lines/Catheters IV Catheter Type (from Nrs): PICC Line Central line still needed: Yes Urinary Cath still in place: Yes Reason Cath still needed: other (indicate) (monitor I&O) Assessment/Plan Chief Complaint/Hosp Course Assessment and plan 1. Symptomatic cholelithiasis. Patient status post surgical intervention. Analgesics as needed. 2. Decompensated alcoholic liver cirrhosis with ascites and portal hypertension. Continue lactulose. Of note patient did have ultrasound-guided paracentesis on July 02, 2017. Still with abd distention. repeat paracentesis pending. was transfused FFP for coagulopathy. f/u with radiology if able to do procedure. 3. Acute kidney injury. worse today. f/u nephrology. possible HD if worse. Suspect hepatorenal syndrome 4. anemia. Continue on iron supplement. Transfuse prbc as needed. Status post EGD with grade 3 to grade 4 esophageal varices seen status post variceal ligation 5. Continue to monitor H&H. 5. Transaminitis with hyperbilirubinemia secondary to #1 and #2. Monitor level. Disposition plan: Repeat paracentesis was canceled due to small amount of ascites. Continue on diuretic therapy. Renal function appears to be worsening. Suspect hepatorenal syndrome. Size Marker following. Continue with recommendations. May need dialysis should renal function continued to decline. Continue antibiotics for UTI. Titrate off vasopressor as needed. Continue ICU monitoring Discussed plan of care with Dr. Mukherjee Critical CARE time: 30 minute Problems: Subjective 24 Hr Interval Summary Free Text/Dictation awake alert and oriented. seen in ICU on vasopressor Exam/Review of Systems Vital Signs Vitals Vital Signs Date Time Temp Pulse Resp B/P Pulse Ox O2 Delivery O2 Flow Rate FiO2 07/10/17 08:00 98.0 102 20 97/67 94 Room Air 07/08/17 02:00 2.0 Intake and Output 07/09/17 07/09/17 07/10/17 15:00 23:00 07:00 Intake Total 296.455 ml 396.50 ml 609.12 ml Output Total 138 ml 315 ml 285 ml Balance 158.455 ml 81.50 ml 324.12 ml Exam Constitutional: alert, oriented Psych: little anxious Head: normocephalic Eyes: icteric Neck: non-tender, supple Respiratory: clear to auscultation, normal air movement Cardiovascular: regular rate Gastrointestinal: distended, tender Musculoskeletal: No swelling Neurological: [employer] II-XII intact, nl mental status, nl speech Skin: other (jaundice) Results Result Diagram: 07/10/17 0505 07/10/17 0505 Results 24 hrs Laboratory Tests Test 07/09/17 12:50 07/09/17 13:14 07/09/17 18:16 07/10/17 00:31 Urine Random Sodium 28 L Hemoglobin 9.0 L 8.5 L 9.0 L Hematocrit 26.7 L 25.5 L 26.5 L Random Vancomycin Level 10.9 Test 07/10/17 05:05 White Blood Count 25.0 #H Red Blood Count 2.96 L Hemoglobin 9.1 L Hematocrit 27.0 L Mean Corpuscular Volume 91.2 Mean Corpuscular Hemoglobin 30.7 Mean Corpuscular Hemoglobin Concent 33.7 Red Cell Distribution Width 20.1 H Platelet Count 205 # Mean Platelet Volume 12.2 H Neutrophils % 81.6 H Lymphocytes % 6.8 L Monocytes % 6.7 Eosinophils % 1.1 Basophils % 0.2 Nucleated Red Blood Cells % 0.0 Neutrophils # 20.4 H Lymphocytes # 1.7 Monocytes # 1.7 H Eosinophils # 0.3 Basophils # 0.1 Nucleated Red Blood Cells # 0.0 Sodium Level 142 Potassium Level 3.4 L Chloride Level 110 Carbon Dioxide Level 18 L Anion Gap 17 H Blood Urea Nitrogen 39 H Creatinine 4.37 H Glucose Level 161 Calcium Level 8.4 Total Bilirubin 18.5 H Direct Bilirubin 16.00 *H Indirect Bilirubin 2.5 H Aspartate Amino Transf (AST/SGOT) 120 H Alanine Aminotransferase (ALT/SGPT) 31 Alkaline Phosphatase 183 H Total Protein 7.1 Albumin 2.6 L Globulin 4.50 H Albumin/Globulin Ratio 0.57 Medications Medications Current Medications Morphine Sulfate (morphine) 3 mg Q4H PRN IV pain Last administered on 23:40; Admin Dose 3 MG; Start 06/26/17 at 03:30 Ondansetron HCl (Zofran Inj) 4 mg Q4H PRN IV NAUSEA AND/OR VOMITING Last administered on 07/07/17 05:44; Admin Dose 4 MG; Start 06/26/17 at 03:30 Ferrous Sulfate (Ferrous Sulfate (Ec)) 325 mg BID PO Last administered on 08:19; Admin Dose 325 MG; Start 06/27/17 at 21:00 Lactulose (Enulose) 20 gm Q8 PO Last administered on 07/10/17 06:14; Admin Dose 20 GM; Start 07/01/17 at 14:00 Rifaximin 550 mg 550 mg BID PO Last administered on 07/10/17 08:19; Admin Dose 550 MG; Start 07/03/17 at 21:00 Pantoprazole 80 mg/Sodium Chloride 100 ml @ 10 mls/hr Q10H IV Last administered on 07/10/17 03:32; Admin Dose 10 MLS/HR; Start 07/05/17 at 23:00 Octreotide Acetate 1 mg/ Sodium Chloride 100 ml @ 5 mls/hr Q20H IV Last administered on 07/10/17 08:07; Admin Dose 5 MLS/HR; Start 07/06/17 at 00:30 Norepinephrine 16 mg/Dextrose 500 ml @ 1.87 mls/hr TITRATE PRN IV BLOOD PRESSURE SUPPORT Last administered on 07/09/17 09:51; Admin Dose 3.75 MLS/HR; Start 07/07/17 at 06:00 Cefepime HCl/ Sodium Chloride (Maxipime/NS) 50 ml @ 100 mls/hr Q24H IVPB Last administered on 07/09/17 14:51; Admin Dose 100 MLS/HR; Start 07/07/17 at 14:00 IV Flush 10 ml 10 ml PRN PRN IV IV PROTOCOL; Start 07/07/17 at 15:30 Fluconazole/ Sodium Chloride (Diflucan 100 Mg/ NS (Pmx)) 50 ml @ 50 mls/hr Q24H IVPB Last administered on 07/09/17 12:44; Admin Dose 50 MLS/HR; Start at 12:00 Simethicone (Mylicon) 80 mg Q6 GTB Last administered on 07/10/17 06:14; Admin Dose 80 MG; Start 07/09/17 at 12:00 Linezolid (Zyvox) 600 mg BID PO Last administered on 07/10/17 08:19; Admin Dose 600 MG; Start 07/09/17 at 21:00 MADAY VALDEZ Jul 10, 2017 11:18
--- NOTE | 2017-07-10 11:27 | CONS ---
Date/Time of Note Date/Time of Note DATE: 07/10/17 TIME: :27 Assessment/Plan Assessment/Plan Chief Complaint/Hosp Course ID PROGRESS NOTE TOTAL ABX DAY # CURRENT ABX=> *Zyvox + Cefepime s/p Vanco IV HOSPITAL COURSE => Chart reviewed 24H INTERVAL SUMMARY * Awake, alert, responsive, (+)Jaundice w/ascites, feels weak, visitors present * NO fevers, WBC rising * URINE CULTURE Final Organism 1 ENTEROCOCCUS SPECIES COLONY COUNT 30,000 - 40,000 CFU/ml Organism 2 BONIFACIO ALBICANS COLONY COUNT <10,000 CFU/ml ENT SPS M.I.C. RX --------- --- AMPICILLIN <=2 S CIPROFLOXACIN 2 I LEVOFLOXACIN 4 I PENICILLIN-G 16 R EXAM GENERAL: Afebrile, VSS, feels weak, massive ascites HEENT: (+)Icteric (+)Jaundice NECK: Supple, trachea midline. CHEST: Equal chest rise bilaterally, diminished BLL HEART: Pulse RRR ABDOMEN: Massive ascites : NL, FC EXTREMITIES: Warm, moves ext ID ASSESSMENT 47 yo F admit with: 1. Sepsis 2 to UTI + Presumptive spontaneous bacterial peritonitis * 06/26 & 07/05 BCx (-) * URINE CX: URINE CULTURE Final Organism 1 ENTEROCOCCUS SPECIES COLONY COUNT 30,000 - 40,000 CFU/ml Organism 2 BONIFACIO ALBICANS COLONY COUNT <10,000 CFU/ml ENT SPS M.I.C. RX --------- --- AMPICILLIN <=2 S CIPROFLOXACIN 2 I LEVOFLOXACIN 4 I PENICILLIN-G 16 R 2. Decompensated liver cirrhosis with ascites, status post paracentesis done on 07/02/2017, no cultures sent. 3. Acute kidney injury, possibly hepatorenal syndrome. 4. Acute anemia. 5. Symptomatic cholelithiasis without evidence of acute cholecystitis. (-)MRSA Nares INVASIVES: PICC ABX ALLERGY: KNDA CURRENT ABX=>*Zyvox + Cefepime s/p Vanco IV ID RECOMMENDATIONS 1. Will add Flagyl due to concern SBP 2. Change FC if not already done since 07/05 due to (+)Yeast 3. Repeat UA C&S post FC change to see if yeast CFU rising, possibly needs treating . . Problems: Consultation Date/Type/Reason Admit Date/Time Jun 26, 2017 at 00:00 Initial Consult Date 06/26/17 Type of Consultation: ID Exam/Review of Systems Vital Signs Vitals Vital Signs Date Time Temp Pulse Resp B/P Pulse Ox O2 Delivery O2 Flow Rate FiO2 07/10/17 08:00 98.0 102 20 97/67 94 Room Air 07/08/17 02:00 2.0 Intake and Output 07/09/17 07/09/17 07/10/17 15:00 23:00 07:00 Intake Total 296.455 ml 396.50 ml 609.12 ml Output Total 138 ml 315 ml 285 ml Balance 158.455 ml 81.50 ml 324.12 ml Results Result Diagram: 07/10/17 0505 07/10/17 0505 Results 24 hrs Laboratory Tests Test 07/09/17 12:50 07/09/17 13:14 07/09/17 18:16 07/10/17 00:31 Urine Random Sodium 28 L Hemoglobin 9.0 L 8.5 L 9.0 L Hematocrit 26.7 L 25.5 L 26.5 L Random Vancomycin Level 10.9 Test 07/10/17 05:05 White Blood Count 25.0 #H Red Blood Count 2.96 L Hemoglobin 9.1 L Hematocrit 27.0 L Mean Corpuscular Volume 91.2 Mean Corpuscular Hemoglobin 30.7 Mean Corpuscular Hemoglobin Concent 33.7 Red Cell Distribution Width 20.1 H Platelet Count 205 # Mean Platelet Volume 12.2 H Neutrophils % 81.6 H Lymphocytes % 6.8 L Monocytes % 6.7 Eosinophils % 1.1 Basophils % 0.2 Nucleated Red Blood Cells % 0.0 Neutrophils # 20.4 H Lymphocytes # 1.7 Monocytes # 1.7 H Eosinophils # 0.3 Basophils # 0.1 Nucleated Red Blood Cells # 0.0 Sodium Level 142 Potassium Level 3.4 L Chloride Level 110 Carbon Dioxide Level 18 L Anion Gap 17 H Blood Urea Nitrogen 39 H Creatinine 4.37 H Glucose Level 161 Calcium Level 8.4 Total Bilirubin 18.5 H Direct Bilirubin 16.00 *H Indirect Bilirubin 2.5 H Aspartate Amino Transf (AST/SGOT) 120 H Alanine Aminotransferase (ALT/SGPT) 31 Alkaline Phosphatase 183 H Total Protein 7.1 Albumin 2.6 L Globulin 4.50 H Albumin/Globulin Ratio 0.57 Medications Medications Current Medications Morphine Sulfate (morphine) 3 mg Q4H PRN IV pain Last administered on 23:40; Admin Dose 3 MG; Start 06/26/17 at 03:30 Ondansetron HCl (Zofran Inj) 4 mg Q4H PRN IV NAUSEA AND/OR VOMITING Last administered on 07/07/17 05:44; Admin Dose 4 MG; Start 06/26/17 at 03:30 Ferrous Sulfate (Ferrous Sulfate (Ec)) 325 mg BID PO Last administered on 08:19; Admin Dose 325 MG; Start 06/27/17 at 21:00 Lactulose (Enulose) 20 gm Q8 PO Last administered on 07/10/17 06:14; Admin Dose 20 GM; Start 07/01/17 at 14:00 Rifaximin 550 mg 550 mg BID PO Last administered on 07/10/17 08:19; Admin Dose 550 MG; Start 07/03/17 at 21:00 Pantoprazole 80 mg/Sodium Chloride 100 ml @ 10 mls/hr Q10H IV Last administered on 07/10/17 03:32; Admin Dose 10 MLS/HR; Start 07/05/17 at 23:00 Octreotide Acetate 1 mg/ Sodium Chloride 100 ml @ 5 mls/hr Q20H IV Last administered on 07/10/17 08:07; Admin Dose 5 MLS/HR; Start 07/06/17 at 00:30 Norepinephrine 16 mg/Dextrose 500 ml @ 1.87 mls/hr TITRATE PRN IV BLOOD PRESSURE SUPPORT Last administered on 07/09/17 09:51; Admin Dose 3.75 MLS/HR; Start 07/07/17 at 06:00 Cefepime HCl/ Sodium Chloride (Maxipime/NS) 50 ml @ 100 mls/hr Q24H IVPB Last administered on 07/09/17 14:51; Admin Dose 100 MLS/HR; Start 07/07/17 at 14:00 IV Flush 10 ml 10 ml PRN PRN IV IV PROTOCOL; Start 07/07/17 at 15:30 Fluconazole/ Sodium Chloride (Diflucan 100 Mg/ NS (Pmx)) 50 ml @ 50 mls/hr Q24H IVPB Last administered on 07/09/17 12:44; Admin Dose 50 MLS/HR; Start at 12:00 Simethicone (Mylicon) 80 mg Q6 GTB Last administered on 07/10/17 06:14; Admin Dose 80 MG; Start 07/09/17 at 12:00 Linezolid (Zyvox) 600 mg BID PO Last administered on 07/10/17 08:19; Admin Dose 600 MG; Start 07/09/17 at 21:00 NANCY CANNON NP Jul 10, 2017 11:27
[2017-07-10] MEDS: morphine 4 MG/ML VIAL IV PRN ×2 (12:12→23:11)
[2017-07-10] MEDS: FLUCONAZOLE 100 MG/NS (PMX) 50 ML IVPB SCH (12:25)
[2017-07-10] MEDS: CEFEPIME HCL 0.5 GM in SOD CHLORIDE 0.9% 50 ML IVPB SCH (13:51)
[2017-07-10] MEDS: metroNIDAZOLE 500 MG/NS (PMX) 250 MG in EVAC CONTAINER 1 BOTTLE IVPB SCH ×2 (14:37→21:31)
[2017-07-10] MEDS ORDERED: POTASSIUM CHLORIDE (SR) 20 MEQ TAB PO STA (16:09)
--- NOTE | 2017-07-10 16:17 | CONS ---
Date/Time of Note Date/Time of Note DATE: 07/10/17 TIME: 16:12 Assessment/Plan Assessment/Plan Chief Complaint/Hosp Course 1. Acute renal failure. Her urine output increased yesterday while on a Bumex drip. Her renal function has continued to decrease. I am going to start her on a continuous Bumex drip to see if that stimulates a diuresis. If her renal function continues to decrease then she may need dialysis. I also ordered a Levophed drip to keep her systolic blood pressure above 90. 2. Cirrhosis of the liver with rising bilirubin, low albumin , edema and coagulopathy. 3. She has more diffuse abdominal pain with distention and ascites. 4. Anemia , she was having active GI bleeding . She is now in the ICU for close monitoring. She does not seem to be actively bleeding now. She did undergo an EGD and esophageal varices were ligated. Problems: Consultation Date/Type/Reason Admit Date/Time Jun 26, 2017 at 00:00 Initial Consult Date 06/26/17 Type of Consultation: renal 24 HR Interval Summary Free Text/Dictation This patient is being seen in the intensive care unit in nephrologic consultation. Patient is awake and alert. She has no new complaints. Constitutional: no complaints Exam/Review of Systems Vital Signs Vitals Vital Signs Date Time Temp Pulse Resp B/P Pulse Ox O2 Delivery O2 Flow Rate FiO2 07/10/17 15:00 102 20 99/66 93 Room Air 07/10/17 12:15 97.9 07/08/17 02:00 2.0 Intake and Output 07/09/17 07/09/17 07/10/17 14:59 22:59 06:59 Intake Total 225.205 ml 441.75 ml 610.75 ml Output Total 103 ml 300 ml 335 ml Balance 122.205 ml 141.75 ml 275.75 ml Exam Constitutional: alert, frail, obese, oriented Eyes: icteric Neck: non-tender, supple Respiratory: diminished breath sounds Cardiovascular: edema, regular rate and rhythm Gastrointestinal: ascites, distended, tender Extremities: edema Results Result Diagram: 07/10/17 0505 07/10/17 0505 Results 24 hrs Laboratory Tests Test 07/09/17 18:16 07/10/17 00:31 07/10/17 05:05 Hemoglobin 8.5 L 9.0 L 9.1 L Hematocrit 25.5 L 26.5 L 27.0 L White Blood Count 25.0 #H Red Blood Count 2.96 L Mean Corpuscular Volume 91.2 Mean Corpuscular Hemoglobin 30.7 Mean Corpuscular Hemoglobin Concent 33.7 Red Cell Distribution Width 20.1 H Platelet Count 205 # Mean Platelet Volume 12.2 H Neutrophils % 81.6 H Lymphocytes % 6.8 L Monocytes % 6.7 Eosinophils % 1.1 Basophils % 0.2 Nucleated Red Blood Cells % 0.0 Neutrophils # 20.4 H Lymphocytes # 1.7 Monocytes # 1.7 H Eosinophils # 0.3 Basophils # 0.1 Nucleated Red Blood Cells # 0.0 Sodium Level 142 Potassium Level 3.4 L Chloride Level 110 Carbon Dioxide Level 18 L Anion Gap 17 H Blood Urea Nitrogen 39 H Creatinine 4.37 H Glucose Level 161 Calcium Level 8.4 Total Bilirubin 18.5 H Direct Bilirubin 16.00 *H Indirect Bilirubin 2.5 H Aspartate Amino Transf (AST/SGOT) 120 H Alanine Aminotransferase (ALT/SGPT) 31 Alkaline Phosphatase 183 H Total Protein 7.1 Albumin 2.6 L Globulin 4.50 H Albumin/Globulin Ratio 0.57 Medications Medications Current Medications Morphine Sulfate (morphine) 3 mg Q4H PRN IV pain Last administered on 12:12; Admin Dose 3 MG; Start 06/26/17 at 03:30 Ondansetron HCl (Zofran Inj) 4 mg Q4H PRN IV NAUSEA AND/OR VOMITING Last administered on 07/07/17 05:44; Admin Dose 4 MG; Start 06/26/17 at 03:30 Ferrous Sulfate (Ferrous Sulfate (Ec)) 325 mg BID PO Last administered on 08:19; Admin Dose 325 MG; Start 06/27/17 at 21:00 Lactulose (Enulose) 20 gm Q8 PO Last administered on 07/10/17 13:41; Admin Dose 20 GM; Start 07/01/17 at 14:00 Rifaximin 550 mg 550 mg BID PO Last administered on 07/10/17 08:19; Admin Dose 550 MG; Start 07/03/17 at 21:00 Pantoprazole 80 mg/Sodium Chloride 100 ml @ 10 mls/hr Q10H IV Last administered on 07/10/17 13:29; Admin Dose 10 MLS/HR; Start 07/05/17 at 23:00 Octreotide Acetate 1 mg/ Sodium Chloride 100 ml @ 5 mls/hr Q20H IV Last administered on 07/10/17 08:07; Admin Dose 5 MLS/HR; Start 07/06/17 at 00:30 Norepinephrine 16 mg/Dextrose 500 ml @ 1.87 mls/hr TITRATE PRN IV BLOOD PRESSURE SUPPORT Last administered on 07/09/17 09:51; Admin Dose 3.75 MLS/HR; Start 07/07/17 at 06:00 Cefepime HCl/ Sodium Chloride (Maxipime/NS) 50 ml @ 100 mls/hr Q24H IVPB Last administered on 07/10/17 13:51; Admin Dose 100 MLS/HR; Start 07/07/17 at 14:00 IV Flush 10 ml 10 ml PRN PRN IV IV PROTOCOL; Start 07/07/17 at 15:30 Fluconazole/ Sodium Chloride (Diflucan 100 Mg/ NS (Pmx)) 50 ml @ 50 mls/hr Q24H IVPB Last administered on 07/10/17 12:25; Admin Dose 50 MLS/HR; Start at 12:00 Simethicone (Mylicon) 80 mg Q6 GTB Last administered on 07/10/17 12:25; Admin Dose 80 MG; Start 07/09/17 at 12:00 Linezolid 600 mg 600 mg BID PO Last administered on 07/10/17 08:19; Admin Dose 600 MG; Start 07/09/17 at 21:00 Metronidazole 250 mg/N/A 50 ml @ 50 mls/hr Q8 IVPB Last administered on 14:37; Admin Dose 50 MLS/HR; Start 07/10/17 at 14:00 Bumetanide/ Dextrose (Bumex/D5W) 250 ml @ 10 mls/hr Q24H IV ; Start 07/10/17 at 16:30; Status PERLA PARKINSON MD Jul 10, 2017 16:16
[2017-07-10 19:16] LABS: HEMATOCRIT 27.5 % (37.0-47.0); HEMOGLOBIN 9.4 g/dl (12.0-16.0)
[2017-07-10] MEDS: BUMETANIDE 25 MG in DEXTROSE 5% 150 ML IV SCH (19:16)
[2017-07-10] MEDS: ONDANSETRON 4 MG INJ IV PRN (22:56)
[2017-07-11] VITALS (56 sets, daily range): BP systolic 84–107; BP diastolic 50–68; PULSE 98–108; RESP 10–21
[2017-07-11] MEDS ORDERED: FUROSEMIDE 20 MG INJ IV ONE (00:30)
[2017-07-11] MEDS: OCTREOTIDE 1 MG in SOD CHLORIDE 0.9% 95 ML IV SCH ×2 (03:05→19:15)
[2017-07-11] MEDS: PANTOPRAZOLE IV 80 MG in SOD CHLORIDE 0.9% 100 ML IV SCH ×3 (03:05→19:14)
[2017-07-11 04:40] LABS: BASOPHIL # 0.1 10^3/ul (0.0-0.1); BASOPHILS % 0.3 % (0.0-2.0); EOSINOPHILS # 0.2 10^3/ul (0.0-0.5); EOSINOPHILS % 0.9 % (0.0-7.0); HEMATOCRIT 26.9 % (37.0-47.0); LYMPHOCYTES # 1.3 10^3/ul (0.8-2.9); LYMPHOCYTES % 5.8 % (15.0-51.0); MEAN CORPUSCULAR HEMOGLOBIN 30.6 pg (29.0-33.0); MEAN CORPUSCULAR HGB CONC 33.5 g/dl (32.0-37.0); MEAN CORPUSCULAR VOLUME 91.5 fl (82.0-101.0); MEAN PLATELET VOLUME 11.6 fl (7.4-10.4); MONOCYTE # 1.5 10^3/ul (0.3-0.9); MONOCYTES % 6.7 % (0.0-11.0); NEUTROPHIL # 18.4 10^3/ul (1.6-7.5); NEUTROPHILS % 83.9 % (39.0-77.0); PLATELET COUNT 218 10^3/UL (140-415); RED BLOOD COUNT 2.94 10^6/ul (4.20-5.40); RED CELL DISTRIBUTION WIDTH 20.9 % (11.5-14.5); WHITE BLOOD COUNT 21.9 10^3/ul (4.8-10.8)
[2017-07-11 05:11] LABS: ALBUMIN 2.5 g/dl (3.3-4.9); ALBUMIN/GLOBULIN RATIO 0.54; BILIRUBIN,INDIRECT 2.2 mg/dl (0-1.1); BILIRUBIN,TOTAL 18.6 mg/dl (0.2-1.3); CALCIUM 8.3 mg/dl (8.4-10.2); CREATININE 4.42 mg/dl (0.44-1.00); POTASSIUM 3.6 mmol/L (3.5-5.1); TOTAL PROTEIN 7.1 g/dl (6.1-8.1)
[2017-07-11 05:22] LABS: BILIRUBIN,DIRECT 16.4 mg/dl (0.00-0.20)
[2017-07-11 05:36] LABS: ADD UMIC YES; UR AMORPHOUS CRYSTAL FEW /HPF (NONE SEEN); UR ASCORBIC ACID NEGATIVE (NEGATIVE); UR BACTERIA FEW /HPF (NONE SEEN); UR BILIRUBIN (Dip) 2+ mg/dL (NEGATIVE); UR BLOOD (Dip) 3+ mg/dL (NEGATIVE); UR CLARITY CLOUDY (CLEAR); UR COLOR AMBER (YELLOW); UR GLUCOSE (Dip) NEGATIVE (NEGATIVE); UR KETONES (Dip) NEGATIVE (NEGATIVE); UR LEUKOCYTE ESTERASE (Dip) TRACE Leu/ul (NEGATIVE); UR MUCUS FEW /HPF (NONE SEEN); UR NITRITE (Dip) NEGATIVE (NEGATIVE); UR RBC 41 /HPF (0-5); UR SPECIFIC GRAVITY (Dip) 1.012 (1.003-1.030); UR SQUAMOUS EPITHELIAL CELL FEW /HPF (FEW); UR TOTAL PROTEIN (Dip) 1+ mg/dl (NEGATIVE); UR UROBILINOGEN (Dip) 1+ mg/dL (NEGATIVE)
[2017-07-11] MEDS: LACTULOSE 30ML CUP PO SCH ×4 (06:23→21:55)
[2017-07-11] MEDS: metroNIDAZOLE 500 MG/NS (PMX) 250 MG in EVAC CONTAINER 1 BOTTLE IVPB SCH ×3 (06:23→23:04)
[2017-07-11] MEDS: RIFAXIMIN 550 MG TAB PO SCH ×2 (08:54→21:19)
[2017-07-11] MEDS: FERROUS SULFATE (EC) 325 MG TAB PO SCH ×2 (08:54→21:19)
[2017-07-11] MEDS: ZYVOX 600 MG TAB PO SCH ×2 (08:55→21:19)
[2017-07-11] MEDS: morphine 4 MG/ML VIAL IV PRN ×2 (09:16→14:20)
--- NOTE | 2017-07-11 10:58 | CONS ---
Date/Time of Note Date/Time of Note DATE: 07/11/17 TIME: 10:55 Assessment/Plan Assessment/Plan Chief Complaint/Hosp Course ID PROGRESS NOTE TOTAL ABX DAY # CURRENT ABX=> *Zyvox + Cefepime + Flagyl s/p Vanco IV 24H INTERVAL SUMMARY * Lethargic, arousable, (+)Jaundice w/ascites, feels weak, visitors present * NO fevers, WBC down today * Repeat UA 07/10 w/Trace Leuk.Esterase, 29 WBCs -> Await final micro * URINE CULTURE Final Organism 1 ENTEROCOCCUS SPECIES COLONY COUNT 30,000 - 40,000 CFU/ml Organism 2 BONIFACIO ALBICANS COLONY COUNT <10,000 CFU/ml ENT SPS M.I.C. RX --------- --- AMPICILLIN <=2 S CIPROFLOXACIN 2 I LEVOFLOXACIN 4 I PENICILLIN-G 16 R EXAM GENERAL: Afebrile, VSS, feels weak, massive ascites HEENT: (+)Icteric (+)Jaundice NECK: Supple, trachea midline. CHEST: Equal chest rise bilaterally, diminished BLL HEART: Pulse RRR ABDOMEN: Massive ascites : NL, FC EXTREMITIES: Warm, moves ext ID ASSESSMENT 47 yo F admit with: 1. Sepsis 2 to UTI + Presumptive spontaneous bacterial peritonitis * 06/26 & 07/05 BCx (-) * URINE CX: URINE CULTURE Final Organism 1 ENTEROCOCCUS SPECIES COLONY COUNT 30,000 - 40,000 CFU/ml Organism 2 BONIFACIO ALBICANS COLONY COUNT <10,000 CFU/ml ENT SPS M.I.C. RX --------- --- AMPICILLIN <=2 S CIPROFLOXACIN 2 I LEVOFLOXACIN 4 I PENICILLIN-G 16 R 2. Decompensated liver cirrhosis with ascites, status post paracentesis done on 07/02/2017, no cultures sent. 3. Acute kidney injury, possibly hepatorenal syndrome. 4. Acute anemia. 5. Symptomatic cholelithiasis without evidence of acute cholecystitis. (-)MRSA Nares INVASIVES: PICC ABX ALLERGY: KNDA CURRENT ABX=>*Zyvox + Cefepime + Flagyl s/p Vanco IV ID RECOMMENDATIONS 1. Flagyl added to cover GI source aerobes empirically 2. Change FC if not already done since 07/05 due to (+)Yeast 3. Repeat UA C&S post FC => Repeat UA 07/10 w/Trace Leuk.Esterase, 29 WBCs -> Await final micro . . Problems: Consultation Date/Type/Reason Admit Date/Time Jun 26, 2017 at 00:00 Initial Consult Date 06/26/17 Type of Consultation: ID Exam/Review of Systems Vital Signs Vitals Vital Signs Date Time Temp Pulse Resp B/P Pulse Ox O2 Delivery O2 Flow Rate FiO2 07/11/17 09:00 105 20 96/64 95 Room Air 07/11/17 08:00 97.8 07/08/17 02:00 2.0 Intake and Output 07/10/17 07/10/17 07/11/17 15:00 23:00 07:00 Intake Total 850 ml 455 ml 436.22 ml Output Total 430 ml 225 ml Balance 850 ml 25 ml 211.22 ml Results Result Diagram: 07/11/17 0420 07/11/17 0420 Results 24 hrs Laboratory Tests Test 07/10/17 18:00 07/10/17 19:06 07/11/17 04:20 Urine Color SHAYLA Urine Clarity CLOUDY A Urine pH 5.0 Urine Specific [place] 1.012 Urine Ketones NEGATIVE Urine Nitrite NEGATIVE Urine Bilirubin 2+ H Urine Urobilinogen 1+ H Urine Leukocyte Esterase TRACE A Urine Microscopic RBC 41 H Urine Microscopic WBC 29 H Urine Squamous Epithelial Cells FEW Urine Amorphous Crystals FEW A Urine Bacteria FEW A Urine Hyaline Casts FEW A Urine Mucus FEW A Urine Hemoglobin 3+ H Urine Glucose NEGATIVE Urine Total Protein 1+ H Hemoglobin 9.4 L 9.0 L Hematocrit 27.5 L 26.9 L Ammonia 92 #H White Blood Count 21.9 H Red Blood Count 2.94 L Mean Corpuscular Volume 91.5 Mean Corpuscular Hemoglobin 30.6 Mean Corpuscular Hemoglobin Concent 33.5 Red Cell Distribution Width 20.9 H Platelet Count 218 Mean Platelet Volume 11.6 H Neutrophils % 83.9 H Lymphocytes % 5.8 L Monocytes % 6.7 Eosinophils % 0.9 Basophils % 0.3 Nucleated Red Blood Cells % 0.0 Neutrophils # 18.4 H Lymphocytes # 1.3 Monocytes # 1.5 H Eosinophils # 0.2 Basophils # 0.1 Nucleated Red Blood Cells # 0.0 Sodium Level 144 Potassium Level 3.6 Chloride Level 112 H Carbon Dioxide Level 18 L Anion Gap 18 H Blood Urea Nitrogen 40 H Creatinine 4.42 H Glucose Level 157 Calcium Level 8.3 L Total Bilirubin 18.6 H Direct Bilirubin 16.40 *H Indirect Bilirubin 2.2 H Aspartate Amino Transf (AST/SGOT) 121 H Alanine Aminotransferase (ALT/SGPT) 35 Alkaline Phosphatase 184 H Total Protein 7.1 Albumin 2.5 L Globulin 4.60 H Albumin/Globulin Ratio 0.54 Medications Medications Current Medications Morphine Sulfate (morphine) 3 mg Q4H PRN IV pain Last administered on 09:16; Admin Dose 3 MG; Start 06/26/17 at 03:30 Ondansetron HCl (Zofran Inj) 4 mg Q4H PRN IV NAUSEA AND/OR VOMITING Last administered on 07/10/17 22:56; Admin Dose 4 MG; Start 06/26/17 at 03:30 Ferrous Sulfate (Ferrous Sulfate (Ec)) 325 mg BID PO Last administered on 07/11 08:54; Admin Dose 325 MG; Start 06/27/17 at 21:00 Lactulose (Enulose) 20 gm Q8 PO Last administered on 07/11/17 06:23; Admin Dose 20 GM; Start 07/01/17 at 14:00 Rifaximin 550 mg 550 mg BID PO Last administered on 07/11/17 08:54; Admin Dose 550 MG; Start 07/03/17 at 21:00 Pantoprazole 80 mg/Sodium Chloride 100 ml @ 10 mls/hr Q10H IV Last administered on 07/11/17 08:55; Admin Dose 10 MLS/HR; Start 07/05/17 at 23:00 Octreotide Acetate 1 mg/ Sodium Chloride 100 ml @ 5 mls/hr Q20H IV Last administered on 07/11/17 03:05; Admin Dose 5 MLS/HR; Start 07/06/17 at 00:30 Norepinephrine 16 mg/Dextrose 500 ml @ 1.87 mls/hr TITRATE PRN IV BLOOD PRESSURE SUPPORT Last administered on 07/11/17 06:21; Admin Dose 9.37 MLS/HR; Start 07/07/17 at 06:00 Cefepime HCl/ Sodium Chloride (Maxipime/NS) 50 ml @ 100 mls/hr Q24H IVPB Last administered on 07/10/17 13:51; Admin Dose 100 MLS/HR; Start 07/07/17 at 14:00 IV Flush 10 ml 10 ml PRN PRN IV IV PROTOCOL; Start 07/07/17 at 15:30 Fluconazole/ Sodium Chloride (Diflucan 100 Mg/ NS (Pmx)) 50 ml @ 50 mls/hr Q24H IVPB Last administered on 07/10/17 12:25; Admin Dose 50 MLS/HR; Start at 12:00 Simethicone (Mylicon) 80 mg Q6 GTB Last administered on 07/11/17 06:23; Admin Dose 80 MG; Start 07/09/17 at 12:00 Linezolid 600 mg 600 mg BID PO Last administered on 07/11/17 08:55; Admin Dose 600 MG; Start 07/09/17 at 21:00 Metronidazole 250 mg/N/A 50 ml @ 50 mls/hr Q8 IVPB Last administered on 06:23; Admin Dose 50 MLS/HR; Start 07/10/17 at 14:00 Bumetanide/ Dextrose (Bumex/D5W) 250 ml @ 10 mls/hr Q24H IV Last administered on 07/10/17 19:16; Admin Dose 10 MLS/HR; Start 07/10/17 at 17:00 NANCY CNANON NP Jul 11, 2017 10:58
[2017-07-11] MEDS: FLUCONAZOLE 100 MG/NS (PMX) 50 ML IVPB SCH (11:35)
--- NOTE | 2017-07-11 13:14 | PN ---
Date/Time of Note Date/Time of Note DATE: 07/11/17 TIME: 13:07 Assessment/Plan VTE Prophylaxis VTE Prophylaxis Intervention: SCD's Lines/Catheters IV Catheter Type (from Nrs): PICC Line Central line still needed: Yes (meds) Urinary Cath still in place: Yes Reason Cath still needed: other (indicate) (monitor out-put) Assessment/Plan Chief Complaint/Hosp Course Assessment Anemia EGD 07/07/17 Impression: Grade III/IV esophageal varices with stigmata recent bleeding Post endoscopic variceal ligation 5 Portal hypertensive gastropathy. Otherwise normal EGD. Alcoholic hepatitis Liver cirrhosis with ascites No evidence of cholecystitis- negative HIDA Acute kidney injury Sepsis Metabolic acidosis S/p Paracentesis Encephalopathy- resolved Plan: Continue with current medical management Will continue to monitor need for transfuse Patient with poor prognosis Patient seen in collaboration with Dr. Ny Subjective: Course reviewed with nursing staff Patient interviewed and examined All labs, imaging and other results reviewed No significant changes over night, hgb remains stable, will continue current regimen. PHYSICAL EXAMINATION: GENERAL: Well developed, well nourished, alert & oriented x 3. SKIN: No lesions, no stigmata chronic liver disease, no evidence of bleeding diathesis. Jaundiced. Pitting edema bilateral lower extremities. LYMPHATIC: No palpable lymphadenopathy. HEAD: Normocephalic, atraumatic, no tenderness. EYES: Pupils equal reactive to light and accommodation, full extraocular movements, icteric, no discharge. EARS/NOSE AND THROAT: Ears normal, nose normal, NECK: Supple, CHEST: Inspection within normal limits. CARDIOVASCULAR: Heart: Regular rate and rhythm,. RESPIRATORY: Lungs clear to auscultation GASTROINTESTINAL AND LIVER: Abdomen: Soft, left upper quadrant tenderness, Distended, no hernias, no masses, ascites, splenomegaly, no guarding, no rebound tenderness, normoactive bowel sounds. Rectal: Deferred. GENITOURINARY: Female genitalia within normal limits. EXTREMITIES: No cyanosis, clubbing or edema. Problems: Exam/Review of Systems Vital Signs Vitals Vital Signs Date Time Temp Pulse Resp B/P Pulse Ox O2 Delivery O2 Flow Rate FiO2 07/11/17 13:00 102 11 85/50 92 Room Air 07/11/17 12:00 98.0 07/08/17 02:00 2.0 Intake and Output 07/10/17 07/10/1717 15:00 23:00 07:00 Intake Total 850 ml 455 ml 436.22 ml Output Total 430 ml 225 ml Balance 850 ml 25 ml 211.22 ml Results Result Diagram: 07/11/17 0420 07/11/17 0420 Results 24 hrs Laboratory Tests Test 07/10/17 18:00 07/10/17 19:06 07/11/17 04:20 Urine Color SHAYLA Urine Clarity CLOUDY A Urine pH 5.0 Urine Specific [place] 1.012 Urine Ketones NEGATIVE Urine Nitrite NEGATIVE Urine Bilirubin 2+ H Urine Urobilinogen 1+ H Urine Leukocyte Esterase TRACE A Urine Microscopic RBC 41 H Urine Microscopic WBC 29 H Urine Squamous Epithelial Cells FEW Urine Amorphous Crystals FEW A Urine Bacteria FEW A Urine Hyaline Casts FEW A Urine Mucus FEW A Urine Hemoglobin 3+ H Urine Glucose NEGATIVE Urine Total Protein 1+ H Hemoglobin 9.4 L 9.0 L Hematocrit 27.5 L 26.9 L Ammonia 92 #H White Blood Count 21.9 H Red Blood Count 2.94 L Mean Corpuscular Volume 91.5 Mean Corpuscular Hemoglobin 30.6 Mean Corpuscular Hemoglobin Concent 33.5 Red Cell Distribution Width 20.9 H Platelet Count 218 Mean Platelet Volume 11.6 H Neutrophils % 83.9 H Lymphocytes % 5.8 L Monocytes % 6.7 Eosinophils % 0.9 Basophils % 0.3 Nucleated Red Blood Cells % 0.0 Neutrophils # 18.4 H Lymphocytes # 1.3 Monocytes # 1.5 H Eosinophils # 0.2 Basophils # 0.1 Nucleated Red Blood Cells # 0.0 Sodium Level 144 Potassium Level 3.6 Chloride Level 112 H Carbon Dioxide Level 18 L Anion Gap 18 H Blood Urea Nitrogen 40 H Creatinine 4.42 H Glucose Level 157 Calcium Level 8.3 L Total Bilirubin 18.6 H Direct Bilirubin 16.40 *H Indirect Bilirubin 2.2 H Aspartate Amino Transf (AST/SGOT) 121 H Alanine Aminotransferase (ALT/SGPT) 35 Alkaline Phosphatase 184 H Total Protein 7.1 Albumin 2.5 L Globulin 4.60 H Albumin/Globulin Ratio 0.54 Medications Medications Current Medications Morphine Sulfate (morphine) 3 mg Q4H PRN IV pain Last administered on t 09:16; Admin Dose 3 MG; Start 06/26/17 at 03:30 Ondansetron HCl (Zofran Inj) 4 mg Q4H PRN IV NAUSEA AND/OR VOMITING Last administered on 07/10/17 22:56; Admin Dose 4 MG; Start 06/26/17 at 03:30 Ferrous Sulfate (Ferrous Sulfate (Ec)) 325 mg BID PO Last administered on 07/11 08:54; Admin Dose 325 MG; Start 06/27/17 at 21:00 Lactulose (Enulose) 20 gm Q8 PO Last administered on 07/11/17 06:23; Admin Dose 20 GM; Start 07/01/17 at 14:00 Rifaximin 550 mg 550 mg BID PO Last administered on 07/11/17 08:54; Admin Dose 550 MG; Start 07/03/17 at 21:00 Pantoprazole 80 mg/Sodium Chloride 100 ml @ 10 mls/hr Q10H IV Last administered on 07/11/17 08:55; Admin Dose 10 MLS/HR; Start 07/05/17 at 23:00 Octreotide Acetate 1 mg/ Sodium Chloride 100 ml @ 5 mls/hr Q20H IV Last administered on 07/11/17 03:05; Admin Dose 5 MLS/HR; Start 07/06/17 at 00:30 Norepinephrine 16 mg/Dextrose 500 ml @ 1.87 mls/hr TITRATE PRN IV BLOOD PRESSURE SUPPORT Last administered on 07/11/17 06:21; Admin Dose 9.37 MLS/HR; Start 07/07/17 at 06:00 Cefepime HCl/ Sodium Chloride (Maxipime/NS) 50 ml @ 100 mls/hr Q24H IVPB Last administered on 07/10/17 13:51; Admin Dose 100 MLS/HR; Start 07/07/17 at 14:00 IV Flush 10 ml 10 ml PRN PRN IV IV PROTOCOL; Start 07/07/17 at 15:30 Fluconazole/ Sodium Chloride (Diflucan 100 Mg/ NS (Pmx)) 50 ml @ 50 mls/hr Q24H IVPB Last administered on 07/11/17 11:35; Admin Dose 50 MLS/HR; Start at 12:00 Simethicone (Mylicon) 80 mg Q6 GTB Last administered on 07/11/17 11:35; Admin Dose 80 MG; Start 07/09/17 at 12:00 Linezolid 600 mg 600 mg BID PO Last administered on 07/11/17 08:55; Admin Dose 600 MG; Start 07/09/17 at 21:00 Metronidazole 250 mg/N/A 50 ml @ 50 mls/hr Q8 IVPB Last administered on 06:23; Admin Dose 50 MLS/HR; Start 07/10/17 at 14:00 Bumetanide/ Dextrose (Bumex/D5W) 250 ml @ 10 mls/hr Q24H IV Last administered on 07/10/17 19:16; Admin Dose 10 MLS/HR; Start 07/10/17 at 17:00 ABE KRISHNA Jul 11, 2017 13:14
--- NOTE | 2017-07-11 14:00 | CONS ---
Date/Time of Note Date/Time of Note DATE: 07/11/17 TIME: 13:55 Assessment/Plan Assessment/Plan Chief Complaint/Hosp Course 1. Acute renal failure. Her urine output has decreased despite being on a Bumex drip. Her serum creatinine is about the same. I am going to continue her on a continuous Bumex drip to see if that stimulates a diuresis. If her renal function continues to decrease then she may need dialysis. I also ordered a Levophed drip to keep her systolic blood pressure above 90. I discussed the possible need for hemodialysis with both the patient and her family. If her renal function does not improve and/or she does not respond to Bumex then I will consider starting her on hemodialysis. 2. Cirrhosis of the liver with rising bilirubin, low albumin , edema , coagulopathy and encephalopathy. 3. She has more diffuse abdominal pain with distention and ascites. 4. Anemia , she was having active GI bleeding . She is now in the ICU for close monitoring. She does not seem to be actively bleeding now. She did undergo an EGD and esophageal varices were ligated. Her H&H have been stable. Problems: Consultation Date/Type/Reason Admit Date/Time Jun 26, 2017 at 00:00 Initial Consult Date 06/26/17 Type of Consultation: Nephrology 24 HR Interval Summary Free Text/Dictation Patient is lethargic. She does arouse to verbal stimuli. She denies pain although she does have a tender distended abdomen. Constitutional: no complaints Exam/Review of Systems Vital Signs Vitals Vital Signs Date Time Temp Pulse Resp B/P Pulse Ox O2 Delivery O2 Flow Rate FiO2 07/11/17 13:00 102 11 85/50 92 Room Air 07/11/17 12:00 98.0 07/08/17 02:00 2.0 Intake and Output 07/10/17 07/10/17 07/11/17 15:00 23:00 07:00 Intake Total 850 ml 455 ml 436.22 ml Output Total 430 ml 225 ml Balance 850 ml 25 ml 211.22 ml Exam Constitutional: alert, frail, obese ENMT: nl external ears & nose Neck: supple Respiratory: diminished breath sounds Cardiovascular: edema, regular rate and rhythm Gastrointestinal: ascites, distended Extremities: edema Results Result Diagram: 07/11/1741907/11/17419 Results 24 hrs Laboratory Tests Test 07/10/17 18:00 07/10/17 19:06 07/11/17 04:20 Urine Color SHAYLA Urine Clarity CLOUDY A Urine pH 5.0 Urine Specific [place] 1.012 Urine Ketones NEGATIVE Urine Nitrite NEGATIVE Urine Bilirubin 2+ H Urine Urobilinogen 1+ H Urine Leukocyte Esterase TRACE A Urine Microscopic RBC 41 H Urine Microscopic WBC 29 H Urine Squamous Epithelial Cells FEW Urine Amorphous Crystals FEW A Urine Bacteria FEW A Urine Hyaline Casts FEW A Urine Mucus FEW A Urine Hemoglobin 3+ H Urine Glucose NEGATIVE Urine Total Protein 1+ H Hemoglobin 9.4 L 9.0 L Hematocrit 27.5 L 26.9 L Ammonia 92 #H White Blood Count 21.9 H Red Blood Count 2.94 L Mean Corpuscular Volume 91.5 Mean Corpuscular Hemoglobin 30.6 Mean Corpuscular Hemoglobin Concent 33.5 Red Cell Distribution Width 20.9 H Platelet Count 218 Mean Platelet Volume 11.6 H Neutrophils % 83.9 H Lymphocytes % 5.8 L Monocytes % 6.7 Eosinophils % 0.9 Basophils % 0.3 Nucleated Red Blood Cells % 0.0 Neutrophils # 18.4 H Lymphocytes # 1.3 Monocytes # 1.5 H Eosinophils # 0.2 Basophils # 0.1 Nucleated Red Blood Cells # 0.0 Sodium Level 144 Potassium Level 3.6 Chloride Level 112 H Carbon Dioxide Level 18 L Anion Gap 18 H Blood Urea Nitrogen 40 H Creatinine 4.42 H Glucose Level 157 Calcium Level 8.3 L Total Bilirubin 18.6 H Direct Bilirubin 16.40 *H Indirect Bilirubin 2.2 H Aspartate Amino Transf (AST/SGOT) 121 H Alanine Aminotransferase (ALT/SGPT) 35 Alkaline Phosphatase 184 H Total Protein 7.1 Albumin 2.5 L Globulin 4.60 H Albumin/Globulin Ratio 0.54 Medications Medications Current Medications Morphine Sulfate (morphine) 3 mg Q4H PRN IV pain Last administered on 09:16; Admin Dose 3 MG; Start 06/26/17 at 03:30 Ondansetron HCl (Zofran Inj) 4 mg Q4H PRN IV NAUSEA AND/OR VOMITING Last administered on 07/10/17 22:56; Admin Dose 4 MG; Start 06/26/17 at 03:30 Ferrous Sulfate (Ferrous Sulfate (Ec)) 325 mg BID PO Last administered on 07/11 08:54; Admin Dose 325 MG; Start 06/27/17 at 21:00 Lactulose (Enulose) 20 gm Q8 PO Last administered on 07/11/17 06:23; Admin Dose 20 GM; Start 07/01/17 at 14:00 Rifaximin 550 mg 550 mg BID PO Last administered on 07/11/17 08:54; Admin Dose 550 MG; Start 07/03/17 at 21:00 Pantoprazole 80 mg/Sodium Chloride 100 ml @ 10 mls/hr Q10H IV Last administered on 07/11/17 08:55; Admin Dose 10 MLS/HR; Start 07/05/17 at 23:00 Octreotide Acetate 1 mg/ Sodium Chloride 100 ml @ 5 mls/hr Q20H IV Last administered on 07/11/17 03:05; Admin Dose 5 MLS/HR; Start 07/06/17 at 00:30 Norepinephrine 16 mg/Dextrose 500 ml @ 1.87 mls/hr TITRATE PRN IV BLOOD PRESSURE SUPPORT Last administered on 07/11/17 06:21; Admin Dose 9.37 MLS/HR; Start 07/07/17 at 06:00 Cefepime HCl/ Sodium Chloride (Maxipime/NS) 50 ml @ 100 mls/hr Q24H IVPB Last administered on 07/10/17 13:51; Admin Dose 100 MLS/HR; Start 07/07/17 at 14:00 IV Flush 10 ml 10 ml PRN PRN IV IV PROTOCOL; Start 07/07/17 at 15:30 Fluconazole/ Sodium Chloride (Diflucan 100 Mg/ NS (Pmx)) 50 ml @ 50 mls/hr Q24H IVPB Last administered on 07/11/17 11:35; Admin Dose 50 MLS/HR; Start at 12:00 Simethicone (Mylicon) 80 mg Q6 GTB Last administered on 07/11/17 11:35; Admin Dose 80 MG; Start 07/09/17 at 12:00 Linezolid 600 mg 600 mg BID PO Last administered on 07/11/17 08:55; Admin Dose 600 MG; Start 07/09/17 at 21:00 Metronidazole 250 mg/N/A 50 ml @ 50 mls/hr Q8 IVPB Last administered on 06:23; Admin Dose 50 MLS/HR; Start 07/10/17 at 14:00 Bumetanide/ Dextrose (Bumex/D5W) 250 ml @ 10 mls/hr Q24H IV Last administered on 07/10/17 19:16; Admin Dose 10 MLS/HR; Start 07/10/17 at 17:00 PERLA VANESSA MD Jul 11, 2017 14:00
[2017-07-11] MEDS: CEFEPIME HCL 0.5 GM in SOD CHLORIDE 0.9% 50 ML IVPB SCH (14:19)
--- NOTE | 2017-07-11 16:22 | PN ---
Date/Time of Note Date/Time of Note DATE: 07/11/17 TIME: 16:18 Assessment/Plan VTE Prophylaxis VTE Prophylaxis Intervention: SCD's Lines/Catheters IV Catheter Type (from Nrs): PICC Line Central line still needed: Yes Urinary Cath still in place: Yes Reason Cath still needed: other (indicate) (monitor I&O) Assessment/Plan Chief Complaint/Hosp Course Assessment and plan 1. Symptomatic cholelithiasis. Patient status post surgical intervention. Analgesics as needed. 2. Decompensated alcoholic liver cirrhosis with ascites and portal hypertension. Continue lactulose. Of note patient did have ultrasound-guided paracentesis on July 02, 2017. Still with abd distention. paracentesis prn 3. Acute kidney injury. worse today. f/u nephrology. possible HD if worse. Suspect hepatorenal syndrome 4. anemia. Continue on iron supplement. Transfuse prbc as needed. Status post EGD with grade 3 to grade 4 esophageal varices seen status post variceal ligation 5. Continue to monitor H&H. 5. Transaminitis with hyperbilirubinemia secondary to #1 and #2. Monitor level. Disposition plan: Prognosis is guarded.Paracentesis as needed. Monitor renal function. May need dialysis. Continue ICU monitoring. Titrate off Levophed as tolerated Discussed plan of care with Dr. Mukherjee Critical CARE time: 30 minute Problems: Subjective 24 Hr Interval Summary Free Text/Dictation Patient is slightly more somnolent today. Is still alert and oriented. Exam/Review of Systems Vital Signs Vitals Vital Signs Date Time Temp Pulse Resp B/P Pulse Ox O2 Delivery O2 Flow Rate FiO2 07/11/17 15:00 103 10 87/55 92 Room Air 07/11/17 12:00 98.0 07/08/17 02:00 2.0 Intake and Output 07/10/17 07/10/17 07/11/17 15:00 23:00 07:00 Intake Total 850 ml 455 ml 436.22 ml Output Total 430 ml 225 ml Balance 850 ml 25 ml 211.22 ml Exam Constitutional: alert, oriented, lethargic Psych: little anxious Head: normocephalic Eyes: icteric Neck: non-tender, supple Respiratory: clear to auscultation, normal air movement Cardiovascular: regular rate Gastrointestinal: distended, less tender, Musculoskeletal: No swelling Neurological: HYDROGEN TREATER II-XII intact, nl mental status, nl speech Skin: other (jaundice) Results Result Diagram: 07/11/17 04207/11/17 0420 Results 24 hrs Laboratory Tests Test 07/10/17 18:00 07/10/17 19:06 07/11/17 04:20 Urine Color SHAYLA Urine Clarity CLOUDY A Urine pH 5.0 Urine Specific [place] 1.012 Urine Ketones NEGATIVE Urine Nitrite NEGATIVE Urine Bilirubin 2+ H Urine Urobilinogen 1+ H Urine Leukocyte Esterase TRACE A Urine Microscopic RBC 41 H Urine Microscopic WBC 29 H Urine Squamous Epithelial Cells FEW Urine Amorphous Crystals FEW A Urine Bacteria FEW A Urine Hyaline Casts FEW A Urine Mucus FEW A Urine Hemoglobin 3+ H Urine Glucose NEGATIVE Urine Total Protein 1+ H Hemoglobin 9.4 L 9.0 L Hematocrit 27.5 L 26.9 L Ammonia 92 #H White Blood Count 21.9 H Red Blood Count 2.94 L Mean Corpuscular Volume 91.5 Mean Corpuscular Hemoglobin 30.6 Mean Corpuscular Hemoglobin Concent 33.5 Red Cell Distribution Width 20.9 H Platelet Count 218 Mean Platelet Volume 11.6 H Neutrophils % 83.9 H Lymphocytes % 5.8 L Monocytes % 6.7 Eosinophils % 0.9 Basophils % 0.3 Nucleated Red Blood Cells % 0.0 Neutrophils # 18.4 H Lymphocytes # 1.3 Monocytes # 1.5 H Eosinophils # 0.2 Basophils # 0.1 Nucleated Red Blood Cells # 0.0 Sodium Level 144 Potassium Level 3.6 Chloride Level 112 H Carbon Dioxide Level 18 L Anion Gap 18 H Blood Urea Nitrogen 40 H Creatinine 4.42 H Glucose Level 157 Calcium Level 8.3 L Total Bilirubin 18.6 H Direct Bilirubin 16.40 *H Indirect Bilirubin 2.2 H Aspartate Amino Transf (AST/SGOT) 121 H Alanine Aminotransferase (ALT/SGPT) 35 Alkaline Phosphatase 184 H Total Protein 7.1 Albumin 2.5 L Globulin 4.60 H Albumin/Globulin Ratio 0.54 Medications Medications Current Medications Morphine Sulfate (morphine) 3 mg Q4H PRN IV pain Last administered on 14:20; Admin Dose 3 MG; Start 06/26/17 at 03:30 Ondansetron HCl (Zofran Inj) 4 mg Q4H PRN IV NAUSEA AND/OR VOMITING Last administered on 07/10/17 22:56; Admin Dose 4 MG; Start 06/26/17 at 03:30 Ferrous Sulfate (Ferrous Sulfate (Ec)) 325 mg BID PO Last administered on 07/11 08:54; Admin Dose 325 MG; Start 06/27/17 at 21:00 Lactulose (Enulose) 20 gm Q8 PO Last administered on 07/11/17 14:19; Admin Dose 20 GM; Start 07/01/17 at 14:00 Rifaximin 550 mg 550 mg BID PO Last administered on 07/11/17 08:54; Admin Dose 550 MG; Start 07/03/17 at 21:00 Pantoprazole 80 mg/Sodium Chloride 100 ml @ 10 mls/hr Q10H IV Last administered on 07/11/17 08:55; Admin Dose 10 MLS/HR; Start 07/05/17 at 23:00 Octreotide Acetate 1 mg/ Sodium Chloride 100 ml @ 5 mls/hr Q20H IV Last administered on 07/11/17 03:05; Admin Dose 5 MLS/HR; Start 07/06/17 at 00:30 Norepinephrine 16 mg/Dextrose 500 ml @ 1.87 mls/hr TITRATE PRN IV BLOOD PRESSURE SUPPORT Last administered on 07/11/17 06:21; Admin Dose 9.37 MLS/HR; Start 07/07/17 at 06:00 Cefepime HCl/ Sodium Chloride (Maxipime/NS) 50 ml @ 100 mls/hr Q24H IVPB Last administered on 07/11/17 14:19; Admin Dose 100 MLS/HR; Start 07/07/17 at 14:00 IV Flush 10 ml 10 ml PRN PRN IV IV PROTOCOL; Start 07/07/17 at 15:30 Fluconazole/ Sodium Chloride (Diflucan 100 Mg/ NS (Pmx)) 50 ml @ 50 mls/hr Q24H IVPB Last administered on 07/11/17 11:35; Admin Dose 50 MLS/HR; Start at 12:00 Simethicone (Mylicon) 80 mg Q6 GTB Last administered on 07/11/17 11:35; Admin Dose 80 MG; Start 07/09/17 at 12:00 Linezolid 600 mg 600 mg BID PO Last administered on 07/11/17 08:55; Admin Dose 600 MG; Start 07/09/17 at 21:00 Metronidazole 250 mg/N/A 50 ml @ 50 mls/hr Q8 IVPB Last administered on 14:19; Admin Dose 50 MLS/HR; Start 07/10/17 at 14:00 Bumetanide/ Dextrose (Bumex/D5W) 250 ml @ 10 mls/hr Q24H IV Last administered on 07/10/17 19:16; Admin Dose 10 MLS/HR; Start 07/10/17 at 17:00 MADAY VALDEZ Jul 11, 2017 16:22
[2017-07-11] MEDS: BUMETANIDE 25 MG in DEXTROSE 5% 150 ML IV SCH (17:05)
[2017-07-12] VITALS (52 sets, daily range): BP systolic 88–116; BP diastolic 55–75; PULSE 96–111; RESP 8–21
[2017-07-12] MEDS: morphine 4 MG/ML VIAL IV PRN ×3 (00:49→14:05)
[2017-07-12] MEDS: PANTOPRAZOLE IV 80 MG in SOD CHLORIDE 0.9% 100 ML IV SCH ×2 (05:00→16:24)
[2017-07-12] MEDS: LACTULOSE 30ML CUP PO SCH ×3 (06:00)
[2017-07-12 06:15] LABS: ABNORMAL IP MESSAGE 1; BASOPHIL # 0.1 10^3/ul (0.0-0.1); BASOPHILS % 0.3 % (0.0-2.0); EOSINOPHILS # 0.2 10^3/ul (0.0-0.5); EOSINOPHILS % 0.8 % (0.0-7.0); HEMOGLOBIN 9.6 g/dl (12.0-16.0); LYMPHOCYTES # 1.5 10^3/ul (0.8-2.9); MEAN CORPUSCULAR HEMOGLOBIN 30.5 pg (29.0-33.0); MEAN CORPUSCULAR HGB CONC 33.1 g/dl (32.0-37.0); MEAN CORPUSCULAR VOLUME 92.1 fl (82.0-101.0); MEAN PLATELET VOLUME 11.4 fl (7.4-10.4); MONOCYTE # 1.5 10^3/ul (0.3-0.9); MONOCYTES % 5.8 % (0.0-11.0); NEUTROPHILS % 83.9 % (39.0-77.0); PLATELET COUNT 247 10^3/UL (140-415); RED BLOOD COUNT 3.15 10^6/ul (4.20-5.40); RED CELL DISTRIBUTION WIDTH 21.5 % (11.5-14.5)
[2017-07-12 06:23] LABS: POSITIVE DIFF @See below
[2017-07-12 06:59] LABS: ALBUMIN 2.4 g/dl (3.3-4.9); ALBUMIN/GLOBULIN RATIO 0.54; BILIRUBIN,INDIRECT 2.4 mg/dl (0-1.1); BILIRUBIN,TOTAL 19.2 mg/dl (0.2-1.3); CALCIUM 8.2 mg/dl (8.4-10.2); CREATININE 4.55 mg/dl (0.44-1.00); MAGNESIUM 1.8 mg/dl (1.7-2.5); POTASSIUM 3.8 mmol/L (3.5-5.1); TOTAL PROTEIN 6.8 g/dl (6.1-8.1)
[2017-07-12] MEDS: metroNIDAZOLE 500 MG/NS (PMX) 250 MG in EVAC CONTAINER 1 BOTTLE IVPB SCH ×3 (06:59→21:53)
[2017-07-12 07:13] LABS: BILIRUBIN,DIRECT 16.8 mg/dl (0.00-0.20)
--- NOTE | 2017-07-12 08:53 | CONS ---
Date/Time of Note Date/Time of Note DATE: 07/12/17 TIME: 08:47 Assessment/Plan Assessment/Plan Chief Complaint/Hosp Course 1. Acute renal failure. Her urine output has decreased despite being on a Bumex drip. Her serum creatinine is about the same. I am going to continue her on a continuous Bumex drip to see if that stimulates a diuresis. If her renal function continues to decrease then she may need dialysis. I also ordered a Levophed drip to keep her systolic blood pressure above 90. I discussed the possible need for hemodialysis with both the patient and her family. If her renal function does not improve and/or she does not respond to Bumex then I will consider starting her on hemodialysis. She continues to be in positive fluid balance and has more edema. 2. Cirrhosis of the liver with rising bilirubin, low albumin , edema , coagulopathy and encephalopathy. She is more confused today and her ammonia level is higher. She is not taking the lactulose adequately. I would recommend that she have an NG tube placed so that she can get lactulose on a regular basis. 3. She has more diffuse abdominal pain with distention and ascites. 4. Anemia , she was having active GI bleeding . She is now in the ICU for close monitoring. She does not seem to be actively bleeding now. She did undergo an EGD and esophageal varices were ligated. Her H&H have been stable. Problems: Consultation Date/Type/Reason Admit Date/Time Jun 26, 2017 at 00:00 Initial Consult Date 06/26/17 Type of Consultation: Nephrology 24 HR Interval Summary Free Text/Dictation Patient is in the intensive care unit. She is very lethargic. She is confused and disoriented. Constitutional: disoriented, no complaints Exam/Review of Systems Vital Signs Vitals Vital Signs Date Time Temp Pulse Resp B/P Pulse Ox O2 Delivery O2 Flow Rate FiO2 07/12/17 08:00 97.9 104 11 106/65 96 Nasal Cannula 4.0 Intake and Output 07/11/17 07/11/17 07/12/17 15:00 23:00 07:00 Intake Total 527.47 ml 426.25 ml 365 ml Output Total 255 ml 220 ml 195 ml Balance 272.47 ml 206.25 ml 170 ml Exam She has asterixis. Constitutional: frail Psych: confusion Eyes: icteric Respiratory: diminished breath sounds Cardiovascular: edema, regular rate and rhythm Gastrointestinal: ascites, distended Extremities: edema Neurological: confused, lethargic Results Result Diagram: 07/12/17 0547 07/12/17 0547 Results 24 hrs Laboratory Tests Test 07/11/17 21:13 07/12/17 05:47 Bedside Glucose 125 White Blood Count 25.0 H Red Blood Count 3.15 L Hemoglobin 9.6 L Hematocrit 29.0 L Mean Corpuscular Volume 92.1 Mean Corpuscular Hemoglobin 30.5 Mean Corpuscular Hemoglobin Concent 33.1 Red Cell Distribution Width 21.5 H Platelet Count 247 Mean Platelet Volume 11.4 H Neutrophils % 83.9 H Lymphocytes % 6.0 L Monocytes % 5.8 Eosinophils % 0.8 Basophils % 0.3 Nucleated Red Blood Cells % 0.0 Neutrophils # 21.0 H Lymphocytes # 1.5 Monocytes # 1.5 H Eosinophils # 0.2 Basophils # 0.1 Nucleated Red Blood Cells # 0.0 Sodium Level 146 H Potassium Level 3.8 Chloride Level 113 H Carbon Dioxide Level 16 L Anion Gap 21 H Blood Urea Nitrogen 43 H Creatinine 4.55 H Glucose Level 159 Calcium Level 8.2 L Phosphorus Level 6.0 H Magnesium Level 1.8 Total Bilirubin 19.2 H Direct Bilirubin 16.80 *H Indirect Bilirubin 2.4 H Aspartate Amino Transf (AST/SGOT) 136 H Alanine Aminotransferase (ALT/SGPT) 28 Alkaline Phosphatase 215 H Ammonia 149 #H Total Protein 6.8 Albumin 2.4 L Globulin 4.40 H Albumin/Globulin Ratio 0.54 Medications Medications Current Medications Morphine Sulfate (morphine) 3 mg Q4H PRN IV pain Last administered on 00:49; Admin Dose 3 MG; Start 06/26/17 at 03:30 Ondansetron HCl (Zofran Inj) 4 mg Q4H PRN IV NAUSEA AND/OR VOMITING Last administered on 07/10/17 22:56; Admin Dose 4 MG; Start 06/26/17 at 03:30 Ferrous Sulfate (Ferrous Sulfate (Ec)) 325 mg BID PO Last administered on 07/11 21:19; Admin Dose 325 MG; Start 06/27/17 at 21:00 Lactulose (Enulose) 20 gm Q8 PO Last administered on 07/11/17 21:55; Admin Dose 20 GM; Start 07/01/17 at 14:00 Rifaximin 550 mg 550 mg BID PO Last administered on 07/11/17 21:19; Admin Dose 550 MG; Start 07/03/17 at 21:00 Pantoprazole 80 mg/Sodium Chloride 100 ml @ 10 mls/hr Q10H IV Last administered on 07/12/17 05:00; Admin Dose 10 MLS/HR; Start 07/05/17 at 23:00 Octreotide Acetate 1 mg/ Sodium Chloride 100 ml @ 5 mls/hr Q20H IV Last administered on 07/11/17 19:15; Admin Dose 5 MLS/HR; Start 07/06/17 at 00:30 Norepinephrine 16 mg/Dextrose 500 ml @ 1.87 mls/hr TITRATE PRN IV BLOOD PRESSURE SUPPORT Last administered on 07/11/17 06:21; Admin Dose 9.37 MLS/HR; Start 07/07/17 at 06:00 Cefepime HCl/ Sodium Chloride (Maxipime/NS) 50 ml @ 100 mls/hr Q24H IVPB Last administered on 07/11/17 14:19; Admin Dose 100 MLS/HR; Start 07/07/17 at 14:00 IV Flush 10 ml 10 ml PRN PRN IV IV PROTOCOL; Start 07/07/17 at 15:30 Fluconazole/ Sodium Chloride (Diflucan 100 Mg/ NS (Pmx)) 50 ml @ 50 mls/hr Q24H IVPB Last administered on 07/11/17 11:35; Admin Dose 50 MLS/HR; Start at 12:00 Simethicone (Mylicon) 80 mg Q6 GTB Last administered on 07/11/17 11:35; Admin Dose 80 MG; Start 07/09/17 at 12:00 Linezolid 600 mg 600 mg BID PO Last administered on 07/11/17 21:19; Admin Dose 600 MG; Start 07/09/17 at 21:00 Metronidazole 250 mg/N/A 50 ml @ 50 mls/hr Q8 IVPB Last administered on 06:59; Admin Dose 50 MLS/HR; Start 07/10/17 at 14:00 Bumetanide/ Dextrose (Bumex/D5W) 250 ml @ 10 mls/hr Q24H IV Last administered on 07/11/17 17:05; Admin Dose 10 MLS/HR; Start 07/10/17 at 17:00 Lactulose (Enulose) 30 gm Q6 PO Last administered on 07/12/17 06:00; Admin Dose 30 GM; Start 07/12/17 at 00:00 PERLA VANESSA MD Jul 12, 2017 08:53
[2017-07-12] MEDS: RIFAXIMIN 550 MG TAB PO SCH ×2 (09:00→20:13)
[2017-07-12] MEDS: ZYVOX 600 MG TAB PO SCH (09:00)
[2017-07-12] MEDS: FERROUS SULFATE (EC) 325 MG TAB PO SCH ×2 (09:00→20:14)
[2017-07-12 09:17] LABS: AADO2 Arterial 113.8 mmHg (7.0-24.0); Allen Test ACCEPTAB; Arterial Base Excess -7.6 mmol/L (-3.0-3); Arterial COHb 0.5 % (0.0-3.0); Arterial Fraction of Oxyhgb 94.4 % (93.0-99.0); Arterial HCO3 16.5 mmol/L (22.0-26.0); Arterial Total Hemglobin 11.3 g/dl (12.0-18.0); MODE NASAL CANNULA
--- NOTE | 2017-07-12 10:31 | PN ---
Date/Time of Note Date/Time of Note DATE: 07/12/17 TIME: 10:19 Assessment/Plan VTE Prophylaxis VTE Prophylaxis Intervention: SCD's Lines/Catheters IV Catheter Type (from Nrsg): PICC Line Central line still needed: Yes (meds) Urinary Cath still in place: Yes Reason Cath still needed: other (indicate) (monitor out-put) Assessment/Plan Chief Complaint/Hosp Course Assessment Anemia EGD 07/07/17 Impression: Grade III/IV esophageal varices with stigmata recent bleeding Post endoscopic variceal ligation 5 Portal hypertensive gastropathy. Otherwise normal EGD. Alcoholic hepatitis Liver cirrhosis with ascites No evidence of cholecystitis- negative HIDA Acute kidney injury/worsening possible needing HD Sepsis Metabolic acidosis S/p Paracentesis Encephalopathy/worsening Plan: Continue to monitor H/H - transfuse as needed Renal on case- poss start of HD Pt with more confusion place NGT- for lactulose - if not able to place NGT will give lactulose via RC Plan for family meeting with Dr. Bocanegra Patient with poor prognosis Patient seen in collaboration with Dr. Ny Subjective: Course reviewed with nursing staff Patient interviewed and examined All labs, imaging and other results reviewed Pt with increased confusion- not able to jose PO intake, will place NGT for po medication. if not able to place NGT- then give lactulose vis RC H/H stable, WBC 25.0, AST increasing, bili increasing, and albumin remains low. Patient remains on pressers. Spoke with family regarding patients condition. PHYSICAL EXAMINATION: GENERAL: Well developed, well nourished, alert & oriented x 3. SKIN: No lesions, no stigmata chronic liver disease, no evidence of bleeding diathesis. Jaundiced. Pitting edema bilateral lower extremities. LYMPHATIC: No palpable lymphadenopathy. HEAD: Normocephalic, atraumatic, no tenderness. EYES: Pupils equal reactive to light and accommodation, full extraocular movements, icteric, no discharge. EARS/NOSE AND THROAT: Ears normal, nose normal, NECK: Supple, CHEST: Inspection within normal limits. CARDIOVASCULAR: Heart: Regular rate and rhythm,. RESPIRATORY: Lungs clear to auscultation GASTROINTESTINAL AND LIVER: Abdomen: Soft, left upper quadrant tenderness, Distended, no hernias, no masses, ascites, splenomegaly, no guarding, no rebound tenderness, normoactive bowel sounds. Rectal: Deferred. GENITOURINARY: Female genitalia within normal limits. EXTREMITIES: No cyanosis, clubbing or edema. Problems: Exam/Review of Systems Vital Signs Vitals Vital Signs Date Time Temp Pulse Resp B/P Pulse Ox O2 Delivery O2 Flow Rate FiO2 07/12/17 08:00 103 07/12/17 08:00 97.9 11 106/65 96 Nasal Cannula 4.0 Intake and Output 07/11/17 07/11/17 07/12/17 15:00 23:00 07:00 Intake Total 527.47 ml 426.25 ml 365 ml Output Total 255 ml 220 ml 195 ml Balance 272.47 ml 206.25 ml 170 ml Results Result Diagram: 07/12/17 0547 07/12/17 0547 Results 24 hrs Laboratory Tests Test 07/11/17 21:13 07/12/17 05:47 07/12/17 08:46 Bedside Glucose 125 White Blood Count 25.0 H Red Blood Count 3.15 L Hemoglobin 9.6 L Hematocrit 29.0 L Mean Corpuscular Volume 92.1 Mean Corpuscular Hemoglobin 30.5 Mean Corpuscular Hemoglobin Concent 33.1 Red Cell Distribution Width 21.5 H Platelet Count 247 Mean Platelet Volume 11.4 H Neutrophils % 83.9 H Lymphocytes % 6.0 L Monocytes % 5.8 Eosinophils % 0.8 Basophils % 0.3 Nucleated Red Blood Cells % 0.0 Neutrophils # 21.0 H Lymphocytes # 1.5 Monocytes # 1.5 H Eosinophils # 0.2 Basophils # 0.1 Nucleated Red Blood Cells # 0.0 Sodium Level 146 H Potassium Level 3.8 Chloride Level 113 H Carbon Dioxide Level 16 L Anion Gap 21 H Blood Urea Nitrogen 43 H Creatinine 4.55 H Glucose Level 159 Calcium Level 8.2 L Phosphorus Level 6.0 H Magnesium Level 1.8 Total Bilirubin 19.2 H Direct Bilirubin 16.80 *H Indirect Bilirubin 2.4 H Aspartate Amino Transf (AST/SGOT) 136 H Alanine Aminotransferase (ALT/SGPT) 28 Alkaline Phosphatase 215 H Ammonia 149 #H Total Protein 6.8 Albumin 2.4 L Globulin 4.40 H Albumin/Globulin Ratio 0.54 Blood Gas Specimen Source Blood arterial Arterial Blood Date Drawn 07/12/2017 9:05:52 AM Arterial Blood pH (Temp corrected) 7.367 Arterial Blood pCO2 (Temp correct) 29.4 L Arterial Blood pO2 (Temp corrected) 87.2 Arterial Blood HCO3 16.5 L Arterial Blood Base Excess -7.6 L Arterial Blood Oxygen Saturation 95.8 George Test ACCEPTAB Arterial Blood Gas Puncture Site Right Radial Arterial Blood Carboxyhemoglobin 0.5 Arterial Blood Methemoglobin 1.0 Blood Gas A-a O2 Differential 113.8 H Oxyhemoglobin Percent 94.4 Total Hemoglobin 11.3 L Blood Gas Temperature 37.0 Blood Gas Modality NASAL CANNULA FiO2 33.0 Blood Gas Notified Whom JLD Blood Gas Notified Time 07/12/2017 9:17:32 AM Medications Medications Current Medications Morphine Sulfate (morphine) 3 mg Q4H PRN IV pain Last administered on 00:49; Admin Dose 3 MG; Start 06/26/17 at 03:30 Ondansetron HCl (Zofran Inj) 4 mg Q4H PRN IV NAUSEA AND/OR VOMITING Last administered on 07/10/17 22:56; Admin Dose 4 MG; Start 06/26/17 at 03:30 Ferrous Sulfate (Ferrous Sulfate (Ec)) 325 mg BID PO Last administered on 07/11 21:19; Admin Dose 325 MG; Start 06/27/17 at 21:00 Lactulose (Enulose) 20 gm Q8 PO Last administered on 07/11/17 21:55; Admin Dose 20 GM; Start 07/01/17 at 14:00 Rifaximin 550 mg 550 mg BID PO Last administered on 07/11/17 21:19; Admin Dose 550 MG; Start 07/03/17 at 21:00 Pantoprazole 80 mg/Sodium Chloride 100 ml @ 10 mls/hr Q10H IV Last administered on 07/12/17 05:00; Admin Dose 10 MLS/HR; Start 07/05/17 at 23:00 Octreotide Acetate 1 mg/ Sodium Chloride 100 ml @ 5 mls/hr Q20H IV Last administered on 07/11/17 19:15; Admin Dose 5 MLS/HR; Start 07/06/17 at 00:30 Norepinephrine 16 mg/Dextrose 500 ml @ 1.87 mls/hr TITRATE PRN IV BLOOD PRESSURE SUPPORT Last administered on 07/11/17 06:21; Admin Dose 9.37 MLS/HR; Start 07/07/17 at 06:00 Cefepime HCl/ Sodium Chloride (Maxipime/NS) 50 ml @ 100 mls/hr Q24H IVPB Last administered on 07/11/17 14:19; Admin Dose 100 MLS/HR; Start 07/07/17 at 14:00 IV Flush 10 ml 10 ml PRN PRN IV IV PROTOCOL; Start 07/07/17 at 15:30 Fluconazole/ Sodium Chloride (Diflucan 100 Mg/ NS (Pmx)) 50 ml @ 50 mls/hr Q24H IVPB Last administered on 07/11/17 11:35; Admin Dose 50 MLS/HR; Start at 12:00 Simethicone (Mylicon) 80 mg Q6 GTB Last administered on 07/11/17 11:35; Admin Dose 80 MG; Start 07/09/17 at 12:00 Linezolid 600 mg 600 mg BID PO Last administered on 07/11/17 21:19; Admin Dose 600 MG; Start 07/09/17 at 21:00 Metronidazole 250 mg/N/A 50 ml @ 50 mls/hr Q8 IVPB Last administered on 06:59; Admin Dose 50 MLS/HR; Start 07/10/17 at 14:00 Bumetanide/ Dextrose (Bumex/D5W) 250 ml @ 10 mls/hr Q24H IV Last administered on 07/11/17 17:05; Admin Dose 10 MLS/HR; Start 07/10/17 at 17:00 Lactulose (Enulose) 30 gm Q6 PO Last administered on 07/12/17 06:00; Admin Dose 30 GM; Start 07/12/17 at 00:00 ABE KRISHNA Jul 12, 2017 10:30
[2017-07-12] MEDS ORDERED: LACTULOSE 30ML CUP NGT SCH (11:00)
[2017-07-12] MEDS ORDERED: LACTULOSE 30ML CUP PR SCH (11:00)
[2017-07-12 11:49] LABS: INR 2.65; PT RATIO 2.3
[2017-07-12 11:50] LABS: PARTIAL THROMBOPLASTIN TIME 59.8 Sec (25.0-35.0)
[2017-07-12] MEDS: LACTULOSE 30ML CUP PR SCH ×3 (12:00→23:41)
--- NOTE | 2017-07-12 13:35 | PN ---
DATE: 07/12/2017 SUBJECTIVE: Patient is lethargic on Levophed drip. Looks comfortable, no fevers. VITAL SIGNS: Temperature 97.4, pulse 98, respirations 13, blood pressure 93/64 , saturation 98 on 4 liters. LABORATORY DATA: WBC 25, H and H 9.6 and 29, platelets 247, neutrophils 83.9, BUN 43, creatinine 4.55. MICROBIOLOGY: Urine culture on admission grew enterococcus species and Ruth albicans. INDWELLINGS: The patient has PICC line, Vega catheter. ANTIMICROBIALS: She is on: 1. IV Flagyl. 2. Fluconazole. 3. Cefepime. 4. Zyvox. PHYSICAL EXAMINATION: GENERAL: This is a chronically ill-appearing, middle-aged woman who is awake, in no distress. HEENT: Head atraumatic, normocephalic. Sclerae icteric. Buccal mucosa dry. NECK: Supple. CHEST: Rise symmetrical. Breath sounds diminished to bases. HEART: S1, S2. ABDOMEN: Distended, positive ascites, positive tympany on precaution. Bowel tones hypoactive. EXTREMITIES: With dependent trace edema. SKIN: Positive for anasarca and jaundice ASSESSMENT: 1. Septic shock. 2. End-stage liver disease. 3. Urinary tract infection. 4. Ascites, possible SBP. 5. Acute renal failure, likely hepatorenal syndrome. 6. Acute anemia. The patient is status post EGD on 07/07/2017 with variceal ligation. 7. Encephalopathy secondary to above. PLAN: The patient is doing poorly. She is being seen by multiple consultants, plan to start her on hemodialysis. We will continue her on current antibiotics. She is supposed to have paracentesis, we will send fluid for cultures and cytology. Dictated By: FARHAT GARDINER RAIL TRANSPORTATION OPERATOR for JAISON ROBLERO/SHAE Conf#: [id number] DID#: [id number] MTDD
--- NOTE | 2017-07-12 13:42 | PN ---
Date/Time of Note Date/Time of Note DATE: 07/12/17 TIME: 13:39 Assessment/Plan VTE Prophylaxis VTE Prophylaxis Intervention: SCD's Lines/Catheters IV Catheter Type (from Nrs): PICC Line Central line still needed: Yes Urinary Cath still in place: Yes Reason Cath still needed: other (indicate) (monitor I&O) Assessment/Plan Chief Complaint/Hosp Course Assessment and plan 1. Symptomatic cholelithiasis. Patient status post surgical intervention. Analgesics as needed. 2. Decompensated alcoholic liver cirrhosis with ascites and portal hypertension. Continue lactulose. Of note patient did have ultrasound-guided paracentesis on July 02, 2017. With worsening abdominal distention. Plan for paracentesis once coagulopathy improved 3. Acute kidney injury. worse today. f/u nephrology. possible HD if worse. Suspect hepatorenal syndrome 4. anemia. Continue on iron supplement. Transfuse prbc as needed. Status post EGD with grade 3 to grade 4 esophageal varices seen status post variceal ligation 5. Continue to monitor H&H. 5. Transaminitis with hyperbilirubinemia secondary to #1 and #2. Monitor level. Disposition plan: Prognosis is guarded. Plan for paracentesis once coagulopathy improved. Patient with worsening mentation. Unable to tolerate oral intake. Plan for NG tube per GI. Will try lactulose enema considering elevated ammonia. Will get palliative care physician to follow. Discussed plan of care with Dr. Mauricoi Critical CARE time: 30 minute Problems: Subjective 24 Hr Interval Summary Free Text/Dictation With worsening mentation. Alert but hard to arouse. Family at bedside. Exam/Review of Systems Vital Signs Vitals Vital Signs Date Time Temp Pulse Resp B/P Pulse Ox O2 Delivery O2 Flow Rate FiO2 07/12/17 13:00 97 9 104/67 98 Nasal Cannula 4.0 07/12/17 12:00 97.4 Intake and Output 07/11/17 07/11/17 07/12/17 14:59 22:59 06:59 Intake Total 606.84 ml 431.25 ml 325 ml Output Total 260 ml 225 ml 190 ml Balance 346.84 ml 206.25 ml 135 ml Exam Constitutional: alert, more somnolent today. Head: normocephalic Eyes: icteric Neck: non-tender, supple Respiratory: clear to auscultation, normal air movement Cardiovascular: regular rate Gastrointestinal: distended, Musculoskeletal: No swelling Neurological: [employer] II-XII intact, nl mental status, nl speech Skin: other (jaundice) Results Result Diagram: 07/12/17 0547 07/12/17 0547 Results 24 hrs Laboratory Tests Test 07/11/17 21:13 07/12/17 05:47 07/12/17 08:46 07/12/17 11:11 Bedside Glucose 125 White Blood Count 25.0 H Red Blood Count 3.15 L Hemoglobin 9.6 L Hematocrit 29.0 L Mean Corpuscular Volume 92.1 Mean Corpuscular Hemoglobin 30.5 Mean Corpuscular Hemoglobin Concent 33.1 Red Cell Distribution Width 21.5 H Platelet Count 247 Mean Platelet Volume 11.4 H Neutrophils % 83.9 H Lymphocytes % 6.0 L Monocytes % 5.8 Eosinophils % 0.8 Basophils % 0.3 Nucleated Red Blood Cells % 0.0 Neutrophils # 21.0 H Lymphocytes # 1.5 Monocytes # 1.5 H Eosinophils # 0.2 Basophils # 0.1 Nucleated Red Blood Cells # 0.0 Sodium Level 146 H Potassium Level 3.8 Chloride Level 113 H Carbon Dioxide Level 16 L Anion Gap 21 H Blood Urea Nitrogen 43 H Creatinine 4.55 H Glucose Level 159 Calcium Level 8.2 L Phosphorus Level 6.0 H Magnesium Level 1.8 Total Bilirubin 19.2 H Direct Bilirubin 16.80 *H Indirect Bilirubin 2.4 H Aspartate Amino Transf (AST/SGOT) 136 H Alanine Aminotransferase (ALT/SGPT) 28 Alkaline Phosphatase 215 H Ammonia 149 #H Total Protein 6.8 Albumin 2.4 L Globulin 4.40 H Albumin/Globulin Ratio 0.54 Blood Gas Specimen Source Blood arterial Arterial Blood Date Drawn 07/12/2017 9:05:52 AM Arterial Blood pH (Temp corrected) 7.367 Arterial Blood pCO2 (Temp correct) 29.4 L Arterial Blood pO2 (Temp corrected) 87.2 Arterial Blood HCO3 16.5 L Arterial Blood Base Excess -7.6 L Arterial Blood Oxygen Saturation 95.8 George Test ACCEPTAB Arterial Blood Gas Puncture Site Right Radial Arterial Blood Carboxyhemoglobin 0.5 Arterial Blood Methemoglobin 1.0 Blood Gas A-a O2 Differential 113.8 H Oxyhemoglobin Percent 94.4 Total Hemoglobin 11.3 L Blood Gas Temperature 37.0 Blood Gas Modality NASAL CANNULA FiO2 33.0 Blood Gas Notified Whom JLD Blood Gas Notified Time 07/12/2017 9:17:32 AM Prothrombin Time 29.0 #H Prothrombin Time Ratio 2.3 INR International Normalized Ratio 2.65 Activated Partial Thromboplast Time 59.8 H Medications Medications Current Medications Morphine Sulfate (morphine) 3 mg Q4H PRN IV pain Last administered on 10:06; Admin Dose 3 MG; Start 06/26/17 at 03:30 Ondansetron HCl (Zofran Inj) 4 mg Q4H PRN IV NAUSEA AND/OR VOMITING Last administered on 07/10/17 22:56; Admin Dose 4 MG; Start 06/26/17 at 03:30 Ferrous Sulfate (Ferrous Sulfate (Ec)) 325 mg BID PO Last administered on 07/11 21:19; Admin Dose 325 MG; Start 06/27/17 at 21:00 Rifaximin 550 mg 550 mg BID PO Last administered on 07/11/17 21:19; Admin Dose 550 MG; Start 07/03/17 at 21:00 Pantoprazole 80 mg/Sodium Chloride 100 ml @ 10 mls/hr Q10H IV Last administered on 07/12/17 05:00; Admin Dose 10 MLS/HR; Start 07/05/17 at 23:00 Octreotide Acetate 1 mg/ Sodium Chloride 100 ml @ 5 mls/hr Q20H IV Last administered on 07/11/17 19:15; Admin Dose 5 MLS/HR; Start 07/06/17 at 00:30 Norepinephrine 16 mg/Dextrose 500 ml @ 1.87 mls/hr TITRATE PRN IV BLOOD PRESSURE SUPPORT Last administered on 07/11/17 06:21; Admin Dose 9.37 MLS/HR; Start 07/07/17 at 06:00 Cefepime HCl/ Sodium Chloride (Maxipime/NS) 50 ml @ 100 mls/hr Q24H IVPB Last administered on 07/11/17 14:19; Admin Dose 100 MLS/HR; Start 07/07/17 at 14:00 IV Flush 10 ml 10 ml PRN PRN IV IV PROTOCOL; Start 07/07/17 at 15:30 Fluconazole/ Sodium Chloride (Diflucan 100 Mg/ NS (Pmx)) 50 ml @ 50 mls/hr Q24H IVPB Last administered on 07/11/17 11:35; Admin Dose 50 MLS/HR; Start at 12:00 Simethicone (Mylicon) 80 mg Q6 GTB Last administered on 07/11/17 11:35; Admin Dose 80 MG; Start 07/09/17 at 12:00 Linezolid 600 mg 600 mg BID PO Last administered on 07/11/17 21:19; Admin Dose 600 MG; Start 07/09/17 at 21:00 Metronidazole 250 mg/N/A 50 ml @ 50 mls/hr Q8 IVPB Last administered on 06:59; Admin Dose 50 MLS/HR; Start 07/10/17 at 14:00 Bumetanide/ Dextrose (Bumex/D5W) 250 ml @ 10 mls/hr Q24H IV Last administered on 07/11/17 17:05; Admin Dose 10 MLS/HR; Start 07/10/17 at 17:00 Lactulose (Enulose) 30 gm Q6 TN ; Start 07/12/17 at 12:00 MADAY VALDEZ Jul 12, 2017 13:42
--- NOTE | 2017-07-12 14:08 | CONS ---
Date/Time of Note Date/Time of Note DATE: 07/12/17 TIME: 14:04 Consultation Date/Type/Reason Admit Date/Time Jun 26, 2017 at 00:00 Hx of Present Illness Palliative care consultation on this 47-year-old female who is in the intensive care unit [facility] septic. She has a history of compensated liver cirrhosis with portal hypertension with ascites acute kidney injury. Is noncommunicative at this time and they are only son and a nephew who is available at this time in the room to speak with me. And is on the road unable to meet with me today but he will be back tomorrow morning at 0600. I will meet with him at that time. We contacted patient's while he was in transit to him speakerphone with other members of the family in attendance. Most important question at this time is whether or not she would want to have cardiopulmonary resuscitation or even to be put on artificial ventilation. Even if she does not require CPR we suspect that intubation may be inevitable. Patient currently in renal failure also being seen by Dr. Lowe. There are no definite decision will be made as to the patient's said that she would want to live. Both her son and relatives states that is spoken to him about living on artificial machines and never want to do so. There was supposedly a conversation also denied patient wanted to be dialyzed. Views of the information which is collecting I am to meet with family members tomorrow morning once again. Full palliative care consultation will be done at that time at 0600 hrs. Past Medical History Medical History: other (cirrhosis ) Past Surgical History Past Surgical Hx: no surgical history Social History Alcohol Use: heavy Smoking Status: Never smoker Drug Use: none Exam/Review of Systems Vital Signs Vitals Vital Signs Date Time Temp Pulse Resp B/P Pulse Ox O2 Delivery O2 Flow Rate FiO2 07/12/17 13:00 97 9 104/67 98 Nasal Cannula 4.0 07/12/17 12:00 97.4 Intake and Output 07/11/17 07/11/17 07/12/17 15:00 23:00 07:00 Intake Total 527.47 ml 426.25 ml 365 ml Output Total 255 ml 220 ml 195 ml Balance 272.47 ml 206.25 ml 170 ml Results Result Diagram: 07/12/17 0547 07/12/17 0547 Results 24 hrs Laboratory Tests Test 07/11/17 21:13 07/12/17 05:47 07/12/17 08:46 07/12/17 11:11 Bedside Glucose 125 White Blood Count 25.0 H Red Blood Count 3.15 L Hemoglobin 9.6 L Hematocrit 29.0 L Mean Corpuscular Volume 92.1 Mean Corpuscular Hemoglobin 30.5 Mean Corpuscular Hemoglobin Concent 33.1 Red Cell Distribution Width 21.5 H Platelet Count 247 Mean Platelet Volume 11.4 H Neutrophils % 83.9 H Lymphocytes % 6.0 L Monocytes % 5.8 Eosinophils % 0.8 Basophils % 0.3 Nucleated Red Blood Cells % 0.0 Neutrophils # 21.0 H Lymphocytes # 1.5 Monocytes # 1.5 H Eosinophils # 0.2 Basophils # 0.1 Nucleated Red Blood Cells # 0.0 Sodium Level 146 H Potassium Level 3.8 Chloride Level 113 H Carbon Dioxide Level 16 L Anion Gap 21 H Blood Urea Nitrogen 43 H Creatinine 4.55 H Glucose Level 159 Calcium Level 8.2 L Phosphorus Level 6.0 H Magnesium Level 1.8 Total Bilirubin 19.2 H Direct Bilirubin 16.80 *H Indirect Bilirubin 2.4 H Aspartate Amino Transf (AST/SGOT) 136 H Alanine Aminotransferase (ALT/SGPT) 28 Alkaline Phosphatase 215 H Ammonia 149 #H Total Protein 6.8 Albumin 2.4 L Globulin 4.40 H Albumin/Globulin Ratio 0.54 Blood Gas Specimen Source Blood arterial Arterial Blood Date Drawn 07/12/2017 9:05:52 AM Arterial Blood pH (Temp corrected) 7.367 Arterial Blood pCO2 (Temp correct) 29.4 L Arterial Blood pO2 (Temp corrected) 87.2 Arterial Blood HCO3 16.5 L Arterial Blood Base Excess -7.6 L Arterial Blood Oxygen Saturation 95.8 George Test ACCEPTAB Arterial Blood Gas Puncture Site Right Radial Arterial Blood Carboxyhemoglobin 0.5 Arterial Blood Methemoglobin 1.0 Blood Gas A-a O2 Differential 113.8 H Oxyhemoglobin Percent 94.4 Total Hemoglobin 11.3 L Blood Gas Temperature 37.0 Blood Gas Modality NASAL CANNULA FiO2 33.0 Blood Gas Notified Whom D Blood Gas Notified Time 07/12/2017 9:17:32 AM Prothrombin Time 29.0 #H Prothrombin Time Ratio 2.3 INR International Normalized Ratio 2.65 Activated Partial Thromboplast Time 59.8 H Medications Medications Current Medications Morphine Sulfate (morphine) 3 mg Q4H PRN IV pain Last administered on 10:06; Admin Dose 3 MG; Start 06/26/17 at 03:30 Ondansetron HCl (Zofran Inj) 4 mg Q4H PRN IV NAUSEA AND/OR VOMITING Last administered on 07/10/17 22:56; Admin Dose 4 MG; Start 06/26/17 at 03:30 Ferrous Sulfate (Ferrous Sulfate (Ec)) 325 mg BID PO Last administered on 07/11 21:19; Admin Dose 325 MG; Start 06/27/17 at 21:00 Rifaximin 550 mg 550 mg BID PO Last administered on 07/11/17 21:19; Admin Dose 550 MG; Start 07/03/17 at 21:00 Pantoprazole 80 mg/Sodium Chloride 100 ml @ 10 mls/hr Q10H IV Last administered on 07/12/17 05:00; Admin Dose 10 MLS/HR; Start 07/05/17 at 23:00 Octreotide Acetate 1 mg/ Sodium Chloride 100 ml @ 5 mls/hr Q20H IV Last administered on 07/11/17 19:15; Admin Dose 5 MLS/HR; Start 07/06/17 at 00:30 Norepinephrine 16 mg/Dextrose 500 ml @ 1.87 mls/hr TITRATE PRN IV BLOOD PRESSURE SUPPORT Last administered on 07/11/17 06:21; Admin Dose 9.37 MLS/HR; Start 07/07/17 at 06:00 Cefepime HCl/ Sodium Chloride (Maxipime/NS) 50 ml @ 100 mls/hr Q24H IVPB Last administered on 07/11/17 14:19; Admin Dose 100 MLS/HR; Start 07/07/17 at 14:00 IV Flush 10 ml 10 ml PRN PRN IV IV PROTOCOL; Start 07/07/17 at 15:30 Fluconazole/ Sodium Chloride (Diflucan 100 Mg/ NS (Pmx)) 50 ml @ 50 mls/hr Q24H IVPB Last administered on 07/11/17 11:35; Admin Dose 50 MLS/HR; Start at 12:00 Simethicone (Mylicon) 80 mg Q6 GTB Last administered on 07/11/17 11:35; Admin Dose 80 MG; Start 07/09/17 at 12:00 Linezolid 600 mg 600 mg BID PO Last administered on 07/11/17 21:19; Admin Dose 600 MG; Start 07/09/17 at 21:00 Metronidazole 250 mg/N/A 50 ml @ 50 mls/hr Q8 IVPB Last administered on 06:59; Admin Dose 50 MLS/HR; Start 07/10/17 at 14:00 Bumetanide/ Dextrose (Bumex/D5W) 250 ml @ 10 mls/hr Q24H IV Last administered on 07/11/17 17:05; Admin Dose 10 MLS/HR; Start 07/10/17 at 17:00 Lactulose (Enulose) 30 gm Q6 PA ; Start 07/12/17 at 12:00 ALFONSO BARAJAS Jul 12, 2017 14:08
[2017-07-12] MEDS: BUMETANIDE 25 MG in DEXTROSE 5% 150 ML IV SCH (14:23)
[2017-07-12] MEDS: FLUCONAZOLE 100 MG/NS (PMX) 50 ML IVPB SCH (14:23)
[2017-07-12] MEDS: CEFEPIME HCL 0.5 GM in SOD CHLORIDE 0.9% 50 ML IVPB SCH (15:25)
[2017-07-12] MEDS: OCTREOTIDE 1 MG in SOD CHLORIDE 0.9% 95 ML IV SCH (16:28)
[2017-07-12] MEDS: LINEZOLID 600 MG/D5W (PMX) 300 ML IVPB SCH (21:52)
--- NOTE | 2017-07-12 22:43 | CONS ---
DATE OF ADMISSION: 06/26/2017 DATE OF CONSULTATION: REASON FOR CONSULTATION: Renal failure. HISTORY OF PRESENT ILLNESS: This is a 47-year-old female with a history of liver failure, admitted with acute renal failure, currently also being treated for liver failure. The patient has a BUN of 43, creatinine of 4.5, also has coagulopathy with an INR of 2.65, which is up from INR of 1.95. The patient may be needing dialysis in the near future. PAST MEDICAL HISTORY: Liver failure, hypertension, hyperlipidemia. PAST SURGICAL HISTORY: None. ALLERGIES: NONE. SOCIAL HISTORY: No smoking, drinking or drug use. MEDICATIONS: List reviewed. PHYSICAL EXAMINATION: VITAL SIGNS: Blood pressure is 114/75, pulse is 97, respirations 18, saturation is 98% on 4 liters of oxygen. CARDIOVASCULAR: Normal S1, S2. LUNGS: Clear. ABDOMEN: Soft. EXTREMITIES: Warm. The patient is jaundiced. LABORATORY VALUES: Significant for an INR of 2.65. BUN is 43, creatinine 1.55, hemoglobin 9.6, whi te count 25, platelet count 247. IMPRESSION: Renal failure. The patient and the family have refused dialysis catheter placement at this time, but the case will be discussed with Dr. Cuevas and their referring physicians for a p ossible catheter insertion, if dialysis is needed. Dictated By: NOEL ENAMORADO MD FM/NTS Conf#: [id number] DID#: [id number] CC: ALAN SWEET MD;*EndCC*
[2017-07-13] VITALS (60 sets, daily range): BP systolic 87–119; BP diastolic 49–91; PULSE 88–113; RESP 10–35
[2017-07-13] MEDS: PANTOPRAZOLE IV 80 MG in SOD CHLORIDE 0.9% 100 ML IV SCH ×3 (01:11→21:48)
--- NOTE | 2017-07-13 02:05 | RADRPT ---
PROCEDURE: XR Abdomen. CLINICAL INDICATION: Nasogastric tube placement. TECHNIQUE: Supine AP view of the abdomen. COMPARISON: 07/08/2017. FINDINGS: A nasogastric tube terminates in the stomach. Gas filled small and large bowel loops are slightly le ss prominent than in the prior examination. Prominent soft tissue opacity in the left upper quadrant raises the possibility of splenomegaly. IMPRESSION: 1. Nasogastric tube tip in the stomach. 2. Gas-filled small and large bowel loops, slightly less prominent than in the prior examination. RPTAT: HTAR .Anthony Verduzco MD, MD Date Time Electronically viewed and signed by .Anthony Verduzco MD, on 07/13/2017 02:04 .R/
[2017-07-13] MEDS: LACTULOSE 30ML CUP PR SCH ×3 (05:28→17:32)
[2017-07-13] MEDS: metroNIDAZOLE 500 MG/NS (PMX) 250 MG in EVAC CONTAINER 1 BOTTLE IVPB SCH ×3 (05:29→21:47)
[2017-07-13 06:08] LABS: ABNORMAL IP MESSAGE 1; BASOPHIL # 0.1 10^3/ul (0.0-0.1); BASOPHILS % 0.3 % (0.0-2.0); EOSINOPHILS # 0.2 10^3/ul (0.0-0.5); EOSINOPHILS % 0.7 % (0.0-7.0); HEMOGLOBIN 9.7 g/dl (12.0-16.0); LYMPHOCYTES # 1.2 10^3/ul (0.8-2.9); LYMPHOCYTES % 4.6 % (15.0-51.0); MEAN CORPUSCULAR HEMOGLOBIN 31.1 pg (29.0-33.0); MEAN CORPUSCULAR HGB CONC 33.4 g/dl (32.0-37.0); MEAN CORPUSCULAR VOLUME 92.9 fl (82.0-101.0); MEAN PLATELET VOLUME 11.4 fl (7.4-10.4); MONOCYTE # 1.3 10^3/ul (0.3-0.9); MONOCYTES % 5.3 % (0.0-11.0); NEUTROPHIL # 21.3 10^3/ul (1.6-7.5); NEUTROPHILS % 85.9 % (39.0-77.0); PLATELET COUNT 263 10^3/UL (140-415); RED BLOOD COUNT 3.12 10^6/ul (4.20-5.40); RED CELL DISTRIBUTION WIDTH 22.3 % (11.5-14.5); WHITE BLOOD COUNT 24.7 10^3/ul (4.8-10.8)
[2017-07-13 06:11] LABS: ALBUMIN 2.5 g/dl (3.3-4.9); ALBUMIN/GLOBULIN RATIO 0.55; BILIRUBIN,INDIRECT 2.5 mg/dl (0-1.1); CALCIUM 8.3 mg/dl (8.4-10.2); CREATININE 4.72 mg/dl (0.44-1.00); POTASSIUM 3.3 mmol/L (3.5-5.1)
[2017-07-13 06:17] LABS: BILIRUBIN,DIRECT 16.5 mg/dl (0.00-0.20)
--- NOTE | 2017-07-13 06:23 | CONS ---
Date/Time of Note Date/Time of Note DATE: 07/13/17 TIME: 06:18 Assessment/Plan Assessment/Plan Chief Complaint/Hosp Course Palliative care consultation on this 47-year-old female who is in the intensive care unit [facility] septic. She has a history of compensated liver cirrhosis with portal hypertension with ascites acute kidney injury. Is noncommunicative at this time and they are only son and a nephew who is available at this time in the room to speak with me. And is on the road unable to meet with me today but he will be back tomorrow morning at 0600. I will meet with him at that time. We contacted patient's while he was in transit to him speakerphone with other members of the family in attendance. Most important question at this time is whether or not she would want to have cardiopulmonary resuscitation or even to be put on artificial ventilation. Even if she does not require CPR we suspect that intubation may be inevitable. Patient currently in renal failure also being seen by Dr. Lowe. There are no definite decision will be made as to the patient's said that she would want to live. Both her son and relatives states that is spoken to him about living on artificial machines and never want to do so. There was supposedly a conversation also denied patient wanted to be dialyzed. Views of the information which is collecting I am to meet with family members tomorrow morning once again. Full palliative care consultation will be done at that time at 0600 hrs. Problems: Additional Assessment/Plan Family conference done at 0600 hrs. with patient's and nephew. First 12 patient's CODE STATUS will be changed to DO NOT RESUSCITATE. Goals of care were discussed options were discussed because there is a chance that she may survive this episode family have agreed on intubation if necessary in dialysis. Other issues communication will be 1 1 we explored patient's decision making and at the time he could make her own decision she decided upon NG tube and anything everything that could be done to save her life. Patient's is a clear understanding of her overall prognosis and hopes that she will recover enough that she will stop drinking and may have a liver transplant sometime in the far future. He has no past experience with a similar tragic circumstance and situation estimated prognosis is still extremely poor. Pain and symptom management issues will be addressed, ethical moral issues have been addressed with patient's he will be the surrogate decision maker for her ongoing level of care. CODE STATUS will be changed as above to DO NOT RESUSCITATE however everything else full level care will be continued. Consultation Date/Type/Reason Admit Date/Time Jun 26, 2017 at 00:00 Initial Consult Date 06/26/17 Type of Consultation: Palliative care Exam/Review of Systems Vital Signs Vitals Vital Signs Date Time Temp Pulse Resp B/P Pulse Ox O2 Delivery O2 Flow Rate FiO2 07/13/17 06:10 97 2.0 07/13/17 06:00 103 10 110/65 Nasal Cannula 07/13/17 04:00 96.8 Intake and Output 07/12/17 07/12/17 07/13/17 15:00 23:00 07:00 Intake Total 430 ml 860 ml 380 ml Output Total 750 ml 450 ml 685 ml Balance -320 ml 410 ml -305 ml Results Result Diagram: 07/12/17 0547 07/13/17 0430 Results 24 hrs Laboratory Tests Test 07/12/17 08:46 07/12/17 11:11 07/12/17 20:49 07/13/17 04:30 Blood Gas Specimen Source Blood arterial Arterial Blood Date Drawn 07/12/2017 9:05:52 AM Arterial Blood pH (Temp corrected) 7.367 Arterial Blood pCO2 (Temp correct) 29.4 L Arterial Blood pO2 (Temp corrected) 87.2 Arterial Blood HCO3 16.5 L Arterial Blood Base Excess -7.6 L Arterial Blood Oxygen Saturation 95.8 George Test ACCEPTAB Arterial Blood Gas Puncture Site Right Radial Arterial Blood Carboxyhemoglobin 0.5 Arterial Blood Methemoglobin 1.0 Blood Gas A-a O2 Differential 113.8 H Oxyhemoglobin Percent 94.4 Total Hemoglobin 11.3 L Blood Gas Temperature 37.0 Blood Gas Modality NASAL CANNULA FiO2 33.0 Blood Gas Notified Whom JLD Blood Gas Notified Time 07/12/2017 9:17:32 AM Prothrombin Time 29.0 #H Prothrombin Time Ratio 2.3 INR International Normalized Ratio 2.65 Activated Partial Thromboplast Time 59.8 H Bedside Glucose 128 White Blood Count Pending Red Blood Count Pending Hemoglobin Pending Hematocrit Pending Mean Corpuscular Volume Pending Mean Corpuscular Hemoglobin Pending Mean Corpuscular Hemoglobin Concent Pending Red Cell Distribution Width Pending Platelet Count Pending Mean Platelet Volume Pending Sodium Level 148 H Potassium Level 3.3 L Chloride Level 116 H Carbon Dioxide Level 17 L Anion Gap 18 H Blood Urea Nitrogen 45 H Creatinine 4.72 H Glucose Level 173 Calcium Level 8.3 L Total Bilirubin 19.0 H Direct Bilirubin 16.50 *H Indirect Bilirubin 2.5 H Aspartate Amino Transf (AST/SGOT) 147 H Alanine Aminotransferase (ALT/SGPT) 29 Alkaline Phosphatase 215 H Total Protein 7.0 Albumin 2.5 L Globulin 4.50 H Albumin/Globulin Ratio 0.55 Test 07/13/17 04:51 Lab Scanned Report BLOOD TRANSFUSION Medications Medications Current Medications Morphine Sulfate (morphine) 3 mg Q4H PRN IV pain Last administered on 14:05; Admin Dose 3 MG; Start 06/26/17 at 03:30 Ondansetron HCl (Zofran Inj) 4 mg Q4H PRN IV NAUSEA AND/OR VOMITING Last administered on 07/10/17 22:56; Admin Dose 4 MG; Start 06/26/17 at 03:30 Ferrous Sulfate (Ferrous Sulfate (Ec)) 325 mg BID PO Last administered on 07/11 21:19; Admin Dose 325 MG; Start 06/27/17 at 21:00 Rifaximin 550 mg 550 mg BID PO Last administered on 07/12/17 20:13; Admin Dose 550 MG; Start 07/03/17 at 21:00 Pantoprazole 80 mg/Sodium Chloride 100 ml @ 10 mls/hr Q10H IV Last administered on 07/13/17 01:11; Admin Dose 10 MLS/HR; Start 07/05/17 at 23:00 Octreotide Acetate 1 mg/ Sodium Chloride 100 ml @ 5 mls/hr Q20H IV Last administered on 07/12/17 16:28; Admin Dose 5 MLS/HR; Start 07/06/17 at 00:30 Norepinephrine 16 mg/Dextrose 500 ml @ 1.87 mls/hr TITRATE PRN IV BLOOD PRESSURE SUPPORT Last administered on 07/12/17 15:19; Admin Dose 1.87 MLS/HR; Start 07/07/17 at 06:00 Cefepime HCl/ Sodium Chloride (Maxipime/NS) 50 ml @ 100 mls/hr Q24H IVPB Last administered on 07/12/17 15:25; Admin Dose 100 MLS/HR; Start 07/07/17 at 14:00 IV Flush 10 ml 10 ml PRN PRN IV IV PROTOCOL; Start 07/07/17 at 15:30 Fluconazole/ Sodium Chloride (Diflucan 100 Mg/ NS (Pmx)) 50 ml @ 50 mls/hr Q24H IVPB Last administered on 07/12/17 14:23; Admin Dose 50 MLS/HR; Start at 12:00 Simethicone 80 mg 80 mg Q6 GTB Last administered on 07/13/17 05:29; Admin Dose 80 MG; Start 07/09/17 at 12:00 Metronidazole 250 mg/N/A 50 ml @ 50 mls/hr Q8 IVPB Last administered on 05:29; Admin Dose 50 MLS/HR; Start 07/10/17 at 14:00 Bumetanide/ Dextrose (Bumex/D5W) 250 ml @ 10 mls/hr Q24H IV Last administered on 07/12/17 14:23; Admin Dose 10 MLS/HR; Start 07/10/17 at 17:00 Lactulose 30 gm 30 gm Q6 DC Last administered on 07/13/17 05:28; Admin Dose 30 GM; Start 07/12/17 at 12:00 Linezolid (Zyvox 600mg/D5W (Pmx)) 300 ml @ 300 mls/hr BID IVPB Last administered on 07/12/17 21:52; Admin Dose 300 MLS/HR; Start 07/12/17 at 21: 00 ALFONSO BARAJAS Jul 13, 2017 06:23
[2017-07-13 06:26] LABS: POSITIVE DIFF @See below
[2017-07-13] MEDS: OCTREOTIDE 1 MG in SOD CHLORIDE 0.9% 95 ML IV SCH (08:00)
[2017-07-13] MEDS: FENTAnyl 50 MCG/ML VIAL IV PRN (08:05)
--- NOTE | 2017-07-13 08:05 | CONS ---
Date/Time of Note Date/Time of Note DATE: 07/13/17 TIME: 07:59 Assessment/Plan Assessment/Plan Chief Complaint/Hosp Course 1. Acute renal failure. Her urine output has increased since yesterday as she is on a Bumex drip. Her serum creatinine is about the same. I am going to continue her on a continuous Bumex drip to see if that stimulates a diuresis. If her renal function continues to decrease then she may need dialysis. I also ordered a Levophed drip to keep her systolic blood pressure above 90. I discussed the possible need for hemodialysis with both the patient and her family. Yesterday before her urine output increased I had ordered hemodialysis and asked a vascular surgeon to place a Vas-Cath for hemodialysis. The patient at the time refused to have the catheter placed and refused dialysis. At this time her urine output has picked up and I will hold off on ordering dialysis today and see how she does. 2. Cirrhosis of the liver with rising bilirubin, low albumin , edema , coagulopathy and encephalopathy. She is more confused today and her ammonia level is higher. She is not taking the lactulose adequately. She now has an NG tube in place and will be given lactulose via the NG tube. She will also be given water down the NG tube. 3. She has more diffuse abdominal pain with distention and ascites. 4. Anemia , she was having active GI bleeding . She is now in the ICU for close monitoring. She does not seem to be actively bleeding now. She did undergo an EGD and esophageal varices were ligated. Her H&H have been stable. 5. Hypernatremia. We will start the patient on NG tube water flushes. Continue to monitor labs. Problems: Consultation Date/Type/Reason Admit Date/Time Jun 26, 2017 at 00:00 Initial Consult Date 06/26/17 Type of Consultation: Nephrology 24 HR Interval Summary Free Text/Dictation She is now in the intensive care unit. She is awake but confused. The patient yesterday was more awake and an attempt was made to start dialysis; however, the patient refused. She refused to have a vascular catheter placed. Constitutional: disoriented Exam/Review of Systems Vital Signs Vitals Vital Signs Date Time Temp Pulse Resp B/P Pulse Ox O2 Delivery O2 Flow Rate FiO2 07/13/17 06:10 97 2.0 07/13/17 06:00 103 10 110/65 Nasal Cannula 07/13/17 04:00 96.8 Intake and Output 07/12/17 07/12/17 07/13/17 15:00 23:00 07:00 Intake Total 430 ml 860 ml 380 ml Output Total 750 ml 450 ml 685 ml Balance -320 ml 410 ml -305 ml Exam Constitutional: alert Psych: confusion Respiratory: diminished breath sounds Cardiovascular: edema, regular rate and rhythm Gastrointestinal: ascites, distended Results Result Diagram: 07/13/17 0430 07/13/17 0430 Results 24 hrs Laboratory Tests Test 07/12/17 08:46 07/12/17 11:11 07/12/17 20:49 07/13/17 04:30 Blood Gas Specimen Source Blood arterial Arterial Blood Date Drawn 07/12/2017 9:05:52 AM Arterial Blood pH (Temp corrected) 7.367 Arterial Blood pCO2 (Temp correct) 29.4 L Arterial Blood pO2 (Temp corrected) 87.2 Arterial Blood HCO3 16.5 L Arterial Blood Base Excess -7.6 L Arterial Blood Oxygen Saturation 95.8 George Test ACCEPTAB Arterial Blood Gas Puncture Site Right Radial Arterial Blood Carboxyhemoglobin 0.5 Arterial Blood Methemoglobin 1.0 Blood Gas A-a O2 Differential 113.8 H Oxyhemoglobin Percent 94.4 Total Hemoglobin 11.3 L Blood Gas Temperature 37.0 Blood Gas Modality NASAL CANNULA FiO2 33.0 Blood Gas Notified Whom JLD Blood Gas Notified Time 07/12/2017 9:17:32 AM Prothrombin Time 29.0 #H Prothrombin Time Ratio 2.3 INR International Normalized Ratio 2.65 Activated Partial Thromboplast Time 59.8 H Bedside Glucose 128 White Blood Count 24.7 H Red Blood Count 3.12 L Hemoglobin 9.7 L Hematocrit 29.0 L Mean Corpuscular Volume 92.9 Mean Corpuscular Hemoglobin 31.1 Mean Corpuscular Hemoglobin Concent 33.4 Red Cell Distribution Width 22.3 H Platelet Count 263 Mean Platelet Volume 11.4 H Neutrophils % 85.9 H Lymphocytes % 4.6 L Monocytes % 5.3 Eosinophils % 0.7 Basophils % 0.3 Nucleated Red Blood Cells % 0.0 Neutrophils # 21.3 H Lymphocytes # 1.2 Monocytes # 1.3 H Eosinophils # 0.2 Basophils # 0.1 Nucleated Red Blood Cells # 0.0 Sodium Level 148 H Potassium Level 3.3 L Chloride Level 116 H Carbon Dioxide Level 17 L Anion Gap 18 H Blood Urea Nitrogen 45 H Creatinine 4.72 H Glucose Level 173 Calcium Level 8.3 L Total Bilirubin 19.0 H Direct Bilirubin 16.50 *H Indirect Bilirubin 2.5 H Aspartate Amino Transf (AST/SGOT) 147 H Alanine Aminotransferase (ALT/SGPT) 29 Alkaline Phosphatase 215 H Total Protein 7.0 Albumin 2.5 L Globulin 4.50 H Albumin/Globulin Ratio 0.55 Test 07/13/17 04:51 Lab Scanned Report BLOOD TRANSFUSION Medications Medications Current Medications Ondansetron HCl (Zofran Inj) 4 mg Q4H PRN IV NAUSEA AND/OR VOMITING Last administered on 07/10/17 22:56; Admin Dose 4 MG; Start 06/26/17 at 03:30 Ferrous Sulfate (Ferrous Sulfate (Ec)) 325 mg BID PO Last administered on 07/11 21:19; Admin Dose 325 MG; Start 06/27/17 at 21:00 Rifaximin 550 mg 550 mg BID PO Last administered on 07/12/17 20:13; Admin Dose 550 MG; Start 07/03/17 at 21:00 Pantoprazole 80 mg/Sodium Chloride 100 ml @ 10 mls/hr Q10H IV Last administered on 07/13/17 01:11; Admin Dose 10 MLS/HR; Start 07/05/17 at 23:00 Octreotide Acetate 1 mg/ Sodium Chloride 100 ml @ 5 mls/hr Q20H IV Last administered on 07/12/17 16:28; Admin Dose 5 MLS/HR; Start 07/06/17 at 00:30 Norepinephrine 16 mg/Dextrose 500 ml @ 1.87 mls/hr TITRATE PRN IV BLOOD PRESSURE SUPPORT Last administered on 07/12/17 15:19; Admin Dose 1.87 MLS/HR; Start 07/07/17 at 06:00 Cefepime HCl/ Sodium Chloride (Maxipime/NS) 50 ml @ 100 mls/hr Q24H IVPB Last administered on 07/12/17 15:25; Admin Dose 100 MLS/HR; Start 07/07/17 at 14:00 IV Flush 10 ml 10 ml PRN PRN IV IV PROTOCOL; Start 07/07/17 at 15:30 Fluconazole/ Sodium Chloride (Diflucan 100 Mg/ NS (Pmx)) 50 ml @ 50 mls/hr Q24H IVPB Last administered on 07/12/17 14:23; Admin Dose 50 MLS/HR; Start at 12:00 Simethicone 80 mg 80 mg Q6 GTB Last administered on 07/13/17 05:29; Admin Dose 80 MG; Start 07/09/17 at 12:00 Metronidazole 250 mg/N/A 50 ml @ 50 mls/hr Q8 IVPB Last administered on 05:29; Admin Dose 50 MLS/HR; Start 07/10/17 at 14:00 Bumetanide/ Dextrose (Bumex/D5W) 250 ml @ 10 mls/hr Q24H IV Last administered on 07/12/17 14:23; Admin Dose 10 MLS/HR; Start 07/10/17 at 17:00 Lactulose 30 gm 30 gm Q6 NJ Last administered on 07/13/17 05:28; Admin Dose 30 GM; Start 07/12/17 at 12:00 Linezolid (Zyvox 600mg/D5W (Pmx)) 300 ml @ 300 mls/hr BID IVPB Last administered on 07/12/17 21:52; Admin Dose 300 MLS/HR; Start 07/12/17 at 21: 00 Fentanyl (Sublimaze) 25 mcg Q2H PRN IV PAIN; Start 07/13/17 at 06:30 PERLA VANESSA MD Jul 13, 2017 08:05
[2017-07-13] MEDS ORDERED: POTASSIUM CHLORIDE 20 MEQ POWDER FOR ORAL SOLN NGT ONE (08:30)
[2017-07-13] MEDS: RIFAXIMIN 550 MG TAB PO SCH ×2 (08:51→20:35)
[2017-07-13] MEDS: LINEZOLID 600 MG/D5W (PMX) 300 ML IVPB SCH ×2 (08:51→20:35)
[2017-07-13] MEDS: FERROUS SULFATE 60 MG/ML 5ML CUP NGT SCH ×2 (08:51→20:35)
--- NOTE | 2017-07-13 09:16 | PN ---
Date/Time of Note Date/Time of Note DATE: 07/13/17 TIME: 09:15 Assessment/Plan VTE Prophylaxis VTE Prophylaxis Intervention: SCD's Lines/Catheters IV Catheter Type (from [facility]): PICC Line Central line still needed: Yes Urinary Cath still in place: Yes Reason Cath still needed: other (indicate) Assessment/Plan Chief Complaint/Hosp Course 1. Acute encephalopathy. -Most probably toxic metabolic in origin. -Continue lactulose. 2. Decompensated alcoholic liver cirrhosis with ascites and portal hypertension. -Continue lactulose. -Status post ultrasound-guided paracentesis on 07/02/2017. 3. Acute kidney injury. -Nephrology following. -To be started on hemodialysis. 4. Metabolic acidosis. -Worsening renal function. -To be started on hemodialysis. 5. Anemia. Normocytic, normochromic. -On iron supplements. 6. Transaminitis with hyperbilirubinemia. -Most probably secondary to #1 and #2. -Avoid hepatotoxic medications. 7. Grade III/IV esophageal varices with stigmata recent bleeding -Post endoscopic variceal ligation 5. -On octreotide and Protonix. 8. Symptomatic cholelithiasis. -No evidence of cholecystitis. -Status post surgical evaluation. No surgical intervention. 9. Fluids, electrolytes, and nutrition. -N.p.o. -Fluid restriction. 10. DVT prophylaxis. -Bilateral sequential compression devices. 11. Plan. -Trend LFTs. -Initiation of hemodialysis as per nephrology. -Replete potassium. Case discussed with Dr. Mauricio. Plan of care was discussed with the patient's family was at the bedside. Critical CARE time: 40 minutes. Problems: Subjective 24 Hr Interval Summary Free Text/Dictation Patient remains lethargic. Remains on Bumex, octreotide, and Protonix drips. Exam/Review of Systems Vital Signs Vitals Vital Signs Date Time Temp Pulse Resp B/P Pulse Ox O2 Delivery O2 Flow Rate FiO2 07/13/17 08:00 101 07/13/17 07:45 98.7 13 97/53 100 Nasal Cannula 1.0 Intake and Output 07/12/17 07/12/17 07/13/17 15:00 23:00 07:00 Intake Total 430 ml 860 ml 380 ml Output Total 750 ml 450 ml 685 ml Balance -320 ml 410 ml -305 ml Exam General: Adequately build 47 year-old female lying in bed in no apparent distress. HEENT: Normocephalic, atraumatic. Eyes: Icteric sclerae, conjunctivae clear. ENT : Nasal septum midline, oral mucosa moist. Neck supple, no JVD noticed. Respiratory: Bilaterally diminished breath sounds. No use of accessory muscles of respiration. No adventitious breath sounds. Cardiovascular: S1, S2 heard. Regular rate and rhythm. Abdomen: Soft. Bowel sounds positive in all 4 quadrants. Minimal distention. Left upper quadrant tenderness. Genitourinary: Deferred. Extremities: No cyanosis, no clubbing. Peripheral pulses palpable. Bilateral lower extremity 2-3+ pitting edema. Neurologic: The patient wakes up to call. Follows commands. Oriented to self. Skin: Normal skin turgor. No skin rashes. Icterus. Results Result Diagram: 07/13/17 0430 07/13/17 0430 Results 24 hrs Laboratory Tests Test 07/12/17 11:11 07/12/17 20:49 07/13/17 04:30 07/13/17 04:51 Prothrombin Time 29.0 #H Prothrombin Time Ratio 2.3 INR International Normalized Ratio 2.65 Activated Partial Thromboplast Time 59.8 H Bedside Glucose 128 White Blood Count 24.7 H Red Blood Count 3.12 L Hemoglobin 9.7 L Hematocrit 29.0 L Mean Corpuscular Volume 92.9 Mean Corpuscular Hemoglobin 31.1 Mean Corpuscular Hemoglobin Concent 33.4 Red Cell Distribution Width 22.3 H Platelet Count 263 Mean Platelet Volume 11.4 H Neutrophils % 85.9 H Lymphocytes % 4.6 L Monocytes % 5.3 Eosinophils % 0.7 Basophils % 0.3 Nucleated Red Blood Cells % 0.0 Neutrophils # 21.3 H Lymphocytes # 1.2 Monocytes # 1.3 H Eosinophils # 0.2 Basophils # 0.1 Nucleated Red Blood Cells # 0.0 Sodium Level 148 H Potassium Level 3.3 L Chloride Level 116 H Carbon Dioxide Level 17 L Anion Gap 18 H Blood Urea Nitrogen 45 H Creatinine 4.72 H Glucose Level 173 Calcium Level 8.3 L Total Bilirubin 19.0 H Direct Bilirubin 16.50 *H Indirect Bilirubin 2.5 H Aspartate Amino Transf (AST/SGOT) 147 H Alanine Aminotransferase (ALT/SGPT) 29 Alkaline Phosphatase 215 H Total Protein 7.0 Albumin 2.5 L Globulin 4.50 H Albumin/Globulin Ratio 0.55 Lab Scanned Report BLOOD TRANSFUSION Medications Medications Current Medications Ondansetron HCl (Zofran Inj) 4 mg Q4H PRN IV NAUSEA AND/OR VOMITING Last administered on 07/10/17 22:56; Admin Dose 4 MG; Start 06/26/17 at 03:30 Rifaximin 550 mg 550 mg BID PO Last administered on 07/13/17 08:51; Admin Dose 550 MG; Start 07/03/17 at 21:00 Pantoprazole 80 mg/Sodium Chloride 100 ml @ 10 mls/hr Q10H IV Last administered on 07/13/17 01:11; Admin Dose 10 MLS/HR; Start 07/05/17 at 23:00 Octreotide Acetate 1 mg/ Sodium Chloride 100 ml @ 5 mls/hr Q20H IV Last administered on 07/12/17 16:28; Admin Dose 5 MLS/HR; Start 07/06/17 at 00:30 Norepinephrine 16 mg/Dextrose 500 ml @ 1.87 mls/hr TITRATE PRN IV BLOOD PRESSURE SUPPORT Last administered on 07/12/17 15:19; Admin Dose 1.87 MLS/HR; Start 07/07/17 at 06:00 Cefepime HCl/ Sodium Chloride (Maxipime/NS) 50 ml @ 100 mls/hr Q24H IVPB Last administered on 07/12/17 15:25; Admin Dose 100 MLS/HR; Start 07/07/17 at 14:00 IV Flush 10 ml 10 ml PRN PRN IV IV PROTOCOL; Start 07/07/17 at 15:30 Fluconazole/ Sodium Chloride (Diflucan 100 Mg/ NS (Pmx)) 50 ml @ 50 mls/hr Q24H IVPB Last administered on 07/12/17 14:23; Admin Dose 50 MLS/HR; Start at 12:00 Simethicone 80 mg 80 mg Q6 GTB Last administered on 07/13/17 05:29; Admin Dose 80 MG; Start 07/09/17 at 12:00 Metronidazole 250 mg/N/A 50 ml @ 50 mls/hr Q8 IVPB Last administered on 05:29; Admin Dose 50 MLS/HR; Start 07/10/17 at 14:00 Bumetanide/ Dextrose (Bumex/D5W) 250 ml @ 10 mls/hr Q24H IV Last administered on 07/12/17 14:23; Admin Dose 10 MLS/HR; Start 07/10/17 at 17:00 Lactulose 30 gm 30 gm Q6 NJ Last administered on 07/13/17 05:28; Admin Dose 30 GM; Start 07/12/17 at 12:00 Linezolid (Zyvox 600mg/D5W (Pmx)) 300 ml @ 300 mls/hr BID IVPB Last administered on 07/13/17 08:51; Admin Dose 300 MLS/HR; Start 07/12/17 at 21: 00 Fentanyl (Sublimaze) 25 mcg Q2H PRN IV PAIN Last administered on 07/13/17 08: 05; Admin Dose 25 MCG; Start 07/13/17 at 06:30 Ferrous Sulfate (Feosol Liquid Cup) 300 mg BID NGT Last administered on 08:51; Admin Dose 300 MG; Start 07/13/17 at 09:00 RAKESH WEBBER NP Jul 13, 2017 09:16
--- NOTE | 2017-07-13 09:29 | CONS ---
Date/Time of Note Date/Time of Note DATE: 07/13/17 TIME: 09:28 Assessment/Plan Assessment/Plan Chief Complaint/Hosp Course Palliative care consultation on this 47-year-old female who is in the intensive care unit [facility] septic. She has a history of compensated liver cirrhosis with portal hypertension with ascites acute kidney injury. Is noncommunicative at this time and they are only son and a nephew who is available at this time in the room to speak with me. And is on the road unable to meet with me today but he will be back tomorrow morning at 0600. I will meet with him at that time. We contacted patient's while he was in transit to him speakerphone with other members of the family in attendance. Most important question at this time is whether or not she would want to have cardiopulmonary resuscitation or even to be put on artificial ventilation. Even if she does not require CPR we suspect that intubation may be inevitable. Patient currently in renal failure also being seen by Dr. Lowe. There are no definite decision will be made as to the patient's said that she would want to live. Both her son and relatives states that is spoken to him about living on artificial machines and never want to do so. There was supposedly a conversation also denied patient wanted to be dialyzed. Views of the information which is collecting I am to meet with family members tomorrow morning once again. Full palliative care consultation will be done at that time at 0600 hrs. Problems: Consultation Date/Type/Reason Admit Date/Time Jun 26, 2017 at 00:00 Initial Consult Date 06/26/17 Type of Consultation: pallaitive care 24 HR Interval Summary Free Text/Dictation Addendum to my prior note... Pt is a DNR but family are OK with dialysis and intubation but no CPR. Exam/Review of Systems Vital Signs Vitals Vital Signs Date Time Temp Pulse Resp B/P Pulse Ox O2 Delivery O2 Flow Rate FiO2 07/13/17 08:00 101 07/13/17 07:45 98.7 13 97/53 100 Nasal Cannula 1.0 Intake and Output 07/12/17 07/12/17 07/13/17 14:59 22:59 06:59 Intake Total 430 ml 510 ml 770 ml Output Total 675 ml 520 ml 715 ml Balance -245 ml -10 ml 55 ml Results Result Diagram: 07/13/17 0430 07/13/17 0430 Results 24 hrs Laboratory Tests Test 07/12/17 11:11 07/12/17 20:49 07/13/17 04:30 07/13/17 04:51 Prothrombin Time 29.0 #H Prothrombin Time Ratio 2.3 INR International Normalized Ratio 2.65 Activated Partial Thromboplast Time 59.8 H Bedside Glucose 128 White Blood Count 24.7 H Red Blood Count 3.12 L Hemoglobin 9.7 L Hematocrit 29.0 L Mean Corpuscular Volume 92.9 Mean Corpuscular Hemoglobin 31.1 Mean Corpuscular Hemoglobin Concent 33.4 Red Cell Distribution Width 22.3 H Platelet Count 263 Mean Platelet Volume 11.4 H Neutrophils % 85.9 H Lymphocytes % 4.6 L Monocytes % 5.3 Eosinophils % 0.7 Basophils % 0.3 Nucleated Red Blood Cells % 0.0 Neutrophils # 21.3 H Lymphocytes # 1.2 Monocytes # 1.3 H Eosinophils # 0.2 Basophils # 0.1 Nucleated Red Blood Cells # 0.0 Sodium Level 148 H Potassium Level 3.3 L Chloride Level 116 H Carbon Dioxide Level 17 L Anion Gap 18 H Blood Urea Nitrogen 45 H Creatinine 4.72 H Glucose Level 173 Calcium Level 8.3 L Total Bilirubin 19.0 H Direct Bilirubin 16.50 *H Indirect Bilirubin 2.5 H Aspartate Amino Transf (AST/SGOT) 147 H Alanine Aminotransferase (ALT/SGPT) 29 Alkaline Phosphatase 215 H Total Protein 7.0 Albumin 2.5 L Globulin 4.50 H Albumin/Globulin Ratio 0.55 Lab Scanned Report BLOOD TRANSFUSION Medications Medications Current Medications Ondansetron HCl (Zofran Inj) 4 mg Q4H PRN IV NAUSEA AND/OR VOMITING Last administered on 07/10/17 22:56; Admin Dose 4 MG; Start 06/26/17 at 03:30 Rifaximin 550 mg 550 mg BID PO Last administered on 07/13/17 08:51; Admin Dose 550 MG; Start 07/03/17 at 21:00 Pantoprazole 80 mg/Sodium Chloride 100 ml @ 10 mls/hr Q10H IV Last administered on 07/13/17 01:11; Admin Dose 10 MLS/HR; Start 07/05/17 at 23:00 Octreotide Acetate 1 mg/ Sodium Chloride 100 ml @ 5 mls/hr Q20H IV Last administered on 07/12/17 16:28; Admin Dose 5 MLS/HR; Start 07/06/17 at 00:30 Norepinephrine 16 mg/Dextrose 500 ml @ 1.87 mls/hr TITRATE PRN IV BLOOD PRESSURE SUPPORT Last administered on 07/12/17 15:19; Admin Dose 1.87 MLS/HR; Start 07/07/17 at 06:00 Cefepime HCl/ Sodium Chloride (Maxipime/NS) 50 ml @ 100 mls/hr Q24H IVPB Last administered on 07/12/17 15:25; Admin Dose 100 MLS/HR; Start 07/07/17 at 14:00 IV Flush 10 ml 10 ml PRN PRN IV IV PROTOCOL; Start 07/07/17 at 15:30 Fluconazole/ Sodium Chloride (Diflucan 100 Mg/ NS (Pmx)) 50 ml @ 50 mls/hr Q24H IVPB Last administered on 07/12/17 14:23; Admin Dose 50 MLS/HR; Start at 12:00 Simethicone 80 mg 80 mg Q6 GTB Last administered on 07/13/17 05:29; Admin Dose 80 MG; Start 07/09/17 at 12:00 Metronidazole 250 mg/N/A 50 ml @ 50 mls/hr Q8 IVPB Last administered on 05:29; Admin Dose 50 MLS/HR; Start 07/10/17 at 14:00 Bumetanide/ Dextrose (Bumex/D5W) 250 ml @ 10 mls/hr Q24H IV Last administered on 07/12/17 14:23; Admin Dose 10 MLS/HR; Start 07/10/17 at 17:00 Lactulose 30 gm 30 gm Q6 [place] Last administered on 07/13/17 05:28; Admin Dose 30 GM; Start 07/12/17 at 12:00 Linezolid (Zyvox 600mg/D5W (Pmx)) 300 ml @ 300 mls/hr BID IVPB Last administered on 07/13/17 08:51; Admin Dose 300 MLS/HR; Start 07/12/17 at 21: 00 Fentanyl (Sublimaze) 25 mcg Q2H PRN IV PAIN Last administered on 07/13/17 08: 05; Admin Dose 25 MCG; Start 07/13/17 at 06:30 Ferrous Sulfate (Feosol Liquid Cup) 300 mg BID NGT Last administered on 08:51; Admin Dose 300 MG; Start 07/13/17 at 09:00 ALFONSO BARAJAS Jul 13, 2017 09:29
[2017-07-13] MEDS: BUMETANIDE 25 MG in DEXTROSE 5% 150 ML IV SCH (12:00)
[2017-07-13] MEDS: FLUCONAZOLE 100 MG/NS (PMX) 50 ML IVPB SCH (12:49)
[2017-07-13] MEDS: CEFEPIME HCL 0.5 GM in SOD CHLORIDE 0.9% 50 ML IVPB SCH (14:43)
--- NOTE | 2017-07-13 14:55 | PN ---
Date/Time of Note Date/Time of Note DATE: 07/13/17 TIME: 14:24 Assessment/Plan VTE Prophylaxis VTE Prophylaxis Intervention: SCD's Lines/Catheters IV Catheter Type (from Nrs): PICC Line Central line still needed: Yes (Medications) Urinary Cath still in place: Yes Reason Cath still needed: urinary retention (Monitor output) Assessment/Plan Chief Complaint/Hosp Course Assessment: Status DNR Hepatorenal Syndrome Alcoholic hepatitis Encephalopathy Liver cirrhosis with ascites Hypotension Anemia EGD 07/07/17 Impression: Grade III/IV esophageal varices with stigmata recent bleeding Post endoscopic variceal ligation 5 Portal hypertensive gastropathy. No evidence of cholecystitis- negative HIDA Acute kidney injury Sepsis Metabolic acidosis S/p Paracentesis 2.2L Plan: Followed by tub wash operator on Bumex gtt Levophed gtt for SBP>90 might need dialysis (family not ready to consent for fistula placement yet) Continue Protonix and octreotide drip NG tube in place Monitor H&H transfuse for hemoglobin less than 7.5 Continue lactulose and rifaximin Patient seen in collaboration with Dr. Ny Subjective: Patient is nonresponsive, and altered mental status, speaks incoherently. Pt. NPO with NG tube in place. Was seen by palliative care physician Dr. Mendez. CODE STATUS has been changed to DNR. Family agreeable to intubation and dialysis if needed. At this point family refuses to consent the patient for dialysis fistula placement. Patient is being seen by tub wash operator. No need for dialysis at this time. Course reviewed with the bedside nurse. Patient examined. Family updated on patient's status. All laboratory results have been reviewed. PHYSICAL EXAMINATION: GENERAL: Incoherent, altered mental status, in no acute distress. SKIN: No lesions, stigmata present due to chronic liver disease, multiple bruising. Jaundiced. Icteric sclera. Pitting edema bilateral lower extremities. LYMPHATIC: No palpable lymphadenopathy. HEAD: Normocephalic, atraumatic, no tenderness. EYES: Pupils equal reactive to light and accommodation, full extraocular movements, sclera clear, icteric, no discharge. EARS/NOSE AND THROAT: Ears normal, NG tube is in place in the nostril. NECK: Supple, CHEST: Inspection within normal limits. CARDIOVASCULAR: Heart: Regular rate and rhythm,. RESPIRATORY: Lungs clear to auscultation GASTROINTESTINAL AND LIVER: Abdomen: very distended due to ascites, no hernias, no masses, moderate ascites, no splenomegaly, no guarding, no rebound tenderness , normoactive bowel sounds. Rectal: Deferred. GENITOURINARY: Female genitalia within normal limits. EXTREMITIES: No cyanosis, clubbing or edema. Problems: Exam/Review of Systems Vital Signs Vitals Vital Signs Date Time Temp Pulse Resp B/P Pulse Ox O2 Delivery O2 Flow Rate FiO2 07/13/17 13:00 105 12 107/66 97 Nasal Cannula 07/13/17 12:00 98.1 07/13/17 09:00 1.0 Intake and Output 07/12/17 07/12/17 07/13/17 15:00 23:00 07:00 Intake Total 430 ml 860 ml 405 ml Output Total 750 ml 450 ml 685 ml Balance -320 ml 410 ml -280 ml Results Result Diagram: 07/13/17 0430 07/13/17 0430 Results 24 hrs Laboratory Tests Test 07/12/17 20:49 07/13/17 04:30 07/13/17 04:51 Bedside Glucose 128 White Blood Count 24.7 H Red Blood Count 3.12 L Hemoglobin 9.7 L Hematocrit 29.0 L Mean Corpuscular Volume 92.9 Mean Corpuscular Hemoglobin 31.1 Mean Corpuscular Hemoglobin Concent 33.4 Red Cell Distribution Width 22.3 H Platelet Count 263 Mean Platelet Volume 11.4 H Neutrophils % 85.9 H Lymphocytes % 4.6 L Monocytes % 5.3 Eosinophils % 0.7 Basophils % 0.3 Nucleated Red Blood Cells % 0.0 Neutrophils # 21.3 H Lymphocytes # 1.2 Monocytes # 1.3 H Eosinophils # 0.2 Basophils # 0.1 Nucleated Red Blood Cells # 0.0 Sodium Level 148 H Potassium Level 3.3 L Chloride Level 116 H Carbon Dioxide Level 17 L Anion Gap 18 H Blood Urea Nitrogen 45 H Creatinine 4.72 H Glucose Level 173 Calcium Level 8.3 L Total Bilirubin 19.0 H Direct Bilirubin 16.50 *H Indirect Bilirubin 2.5 H Aspartate Amino Transf (AST/SGOT) 147 H Alanine Aminotransferase (ALT/SGPT) 29 Alkaline Phosphatase 215 H Total Protein 7.0 Albumin 2.5 L Globulin 4.50 H Albumin/Globulin Ratio 0.55 Lab Scanned Report BLOOD TRANSFUSION Medications Medications Current Medications Ondansetron HCl (Zofran Inj) 4 mg Q4H PRN IV NAUSEA AND/OR VOMITING Last administered on 07/10/17 22:56; Admin Dose 4 MG; Start 06/26/17 at 03:30 Rifaximin 550 mg 550 mg BID PO Last administered on 07/13/17 08:51; Admin Dose 550 MG; Start 07/03/17 at 21:00 Pantoprazole 80 mg/Sodium Chloride 100 ml @ 10 mls/hr Q10H IV Last administered on 07/13/17 12:00; Admin Dose 10 MLS/HR; Start 07/05/17 at 23:00 Octreotide Acetate 1 mg/ Sodium Chloride 100 ml @ 5 mls/hr Q20H IV Last administered on 07/13/17 08:00; Admin Dose 5 MLS/HR; Start 07/06/17 at 00:30 Norepinephrine 16 mg/Dextrose 500 ml @ 1.87 mls/hr TITRATE PRN IV BLOOD PRESSURE SUPPORT Last administered on 07/12/17 15:19; Admin Dose 1.87 MLS/HR; Start 07/07/17 at 06:00 Cefepime HCl/ Sodium Chloride (Maxipime/NS) 50 ml @ 100 mls/hr Q24H IVPB Last administered on 07/12/17 15:25; Admin Dose 100 MLS/HR; Start 07/07/17 at 14:00 IV Flush 10 ml 10 ml PRN PRN IV IV PROTOCOL; Start 07/07/17 at 15:30 Fluconazole/ Sodium Chloride (Diflucan 100 Mg/ NS (Pmx)) 50 ml @ 50 mls/hr Q24H IVPB Last administered on 07/13/17 12:49; Admin Dose 50 MLS/HR; Start at 12:00 Simethicone 80 mg 80 mg Q6 GTB Last administered on 07/13/17 12:44; Admin Dose 80 MG; Start 07/09/17 at 12:00 Metronidazole 250 mg/N/A 50 ml @ 50 mls/hr Q8 IVPB Last administered on 05:29; Admin Dose 50 MLS/HR; Start 07/10/17 at 14:00 Bumetanide/ Dextrose (Bumex/D5W) 250 ml @ 10 mls/hr Q24H IV Last administered on 07/13/17 12:00; Admin Dose 10 MLS/HR; Start 07/10/17 at 17:00 Lactulose 30 gm 30 gm Q6 ND Last administered on 07/13/17 12:44; Admin Dose 30 GM; Start 07/12/17 at 12:00 Linezolid (Zyvox 600mg/D5W (Pmx)) 300 ml @ 300 mls/hr BID IVPB Last administered on 07/13/17 08:51; Admin Dose 300 MLS/HR; Start 07/12/17 at 21: 00 Fentanyl (Sublimaze) 25 mcg Q2H PRN IV PAIN Last administered on 07/13/17 08: 05; Admin Dose 25 MCG; Start 07/13/17 at 06:30 Ferrous Sulfate (Feosol Liquid Cup) 300 mg BID NGT Last administered on 08:51; Admin Dose 300 MG; Start 07/13/17 at 09:00 Copies To: CC: FRANCINE NY MD, ANASTASIA NP Jul 13, 2017 14:52
--- NOTE | 2017-07-13 15:15 | PN ---
DATE: 07/13/2017 SUBJECTIVE: Patient retain remains obtunded. She is off pressors. Family at bedside. No fevers. VITAL SIGNS: Temperature 98.1, pulse 102, respirations 12, blood pressure 103/66, saturation 96% on nasal cannula. INDWELLINGS: Vega, NG tube, PICC line. MICROBIOLOGY: Repeat urine culture on 07/10/2017 negative. Blood cultures since admission negative . DIAGNOSTICS: X-ray of the abdomen revealed gas filled small and large bowel loops slightly less pro minent than on prior examination. ANTIMICROBIALS: The patient is on: 1. Flagyl. 2. Zyvox. 3. Fluconazole. 4. Cefepime. LABORATORY DATA: WBC 24.7, H and H 9.7 and 29, platelets 263, neutrophils 85.9. Sodium 148, BUN 45 , creatinine 4.72, total bilirubin 19, AST 147, ALT 29, alkaline phosphatase 215. PHYSICAL EXAMINATION: GENERAL: This is a chronically ill-appearing, middle-aged woman who is in no distress. HEENT: Head atraumatic, normocephalic. Sclerae anicteric. Buccal mucosa dry. NECK: Supple. CHEST: Rise symmetrical. Breath sounds diminished to bases. HEART: S1, S2. ABDOMEN: Distended, positive for ascites. EXTREMITIES: With trace edema. SKIN: Positive for jaundice. ASSESSMENT: 1. Sepsis with multisystem organ failure, status post shock. 2. End-stage liver disease. 3. Acute renal failure, likely hepatorenal syndrome. 4. Status post urinary tract infection. 5. Ascites, possible SBP. 6. Anemia. 7. Encephalopathy secondary to above. PLAN: The patient is doing poorly. She is covered with broad spectrum antibiotics. She is DNR sta tus. Prognosis very poor. Plan for placement of hemodialysis catheter. Dictated By: FARHAT GARDINER CUSTOMER CONTACT REPRESENTATIVE for JAISON ROBLERO/NTS Conf#: [id number] DID#: [id number]
[2017-07-14] VITALS (39 sets, daily range): BP systolic 84–130; BP diastolic 48–92; PULSE 97–121; RESP 13–33
[2017-07-14] MEDS: LACTULOSE 30ML CUP PR SCH ×4 (00:53→16:45)
[2017-07-14] MEDS: FENTAnyl 50 MCG/ML VIAL IV PRN ×2 (01:41→08:35)
--- NOTE | 2017-07-14 05:04 | CONS ---
DATE OF ADMISSION: 06/26/2017 DATE OF CONSULTATION: REASON FOR CONSULTATION: Evaluation for dialysis catheter. Thank you, Dr. Cuevas, for asking me to see this patient. HISTORY OF PRESENT ILLNESS: This is a 47-year-old female with a history of liver failure secondary to alcoholic liver cirrhosis. The patient is now being admitted, was found to have renal failure. Family first refused dialysis, now they are agreeing to dialysis. PAST MEDICAL HISTORY: Renal failure, liver failure, cirrhosis, alcoholism. PAST SURGICAL HISTORY: None. ALLERGIES: NONE. SOCIAL HISTORY: No smoking, drinking or drug use. PHYSICAL EXAMINATION: VITAL SIGNS: Blood pressure is 80/40, pulse is 80, respirations 18, patient is severely jaundiced. CARDIOVASCULAR: Normal S1, S2. LUNGS: Clear. ABDOMEN: Soft. EXTREMITIES: Warm. IMPRESSION: Liver failure. RECOMMENDATIONS: We will proceed with placement of a dialysis catheter. Risks, benefits, complicat ions, alternative therapies explained to the patient and the family. All questions answered. Dictated By: NOEL IQBAL/SHAE Conf#: [id number] DID#: [id number] CC: ALAN SWEET MD;*EndCC*
--- NOTE | 2017-07-14 05:06 | OPR ---
DATE OF OPERATION: PREOPERATIVE DIAGNOSIS: Renal failure. POSTOPERATIVE DIAGNOSIS: Renal failure. OPERATION PERFORMED: Right femoral hemodialysis catheter placement. SURGEON: Noel Patton MD. ANESTHESIA: Local. INFORMED CONSENT: Risks, benefits, complications, alternative therapies explained to the patient an d the family, consent obtained. OPERATIVE TECHNIQUE: The patient was placed in supine position, prepped and draped in usual sterile fashion. Access was gained in the right femoral vein. Guidewire was advanced through without any difficulty. Subcutaneous tissues dilated. A 20 cm dialysis catheter advanced over guidewire, secur ed to skin using silk sutures. Both ports of the catheter were aspirated and injected using heparin ized saline solution. The patient tolerated procedure well. Dictated By: NOEL PATTON MD FM/SHAE Conf#: [id number] DID#: [id number] CC: ALAN SWEET MD;*EndCC*
[2017-07-14 05:29] LABS: BASOPHIL # 0.1 10^3/ul (0.0-0.1); BASOPHILS % 0.2 % (0.0-2.0); EOSINOPHILS % 0.2 % (0.0-7.0); HEMATOCRIT 28.6 % (37.0-47.0); HEMOGLOBIN 9.4 g/dl (12.0-16.0); LYMPHOCYTES # 1.4 10^3/ul (0.8-2.9); LYMPHOCYTES % 6.8 % (15.0-51.0); MEAN CORPUSCULAR HEMOGLOBIN 30.5 pg (29.0-33.0); MEAN CORPUSCULAR HGB CONC 32.9 g/dl (32.0-37.0); MEAN CORPUSCULAR VOLUME 92.9 fl (82.0-101.0); MEAN PLATELET VOLUME 11.4 fl (7.4-10.4); NEUTROPHIL # 17.4 10^3/ul (1.6-7.5); NEUTROPHILS % 85.5 % (39.0-77.0); PLATELET COUNT 214 10^3/UL (140-415); RED BLOOD COUNT 3.08 10^6/ul (4.20-5.40); WHITE BLOOD COUNT 20.3 10^3/ul (4.8-10.8)
[2017-07-14] MEDS: metroNIDAZOLE 500 MG/NS (PMX) 250 MG in EVAC CONTAINER 1 BOTTLE IVPB SCH ×3 (05:44→23:20)
[2017-07-14 05:49] LABS: INR 2.93; PROTIME 31.4 Sec (11.9-14.9); PT RATIO 2.5
[2017-07-14] MEDS: OCTREOTIDE 1 MG in SOD CHLORIDE 0.9% 95 ML IV SCH ×2 (05:49→22:57)
[2017-07-14 05:50] LABS: PARTIAL THROMBOPLASTIN TIME 61.1 Sec (25.0-35.0)
[2017-07-14 06:02] LABS: ALBUMIN 2.5 g/dl (3.3-4.9); ALBUMIN/GLOBULIN RATIO 0.53; BILIRUBIN,INDIRECT 2.1 mg/dl (0-1.1); BILIRUBIN,TOTAL 18.1 mg/dl (0.2-1.3); CALCIUM 8.3 mg/dl (8.4-10.2); CREATININE 4.68 mg/dl (0.44-1.00); MAGNESIUM 1.9 mg/dl (1.7-2.5); POTASSIUM 3.5 mmol/L (3.5-5.1); TOTAL PROTEIN 7.2 g/dl (6.1-8.1)
[2017-07-14] MEDS: PANTOPRAZOLE IV 80 MG in SOD CHLORIDE 0.9% 100 ML IV SCH ×2 (06:25→17:37)
[2017-07-14] MEDS: FERROUS SULFATE 60 MG/ML 5ML CUP NGT SCH ×2 (08:22→21:02)
[2017-07-14] MEDS: RIFAXIMIN 550 MG TAB PO SCH ×2 (08:22→21:03)
[2017-07-14] MEDS: LINEZOLID 600 MG/D5W (PMX) 300 ML IVPB SCH ×2 (08:22→21:03)
--- NOTE | 2017-07-14 09:18 | CONS ---
Date/Time of Note Date/Time of Note DATE: 07/14/17 TIME: 09:14 Assessment/Plan Assessment/Plan Additional Assessment/Plan 1. Acute renal failure stable without need for HD now and would not want to begin this as will not change overall course. 2. Hypernatremia, will start D5W 3. Bicarb is sl lower, will check ABG 4. Will continue Bumex drip 5. Overall poor prognosis as all have noted, palliative care note reviewed Consultation Date/Type/Reason Admit Date/Time Jun 26, 2017 at 00:00 Initial Consult Date 06/26/17 Type of Consultation: pallaitive care 24 HR Interval Summary Subjective hx not possible: pt non-verbal, other Exam/Review of Systems Vital Signs Vitals Vital Signs Date Time Temp Pulse Resp B/P Pulse Ox O2 Delivery O2 Flow Rate FiO2 07/14/17 07:30 98.8 106 14 96/61 96 Nasal Cannula 1.0 Intake and Output 07/13/17 07/13/17 07/14/17 15:00 23:00 07:00 Intake Total 850 ml 900 ml 805 ml Output Total 200 ml 1295 ml 876 ml Balance 650 ml -395 ml -71 ml Exam Neck: No jvd Respiratory: diminished breath sounds Cardiovascular: regular rate and rhythm Gastrointestinal: distended, soft Extremities: edema (2+ sacral) Results Result Diagram: 07/14/17 0500 07/14/17 0500 Results 24 hrs Laboratory Tests Test 07/14/17 05:00 White Blood Count 20.3 H Red Blood Count 3.08 L Hemoglobin 9.4 L Hematocrit 28.6 L Mean Corpuscular Volume 92.9 Mean Corpuscular Hemoglobin 30.5 Mean Corpuscular Hemoglobin Concent 32.9 Red Cell Distribution Width 22.0 H Platelet Count 214 Mean Platelet Volume 11.4 H Neutrophils % 85.5 H Lymphocytes % 6.8 L Monocytes % 5.0 Eosinophils % 0.2 Basophils % 0.2 Nucleated Red Blood Cells % 0.0 Neutrophils # 17.4 H Lymphocytes # 1.4 Monocytes # 1.0 H Eosinophils # 0.0 Basophils # 0.1 Nucleated Red Blood Cells # 0.0 Prothrombin Time 31.4 H Prothrombin Time Ratio 2.5 INR International Normalized Ratio 2.93 Activated Partial Thromboplast Time 61.1 H Sodium Level 149 H Potassium Level 3.5 Chloride Level 117 H Carbon Dioxide Level 15 L Anion Gap 21 H Blood Urea Nitrogen 50 H Creatinine 4.68 H Glucose Level 164 Calcium Level 8.3 L Magnesium Level 1.9 Total Bilirubin 18.1 H Direct Bilirubin 16.00 *H Indirect Bilirubin 2.1 H Aspartate Amino Transf (AST/SGOT) 172 H Alanine Aminotransferase (ALT/SGPT) 34 Alkaline Phosphatase 202 H Ammonia 150 H Total Protein 7.2 Albumin 2.5 L Globulin 4.70 H Albumin/Globulin Ratio 0.53 Medications Medications Current Medications Ondansetron HCl (Zofran Inj) 4 mg Q4H PRN IV NAUSEA AND/OR VOMITING Last administered on 07/10/17 22:56; Admin Dose 4 MG; Start 06/26/17 at 03:30 Rifaximin 550 mg 550 mg BID PO Last administered on 07/14/17 08:22; Admin Dose 550 MG; Start 07/03/17 at 21:00 Pantoprazole 80 mg/Sodium Chloride 100 ml @ 10 mls/hr Q10H IV Last administered on 07/14/17 06:25; Admin Dose 10 MLS/HR; Start 07/05/17 at 23:00 Octreotide Acetate 1 mg/ Sodium Chloride 100 ml @ 5 mls/hr Q20H IV Last administered on 07/14/17 05:49; Admin Dose 5 MLS/HR; Start 07/06/17 at 00:30 Norepinephrine 16 mg/Dextrose 500 ml @ 1.87 mls/hr TITRATE PRN IV BLOOD PRESSURE SUPPORT Last administered on 07/12/17 15:19; Admin Dose 1.87 MLS/HR; Start 07/07/17 at 06:00 Cefepime HCl/ Sodium Chloride (Maxipime/NS) 50 ml @ 100 mls/hr Q24H IVPB Last administered on 07/13/17 14:43; Admin Dose 100 MLS/HR; Start 07/07/17 at 14:00 IV Flush 10 ml 10 ml PRN PRN IV IV PROTOCOL; Start 07/07/17 at 15:30 Fluconazole/ Sodium Chloride (Diflucan 100 Mg/ NS (Pmx)) 50 ml @ 50 mls/hr Q24H IVPB Last administered on 07/13/17 12:49; Admin Dose 50 MLS/HR; Start at 12:00 Simethicone 80 mg 80 mg Q6 GTB Last administered on 07/14/17 05:44; Admin Dose 80 MG; Start 07/09/17 at 12:00 Metronidazole 250 mg/N/A 50 ml @ 50 mls/hr Q8 IVPB Last administered on 05:44; Admin Dose 50 MLS/HR; Start 07/10/17 at 14:00 Bumetanide/ Dextrose (Bumex/D5W) 250 ml @ 10 mls/hr Q24H IV Last administered on 07/13/17 12:00; Admin Dose 10 MLS/HR; Start 07/10/17 at 17:00 Lactulose 30 gm 30 gm Q6 CA Last administered on 07/14/17 05:44; Admin Dose 30 GM; Start 07/12/17 at 12:00 Linezolid (Zyvox 600mg/D5W (Pmx)) 300 ml @ 300 mls/hr BID IVPB Last administered on 07/14/17 08:22; Admin Dose 300 MLS/HR; Start 07/12/17 at 21: 00 Fentanyl (Sublimaze) 25 mcg Q2H PRN IV PAIN Last administered on 07/14/17 08: 35; Admin Dose 25 MCG; Start 07/13/17 at 06:30 Ferrous Sulfate (Feosol Liquid Cup) 300 mg BID NGT Last administered on 08:22; Admin Dose 300 MG; Start 07/13/17 at 09:00 DEMETRIUS BABCOCK MD Jul 14, 2017 09:18
--- NOTE | 2017-07-14 09:23 | PN ---
Date/Time of Note Date/Time of Note DATE: 07/14/17 TIME: 09:16 Assessment/Plan VTE Prophylaxis VTE Prophylaxis Intervention: SCD's Lines/Catheters [facility] Gerardo Central line still needed: Yes Urinary Cath still in place: Yes Reason Cath still needed: other (indicate) Assessment/Plan Chief Complaint/Hosp Course 1. Acute encephalopathy. -Most probably toxic metabolic in origin. -Continue lactulose. 2. Decompensated alcoholic liver cirrhosis with ascites and portal hypertension. -Continue lactulose. -Status post ultrasound-guided paracentesis on 07/02/2017. 3. Acute kidney injury. -Nephrology following. -To be started on hemodialysis. 4. Metabolic acidosis. -Worsening renal function. -To be started on hemodialysis. 5. Anemia. Normocytic, normochromic. -On iron supplements. 6. Transaminitis with hyperbilirubinemia. -Most probably secondary to #1 and #2. -Avoid hepatotoxic medications. 7. Grade III/IV esophageal varices with stigmata recent bleeding -Post endoscopic variceal ligation 5. -On octreotide and Protonix. 8. Hypernatremia. -On free H20 via NGT. 9. Symptomatic cholelithiasis. -No evidence of cholecystitis. -Status post surgical evaluation. No surgical intervention. 10. Fluids, electrolytes, and nutrition. -N.p.o. -Fluid restriction. 11. DVT prophylaxis. -Bilateral sequential compression devices. 12. Plan. -Trend LFTs. -Initiation of hemodialysis as per nephrology. -Poor prognosis. Case discussed with Dr. Mauricio. Critical CARE time: 35 minutes. Problems: Subjective 24 Hr Interval Summary Free Text/Dictation The patient is more lethargic today. Remains on Bumex, octreotide, and Protonix drip. Exam/Review of Systems Vital Signs Vitals Vital Signs Date Time Temp Pulse Resp B/P Pulse Ox O2 Delivery O2 Flow Rate FiO2 07/14/17 07:30 98.8 106 14 96/61 96 Nasal Cannula 1.0 Intake and Output 07/13/17 07/13/17 07/14/17 15:00 23:00 07:00 Intake Total 850 ml 900 ml 805 ml Output Total 200 ml 1295 ml 876 ml Balance 650 ml -395 ml -71 ml Exam General: Adequately build 47 year-old female lying in bed in no apparent distress. HEENT: Normocephalic, atraumatic. Eyes: Icteric sclerae, conjunctivae clear. ENT : Nasal septum midline, oral mucosa moist. Neck supple, no JVD noticed. Respiratory: Bilaterally diminished breath sounds. No use of accessory muscles of respiration. No adventitious breath sounds. Cardiovascular: S1, S2 heard. Regular rate and rhythm. Abdomen: Soft. Bowel sounds positive in all 4 quadrants. Minimal distention. Left upper quadrant tenderness. Genitourinary: Deferred. Extremities: No cyanosis, no clubbing. Peripheral pulses palpable. Bilateral lower extremity 2-3+ pitting edema. Neurologic: The patient is lethargic. Withdraws to painful stimuli. Skin: Normal skin turgor. No skin rashes. Icterus. Results Result Diagram: 07/14/17 0500 07/14/17 0500 Results 24 hrs Laboratory Tests Test 07/14/17 05:00 White Blood Count 20.3 H Red Blood Count 3.08 L Hemoglobin 9.4 L Hematocrit 28.6 L Mean Corpuscular Volume 92.9 Mean Corpuscular Hemoglobin 30.5 Mean Corpuscular Hemoglobin Concent 32.9 Red Cell Distribution Width 22.0 H Platelet Count 214 Mean Platelet Volume 11.4 H Neutrophils % 85.5 H Lymphocytes % 6.8 L Monocytes % 5.0 Eosinophils % 0.2 Basophils % 0.2 Nucleated Red Blood Cells % 0.0 Neutrophils # 17.4 H Lymphocytes # 1.4 Monocytes # 1.0 H Eosinophils # 0.0 Basophils # 0.1 Nucleated Red Blood Cells # 0.0 Prothrombin Time 31.4 H Prothrombin Time Ratio 2.5 INR International Normalized Ratio 2.93 Activated Partial Thromboplast Time 61.1 H Sodium Level 149 H Potassium Level 3.5 Chloride Level 117 H Carbon Dioxide Level 15 L Anion Gap 21 H Blood Urea Nitrogen 50 H Creatinine 4.68 H Glucose Level 164 Calcium Level 8.3 L Magnesium Level 1.9 Total Bilirubin 18.1 H Direct Bilirubin 16.00 *H Indirect Bilirubin 2.1 H Aspartate Amino Transf (AST/SGOT) 172 H Alanine Aminotransferase (ALT/SGPT) 34 Alkaline Phosphatase 202 H Ammonia 150 H Total Protein 7.2 Albumin 2.5 L Globulin 4.70 H Albumin/Globulin Ratio 0.53 Medications Medications Current Medications Ondansetron HCl (Zofran Inj) 4 mg Q4H PRN IV NAUSEA AND/OR VOMITING Last administered on 07/10/17 22:56; Admin Dose 4 MG; Start 06/26/17 at 03:30 Rifaximin 550 mg 550 mg BID PO Last administered on 07/14/17 08:22; Admin Dose 550 MG; Start 07/03/17 at 21:00 Pantoprazole 80 mg/Sodium Chloride 100 ml @ 10 mls/hr Q10H IV Last administered on 07/14/17 06:25; Admin Dose 10 MLS/HR; Start 07/05/17 at 23:00 Octreotide Acetate 1 mg/ Sodium Chloride 100 ml @ 5 mls/hr Q20H IV Last administered on 07/14/17 05:49; Admin Dose 5 MLS/HR; Start 07/06/17 at 00:30 Norepinephrine 16 mg/Dextrose 500 ml @ 1.87 mls/hr TITRATE PRN IV BLOOD PRESSURE SUPPORT Last administered on 07/12/17 15:19; Admin Dose 1.87 MLS/HR; Start 07/07/17 at 06:00 Cefepime HCl/ Sodium Chloride (Maxipime/NS) 50 ml @ 100 mls/hr Q24H IVPB Last administered on 07/13/17 14:43; Admin Dose 100 MLS/HR; Start 07/07/17 at 14:00 IV Flush 10 ml 10 ml PRN PRN IV IV PROTOCOL; Start 07/07/17 at 15:30 Fluconazole/ Sodium Chloride (Diflucan 100 Mg/ NS (Pmx)) 50 ml @ 50 mls/hr Q24H IVPB Last administered on 07/13/17 12:49; Admin Dose 50 MLS/HR; Start at 12:00 Simethicone 80 mg 80 mg Q6 GTB Last administered on 07/14/17 05:44; Admin Dose 80 MG; Start 07/09/17 at 12:00 Metronidazole 250 mg/N/A 50 ml @ 50 mls/hr Q8 IVPB Last administered on 05:44; Admin Dose 50 MLS/HR; Start 07/10/17 at 14:00 Bumetanide/ Dextrose (Bumex/D5W) 250 ml @ 10 mls/hr Q24H IV Last administered on 07/13/17 12:00; Admin Dose 10 MLS/HR; Start 07/10/17 at 17:00 Lactulose 30 gm 30 gm Q6 VA Last administered on 07/14/17 05:44; Admin Dose 30 GM; Start 07/12/17 at 12:00 Linezolid (Zyvox 600mg/D5W (Pmx)) 300 ml @ 300 mls/hr BID IVPB Last administered on 07/14/17 08:22; Admin Dose 300 MLS/HR; Start 07/12/17 at 21: 00 Fentanyl (Sublimaze) 25 mcg Q2H PRN IV PAIN Last administered on 07/14/17 08: 35; Admin Dose 25 MCG; Start 07/13/17 at 06:30 Ferrous Sulfate (Feosol Liquid Cup) 300 mg BID NGT Last administered on 08:22; Admin Dose 300 MG; Start 07/13/17 at 09:00 RAKESH WEBBER NP Jul 14, 2017 09:23
[2017-07-14 10:15] LABS: AADO2 Arterial 64.2 mmHg (7.0-24.0); Allen Test ACCEPTAB; Arterial Base Excess -7.2 mmol/L (-3.0-3); Arterial COHb 0.5 % (0.0-3.0); Arterial Fraction of Oxyhgb 94.4 % (93.0-99.0); Arterial HCO3 15.6 mmol/L (22.0-26.0); Arterial MetHb 0.1 % (0.0-1.5); MODE NASAL CANNULA
[2017-07-14] MEDS: DEXTROSE 5% 1,000 ML IV SCH (10:25)
[2017-07-14] MEDS: FLUCONAZOLE 100 MG/NS (PMX) 50 ML IVPB SCH (12:09)
--- NOTE | 2017-07-14 12:35 | PN ---
DATE: 07/14/2017 SUBJECTIVE: No events overnight. Patient remains obtunded on octreotide and Protonix drip, off pre ssors. She is in no distress. Family at bedside. VITAL SIGNS: Temperature 98.8 with a T-max of 99.6, pulse 108, respirations 16, blood pressure 112/ 62, saturation 97% on 1 liter. BUN 50, creatinine 4.68. INDWELLINGS: The patient has NG tube, Vega catheter, PICC line placed on 07/07/2017 and new [place] on catheter in her right groin placed this morning. ANTIMICROBIALS: 1. Cefepime. 2. Zyvox. 3. Flagyl. PHYSICAL EXAMINATION: GENERAL: Chronically ill-appearing, middle-aged woman who is obtunded, in no distress. HEENT: Head atraumatic, normocephalic. Sclerae anicteric. Buccal mucosa dry. NECK: Supple. CHEST: Rise symmetrical. Breath sounds diminished. HEART: S1, S2, tachycardic. ABDOMEN: Distended, positive for ascites. EXTREMITIES: With trace edema. SKIN: Positive for anasarca and jaundice. ASSESSMENT: 1. Sepsis, status post shock. 2. Multisystem organ failure. 3. Decompensated alcoholic cirrhosis with ascites and portal hypertension. 4. Acute renal failure, possibly hepatorenal syndrome, status post Gerardo placement. 5. Possible spontaneous bacterial peritonitis. 6. Acute encephalopathy secondary to above. 7. Anemia. PLAN: The patient is doing poorly. Continue present care, antibiotics, anti-aspiration measures. Dictated By: FARHAT GARDINER BEVEL OPERATOR for JAISON ROBLERO/SHAE Conf#: [id number] DID#: [id number]
[2017-07-14] MEDS: BUMETANIDE 25 MG in DEXTROSE 5% 150 ML IV SCH (13:00)
--- NOTE | 2017-07-14 13:48 | PN ---
Date/Time of Note Date/Time of Note DATE: 07/14/17 TIME: 13:31 Assessment/Plan VTE Prophylaxis VTE Prophylaxis Intervention: SCD's Lines/Catheters [facility] GOMEZ Urinary Cath still in place: Yes Reason Cath still needed: urinary retention (Monitor urine output) Assessment/Plan Chief Complaint/Hosp Course Assessment: Status DNR Hepatorenal Syndrome Alcoholic hepatitis Encephalopathy Liver cirrhosis with ascites Anemia EGD 07/07/17 Impression: Grade III/IV esophageal varices with stigmata recent bleeding Post endoscopic variceal ligation 5 Portal hypertensive gastropathy. No evidence of cholecystitis- negative HIDA Acute kidney injury Sepsis Metabolic acidosis S/p Paracentesis 2.2L Plan: Followed by flight tower dispatcher on Bumex gtt Levophed gtt for SBP>90 (has been off pressors) might need dialysis Continue Protonix and octreotide drip NG tube in place Monitor H&H transfuse for hemoglobin less than 7.5 Continue lactulose and rifaximin Patient seen in collaboration with Dr. Ny Subjective: Patient remains obtundent with high ammonia level on lactulose, rectal bag in place with continuous drainage. Borderline urine output in the Vega catheter. Urine appears dark concentrated. Hemodialysis fistula was placed today. No dialysis indicated today per flight tower dispatcher. Pt. NPO with NG tube in place. Per palliative care physician Dr. Mendez CODE STATUS has been changed to DNR. Family agreeable to intubation and dialysis if needed. Course reviewed with the bedside nurse. Patient examined. Family updated on patient's status. All laboratory results have been reviewed. PHYSICAL EXAMINATION: GENERAL: Incoherent, altered mental status, in no acute distress. SKIN: Sacral pressure soar covered with DuoDERM, stigmata present due to chronic liver disease, multiple bruising. Jaundiced. Icteric sclera. Pitting edema bilateral lower extremities. LYMPHATIC: No palpable lymphadenopathy. HEAD: Normocephalic, atraumatic, no tenderness. EYES: Pupils equal reactive to light and accommodation, full extraocular movements, sclera clear, icteric, no discharge. EARS/NOSE AND THROAT: Ears normal, NG tube is in place in the nostril. NECK: Supple, CHEST: Inspection within normal limits. CARDIOVASCULAR: Heart: Regular rate and rhythm,. RESPIRATORY: Lungs clear to auscultation GASTROINTESTINAL AND LIVER: Abdomen: very distended due to gas versus ascites, no hernias, no masses, moderate ascites, no splenomegaly, no guarding, no rebound tenderness, normoactive bowel sounds. Rectal: Deferred. GENITOURINARY: Female genitalia within normal limits. EXTREMITIES: No cyanosis, clubbing or edema. Problems: Exam/Review of Systems Vital Signs Vitals Vital Signs Date Time Temp Pulse Resp B/P Pulse Ox O2 Delivery O2 Flow Rate FiO2 07/14/17 12:00 99 07/14/17 12:00 98.7 14 101/48 97 Nasal Cannula 1.0 Intake and Output 07/13/17 07/13/17 07/14/17 14:59 22:59 06:59 Intake Total 750 ml 1000 ml 830 ml Output Total 200 ml 1230 ml 941 ml Balance 550 ml -230 ml -111 ml Results Result Diagram: 07/14/17 0500 07/14/17 0500 Results 24 hrs Laboratory Tests Test 07/14/17 05:00 07/14/17 09:30 White Blood Count 20.3 H Red Blood Count 3.08 L Hemoglobin 9.4 L Hematocrit 28.6 L Mean Corpuscular Volume 92.9 Mean Corpuscular Hemoglobin 30.5 Mean Corpuscular Hemoglobin Concent 32.9 Red Cell Distribution Width 22.0 H Platelet Count 214 Mean Platelet Volume 11.4 H Neutrophils % 85.5 H Lymphocytes % 6.8 L Monocytes % 5.0 Eosinophils % 0.2 Basophils % 0.2 Nucleated Red Blood Cells % 0.0 Neutrophils # 17.4 H Lymphocytes # 1.4 Monocytes # 1.0 H Eosinophils # 0.0 Basophils # 0.1 Nucleated Red Blood Cells # 0.0 Prothrombin Time 31.4 H Prothrombin Time Ratio 2.5 INR International Normalized Ratio 2.93 Activated Partial Thromboplast Time 61.1 H Sodium Level 149 H Potassium Level 3.5 Chloride Level 117 H Carbon Dioxide Level 15 L Anion Gap 21 H Blood Urea Nitrogen 50 H Creatinine 4.68 H Glucose Level 164 Calcium Level 8.3 L Magnesium Level 1.9 Total Bilirubin 18.1 H Direct Bilirubin 16.00 *H Indirect Bilirubin 2.1 H Aspartate Amino Transf (AST/SGOT) 172 H Alanine Aminotransferase (ALT/SGPT) 34 Alkaline Phosphatase 202 H Ammonia 150 H Total Protein 7.2 Albumin 2.5 L Globulin 4.70 H Albumin/Globulin Ratio 0.53 Blood Gas Specimen Source Blood arterial Arterial Blood Date Drawn 07/14/2017 9:50:47 AM Arterial Blood pH (Temp corrected) 7.441 Arterial Blood pCO2 (Temp correct) 23.4 L Arterial Blood pO2 (Temp corrected) 79.1 L Arterial Blood HCO3 15.6 L Arterial Blood Base Excess -7.2 L Arterial Blood Oxygen Saturation 95.0 George Test ACCEPTAB Arterial Blood Gas Puncture Site Right Radial Arterial Blood Carboxyhemoglobin 0.5 Arterial Blood Methemoglobin 0.1 Blood Gas A-a O2 Differential 64.2 H Oxyhemoglobin Percent 94.4 Total Hemoglobin 10.0 L Blood Gas Temperature 37.0 Blood Gas Modality NASAL CANNULA FiO2 24.0 Blood Gas Notified Whom JLD Blood Gas Notified Time 07/14/2017 10:15:31 AM Medications Medications Current Medications Ondansetron HCl (Zofran Inj) 4 mg Q4H PRN IV NAUSEA AND/OR VOMITING Last administered on 07/10/17 22:56; Admin Dose 4 MG; Start 06/26/17 at 03:30 Rifaximin 550 mg 550 mg BID PO Last administered on 07/14/17 08:22; Admin Dose 550 MG; Start 07/03/17 at 21:00 Pantoprazole 80 mg/Sodium Chloride 100 ml @ 10 mls/hr Q10H IV Last administered on 07/14/17 06:25; Admin Dose 10 MLS/HR; Start 07/05/17 at 23:00 Octreotide Acetate 1 mg/ Sodium Chloride 100 ml @ 5 mls/hr Q20H IV Last administered on 07/14/17 05:49; Admin Dose 5 MLS/HR; Start 07/06/17 at 00:30 Norepinephrine 16 mg/Dextrose 500 ml @ 1.87 mls/hr TITRATE PRN IV BLOOD PRESSURE SUPPORT Last administered on 07/12/17 15:19; Admin Dose 1.87 MLS/HR; Start 07/07/17 at 06:00 Cefepime HCl/ Sodium Chloride (Maxipime/NS) 50 ml @ 100 mls/hr Q24H IVPB Last administered on 07/13/17 14:43; Admin Dose 100 MLS/HR; Start 07/07/17 at 14:00 IV Flush 10 ml 10 ml PRN PRN IV IV PROTOCOL; Start 07/07/17 at 15:30 Fluconazole/ Sodium Chloride (Diflucan 100 Mg/ NS (Pmx)) 50 ml @ 50 mls/hr Q24H IVPB Last administered on 07/14/17 12:09; Admin Dose 50 MLS/HR; Start at 12:00 Simethicone 80 mg 80 mg Q6 GTB Last administered on 07/14/17 12:09; Admin Dose 80 MG; Start 07/09/17 at 12:00 Metronidazole 250 mg/N/A 50 ml @ 50 mls/hr Q8 IVPB Last administered on 05:44; Admin Dose 50 MLS/HR; Start 07/10/17 at 14:00 Bumetanide/ Dextrose (Bumex/D5W) 250 ml @ 10 mls/hr Q24H IV Last administered on 07/13/17 12:00; Admin Dose 10 MLS/HR; Start 07/10/17 at 17:00 Lactulose 30 gm 30 gm Q6 VT Last administered on 07/14/17 12:08; Admin Dose 30 GM; Start 07/12/17 at 12:00 Linezolid (Zyvox 600mg/D5W (Pmx)) 300 ml @ 300 mls/hr BID IVPB Last administered on 07/14/17 08:22; Admin Dose 300 MLS/HR; Start 07/12/17 at 21: 00 Fentanyl (Sublimaze) 25 mcg Q2H PRN IV PAIN Last administered on 07/14/17 08: 35; Admin Dose 25 MCG; Start 07/13/17 at 06:30 Ferrous Sulfate 300 mg 300 mg BID NGT Last administered on 07/14/17 08:22; Admin Dose 300 MG; Start 07/13/17 at 09:00 Dextrose (D5W) 1,000 ml @ 80 mls/hr [id number] IV Last administered on 10:25; Admin Dose 80 MLS/HR; Start 07/14/17 at 09:30 Copies To: CC: FRANCINE NY MD, ANASTASIA NP Jul 14, 2017 13:47
[2017-07-14] MEDS: CEFEPIME HCL 0.5 GM in SOD CHLORIDE 0.9% 50 ML IVPB SCH (14:21)
--- NOTE | 2017-07-14 14:28 | PN ---
Date/Time of Note Date/Time of Note DATE: 07/14/17 TIME: 14:27 Assessment/Plan Lines/Catheters IV Catheter Type (from Nrsg): GOMEZ Vega in Place (from Nrsg): Yes Assessment/Plan Chief Complaint/Hosp Course IMPRESSION: Liver failure. RECOMMENDATIONS: WSP dialysis catheter. placement will continue HD may need permcath Problems: Subjective 24 Hr Interval Summary Constitutional: improved Pain Control: mild Exam/Review of Systems Vital Signs Vitals Vital Signs Date Time Temp Pulse Resp B/P Pulse Ox O2 Delivery O2 Flow Rate FiO2 07/14/17 14:00 101 14 98/60 96 Nasal Cannula 1.0 07/14/17 12:00 98.7 Intake and Output 07/13/17 07/13/17 07/14/17 14:59 22:59 06:59 Intake Total 750 ml 1000 ml 830 ml Output Total 200 ml 1230 ml 941 ml Balance 550 ml -230 ml -111 ml Exam ENMT: mucosa pink and moist, nl external ears & nose, nl lips & teeth, nl nasal mucosa & septum Neck: non-tender, supple Respiratory: clear to auscultation, normal air movement Cardiovascular: nl pulses, regular rate and rhythm Gastrointestinal: nl liver, spleen, non-tender, soft Results Result Diagram: 07/14/17 0500 07/14/17 0500 NOEL ENAMORADO MD Jul 14, 2017 14:28
[2017-07-14 21:33] LABS: AADO2 Arterial 63.3 mmHg (7.0-24.0); Allen Test ACCEPTAB; Arterial Base Excess -8.4 mmol/L (-3.0-3); Arterial COHb 0.4 % (0.0-3.0); Arterial HCO3 13.9 mmol/L (22.0-26.0); Arterial MetHb 0.1 % (0.0-1.5); Arterial Total Hemglobin 10.2 g/dl (12.0-18.0); MODE NASAL CANNULA
[2017-07-14] MEDS ORDERED: NA BICARBONATE 8.4% 50 ML SYG IV ONE (22:00)
[2017-07-15] VITALS (24 sets, daily range): BP systolic 78–125; BP diastolic 35–80; PULSE 91–107; RESP 13–18
[2017-07-15] MEDS: LACTULOSE 30ML CUP PR SCH ×5 (00:59→23:26)
[2017-07-15] MEDS: PANTOPRAZOLE IV 80 MG in SOD CHLORIDE 0.9% 100 ML IV SCH ×3 (01:53→23:28)
[2017-07-15] MEDS: DEXTROSE 5% 1,000 ML IV SCH ×3 (03:17→16:35)
[2017-07-15] MEDS: metroNIDAZOLE 500 MG/NS (PMX) 250 MG in EVAC CONTAINER 1 BOTTLE IVPB SCH ×3 (05:40→21:49)
[2017-07-15 05:51] LABS: ABNORMAL IP MESSAGE 1; BASOPHILS % 0.2 % (0.0-2.0); EOSINOPHILS # 0.1 10^3/ul (0.0-0.5); EOSINOPHILS % 0.7 % (0.0-7.0); HEMATOCRIT 25.5 % (37.0-47.0); HEMOGLOBIN 8.6 g/dl (12.0-16.0); LYMPHOCYTES # 1.2 10^3/ul (0.8-2.9); LYMPHOCYTES % 6.8 % (15.0-51.0); MEAN CORPUSCULAR HGB CONC 33.7 g/dl (32.0-37.0); MEAN CORPUSCULAR VOLUME 92.1 fl (82.0-101.0); MEAN PLATELET VOLUME 11.5 fl (7.4-10.4); MONOCYTE # 0.9 10^3/ul (0.3-0.9); MONOCYTES % 4.8 % (0.0-11.0); NEUTROPHIL # 15.3 10^3/ul (1.6-7.5); NEUTROPHILS % 85.6 % (39.0-77.0); PLATELET COUNT 177 10^3/UL (140-415); RED BLOOD COUNT 2.77 10^6/ul (4.20-5.40); RED CELL DISTRIBUTION WIDTH 22.3 % (11.5-14.5); WHITE BLOOD COUNT 17.8 10^3/ul (4.8-10.8)
[2017-07-15 06:17] LABS: PARTIAL THROMBOPLASTIN TIME 63.3 Sec (25.0-35.0)
[2017-07-15 06:20] LABS: INR 3.13; PT RATIO 2.6
[2017-07-15 06:22] LABS: ALBUMIN 2.3 g/dl (3.3-4.9); ALBUMIN/GLOBULIN RATIO 0.54; BILIRUBIN,DIRECT 14.3 mg/dl (0.00-0.20); BILIRUBIN,INDIRECT 2.4 mg/dl (0-1.1); BILIRUBIN,TOTAL 16.7 mg/dl (0.2-1.3); CALCIUM 7.8 mg/dl (8.4-10.2); CREATININE 4.79 mg/dl (0.44-1.00); TOTAL PROTEIN 6.5 g/dl (6.1-8.1)
[2017-07-15 06:29] LABS: POTASSIUM 2.7 mmol/L (3.5-5.1)
[2017-07-15 06:48] LABS: POSITIVE DIFF @See below
[2017-07-15] MEDS: POTASSIUM CHLORIDE 250 ML IVPB SCH ×4 (07:00→13:30)
[2017-07-15 07:16] LABS: MAGNESIUM 1.8 mg/dl (1.7-2.5); PHOSPHORUS 4.6 mg/dl (2.5-4.9)
[2017-07-15 08:11] LABS: PROTIME 33.1 Sec (11.9-14.9)
--- NOTE | 2017-07-15 08:38 | CONS ---
Date/Time of Note Date/Time of Note DATE: 07/15/17 TIME: 08:35 Assessment/Plan Assessment/Plan Additional Assessment/Plan 1. ARF continues with sl rise in Scr, will cont bumex 2. Hypernatremia noted, will inc D5W 3. Agree with no cpr or intubation and rev with family that dialytic intervention will not change clinical course. 4. Severe hepatic encephalopathy despite aggressive rx Consultation Date/Type/Reason Admit Date/Time Jun 26, 2017 at 00:00 Initial Consult Date 06/26/17 Type of Consultation: pallaitive care 24 HR Interval Summary Subjective hx not possible: pt non-verbal, pt critical Exam/Review of Systems Vital Signs Vitals Vital Signs Date Time Temp Pulse Resp B/P Pulse Ox O2 Delivery O2 Flow Rate FiO2 07/15/17 06:00 102 14 108/80 98 Nasal Cannula 1.0 07/15/17 04:00 98.5 Intake and Output 07/14/17 07/14/17 07/15/17 15:00 23:00 07:00 Intake Total 890 ml 1540 ml 905 ml Output Total 300 ml 2075 ml 850 ml Balance 590 ml -535 ml 55 ml Exam Neck: jvd Respiratory: clear to auscultation, diminished breath sounds Cardiovascular: regular rate and rhythm Gastrointestinal: distended, soft Extremities: edema (2+ sacral and 1-2+ leg) Neurological: other (no response to verb stim or gentle tacitle stim) Results Result Diagram: 07/15/17 0500 07/15/17 0500 Results 24 hrs Laboratory Tests Test 07/14/17 09:30 07/14/17 21:14 07/15/17 05:00 07/15/17 05:10 Blood Gas Specimen Source Blood arterial Blood arterial Arterial Blood Date Drawn 07/14/2017 9:50:47 AM 07/14/2017 9:20:09 PM Arterial Blood pH (Temp corrected) 7.441 7.451 H Arterial Blood pCO2 (Temp correct) 23.4 L 20.4 L Arterial Blood pO2 (Temp corrected) 79.1 L 83.5 Arterial Blood HCO3 15.6 L 13.9 L Arterial Blood Base Excess -7.2 L -8.4 L Arterial Blood Oxygen Saturation 95.0 95.5 George Test ACCEPTAB ACCEPTAB Arterial Blood Gas Puncture Site Right Radial Right Radial Arterial Blood Carboxyhemoglobin 0.5 0.4 Arterial Blood Methemoglobin 0.1 0.1 Blood Gas A-a O2 Differential 64.2 H 63.3 H Oxyhemoglobin Percent 94.4 95.0 Total Hemoglobin 10.0 L 10.2 L Blood Gas Temperature 37.0 37.0 Blood Gas Modality NASAL CANNULA NASAL CANNULA FiO2 24.0 24.0 Blood Gas Notified Whom LISSA KEENAN Blood Gas Notified Time 07/14/2017 10:15:31 AM 07/14/2017 9:33:00 PM White Blood Count 17.8 H Red Blood Count 2.77 L Hemoglobin 8.6 L Hematocrit 25.5 L Mean Corpuscular Volume 92.1 Mean Corpuscular Hemoglobin 31.0 Mean Corpuscular Hemoglobin Concent 33.7 Red Cell Distribution Width 22.3 H Platelet Count 177 Mean Platelet Volume 11.5 H Neutrophils % 85.6 H Lymphocytes % 6.8 L Monocytes % 4.8 Eosinophils % 0.7 Basophils % 0.2 Nucleated Red Blood Cells % 0.0 Neutrophils # 15.3 H Lymphocytes # 1.2 Monocytes # 0.9 Eosinophils # 0.1 Basophils # 0.0 Nucleated Red Blood Cells # 0.0 Sodium Level 150 H Potassium Level 2.7 *L Chloride Level 115 H Carbon Dioxide Level 15 L Anion Gap 23 H Blood Urea Nitrogen 57 H Creatinine 4.79 H Glucose Level 180 Calcium Level 7.8 L Phosphorus Level 4.6 Magnesium Level 1.8 Total Bilirubin 16.7 H Direct Bilirubin 14.30 H Indirect Bilirubin 2.4 H Aspartate Amino Transf (AST/SGOT) 140 H Alanine Aminotransferase (ALT/SGPT) 27 Alkaline Phosphatase 191 H Ammonia 144 H Total Protein 6.5 Albumin 2.3 L Globulin 4.20 H Albumin/Globulin Ratio 0.54 Prothrombin Time 33.1 H Prothrombin Time Ratio 2.6 INR International Normalized Ratio 3.13 Activated Partial Thromboplast Time 63.3 H Medications Medications Current Medications Ondansetron HCl (Zofran Inj) 4 mg Q4H PRN IV NAUSEA AND/OR VOMITING Last administered on 07/10/17 22:56; Admin Dose 4 MG; Start 06/26/17 at 03:30 Rifaximin 550 mg 550 mg BID PO Last administered on 07/14/17 21:03; Admin Dose 550 MG; Start 07/03/17 at 21:00 Pantoprazole 80 mg/Sodium Chloride 100 ml @ 10 mls/hr Q10H IV Last administered on 07/15/17 01:53; Admin Dose 10 MLS/HR; Start 07/05/17 at 23:00 Octreotide Acetate 1 mg/ Sodium Chloride 100 ml @ 5 mls/hr Q20H IV Last administered on 07/14/17 22:57; Admin Dose 5 MLS/HR; Start 07/06/17 at 00:30 Norepinephrine 16 mg/Dextrose 500 ml @ 1.87 mls/hr TITRATE PRN IV BLOOD PRESSURE SUPPORT Last administered on 07/12/17 15:19; Admin Dose 1.87 MLS/HR; Start 07/07/17 at 06:00 Cefepime HCl/ Sodium Chloride (Maxipime/NS) 50 ml @ 100 mls/hr Q24H IVPB Last administered on 07/14/17 14:21; Admin Dose 100 MLS/HR; Start 07/07/17 at 14:00 IV Flush 10 ml 10 ml PRN PRN IV IV PROTOCOL; Start 07/07/17 at 15:30 Fluconazole/ Sodium Chloride (Diflucan 100 Mg/ NS (Pmx)) 50 ml @ 50 mls/hr Q24H IVPB Last administered on 07/14/17 12:09; Admin Dose 50 MLS/HR; Start at 12:00 Simethicone 80 mg 80 mg Q6 GTB Last administered on 07/15/17 05:39; Admin Dose 80 MG; Start 07/09/17 at 12:00 Metronidazole 250 mg/N/A 50 ml @ 50 mls/hr Q8 IVPB Last administered on 05:40; Admin Dose 50 MLS/HR; Start 07/10/17 at 14:00 Bumetanide/ Dextrose (Bumex/D5W) 250 ml @ 10 mls/hr Q24H IV Last administered on 07/14/17 13:00; Admin Dose 10 MLS/HR; Start 07/10/17 at 17:00 Lactulose 30 gm 30 gm Q6 NE Last administered on 07/15/17 05:40; Admin Dose 30 GM; Start 07/12/17 at 12:00 Linezolid (Zyvox 600mg/D5W (Pmx)) 300 ml @ 300 mls/hr BID IVPB Last administered on 07/14/17 21:03; Admin Dose 300 MLS/HR; Start 07/12/17 at 21: 00 Fentanyl (Sublimaze) 25 mcg Q2H PRN IV PAIN Last administered on 07/14/17 08: 35; Admin Dose 25 MCG; Start 07/13/17 at 06:30 Ferrous Sulfate 300 mg 300 mg BID NGT Last administered on 07/14/17 21:02; Admin Dose 300 MG; Start 07/13/17 at 09:00 Dextrose 1,000 ml @ 150 mls/hr Q6H40M IV Last administered on 07/15/17 03:17 ; Admin Dose 80 MLS/HR; Start 07/14/17 at 09:30 Potassium Chloride (KCl 40 MEQ/250 ML NS) 250 ml @ 62.5 mls/hr Q4H IVPB ; Start 07/15/17 at 07:00; Stop 07/15/17 at 14:59 DEMETRIUS BABCOCK MD Jul 15, 2017 08:38
[2017-07-15] MEDS: LINEZOLID 600 MG/D5W (PMX) 300 ML IVPB SCH ×2 (08:44→20:41)
[2017-07-15] MEDS: FERROUS SULFATE 60 MG/ML 5ML CUP NGT SCH ×2 (08:44→20:41)
[2017-07-15] MEDS: RIFAXIMIN 550 MG TAB PO SCH ×2 (08:44→20:41)
--- NOTE | 2017-07-15 11:40 | CONS ---
Date/Time of Note Date/Time of Note DATE: 07/15/17 TIME: 11:38 Assessment/Plan Assessment/Plan Chief Complaint/Hosp Course SUBJECTIVE: No events overnight. Patient remains obtunded on octreotide and Protonix drip, off pressors. Family at bedside. INDWELLINGS: NG tube, Vega catheter, PICC line placed on 07/07/2017 and new Gerardo catheter in her right groin placed 07/14/17. ANTIMICROBIALS: 1. Cefepime. 2. Zyvox. 3. Flagyl. PHYSICAL EXAMINATION: GENERAL: Chronically ill-appearing, middle-aged woman who is obtunded , in no distress. HEENT: Head atraumatic, normocephalic. Sclerae icteric. Buccal mucosa dry. NECK: Supple. CHEST: Rise symmetrical. Breath sounds diminished. HEART: S1, S2, tachycardic. ABDOMEN: Distended, positive for ascites. EXTREMITIES: With trace edema. SKIN: Positive for anasarca and jaundice. ASSESSMENT: 1. Sepsis, status post shock. 2. Multisystem organ failure. 3. Decompensated alcoholic cirrhosis with ascites and portal hypertension. 4. Acute renal failure, possibly hepatorenal syndrome, status post Gerardo placement. 5. Possible spontaneous bacterial peritonitis. 6. Acute encephalopathy secondary to above. 7. Anemia. PLAN: The patient remains unchanged, doing poorly. Continue present care, antibiotics, DNR status. DW staff Problems: Consultation Date/Type/Reason Admit Date/Time Jun 26, 2017 at 00:00 Initial Consult Date 06/26/17 Type of Consultation: id Exam/Review of Systems Vital Signs Vitals Vital Signs Date Time Temp Pulse Resp B/P Pulse Ox O2 Delivery O2 Flow Rate FiO2 07/15/17 11:00 95 15 93/49 98 Nasal Cannula 1.0 07/15/17 07:00 98.3 Intake and Output 07/14/17 07/14/17 07/15/17 14:59 22:59 06:59 Intake Total 710 ml 1640 ml 1010 ml Output Total 300 ml 1975 ml 950 ml Balance 410 ml -335 ml 60 ml Results Result Diagram: 07/15/17 0500 07/15/17 0500 Results 24 hrs Laboratory Tests Test 07/14/17 21:14 07/15/17 05:00 07/15/17 05:10 Blood Gas Specimen Source Blood arterial Arterial Blood Date Drawn 07/14/2017 9:20:09 PM Arterial Blood pH (Temp corrected) 7.451 H Arterial Blood pCO2 (Temp correct) 20.4 L Arterial Blood pO2 (Temp corrected) 83.5 Arterial Blood HCO3 13.9 L Arterial Blood Base Excess -8.4 L Arterial Blood Oxygen Saturation 95.5 George Test ACCEPTAB Arterial Blood Gas Puncture Site Right Radial Arterial Blood Carboxyhemoglobin 0.4 Arterial Blood Methemoglobin 0.1 Blood Gas A-a O2 Differential 63.3 H Oxyhemoglobin Percent 95.0 Total Hemoglobin 10.2 L Blood Gas Temperature 37.0 Blood Gas Modality NASAL CANNULA FiO2 24.0 Blood Gas Notified Whom KM Blood Gas Notified Time 07/14/2017 9:33:00 PM White Blood Count 17.8 H Red Blood Count 2.77 L Hemoglobin 8.6 L Hematocrit 25.5 L Mean Corpuscular Volume 92.1 Mean Corpuscular Hemoglobin 31.0 Mean Corpuscular Hemoglobin Concent 33.7 Red Cell Distribution Width 22.3 H Platelet Count 177 Mean Platelet Volume 11.5 H Neutrophils % 85.6 H Lymphocytes % 6.8 L Monocytes % 4.8 Eosinophils % 0.7 Basophils % 0.2 Nucleated Red Blood Cells % 0.0 Neutrophils # 15.3 H Lymphocytes # 1.2 Monocytes # 0.9 Eosinophils # 0.1 Basophils # 0.0 Nucleated Red Blood Cells # 0.0 Sodium Level 150 H Potassium Level 2.7 *L Chloride Level 115 H Carbon Dioxide Level 15 L Anion Gap 23 H Blood Urea Nitrogen 57 H Creatinine 4.79 H Glucose Level 180 Calcium Level 7.8 L Phosphorus Level 4.6 Magnesium Level 1.8 Total Bilirubin 16.7 H Direct Bilirubin 14.30 H Indirect Bilirubin 2.4 H Aspartate Amino Transf (AST/SGOT) 140 H Alanine Aminotransferase (ALT/SGPT) 27 Alkaline Phosphatase 191 H Ammonia 144 H Total Protein 6.5 Albumin 2.3 L Globulin 4.20 H Albumin/Globulin Ratio 0.54 Prothrombin Time 33.1 H Prothrombin Time Ratio 2.6 INR International Normalized Ratio 3.13 Activated Partial Thromboplast Time 63.3 H Medications Medications Current Medications Ondansetron HCl (Zofran Inj) 4 mg Q4H PRN IV NAUSEA AND/OR VOMITING Last administered on 07/10/17t 22:56; Admin Dose 4 MG; Start 06/26/17 at 03:30 Rifaximin 550 mg 550 mg BID PO Last administered on 07/15/17 08:44; Admin Dose 550 MG; Start 07/03/17 at 21:00 Pantoprazole 80 mg/Sodium Chloride 100 ml @ 10 mls/hr Q10H IV Last administered on 07/15/17 01:53; Admin Dose 10 MLS/HR; Start 07/05/17 at 23:00 Octreotide Acetate 1 mg/ Sodium Chloride 100 ml @ 5 mls/hr Q20H IV Last administered on 07/14/17 22:57; Admin Dose 5 MLS/HR; Start 07/06/17 at 00:30 Norepinephrine 16 mg/Dextrose 500 ml @ 1.87 mls/hr TITRATE PRN IV BLOOD PRESSURE SUPPORT Last administered on 07/12/17 15:19; Admin Dose 1.87 MLS/HR; Start 07/07/17 at 06:00 Cefepime HCl/ Sodium Chloride (Maxipime/NS) 50 ml @ 100 mls/hr Q24H IVPB Last administered on 07/14/17 14:21; Admin Dose 100 MLS/HR; Start 07/07/17 at 14:00 IV Flush 10 ml 10 ml PRN PRN IV IV PROTOCOL; Start 07/07/17 at 15:30 Fluconazole/ Sodium Chloride (Diflucan 100 Mg/ NS (Pmx)) 50 ml @ 50 mls/hr Q24H IVPB Last administered on 07/14/17 12:09; Admin Dose 50 MLS/HR; Start at 12:00 Simethicone 80 mg 80 mg Q6 GTB Last administered on 07/15/17 05:39; Admin Dose 80 MG; Start 07/09/17 at 12:00 Metronidazole 250 mg/N/A 50 ml @ 50 mls/hr Q8 IVPB Last administered on 05:40; Admin Dose 50 MLS/HR; Start 07/10/17 at 14:00 Bumetanide/ Dextrose (Bumex/D5W) 250 ml @ 10 mls/hr Q24H IV Last administered on 07/14/17 13:00; Admin Dose 10 MLS/HR; Start 07/10/17 at 17:00 Lactulose 30 gm 30 gm Q6 UT Last administered on 07/15/17 05:40; Admin Dose 30 GM; Start 07/12/17 at 12:00 Linezolid (Zyvox 600mg/D5W (Pmx)) 300 ml @ 300 mls/hr BID IVPB Last administered on 07/15/17 08:44; Admin Dose 300 MLS/HR; Start 07/12/17 at 21: 00 Fentanyl (Sublimaze) 25 mcg Q2H PRN IV PAIN Last administered on 07/14/17 08: 35; Admin Dose 25 MCG; Start 07/13/17 at 06:30 Ferrous Sulfate 300 mg 300 mg BID NGT Last administered on 07/15/17 08:44; Admin Dose 300 MG; Start 07/13/17 at 09:00 Dextrose 1,000 ml @ 150 mls/hr Q6H40M IV Last administered on 07/15/17 03:17 ; Admin Dose 80 MLS/HR; Start 07/14/17 at 09:30 Potassium Chloride (KCl 40 MEQ/250 ML NS) 250 ml @ 62.5 mls/hr Q4H IVPB Last administered on 07/15/17 08:44; Admin Dose 62.5 MLS/HR; Start 07/15/17 at 07: 00; Stop 07/15/17 at 14:59 FARHAT GARDINER NP Jul 15, 2017 11:40
[2017-07-15] MEDS: FLUCONAZOLE 100 MG/NS (PMX) 50 ML IVPB SCH ×2 (12:00→13:28)
[2017-07-15] MEDS: BUMETANIDE 25 MG in DEXTROSE 5% 150 ML IV SCH ×2 (13:29→17:00)
--- NOTE | 2017-07-15 14:05 | PN ---
Date/Time of Note Date/Time of Note DATE: 07/15/17 TIME: 13:56 Assessment/Plan VTE Prophylaxis VTE Prophylaxis Intervention: SCD's Lines/Catheters [facility] GOMEZ CATH Urinary Cath still in place: Yes Reason Cath still needed: urinary retention (monitor output) Assessment/Plan Chief Complaint/Hosp Course Assessment: Status DNR/DNI Hepatorenal Syndrome Decompensated liver cirrhosis with ascites Encephalopathy Anemia EGD 07/07/17 Impression: Grade III/IV esophageal varices with stigmata recent bleeding Post endoscopic variceal ligation 5 Portal hypertensive gastropathy. No evidence of cholecystitis- negative HIDA Acute kidney injury Sepsis S/p Paracentesis 2.2L Plan: Followed by policy cancellation clerk on Bumex gtt family refuses dialysis in the future Continue Protonix and octreotide drip NG tube venting Monitor H&H transfuse for hemoglobin less than 7.5 Continue lactulose and rifaximin Patient seen in collaboration with Dr. Ny Subjective: No changes overnight. Patient remains obtundent with ammonia level high despite the treatment. Small urine output in the Vega, very concentrated. Hemodialysis fistula in place but family now refusing to dialyze if needed since it will not change the prognosis. Family also decided not to intubate. Considering palliative care. Patient remains NPO. Course reviewed with the bedside nurse. Patient examined. Family updated on patient's status and questions have been answered. All laboratory results have been reviewed. PHYSICAL EXAMINATION: GENERAL: Incoherent, altered mental status, in no acute distress. SKIN: Sacral pressure soar covered with DuoDERM, stigmata present due to chronic liver disease, multiple bruising. Jaundiced. Icteric sclera. Pitting edema bilateral lower extremities. LYMPHATIC: No palpable lymphadenopathy. HEAD: Normocephalic, atraumatic, no tenderness. EYES: Pupils equal reactive to light and accommodation, full extraocular movements, sclera clear, icteric, no discharge. EARS/NOSE AND THROAT: Ears normal, NG tube is in place in the nostril. NECK: Supple, CHEST: Inspection within normal limits. CARDIOVASCULAR: Heart: Regular rate and rhythm,. RESPIRATORY: Lungs clear to auscultation GASTROINTESTINAL AND LIVER: Abdomen: very distended due to gas versus ascites, no hernias, no masses, moderate ascites, no splenomegaly, no guarding, no rebound tenderness, normoactive bowel sounds. Rectal: Deferred. GENITOURINARY: Female genitalia within normal limits. EXTREMITIES: No cyanosis, clubbing or edema. Problems: Exam/Review of Systems Vital Signs Vitals Vital Signs Date Time Temp Pulse Resp B/P Pulse Ox O2 Delivery O2 Flow Rate FiO2 07/15/17 12:00 102 07/15/17 12:00 16 106/55 97 Nasal Cannula 1.0 07/15/17 07:00 98.3 Intake and Output 07/14/17 07/14/17 07/15/17 14:59 22:59 06:59 Intake Total 710 ml 1640 ml 1010 ml Output Total 300 ml 1975 ml 950 ml Balance 410 ml -335 ml 60 ml Results Result Diagram: 07/15/17 0500 07/15/17 0500 Results 24 hrs Laboratory Tests Test 07/14/17 21:14 07/15/17 05:00 07/15/17 05:10 Blood Gas Specimen Source Blood arterial Arterial Blood Date Drawn 07/14/2017 9:20:09 PM Arterial Blood pH (Temp corrected) 7.451 H Arterial Blood pCO2 (Temp correct) 20.4 L Arterial Blood pO2 (Temp corrected) 83.5 Arterial Blood HCO3 13.9 L Arterial Blood Base Excess -8.4 L Arterial Blood Oxygen Saturation 95.5 George Test ACCEPTAB Arterial Blood Gas Puncture Site Right Radial Arterial Blood Carboxyhemoglobin 0.4 Arterial Blood Methemoglobin 0.1 Blood Gas A-a O2 Differential 63.3 H Oxyhemoglobin Percent 95.0 Total Hemoglobin 10.2 L Blood Gas Temperature 37.0 Blood Gas Modality NASAL CANNULA FiO2 24.0 Blood Gas Notified Whom KM Blood Gas Notified Time 07/14/2017 9:33:00 PM White Blood Count 17.8 H Red Blood Count 2.77 L Hemoglobin 8.6 L Hematocrit 25.5 L Mean Corpuscular Volume 92.1 Mean Corpuscular Hemoglobin 31.0 Mean Corpuscular Hemoglobin Concent 33.7 Red Cell Distribution Width 22.3 H Platelet Count 177 Mean Platelet Volume 11.5 H Neutrophils % 85.6 H Lymphocytes % 6.8 L Monocytes % 4.8 Eosinophils % 0.7 Basophils % 0.2 Nucleated Red Blood Cells % 0.0 Neutrophils # 15.3 H Lymphocytes # 1.2 Monocytes # 0.9 Eosinophils # 0.1 Basophils # 0.0 Nucleated Red Blood Cells # 0.0 Sodium Level 150 H Potassium Level 2.7 *L Chloride Level 115 H Carbon Dioxide Level 15 L Anion Gap 23 H Blood Urea Nitrogen 57 H Creatinine 4.79 H Glucose Level 180 Calcium Level 7.8 L Phosphorus Level 4.6 Magnesium Level 1.8 Total Bilirubin 16.7 H Direct Bilirubin 14.30 H Indirect Bilirubin 2.4 H Aspartate Amino Transf (AST/SGOT) 140 H Alanine Aminotransferase (ALT/SGPT) 27 Alkaline Phosphatase 191 H Ammonia 144 H Total Protein 6.5 Albumin 2.3 L Globulin 4.20 H Albumin/Globulin Ratio 0.54 Prothrombin Time 33.1 H Prothrombin Time Ratio 2.6 INR International Normalized Ratio 3.13 Activated Partial Thromboplast Time 63.3 H Medications Medications Current Medications Ondansetron HCl (Zofran Inj) 4 mg Q4H PRN IV NAUSEA AND/OR VOMITING Last administered on 07/10/17 22:56; Admin Dose 4 MG; Start 06/26/17 at 03:30 Rifaximin 550 mg 550 mg BID PO Last administered on 07/15/17 08:44; Admin Dose 550 MG; Start 07/03/17 at 21:00 Pantoprazole 80 mg/Sodium Chloride 100 ml @ 10 mls/hr Q10H IV Last administered on 07/15/17 13:29; Admin Dose 10 MLS/HR; Start 07/05/17 at 23:00 Octreotide Acetate 1 mg/ Sodium Chloride 100 ml @ 5 mls/hr Q20H IV Last administered on 07/14/17 22:57; Admin Dose 5 MLS/HR; Start 07/06/17 at 00:30 Norepinephrine 16 mg/Dextrose 500 ml @ 1.87 mls/hr TITRATE PRN IV BLOOD PRESSURE SUPPORT Last administered on 07/12/17 15:19; Admin Dose 1.87 MLS/HR; Start 07/07/17 at 06:00 Cefepime HCl/ Sodium Chloride (Maxipime/NS) 50 ml @ 100 mls/hr Q24H IVPB Last administered on 07/14/17 14:21; Admin Dose 100 MLS/HR; Start 07/07/17 at 14:00 IV Flush 10 ml 10 ml PRN PRN IV IV PROTOCOL; Start 07/07/17 at 15:30 Fluconazole/ Sodium Chloride (Diflucan 100 Mg/ NS (Pmx)) 50 ml @ 50 mls/hr Q24H IVPB Last administered on 07/15/17 13:28; Admin Dose 50 MLS/HR; Start at 12:00 Simethicone 80 mg 80 mg Q6 GTB Last administered on 07/15/17 11:54; Admin Dose 80 MG; Start 07/09/17 at 12:00 Metronidazole 250 mg/N/A 50 ml @ 50 mls/hr Q8 IVPB Last administered on 05:40; Admin Dose 50 MLS/HR; Start 07/10/17 at 14:00 Bumetanide/ Dextrose (Bumex/D5W) 250 ml @ 10 mls/hr Q24H IV Last administered on 07/15/17 13:29; Admin Dose 10 MLS/HR; Start 07/10/17 at 17:00 Lactulose 30 gm 30 gm Q6 SD Last administered on 07/15/17 11:54; Admin Dose 30 GM; Start 07/12/17 at 12:00 Linezolid (Zyvox 600mg/D5W (Pmx)) 300 ml @ 300 mls/hr BID IVPB Last administered on 07/15/17 08:44; Admin Dose 300 MLS/HR; Start 07/12/17 at 21: 00 Fentanyl (Sublimaze) 25 mcg Q2H PRN IV PAIN Last administered on 07/14/17 08: 35; Admin Dose 25 MCG; Start 07/13/17 at 06:30 Ferrous Sulfate 300 mg 300 mg BID NGT Last administered on 07/15/17 08:44; Admin Dose 300 MG; Start 07/13/17 at 09:00 Dextrose 1,000 ml @ 150 mls/hr Q6H40M IV Last administered on 07/15/17 03:17 ; Admin Dose 80 MLS/HR; Start 07/14/17 at 09:30 Potassium Chloride (KCl 40 MEQ/250 ML NS) 250 ml @ 62.5 mls/hr Q4H IVPB Last administered on 07/15/17 13:30; Admin Dose 62.5 MLS/HR; Start 07/15/17 at 07: 00; Stop 07/15/17 at 14:59 Copies To: CC: FRANCINE NY MD, ANASTASIA NP Jul 15, 2017 14:05
[2017-07-15] MEDS: CEFEPIME HCL 0.5 GM in SOD CHLORIDE 0.9% 50 ML IVPB SCH (14:16)
--- NOTE | 2017-07-15 16:22 | PN ---
Date/Time of Note Date/Time of Note DATE: 07/15/17 TIME: 16:18 Assessment/Plan VTE Prophylaxis VTE Prophylaxis Intervention: SCD's Lines/Catheters [facility] GOMEZ CATH Central line still needed: Yes Urinary Cath still in place: Yes Reason Cath still needed: other (indicate) Assessment/Plan Chief Complaint/Hosp Course 1. Acute encephalopathy. -Most probably toxic metabolic in origin. -Continue lactulose. 2. Decompensated alcoholic liver cirrhosis with ascites and portal hypertension. -Continue lactulose. -Status post ultrasound-guided paracentesis on 07/02/2017. 3. Acute kidney injury. -Nephrology following. -Plan was to initiate hemodialysis. However, the patient's condition has been progressively deteriorating. 4. Metabolic acidosis. -Worsening renal function. 5. Anemia. Normocytic, normochromic. -On iron supplements. 6. Transaminitis with hyperbilirubinemia. -Most probably secondary to #1 and #2. -Avoid hepatotoxic medications. 7. Grade III/IV esophageal varices with stigmata recent bleeding -Post endoscopic variceal ligation 5. -On octreotide and Protonix. 8. Hypernatremia. -On free H20 via NGT. 9. Symptomatic cholelithiasis. -No evidence of cholecystitis. -Status post surgical evaluation. No surgical intervention. 10. Fluids, electrolytes, and nutrition. -N.p.o. -Fluid restriction. 11. DVT prophylaxis. -Bilateral sequential compression devices. 12. Plan. -Trend LFTs. -Poor prognosis was explained to the patient's family who were at the bedside. -The patient is currently a DNR. Case discussed with Dr. Mauricio. Critical CARE time: 35 minutes. Problems: Subjective 24 Hr Interval Summary Free Text/Dictation The patient's condition has deteriorated over last night. The patient has not been started on hemodialysis. Exam/Review of Systems Vital Signs Vitals Vital Signs Date Time Temp Pulse Resp B/P Pulse Ox O2 Delivery O2 Flow Rate FiO2 07/15/17 16:00 94 13 93/50 99 Nasal Cannula 1.0 07/15/17 07:00 98.3 Intake and Output 07/14/17 07/14/17 07/15/17 15:00 23:00 07:00 Intake Total 890 ml 1540 ml 1010 ml Output Total 300 ml 2075 ml 880 ml Balance 590 ml -535 ml 130 ml Exam General: Adequately build 47 year-old female lying in bed. HEENT: Normocephalic, atraumatic. Eyes: Icteric sclerae, conjunctivae clear. ENT : Nasal septum is midline, oral mucosa is dry. Neck supple. Respiratory: Bilaterally diminished breath sounds. Agonal breathing. No adventitious breath sounds. Cardiovascular: S1, S2 heard. Regular rate and rhythm. Abdomen: Soft. Bowel sounds positive in all 4 quadrants. Minimal distention. Left upper quadrant tenderness. Genitourinary: Deferred. Extremities: No cyanosis, no clubbing. Peripheral pulses palpable. Bilateral lower extremity 2-3+ pitting edema. Neurologic: The patient is Obtunded. Withdraws to painful stimuli. Skin: Normal skin turgor. No skin rashes. Icterus. Results Result Diagram: 07/15/17 0500 07/15/17 0500 Results 24 hrs Laboratory Tests Test 07/14/17 21:14 07/15/17 05:00 07/15/17 05:10 07/15/17 13:18 Blood Gas Specimen Source Blood arterial Arterial Blood Date Drawn 07/14/2017 9:20:09 PM Arterial Blood pH (Temp corrected) 7.451 H Arterial Blood pCO2 (Temp correct) 20.4 L Arterial Blood pO2 (Temp corrected) 83.5 Arterial Blood HCO3 13.9 L Arterial Blood Base Excess -8.4 L Arterial Blood Oxygen Saturation 95.5 George Test ACCEPTAB Arterial Blood Gas Puncture Site Right Radial Arterial Blood Carboxyhemoglobin 0.4 Arterial Blood Methemoglobin 0.1 Blood Gas A-a O2 Differential 63.3 H Oxyhemoglobin Percent 95.0 Total Hemoglobin 10.2 L Blood Gas Temperature 37.0 Blood Gas Modality NASAL CANNULA FiO2 24.0 Blood Gas Notified Whom KM Blood Gas Notified Time 07/14/2017 9:33:00 PM White Blood Count 17.8 H Red Blood Count 2.77 L Hemoglobin 8.6 L Hematocrit 25.5 L Mean Corpuscular Volume 92.1 Mean Corpuscular Hemoglobin 31.0 Mean Corpuscular Hemoglobin Concent 33.7 Red Cell Distribution Width 22.3 H Platelet Count 177 Mean Platelet Volume 11.5 H Neutrophils % 85.6 H Lymphocytes % 6.8 L Monocytes % 4.8 Eosinophils % 0.7 Basophils % 0.2 Nucleated Red Blood Cells % 0.0 Neutrophils # 15.3 H Lymphocytes # 1.2 Monocytes # 0.9 Eosinophils # 0.1 Basophils # 0.0 Nucleated Red Blood Cells # 0.0 Sodium Level 150 H Potassium Level 2.7 *L Chloride Level 115 H Carbon Dioxide Level 15 L Anion Gap 23 H Blood Urea Nitrogen 57 H Creatinine 4.79 H Glucose Level 180 Calcium Level 7.8 L Phosphorus Level 4.6 Magnesium Level 1.8 Total Bilirubin 16.7 H Direct Bilirubin 14.30 H Indirect Bilirubin 2.4 H Aspartate Amino Transf (AST/SGOT) 140 H Alanine Aminotransferase (ALT/SGPT) 27 Alkaline Phosphatase 191 H Ammonia 144 H Total Protein 6.5 Albumin 2.3 L Globulin 4.20 H Albumin/Globulin Ratio 0.54 Prothrombin Time 33.1 H Prothrombin Time Ratio 2.6 INR International Normalized Ratio 3.13 Activated Partial Thromboplast Time 63.3 H Troponin I < 0.012 Medications Medications Current Medications Ondansetron HCl (Zofran Inj) 4 mg Q4H PRN IV NAUSEA AND/OR VOMITING Last administered on 07/10/17 22:56; Admin Dose 4 MG; Start 06/26/17 at 03:30 Rifaximin 550 mg 550 mg BID PO Last administered on 07/15/17 08:44; Admin Dose 550 MG; Start 07/03/17 at 21:00 Pantoprazole 80 mg/Sodium Chloride 100 ml @ 10 mls/hr Q10H IV Last administered on 07/15/17 13:29; Admin Dose 10 MLS/HR; Start 07/05/17 at 23:00 Octreotide Acetate 1 mg/ Sodium Chloride 100 ml @ 5 mls/hr Q20H IV Last administered on 07/14/17 22:57; Admin Dose 5 MLS/HR; Start 07/06/17 at 00:30 Norepinephrine 16 mg/Dextrose 500 ml @ 1.87 mls/hr TITRATE PRN IV BLOOD PRESSURE SUPPORT Last administered on 07/12/17 15:19; Admin Dose 1.87 MLS/HR; Start 07/07/17 at 06:00 Cefepime HCl/ Sodium Chloride (Maxipime/NS) 50 ml @ 100 mls/hr Q24H IVPB Last administered on 07/15/17 14:16; Admin Dose 100 MLS/HR; Start 07/07/17 at 14:00 IV Flush 10 ml 10 ml PRN PRN IV IV PROTOCOL; Start 07/07/17 at 15:30 Fluconazole/ Sodium Chloride (Diflucan 100 Mg/ NS (Pmx)) 50 ml @ 50 mls/hr Q24H IVPB Last administered on 07/15/17 13:28; Admin Dose 50 MLS/HR; Start at 12:00 Simethicone 80 mg 80 mg Q6 GTB Last administered on 07/15/17 11:54; Admin Dose 80 MG; Start 07/09/17 at 12:00 Metronidazole 250 mg/N/A 50 ml @ 50 mls/hr Q8 IVPB Last administered on 14:48; Admin Dose 50 MLS/HR; Start 07/10/17 at 14:00 Bumetanide/ Dextrose (Bumex/D5W) 250 ml @ 10 mls/hr Q24H IV Last administered on 07/15/17 13:29; Admin Dose 10 MLS/HR; Start 07/10/17 at 17:00 Lactulose 30 gm 30 gm Q6 AL Last administered on 07/15/17 11:54; Admin Dose 30 GM; Start 07/12/17 at 12:00 Linezolid (Zyvox 600mg/D5W (Pmx)) 300 ml @ 300 mls/hr BID IVPB Last administered on 07/15/17 08:44; Admin Dose 300 MLS/HR; Start 07/12/17 at 21: 00 Fentanyl (Sublimaze) 25 mcg Q2H PRN IV PAIN Last administered on 07/14/17 08: 35; Admin Dose 25 MCG; Start 07/13/17 at 06:30 Ferrous Sulfate 300 mg 300 mg BID NGT Last administered on 07/15/17 08:44; Admin Dose 300 MG; Start 07/13/17 at 09:00 Dextrose (D5W) 1,000 ml @ 150 mls/hr Q6H40M IV Last administered on 03:17; Admin Dose 80 MLS/HR; Start 07/14/17 at 09:30 RAKESH WEBBER NP Jul 15, 2017 16:22
--- NOTE | 2017-07-15 21:21 | PN ---
Date/Time of Note Date/Time of Note DATE: 07/15/17 TIME: 21:21 Assessment/Plan Lines/Catheters IV Catheter Type (from Nrsg): GOMEZ Vega in Place (from Nrsg): Yes Assessment/Plan Chief Complaint/Hosp Course IMPRESSION: Liver failure. RECOMMENDATIONS: WSP dialysis catheter. placement will continue HD may need permcath Problems: Subjective 24 Hr Interval Summary Constitutional: improved Pain Control: mild Exam/Review of Systems Vital Signs Vitals Vital Signs Date Time Temp Pulse Resp B/P Pulse Ox O2 Delivery O2 Flow Rate FiO2 07/15/17 20:00 97.4 102 14 104/61 97 Nasal Cannula 1.0 Intake and Output 07/14/17 07/14/17 07/15/17 15:00 23:00 07:00 Intake Total 890 ml 1540 ml 1010 ml Output Total 300 ml 2075 ml 880 ml Balance 590 ml -535 ml 130 ml Exam ENMT: mucosa pink and moist, nl external ears & nose, nl lips & teeth, nl nasal mucosa & septum Neck: non-tender, supple Respiratory: clear to auscultation, normal air movement Cardiovascular: nl pulses, regular rate and rhythm Results Result Diagram: 07/15/17 0500 07/15/17 0500 NOEL ENAMORADO MD Jul 15, 2017 21:21
[2017-07-15] MEDS: OCTREOTIDE 1 MG in SOD CHLORIDE 0.9% 95 ML IV SCH (21:49)
[2017-07-16] VITALS (24 sets, daily range): BP systolic 84–119; BP diastolic 49–97; PULSE 82–107; RESP 14–20
[2017-07-16] MEDS: DEXTROSE 5% 1,000 ML IV SCH ×3 (01:45→20:45)
[2017-07-16] MEDS: LACTULOSE 30ML CUP PR SCH ×4 (05:19→23:05)
[2017-07-16] MEDS: metroNIDAZOLE 500 MG/NS (PMX) 250 MG in EVAC CONTAINER 1 BOTTLE IVPB SCH ×3 (05:19→23:04)
[2017-07-16 06:02] LABS: MAGNESIUM 1.7 mg/dl (1.7-2.5); PHOSPHORUS 4.3 mg/dl (2.5-4.9)
[2017-07-16 06:31] LABS: ABNORMAL IP MESSAGE 1; BASOPHILS % 0.2 % (0.0-2.0); EOSINOPHILS # 0.2 10^3/ul (0.0-0.5); EOSINOPHILS % 0.9 % (0.0-7.0); HEMATOCRIT 25.6 % (37.0-47.0); HEMOGLOBIN 8.6 g/dl (12.0-16.0); LYMPHOCYTES # 1.7 10^3/ul (0.8-2.9); MEAN CORPUSCULAR HGB CONC 33.6 g/dl (32.0-37.0); MEAN CORPUSCULAR VOLUME 92.4 fl (82.0-101.0); MEAN PLATELET VOLUME 11.8 fl (7.4-10.4); MONOCYTES % 4.1 % (0.0-11.0); NEUTROPHIL # 20.5 10^3/ul (1.6-7.5); NEUTROPHILS % 86.2 % (39.0-77.0); PLATELET COUNT 162 10^3/UL (140-415); RED BLOOD COUNT 2.77 10^6/ul (4.20-5.40); RED CELL DISTRIBUTION WIDTH 22.3 % (11.5-14.5); WHITE BLOOD COUNT 23.7 10^3/ul (4.8-10.8)
[2017-07-16 06:52] LABS: POSITIVE DIFF @See below
--- NOTE | 2017-07-16 07:16 | CONS ---
Date/Time of Note Date/Time of Note DATE: 07/16/17 TIME: 07:11 Assessment/Plan Assessment/Plan Chief Complaint/Hosp Course Palliative care consultation on this 47-year-old female who is in the intensive care unit [facility] septic. She has a history of compensated liver cirrhosis with portal hypertension with ascites acute kidney injury. Is noncommunicative at this time and they are only son and a nephew who is available at this time in the room to speak with me. And is on the road unable to meet with me today but he will be back tomorrow morning at 0600. I will meet with him at that time. We contacted patient's while he was in transit to him speakerphone with other members of the family in attendance. Most important question at this time is whether or not she would want to have cardiopulmonary resuscitation or even to be put on artificial ventilation. Even if she does not require CPR we suspect that intubation may be inevitable. Patient currently in renal failure also being seen by Dr. Lowe. There are no definite decision will be made as to the patient's said that she would want to live. Both her son and relatives states that is spoken to him about living on artificial machines and never want to do so. There was supposedly a conversation also denied patient wanted to be dialyzed. Views of the information which is collecting I am to meet with family members tomorrow morning once again. Full palliative care consultation will be done at that time at 0600 hrs. Problems: Additional Assessment/Plan Postdated note for family conference July 15, 2017 Patient's as well as galvanizing pot runner was in attendance. Meeting was done in the family conference room we explored patient's past medical history and I brought him up-to-date in terms of her current medical condition. Voice of the family's patient's get a clear understanding of the past medical history and her alcohol addiction. Is felt that she would not morbid acceptable quality of life that she would recover from this although he is very realistic that she is critically ill medication preferences is directly with him. He is the only decision maker for family. During the family meeting he was very reluctant to speak about patient's past medical history and seemed resigned to the fact that she may . We explored options one being to continue with current level of care, to current level of care with intubation and any other high level of care she would require for temporary period of time depending upon her improvement, last option would be patient Aneta natural comfortable . We guaranteed him that we would address pain and symptom management as well as to continue with high level of communication with patient' s . Based on the conversation and the options given patient will have trial of intubation and any other higher level of care as necessary but only for a limited period of time if she does not improve then we will switch to just comfort measures. Consultation Date/Type/Reason Admit Date/Time Jun 26, 2017 at 00:00 Initial Consult Date 06/26/17 Type of Consultation: id Exam/Review of Systems Vital Signs Vitals Vital Signs Date Time Temp Pulse Resp B/P Pulse Ox O2 Delivery O2 Flow Rate FiO2 07/16/17 06:00 104 17 116/63 96 Nasal Cannula 1.0 07/16/17 00:00 97.8 Intake and Output 07/15/17 07/15/17 07/16/17 15:00 23:00 07:00 Intake Total 1085.0 ml 1615.0 ml 975 ml Output Total 465 ml 365 ml 330 ml Balance 620.0 ml 1250.0 ml 645 ml Results Result Diagram: 07/16/17 0400 07/15/17 0500 Results 24 hrs Laboratory Tests Test 07/15/17 13:18 07/16/17 04:00 07/16/17 04:35 Troponin I < 0.012 White Blood Count 23.7 #H Red Blood Count 2.77 L Hemoglobin 8.6 L Hematocrit 25.6 L Mean Corpuscular Volume 92.4 Mean Corpuscular Hemoglobin 31.0 Mean Corpuscular Hemoglobin Concent 33.6 Red Cell Distribution Width 22.3 H Platelet Count 162 Mean Platelet Volume 11.8 H Neutrophils % 86.2 H Lymphocytes % 7.0 L Monocytes % 4.1 Eosinophils % 0.9 Basophils % 0.2 Nucleated Red Blood Cells % 0.0 Neutrophils # 20.5 H Lymphocytes # 1.7 Monocytes # 1.0 H Eosinophils # 0.2 Basophils # 0.0 Nucleated Red Blood Cells # 0.0 Ammonia 136 H Phosphorus Level 4.3 Magnesium Level 1.7 Medications Medications Current Medications Ondansetron HCl (Zofran Inj) 4 mg Q4H PRN IV NAUSEA AND/OR VOMITING Last administered on 07/10/17 22:56; Admin Dose 4 MG; Start 06/26/17 at 03:30 Rifaximin 550 mg 550 mg BID PO Last administered on 07/15/17 20:41; Admin Dose 550 MG; Start 07/03/17 at 21:00 Pantoprazole 80 mg/Sodium Chloride 100 ml @ 10 mls/hr Q10H IV Last administered on 07/15/17 23:28; Admin Dose 10 MLS/HR; Start 07/05/17 at 23:00 Octreotide Acetate 1 mg/ Sodium Chloride 100 ml @ 5 mls/hr Q20H IV Last administered on 07/15/17 21:49; Admin Dose 5 MLS/HR; Start 07/06/17 at 00:30 Norepinephrine 16 mg/Dextrose 500 ml @ 1.87 mls/hr TITRATE PRN IV BLOOD PRESSURE SUPPORT Last administered on 07/12/17 15:19; Admin Dose 1.87 MLS/HR; Start 07/07/17 at 06:00 Cefepime HCl/ Sodium Chloride (Maxipime/NS) 50 ml @ 100 mls/hr Q24H IVPB Last administered on 07/15/17 14:16; Admin Dose 100 MLS/HR; Start 07/07/17 at 14:00 IV Flush 10 ml 10 ml PRN PRN IV IV PROTOCOL; Start 07/07/17 at 15:30 Fluconazole/ Sodium Chloride (Diflucan 100 Mg/ NS (Pmx)) 50 ml @ 50 mls/hr Q24H IVPB Last administered on 07/15/17 13:28; Admin Dose 50 MLS/HR; Start at 12:00 Simethicone 80 mg 80 mg Q6 GTB Last administered on 07/16/17 05:19; Admin Dose 80 MG; Start 07/09/17 at 12:00 Metronidazole 250 mg/N/A 50 ml @ 50 mls/hr Q8 IVPB Last administered on 05:19; Admin Dose 50 MLS/HR; Start 07/10/17 at 14:00 Bumetanide/ Dextrose (Bumex/D5W) 250 ml @ 10 mls/hr Q24H IV Last administered on 07/15/17 13:29; Admin Dose 10 MLS/HR; Start 07/10/17 at 17:00 Lactulose 30 gm 30 gm Q6 [place] Last administered on 07/16/17 05:19; Admin Dose 30 GM; Start 07/12/17 at 12:00 Linezolid (Zyvox 600mg/D5W (Pmx)) 300 ml @ 300 mls/hr BID IVPB Last administered on 07/15/17 20:41; Admin Dose 300 MLS/HR; Start 07/12/17 at 21: 00 Fentanyl (Sublimaze) 25 mcg Q2H PRN IV PAIN Last administered on 07/14/17 08: 35; Admin Dose 25 MCG; Start 07/13/17 at 06:30 Ferrous Sulfate 300 mg 300 mg BID NGT Last administered on 07/15/17 20:41; Admin Dose 300 MG; Start 07/13/17 at 09:00 Dextrose (D5W) 1,000 ml @ 150 mls/hr Q6H40M IV Last administered on 01:45; Admin Dose 150 MLS/HR; Start 07/14/17 at 09:30 ALFONSO BARAJAS Jul 16, 2017 07:16
[2017-07-16 07:18] LABS: ALBUMIN 2.4 g/dl (3.3-4.9); ALBUMIN/GLOBULIN RATIO 0.55; BILIRUBIN,DIRECT 14.5 mg/dl (0.00-0.20); BILIRUBIN,INDIRECT 2.4 mg/dl (0-1.1); BILIRUBIN,TOTAL 16.9 mg/dl (0.2-1.3); CALCIUM 7.9 mg/dl (8.4-10.2); CREATININE 4.22 mg/dl (0.44-1.00); POTASSIUM 3.1 mmol/L (3.5-5.1); TOTAL PROTEIN 6.7 g/dl (6.1-8.1)
--- NOTE | 2017-07-16 08:45 | CONS ---
Date/Time of Note Date/Time of Note DATE: 07/16/17 TIME: 08:43 Assessment/Plan Assessment/Plan Additional Assessment/Plan 1. Acute renal failure, stable 2. Decompensated alcoholic liver disease. 3. Hypernatremia improved 4. Hypokalemia, addressed 5. Await family meeting re:palliative care Consultation Date/Type/Reason Admit Date/Time Jun 26, 2017 at 00:00 Initial Consult Date 06/26/17 Type of Consultation: id 24 HR Interval Summary Subjective hx not possible: pt non-verbal, pt critical, other (and critical) Exam/Review of Systems Vital Signs Vitals Vital Signs Date Time Temp Pulse Resp B/P Pulse Ox O2 Delivery O2 Flow Rate FiO2 07/16/17 06:00 104 17 116/63 96 Nasal Cannula 1.0 07/16/17 00:00 97.8 Intake and Output 07/15/17 07/15/17 07/16/17 15:00 23:00 07:00 Intake Total 1085.0 ml 1615.0 ml 975 ml Output Total 465 ml 365 ml 330 ml Balance 620.0 ml 1250.0 ml 645 ml Exam Neck: jvd Respiratory: diminished breath sounds Cardiovascular: regular rate and rhythm Gastrointestinal: distended Extremities: edema (2-3 leg and 3-4+ sacral edema) Results Result Diagram: 07/16/17 0400 07/16/17 0400 Results 24 hrs Laboratory Tests Test 07/15/17 13:18 07/16/17 04:00 07/16/17 04:35 Troponin I < 0.012 White Blood Count 23.7 #H Red Blood Count 2.77 L Hemoglobin 8.6 L Hematocrit 25.6 L Mean Corpuscular Volume 92.4 Mean Corpuscular Hemoglobin 31.0 Mean Corpuscular Hemoglobin Concent 33.6 Red Cell Distribution Width 22.3 H Platelet Count 162 Mean Platelet Volume 11.8 H Neutrophils % 86.2 H Lymphocytes % 7.0 L Monocytes % 4.1 Eosinophils % 0.9 Basophils % 0.2 Nucleated Red Blood Cells % 0.0 Neutrophils # 20.5 H Lymphocytes # 1.7 Monocytes # 1.0 H Eosinophils # 0.2 Basophils # 0.0 Nucleated Red Blood Cells # 0.0 Sodium Level 146 H Potassium Level 3.1 L Chloride Level 113 H Carbon Dioxide Level 14 L Anion Gap 22 H Blood Urea Nitrogen 61 H Creatinine 4.22 H Glucose Level 191 Calcium Level 7.9 L Total Bilirubin 16.9 H Direct Bilirubin 14.50 H Indirect Bilirubin 2.4 H Aspartate Amino Transf (AST/SGOT) 160 H Alanine Aminotransferase (ALT/SGPT) 27 Alkaline Phosphatase 200 H Ammonia 136 H Total Protein 6.7 Albumin 2.4 L Globulin 4.30 H Albumin/Globulin Ratio 0.55 Phosphorus Level 4.3 Magnesium Level 1.7 Medications Medications Current Medications Ondansetron HCl (Zofran Inj) 4 mg Q4H PRN IV NAUSEA AND/OR VOMITING Last administered on 07/10/17 22:56; Admin Dose 4 MG; Start 06/26/17 at 03:30 Rifaximin 550 mg 550 mg BID PO Last administered on 07/15/17 20:41; Admin Dose 550 MG; Start 07/03/17 at 21:00 Pantoprazole 80 mg/Sodium Chloride 100 ml @ 10 mls/hr Q10H IV Last administered on 07/15/17 23:28; Admin Dose 10 MLS/HR; Start 07/05/17 at 23:00 Octreotide Acetate 1 mg/ Sodium Chloride 100 ml @ 5 mls/hr Q20H IV Last administered on 07/15/17 21:49; Admin Dose 5 MLS/HR; Start 07/06/17 at 00:30 Norepinephrine 16 mg/Dextrose 500 ml @ 1.87 mls/hr TITRATE PRN IV BLOOD PRESSURE SUPPORT Last administered on 07/12/17 15:19; Admin Dose 1.87 MLS/HR; Start 07/07/17 at 06:00 Cefepime HCl/ Sodium Chloride (Maxipime/NS) 50 ml @ 100 mls/hr Q24H IVPB Last administered on 07/15/17 14:16; Admin Dose 100 MLS/HR; Start 07/07/17 at 14:00 IV Flush 10 ml 10 ml PRN PRN IV IV PROTOCOL; Start 07/07/17 at 15:30 Fluconazole/ Sodium Chloride (Diflucan 100 Mg/ NS (Pmx)) 50 ml @ 50 mls/hr Q24H IVPB Last administered on 07/15/17 13:28; Admin Dose 50 MLS/HR; Start at 12:00 Simethicone 80 mg 80 mg Q6 GTB Last administered on 07/16/17 05:19; Admin Dose 80 MG; Start 07/09/17 at 12:00 Metronidazole 250 mg/N/A 50 ml @ 50 mls/hr Q8 IVPB Last administered on 05:19; Admin Dose 50 MLS/HR; Start 07/10/17 at 14:00 Bumetanide/ Dextrose (Bumex/D5W) 250 ml @ 10 mls/hr Q24H IV Last administered on 07/15/17 13:29; Admin Dose 10 MLS/HR; Start 07/10/17 at 17:00 Lactulose 30 gm 30 gm Q6 CA Last administered on 07/16/17 05:19; Admin Dose 30 GM; Start 07/12/17 at 12:00 Linezolid (Zyvox 600mg/D5W (Pmx)) 300 ml @ 300 mls/hr BID IVPB Last administered on 07/15/17 20:41; Admin Dose 300 MLS/HR; Start 07/12/17 at 21: 00 Fentanyl (Sublimaze) 25 mcg Q2H PRN IV PAIN Last administered on 07/14/17 08: 35; Admin Dose 25 MCG; Start 07/13/17 at 06:30 Ferrous Sulfate 300 mg 300 mg BID NGT Last administered on 07/15/17 20:41; Admin Dose 300 MG; Start 07/13/17 at 09:00 Dextrose (D5W) 1,000 ml @ 150 mls/hr Q6H40M IV Last administered on 01:45; Admin Dose 150 MLS/HR; Start 07/14/17 at 09:30 DEMETRIUS BABCOCK MD Jul 16, 2017 08:45
[2017-07-16] MEDS: RIFAXIMIN 550 MG TAB PO SCH ×2 (09:34→20:55)
[2017-07-16] MEDS: LINEZOLID 600 MG/D5W (PMX) 300 ML IVPB SCH ×2 (09:34→20:42)
[2017-07-16] MEDS: FERROUS SULFATE 60 MG/ML 5ML CUP NGT SCH ×2 (09:34→20:56)
[2017-07-16] MEDS: POTASSIUM CHLORIDE 20 MEQ POWDER FOR ORAL SOLN NGT SCH ×2 (09:34→13:00)
[2017-07-16] MEDS: PANTOPRAZOLE IV 80 MG in SOD CHLORIDE 0.9% 100 ML IV SCH ×2 (09:58→21:41)
--- NOTE | 2017-07-16 12:39 | PN ---
Date/Time of Note Date/Time of Note DATE: 07/16/17 TIME: 12:27 Assessment/Plan VTE Prophylaxis VTE Prophylaxis Intervention: other Lines/Catheters IV Catheter Type (from Nrsg): GOMEZ Urinary Cath still in place: Yes Reason Cath still needed: other (indicate) Assessment/Plan Assessment/Plan 1. Alcoholic liver disease with encephalopathy, jaundice and portal hypertension , advanced disease, poor prognosis 2. Hepatic encephalopathy, on lactulose and refaximin 3. GI bleeding from esophageal varices, s/p ligation, on octreotide/protonix 4. Renal failure, consider hepatorenal syndrome, follow up with nephrology 5. UTI, on cefepime, zyvox and diflucan 6. Sepsis with septic shock 7. Cholelithiasis without evidence of cholecystitis 8. Normocytic anemia, multifactorial, follow up with H/H 9. Case discussed with staff, chart reviewed, Poor prognosis, talked with family , Critical care time 45 minutes Subjective 24 Hr Interval Summary Free Text/Dictation confused, responds to pain Exam/Review of Systems Vital Signs Vitals Vital Signs Date Time Temp Pulse Resp B/P Pulse Ox O2 Delivery O2 Flow Rate FiO2 07/16/17 10:00 92 15 96/54 97 07/16/17 09:00 Nasal Cannula 1.0 07/16/17 00:00 97.8 Intake and Output 07/15/17 07/15/17 07/16/17 15:00 23:00 07:00 Intake Total 1085.0 ml 1615.0 ml 975 ml Output Total 465 ml 365 ml 330 ml Balance 620.0 ml 1250.0 ml 645 ml Exam Constitutional: non-verbal Head: atraumatic, normocephalic Eyes: PERRL, other (jaundice) ENMT: nl external ears & nose, nl lips & teeth, nl nasal mucosa & septum Neck: supple Respiratory: clear to auscultation, normal air movement, No congested cough, No crackles/rales, No diminished breath sounds, No intercostal retraction, No labored breathing, No other, No respirations, No tactile fremitus, No wheezing Cardiovascular: nl pulses, regular rate and rhythm, No S3, No S4, No bruits, No diastolic murmur, No edema, No gallop, No irregular rhythm, No jugular venous distention (JVD), No murmurs/extra sounds, No other, No rub, No systolic murmur Gastrointestinal: ascites, distended Musculoskeletal: nl extremities to inspection Extremities: edema (pitting edema), normal pulses Neurological: confused, other (nonverbal, not follow commands) Lymph: nl lymph nodes Results Result Diagram: 07/16/17 0400 07/16/17 0400 Results 24 hrs Laboratory Tests Test 07/15/17 13:18 07/16/17 04:00 07/16/17 04:35 Troponin I < 0.012 White Blood Count 23.7 #H Red Blood Count 2.77 L Hemoglobin 8.6 L Hematocrit 25.6 L Mean Corpuscular Volume 92.4 Mean Corpuscular Hemoglobin 31.0 Mean Corpuscular Hemoglobin Concent 33.6 Red Cell Distribution Width 22.3 H Platelet Count 162 Mean Platelet Volume 11.8 H Neutrophils % 86.2 H Lymphocytes % 7.0 L Monocytes % 4.1 Eosinophils % 0.9 Basophils % 0.2 Nucleated Red Blood Cells % 0.0 Neutrophils # 20.5 H Lymphocytes # 1.7 Monocytes # 1.0 H Eosinophils # 0.2 Basophils # 0.0 Nucleated Red Blood Cells # 0.0 Sodium Level 146 H Potassium Level 3.1 L Chloride Level 113 H Carbon Dioxide Level 14 L Anion Gap 22 H Blood Urea Nitrogen 61 H Creatinine 4.22 H Glucose Level 191 Calcium Level 7.9 L Total Bilirubin 16.9 H Direct Bilirubin 14.50 H Indirect Bilirubin 2.4 H Aspartate Amino Transf (AST/SGOT) 160 H Alanine Aminotransferase (ALT/SGPT) 27 Alkaline Phosphatase 200 H Ammonia 136 H Total Protein 6.7 Albumin 2.4 L Globulin 4.30 H Albumin/Globulin Ratio 0.55 Phosphorus Level 4.3 Magnesium Level 1.7 Medications Medications Current Medications Ondansetron HCl (Zofran Inj) 4 mg Q4H PRN IV NAUSEA AND/OR VOMITING Last administered on 07/10/17 22:56; Admin Dose 4 MG; Start 06/26/17 at 03:30 Rifaximin 550 mg 550 mg BID PO Last administered on 07/16/17 09:34; Admin Dose 550 MG; Start 07/03/17 at 21:00 Pantoprazole 80 mg/Sodium Chloride 100 ml @ 10 mls/hr Q10H IV Last administered on 07/16/17 09:58; Admin Dose 10 MLS/HR; Start 07/05/17 at 23:00 Octreotide Acetate 1 mg/ Sodium Chloride 100 ml @ 5 mls/hr Q20H IV Last administered on 07/15/17 21:49; Admin Dose 5 MLS/HR; Start 07/06/17 at 00:30 Norepinephrine 16 mg/Dextrose 500 ml @ 1.87 mls/hr TITRATE PRN IV BLOOD PRESSURE SUPPORT Last administered on 07/12/17 15:19; Admin Dose 1.87 MLS/HR; Start 07/07/17 at 06:00 Cefepime HCl/ Sodium Chloride (Maxipime/NS) 50 ml @ 100 mls/hr Q24H IVPB Last administered on 07/15/17 14:16; Admin Dose 100 MLS/HR; Start 07/07/17 at 14:00 IV Flush 10 ml 10 ml PRN PRN IV IV PROTOCOL; Start 07/07/17 at 15:30 Fluconazole/ Sodium Chloride (Diflucan 100 Mg/ NS (Pmx)) 50 ml @ 50 mls/hr Q24H IVPB Last administered on 07/15/17 13:28; Admin Dose 50 MLS/HR; Start at 12:00 Simethicone 80 mg 80 mg Q6 GTB Last administered on 07/16/17 05:19; Admin Dose 80 MG; Start 07/09/17 at 12:00 Metronidazole 250 mg/N/A 50 ml @ 50 mls/hr Q8 IVPB Last administered on 05:19; Admin Dose 50 MLS/HR; Start 07/10/17 at 14:00 Bumetanide/ Dextrose (Bumex/D5W) 250 ml @ 10 mls/hr Q24H IV Last administered on 07/15/17 13:29; Admin Dose 10 MLS/HR; Start 07/10/17 at 17:00 Lactulose 30 gm 30 gm Q6 [place] Last administered on 07/16/17 05:19; Admin Dose 30 GM; Start 07/12/17 at 12:00 Linezolid (Zyvox 600mg/D5W (Pmx)) 300 ml @ 300 mls/hr BID IVPB Last administered on 07/16/17 09:34; Admin Dose 300 MLS/HR; Start 07/12/17 at 21: 00 Fentanyl (Sublimaze) 25 mcg Q2H PRN IV PAIN Last administered on 07/14/17 08: 35; Admin Dose 25 MCG; Start 07/13/17 at 06:30 Ferrous Sulfate 300 mg 300 mg BID NGT Last administered on 07/16/17 09:34; Admin Dose 300 MG; Start 07/13/17 at 09:00 Dextrose (D5W) 1,000 ml @ 100 mls/hr Q10H IV Last administered on 07/16/17 01:45; Admin Dose 150 MLS/HR; Start 07/14/17 at 09:30 Potassium Chloride (Potassium Chloride Pwd/Soln) 40 meq Q4H NGT Last administered on 07/16/17 09:34; Admin Dose 40 MEQ; Start 07/16/17 at 09:00; Stop 07/16/17 at 13:01 DARÍO DODSON MD Jul 16, 2017 12:38
--- NOTE | 2017-07-16 12:49 | PN ---
Date/Time of Note Date/Time of Note DATE: 07/16/17 TIME: 12:42 Assessment/Plan VTE Prophylaxis VTE Prophylaxis Intervention: SCD's Lines/Catheters IV Catheter Type (from Nrs): GOMEZ Urinary Cath still in place: Yes Reason Cath still needed: urinary retention (Monitor urine output) Assessment/Plan Chief Complaint/Hosp Course Assessment: Status DNR Hepatorenal Syndrome Decompensated liver cirrhosis with ascites Encephalopathy Anemia EGD 07/07/17 Impression: Grade III/IV esophageal varices with stigmata recent bleeding Post endoscopic variceal ligation 5 Portal hypertensive gastropathy. No evidence of cholecystitis- negative HIDA Acute kidney injury Sepsis S/p Paracentesis 2.2L Plan: Followed by field traffic investigator on Bumex gtt family refuses dialysis in the future Continue Protonix and octreotide drip NG tube venting Monitor H&H transfuse for hemoglobin less than 7.5 Continue lactulose and rifaximin Patient seen in collaboration with Dr. Ny Subjective: Patient noted to have significant leukocytosis of 23.7 on morning labs. Blood clots are noted and a rectal tube. Otherwise no changes in patient's condition , patient remains unresponsive and NPO. Family is in the meeting with palliative care Dr. Mendez. The following plan will depend on the family's decision. Currently no escalation of care. Course reviewed with the bedside nurse. Patient examined. All laboratory results have been reviewed. PHYSICAL EXAMINATION: GENERAL: Incoherent, altered mental status, in no acute distress. SKIN: Sacral pressure soar covered with DuoDERM, stigmata present due to chronic liver disease, multiple bruising. Jaundiced. Icteric sclera. Pitting edema bilateral lower extremities. LYMPHATIC: No palpable lymphadenopathy. HEAD: Normocephalic, atraumatic, no tenderness. EYES: Pupils equal reactive to light and accommodation, full extraocular movements, sclera clear, icteric, no discharge. EARS/NOSE AND THROAT: Ears normal, NG tube is in place in the nostril. NECK: Supple, CHEST: Inspection within normal limits. CARDIOVASCULAR: Heart: Regular rate and rhythm,. RESPIRATORY: Lungs clear to auscultation GASTROINTESTINAL AND LIVER: Abdomen: very distended due to gas versus ascites, no hernias, no masses, moderate ascites, no splenomegaly, no guarding, no rebound tenderness, normoactive bowel sounds. Rectal: Blood clots are noted in the rectal tube GENITOURINARY: Female genitalia within normal limits. EXTREMITIES: No cyanosis, clubbing or edema. Problems: Exam/Review of Systems Vital Signs Vitals Vital Signs Date Time Temp Pulse Resp B/P Pulse Ox O2 Delivery O2 Flow Rate FiO2 07/16/17 10:00 92 15 96/54 97 07/16/17 09:00 Nasal Cannula 1.0 07/16/17 00:00 97.8 Intake and Output 07/15/17 07/15/17 07/16/17 15:00 23:00 07:00 Intake Total 1085.0 ml 1615.0 ml 975 ml Output Total 465 ml 365 ml 330 ml Balance 620.0 ml 1250.0 ml 645 ml Results Result Diagram: 07/16/17 0400 07/16/17 0400 Results 24 hrs Laboratory Tests Test 07/15/17 13:18 07/16/17 04:00 07/16/17 04:35 Troponin I < 0.012 White Blood Count 23.7 #H Red Blood Count 2.77 L Hemoglobin 8.6 L Hematocrit 25.6 L Mean Corpuscular Volume 92.4 Mean Corpuscular Hemoglobin 31.0 Mean Corpuscular Hemoglobin Concent 33.6 Red Cell Distribution Width 22.3 H Platelet Count 162 Mean Platelet Volume 11.8 H Neutrophils % 86.2 H Lymphocytes % 7.0 L Monocytes % 4.1 Eosinophils % 0.9 Basophils % 0.2 Nucleated Red Blood Cells % 0.0 Neutrophils # 20.5 H Lymphocytes # 1.7 Monocytes # 1.0 H Eosinophils # 0.2 Basophils # 0.0 Nucleated Red Blood Cells # 0.0 Sodium Level 146 H Potassium Level 3.1 L Chloride Level 113 H Carbon Dioxide Level 14 L Anion Gap 22 H Blood Urea Nitrogen 61 H Creatinine 4.22 H Glucose Level 191 Calcium Level 7.9 L Total Bilirubin 16.9 H Direct Bilirubin 14.50 H Indirect Bilirubin 2.4 H Aspartate Amino Transf (AST/SGOT) 160 H Alanine Aminotransferase (ALT/SGPT) 27 Alkaline Phosphatase 200 H Ammonia 136 H Total Protein 6.7 Albumin 2.4 L Globulin 4.30 H Albumin/Globulin Ratio 0.55 Phosphorus Level 4.3 Magnesium Level 1.7 Medications Medications Current Medications Ondansetron HCl (Zofran Inj) 4 mg Q4H PRN IV NAUSEA AND/OR VOMITING Last administered on 07/10/17 22:56; Admin Dose 4 MG; Start 06/26/17 at 03:30 Rifaximin 550 mg 550 mg BID PO Last administered on 07/16/17 09:34; Admin Dose 550 MG; Start 07/03/17 at 21:00 Pantoprazole 80 mg/Sodium Chloride 100 ml @ 10 mls/hr Q10H IV Last administered on 07/16/17 09:58; Admin Dose 10 MLS/HR; Start 07/05/17 at 23:00 Octreotide Acetate 1 mg/ Sodium Chloride 100 ml @ 5 mls/hr Q20H IV Last administered on 07/15/17 21:49; Admin Dose 5 MLS/HR; Start 07/06/17 at 00:30 Norepinephrine 16 mg/Dextrose 500 ml @ 1.87 mls/hr TITRATE PRN IV BLOOD PRESSURE SUPPORT Last administered on 07/12/17 15:19; Admin Dose 1.87 MLS/HR; Start 07/07/17 at 06:00 Cefepime HCl/ Sodium Chloride (Maxipime/NS) 50 ml @ 100 mls/hr Q24H IVPB Last administered on 07/15/17 14:16; Admin Dose 100 MLS/HR; Start 07/07/17 at 14:00 IV Flush 10 ml 10 ml PRN PRN IV IV PROTOCOL; Start 07/07/17 at 15:30 Fluconazole/ Sodium Chloride (Diflucan 100 Mg/ NS (Pmx)) 50 ml @ 50 mls/hr Q24H IVPB Last administered on 07/15/17 13:28; Admin Dose 50 MLS/HR; Start at 12:00 Simethicone 80 mg 80 mg Q6 GTB Last administered on 07/16/17 05:19; Admin Dose 80 MG; Start 07/09/17 at 12:00 Metronidazole 250 mg/N/A 50 ml @ 50 mls/hr Q8 IVPB Last administered on 05:19; Admin Dose 50 MLS/HR; Start 07/10/17 at 14:00 Bumetanide/ Dextrose (Bumex/D5W) 250 ml @ 10 mls/hr Q24H IV Last administered on 07/15/17 13:29; Admin Dose 10 MLS/HR; Start 07/10/17 at 17:00 Lactulose 30 gm 30 gm Q6 [place] Last administered on 07/16/17 05:19; Admin Dose 30 GM; Start 07/12/17 at 12:00 Linezolid (Zyvox 600mg/D5W (Pmx)) 300 ml @ 300 mls/hr BID IVPB Last administered on 07/16/17 09:34; Admin Dose 300 MLS/HR; Start 07/12/17 at 21: 00 Fentanyl (Sublimaze) 25 mcg Q2H PRN IV PAIN Last administered on 07/14/17 08: 35; Admin Dose 25 MCG; Start 07/13/17 at 06:30 Ferrous Sulfate 300 mg 300 mg BID NGT Last administered on 07/16/17 09:34; Admin Dose 300 MG; Start 07/13/17 at 09:00 Dextrose (D5W) 1,000 ml @ 100 mls/hr Q10H IV Last administered on 07/16/17 01:45; Admin Dose 150 MLS/HR; Start 07/14/17 at 09:30 Potassium Chloride (Potassium Chloride Pwd/Soln) 40 meq Q4H NGT Last administered on 07/16/17 09:34; Admin Dose 40 MEQ; Start 07/16/17 at 09:00; Stop 07/16/17 at 13:01 Copies To: CC: FRANCINE NY MD, ANASTASIA NP Jul 16, 2017 12:49
--- NOTE | 2017-07-16 13:46 | CONS ---
Date/Time of Note Date/Time of Note DATE: 07/16/17 TIME: 13:45 Assessment/Plan Assessment/Plan Chief Complaint/Hosp Course SUBJECTIVE: No events overnight. Patient remains obtunded. Family at bedside. INDWELLINGS: NG tube, Vega catheter, PICC line placed on 07/07/2017 and new Gerardo catheter in her right groin placed 07/14/17. ANTIMICROBIALS: 1. Cefepime. 2. Zyvox. 3. Flagyl. PHYSICAL EXAMINATION: GENERAL: Chronically ill-appearing, middle-aged woman who is obtunded , in no distress. HEENT: Head atraumatic, normocephalic. Sclerae icteric. Buccal mucosa dry. NECK: Supple. CHEST: Rise symmetrical. Breath sounds diminished. HEART: S1, S2, tachycardic. ABDOMEN: Distended, positive for ascites. EXTREMITIES: With trace edema. SKIN: Positive for anasarca and jaundice. ASSESSMENT: 1. Sepsis, status post shock. 2. Multisystem organ failure. 3. Decompensated alcoholic cirrhosis with ascites and portal hypertension. 4. Acute renal failure, possibly hepatorenal syndrome, status post Gerardo placement. 5. Possible spontaneous bacterial peritonitis. 6. Acute encephalopathy secondary to above. 7. Anemia. PLAN: The patient remains unchanged. Continue present care, antibiotics, pending hospice eval. [facility] staff Problems: Consultation Date/Type/Reason Admit Date/Time Jun 26, 2017 at 00:00 Initial Consult Date 06/26/17 Type of Consultation: id Exam/Review of Systems Vital Signs Vitals Vital Signs Date Time Temp Pulse Resp B/P Pulse Ox O2 Delivery O2 Flow Rate FiO2 07/16/17 12:00 89 07/16/17 10:00 15 96/54 97 07/16/17 09:00 Nasal Cannula 1.0 07/16/17 00:00 97.8 Intake and Output 07/15/17 07/15/17 07/16/17 15:00 23:00 07:00 Intake Total 1085.0 ml 1615.0 ml 975 ml Output Total 465 ml 365 ml 330 ml Balance 620.0 ml 1250.0 ml 645 ml Results Result Diagram: 07/16/17 0400 07/16/17 0400 Results 24 hrs Laboratory Tests Test 07/16/17 04:00 07/16/17 04:35 White Blood Count 23.7 #H Red Blood Count 2.77 L Hemoglobin 8.6 L Hematocrit 25.6 L Mean Corpuscular Volume 92.4 Mean Corpuscular Hemoglobin 31.0 Mean Corpuscular Hemoglobin Concent 33.6 Red Cell Distribution Width 22.3 H Platelet Count 162 Mean Platelet Volume 11.8 H Neutrophils % 86.2 H Lymphocytes % 7.0 L Monocytes % 4.1 Eosinophils % 0.9 Basophils % 0.2 Nucleated Red Blood Cells % 0.0 Neutrophils # 20.5 H Lymphocytes # 1.7 Monocytes # 1.0 H Eosinophils # 0.2 Basophils # 0.0 Nucleated Red Blood Cells # 0.0 Sodium Level 146 H Potassium Level 3.1 L Chloride Level 113 H Carbon Dioxide Level 14 L Anion Gap 22 H Blood Urea Nitrogen 61 H Creatinine 4.22 H Glucose Level 191 Calcium Level 7.9 L Total Bilirubin 16.9 H Direct Bilirubin 14.50 H Indirect Bilirubin 2.4 H Aspartate Amino Transf (AST/SGOT) 160 H Alanine Aminotransferase (ALT/SGPT) 27 Alkaline Phosphatase 200 H Ammonia 136 H Total Protein 6.7 Albumin 2.4 L Globulin 4.30 H Albumin/Globulin Ratio 0.55 Phosphorus Level 4.3 Magnesium Level 1.7 Medications Medications Current Medications Ondansetron HCl (Zofran Inj) 4 mg Q4H PRN IV NAUSEA AND/OR VOMITING Last administered on 07/10/17 22:56; Admin Dose 4 MG; Start 06/26/17 at 03:30 Rifaximin 550 mg 550 mg BID PO Last administered on 07/16/17 09:34; Admin Dose 550 MG; Start 07/03/17 at 21:00 Pantoprazole 80 mg/Sodium Chloride 100 ml @ 10 mls/hr Q10H IV Last administered on 07/16/17 09:58; Admin Dose 10 MLS/HR; Start 07/05/17 at 23:00 Octreotide Acetate 1 mg/ Sodium Chloride 100 ml @ 5 mls/hr Q20H IV Last administered on 07/15/17 21:49; Admin Dose 5 MLS/HR; Start 07/06/17 at 00:30 Norepinephrine 16 mg/Dextrose 500 ml @ 1.87 mls/hr TITRATE PRN IV BLOOD PRESSURE SUPPORT Last administered on 07/12/17 15:19; Admin Dose 1.87 MLS/HR; Start 07/07/17 at 06:00 Cefepime HCl/ Sodium Chloride (Maxipime/NS) 50 ml @ 100 mls/hr Q24H IVPB Last administered on 07/15/17 14:16; Admin Dose 100 MLS/HR; Start 07/07/17 at 14:00 IV Flush 10 ml 10 ml PRN PRN IV IV PROTOCOL; Start 07/07/17 at 15:30 Fluconazole/ Sodium Chloride (Diflucan 100 Mg/ NS (Pmx)) 50 ml @ 50 mls/hr Q24H IVPB Last administered on 07/15/17 13:28; Admin Dose 50 MLS/HR; Start at 12:00 Simethicone 80 mg 80 mg Q6 GTB Last administered on 07/16/17 05:19; Admin Dose 80 MG; Start 07/09/17 at 12:00 Metronidazole 250 mg/N/A 50 ml @ 50 mls/hr Q8 IVPB Last administered on 05:19; Admin Dose 50 MLS/HR; Start 07/10/17 at 14:00 Bumetanide/ Dextrose (Bumex/D5W) 250 ml @ 10 mls/hr Q24H IV Last administered on 07/15/17 13:29; Admin Dose 10 MLS/HR; Start 07/10/17 at 17:00 Lactulose 30 gm [address] Last administered on 07/16/17 05:19; Admin Dose 30 GM; Start 07/12/17 at 12:00 Linezolid (Zyvox 600mg/D5W (Pmx)) 300 ml @ 300 mls/hr BID IVPB Last administered on 07/16/17 09:34; Admin Dose 300 MLS/HR; Start 07/12/17 at 21: 00 Fentanyl (Sublimaze) 25 mcg Q2H PRN IV PAIN Last administered on 07/14/17 08: 35; Admin Dose 25 MCG; Start 07/13/17 at 06:30 Ferrous Sulfate 300 mg 300 mg BID NGT Last administered on 07/16/17 09:34; Admin Dose 300 MG; Start 07/13/17 at 09:00 Dextrose (D5W) 1,000 ml @ 100 mls/hr Q10H IV Last administered on 12/15/17at 01:45; Admin Dose 150 MLS/HR; Start 07/14/17 at 09:30 FARHAT GARDINER NP Jul 16, 2017 13:46
[2017-07-16] MEDS: FLUCONAZOLE 100 MG/NS (PMX) 50 ML IVPB SCH (14:02)
--- NOTE | 2017-07-16 14:10 | CONS ---
Date/Time of Note Date/Time of Note DATE: 07/16/17 TIME: 14:08 Assessment/Plan Assessment/Plan Chief Complaint/Hosp Course Palliative care consultation on this 47-year-old female who is in the intensive care unit [facility] septic. She has a history of compensated liver cirrhosis with portal hypertension with ascites acute kidney injury. Is noncommunicative at this time and they are only son and a nephew who is available at this time in the room to speak with me. And is on the road unable to meet with me today but he will be back tomorrow morning at 0600. I will meet with him at that time. We contacted patient's while he was in transit to him speakerphone with other members of the family in attendance. Most important question at this time is whether or not she would want to have cardiopulmonary resuscitation or even to be put on artificial ventilation. Even if she does not require CPR we suspect that intubation may be inevitable. Patient currently in renal failure also being seen by Dr. Lowe. There are no definite decision will be made as to the patient's said that she would want to live. Both her son and relatives states that is spoken to him about living on artificial machines and never want to do so. There was supposedly a conversation also denied patient wanted to be dialyzed. Views of the information which is collecting I am to meet with family members tomorrow morning once again. Full palliative care consultation will be done at that time at 0600 hrs. Problems: Consultation Date/Type/Reason Admit Date/Time Jun 26, 2017 at 00:00 Initial Consult Date 06/26/17 Type of Consultation: Palliative care 24 HR Interval Summary Free Text/Dictation Met with family members new members who came in from out of town there were 15 family members in attendance. Through an spanish interpreter discussed all current major medical problem prognosis, and goals of care. Please refer to my prior long dictated palliative care note. Family members have decided to change to DNR DNI no resuscitation and no intubation when patient's clinical Status worsens just comfort measures. Exam/Review of Systems Vital Signs Vitals Vital Signs Date Time Temp Pulse Resp B/P Pulse Ox O2 Delivery O2 Flow Rate FiO2 07/16/17 12:00 89 07/16/17 10:00 15 96/54 97 07/16/17 09:00 Nasal Cannula 1.0 07/16/17 00:00 97.8 Intake and Output 07/15/17 07/15/17 07/16/17 15:00 23:00 07:00 Intake Total 1085.0 ml 1615.0 ml 975 ml Output Total 465 ml 365 ml 330 ml Balance 620.0 ml 1250.0 ml 645 ml Results Result Diagram: 07/16/17 0400 07/16/17 0400 Results 24 hrs Laboratory Tests Test 07/16/17 04:00 07/16/17 04:35 White Blood Count 23.7 #H Red Blood Count 2.77 L Hemoglobin 8.6 L Hematocrit 25.6 L Mean Corpuscular Volume 92.4 Mean Corpuscular Hemoglobin 31.0 Mean Corpuscular Hemoglobin Concent 33.6 Red Cell Distribution Width 22.3 H Platelet Count 162 Mean Platelet Volume 11.8 H Neutrophils % 86.2 H Lymphocytes % 7.0 L Monocytes % 4.1 Eosinophils % 0.9 Basophils % 0.2 Nucleated Red Blood Cells % 0.0 Neutrophils # 20.5 H Lymphocytes # 1.7 Monocytes # 1.0 H Eosinophils # 0.2 Basophils # 0.0 Nucleated Red Blood Cells # 0.0 Sodium Level 146 H Potassium Level 3.1 L Chloride Level 113 H Carbon Dioxide Level 14 L Anion Gap 22 H Blood Urea Nitrogen 61 H Creatinine 4.22 H Glucose Level 191 Calcium Level 7.9 L Total Bilirubin 16.9 H Direct Bilirubin 14.50 H Indirect Bilirubin 2.4 H Aspartate Amino Transf (AST/SGOT) 160 H Alanine Aminotransferase (ALT/SGPT) 27 Alkaline Phosphatase 200 H Ammonia 136 H Total Protein 6.7 Albumin 2.4 L Globulin 4.30 H Albumin/Globulin Ratio 0.55 Phosphorus Level 4.3 Magnesium Level 1.7 Medications Medications Current Medications Ondansetron HCl (Zofran Inj) 4 mg Q4H PRN IV NAUSEA AND/OR VOMITING Last administered on 07/10/17 22:56; Admin Dose 4 MG; Start 06/26/17 at 03:30 Rifaximin 550 mg 550 mg BID PO Last administered on 07/16/17 09:34; Admin Dose 550 MG; Start 07/03/17 at 21:00 Pantoprazole 80 mg/Sodium Chloride 100 ml @ 10 mls/hr Q10H IV Last administered on 07/16/17 09:58; Admin Dose 10 MLS/HR; Start 07/05/17 at 23:00 Octreotide Acetate 1 mg/ Sodium Chloride 100 ml @ 5 mls/hr Q20H IV Last administered on 07/15/17 21:49; Admin Dose 5 MLS/HR; Start 07/06/17 at 00:30 Norepinephrine 16 mg/Dextrose 500 ml @ 1.87 mls/hr TITRATE PRN IV BLOOD PRESSURE SUPPORT Last administered on 07/12/17 15:19; Admin Dose 1.87 MLS/HR; Start 07/07/17 at 06:00 Cefepime HCl/ Sodium Chloride (Maxipime/NS) 50 ml @ 100 mls/hr Q24H IVPB Last administered on 07/15/17 14:16; Admin Dose 100 MLS/HR; Start 07/07/17 at 14:00 IV Flush 10 ml 10 ml PRN PRN IV IV PROTOCOL; Start 07/07/17 at 15:30 Fluconazole/ Sodium Chloride (Diflucan 100 Mg/ NS (Pmx)) 50 ml @ 50 mls/hr Q24H IVPB Last administered on 07/16/17 14:02; Admin Dose 50 MLS/HR; Start at 12:00 Simethicone 80 mg 80 mg Q6 GTB Last administered on 07/16/17 12:00; Admin Dose 80 MG; Start 07/09/17 at 12:00 Metronidazole 250 mg/N/A 50 ml @ 50 mls/hr Q8 IVPB Last administered on 05:19; Admin Dose 50 MLS/HR; Start 07/10/17 at 14:00 Bumetanide/ Dextrose (Bumex/D5W) 250 ml @ 10 mls/hr Q24H IV Last administered on 07/15/17 13:29; Admin Dose 10 MLS/HR; Start 07/10/17 at 17:00 Lactulose 30 gm 30 gm Q6 [place] Last administered on 07/16/17 12:00; Admin Dose 30 GM; Start 07/12/17 at 12:00 Linezolid (Zyvox 600mg/D5W (Pmx)) 300 ml @ 300 mls/hr BID IVPB Last administered on 07/16/17 09:34; Admin Dose 300 MLS/HR; Start 07/12/17 at 21: 00 Fentanyl (Sublimaze) 25 mcg Q2H PRN IV PAIN Last administered on 07/14/17 08: 35; Admin Dose 25 MCG; Start 07/13/17 at 06:30 Ferrous Sulfate 300 mg 300 mg BID NGT Last administered on 07/16/17 09:34; Admin Dose 300 MG; Start 07/13/17 at 09:00 Dextrose (D5W) 1,000 ml @ 100 mls/hr Q10H IV Last administered on 07/16/17 01:45; Admin Dose 150 MLS/HR; Start 07/14/17 at 09:30 ALFONSO BARAJAS Jul 16, 2017 14:10
[2017-07-16] MEDS: CEFEPIME HCL 0.5 GM in SOD CHLORIDE 0.9% 50 ML IVPB SCH (15:21)
[2017-07-16] MEDS: BUMETANIDE 25 MG in DEXTROSE 5% 150 ML IV SCH (16:15)
--- NOTE | 2017-07-16 18:12 | PN ---
Date/Time of Note Date/Time of Note DATE: 07/16/17 TIME: 18:12 Assessment/Plan Lines/Catheters IV Catheter Type (from Nrsg): GOMEZ Vega in Place (from Nrsg): Yes Assessment/Plan Chief Complaint/Hosp Course IMPRESSION: Liver failure. RECOMMENDATIONS: SP dialysis catheter. placement will continue HD may need permcath Problems: Subjective 24 Hr Interval Summary Constitutional: improved Pain Control: mild Exam/Review of Systems Vital Signs Vitals Vital Signs Date Time Temp Pulse Resp B/P Pulse Ox O2 Delivery O2 Flow Rate FiO2 07/16/17 16:00 99 07/16/17 12:00 Nasal Cannula 07/16/17 10:00 15 96/54 97 07/16/17 09:00 1.0 07/16/17 00:00 97.8 Intake and Output 07/15/17 07/15/17 07/16/17 14:59 22:59 06:59 Intake Total 1052.5 ml 1677.5 ml 1050 ml Output Total 450 ml 360 ml 380 ml Balance 602.5 ml 1317.5 ml 670 ml Exam Neck: non-tender, supple Respiratory: clear to auscultation, normal air movement Cardiovascular: nl pulses, regular rate and rhythm Results Result Diagram: 07/16/1739907/16/17399 NOEL ENAMORADO MD Jul 16, 2017 18:12
[2017-07-16] MEDS: OCTREOTIDE 1 MG in SOD CHLORIDE 0.9% 95 ML IV SCH (18:57)
[2017-07-16] MEDS ORDERED: LORAZEPAM 2 MG INJ IV ONE (22:30)
[2017-07-17] VITALS (16 sets, daily range): BP systolic 85–135; BP diastolic 54–75; PULSE 90–100; RESP 15–81
[2017-07-17] MEDS: metroNIDAZOLE 500 MG/NS (PMX) 250 MG in EVAC CONTAINER 1 BOTTLE IVPB SCH ×3 (06:10→21:36)
[2017-07-17] MEDS: LACTULOSE 30ML CUP PR SCH ×3 (06:11→17:58)
[2017-07-17] MEDS: PANTOPRAZOLE IV 80 MG in SOD CHLORIDE 0.9% 100 ML IV SCH ×2 (06:11→16:38)
[2017-07-17 06:45] LABS: ABNORMAL IP MESSAGE 1; HEMATOCRIT 19.3 % (37.0-47.0); MEAN CORPUSCULAR HEMOGLOBIN 31.4 pg (29.0-33.0); MEAN CORPUSCULAR HGB CONC 33.7 g/dl (32.0-37.0); MEAN CORPUSCULAR VOLUME 93.2 fl (82.0-101.0); MEAN PLATELET VOLUME 11.9 fl (7.4-10.4); NUCLEATED RED BLOOD CELLS% 0.1 /100WBC (0.0-0.0); PLATELET COUNT 115 10^3/UL (140-415); RED BLOOD COUNT 2.07 10^6/ul (4.20-5.40); RED CELL DISTRIBUTION WIDTH 22.3 % (11.5-14.5)
[2017-07-17 07:08] LABS: POSITIVE DIFF @See below
[2017-07-17 07:11] LABS: HEMOGLOBIN 6.5 g/dl (12.0-16.0)
[2017-07-17 07:13] LABS: MAGNESIUM 1.6 mg/dl (1.7-2.5); PHOSPHORUS 5.2 mg/dl (2.5-4.9)
[2017-07-17 07:16] LABS: ALBUMIN/GLOBULIN RATIO 0.51; BILIRUBIN,DIRECT 14.7 mg/dl (0.00-0.20); BILIRUBIN,INDIRECT 1.9 mg/dl (0-1.1); BILIRUBIN,TOTAL 16.6 mg/dl (0.2-1.3); CALCIUM 7.7 mg/dl (8.4-10.2); CREATININE 4.44 mg/dl (0.44-1.00); POTASSIUM 3.4 mmol/L (3.5-5.1); TOTAL PROTEIN 5.9 g/dl (6.1-8.1)
[2017-07-17] MEDS: FERROUS SULFATE 60 MG/ML 5ML CUP NGT SCH ×2 (10:05→21:34)
[2017-07-17] MEDS: RIFAXIMIN 550 MG TAB PO SCH ×2 (10:05→21:35)
[2017-07-17 10:06] LABS: ANISOCYTOSIS 1+ (0-0); BURR CELLS 2+ (0-0); GIANT THROMBO% (M) 2 % (0-0); MONOCYTES % (M) 3 % (0-11); PLATELET ESTIMATE DECREASED; POIKILOCYTOSIS 2+ (0-0)
[2017-07-17] MEDS: LINEZOLID 600 MG/D5W (PMX) 300 ML IVPB SCH ×2 (10:06→21:34)
--- NOTE | 2017-07-17 11:08 | CONS ---
Date/Time of Note Date/Time of Note DATE: 07/17/17 TIME: 11:06 Assessment/Plan Assessment/Plan Additional Assessment/Plan 1. Acute renal failure, unchanged. 2. Palliative care eval noted, would not intervene again with HD. 3. Decomp chronic liver disease 4. Hypokal and Hypomag, will correct and cont bumex drip. Consultation Date/Type/Reason Admit Date/Time Jun 26, 2017 at 00:00 Initial Consult Date 06/26/17 Type of Consultation: Palliative care 24 HR Interval Summary Subjective hx not possible: pt critical Exam/Review of Systems Vital Signs Vitals Vital Signs Date Time Temp Pulse Resp B/P Pulse Ox O2 Delivery O2 Flow Rate FiO2 07/17/17 08:07 98 07/17/17 07:37 98.2 18 98/65 97 07/17/17 04:00 Nasal Cannula 2.0 Intake and Output 07/16/17 07/16/17 07/17/17 15:00 23:00 07:00 Intake Total 1050 ml 1065 ml Output Total 150 ml 1400 ml 165 ml Balance -150 ml -350 ml 900 ml Exam Neck: No jvd Respiratory: clear to auscultation Cardiovascular: regular rate and rhythm Gastrointestinal: distended Extremities: edema (unchanged) Neurological: other (no purpopseful respose to manjeet tactile stim) Results Result Diagram: 07/17/17 0603 07/17/17 0603 Results 24 hrs Laboratory Tests Test 07/16/17 17:45 07/17/17 06:03 Hemoglobin 7.3 L 6.5 *L White Blood Count 26.0 H Red Blood Count 2.07 #L Hematocrit 19.3 #L Mean Corpuscular Volume 93.2 Mean Corpuscular Hemoglobin 31.4 Mean Corpuscular Hemoglobin Concent 33.7 Red Cell Distribution Width 22.3 H Platelet Count 115 #L Mean Platelet Volume 11.9 H Neutrophils % Segmented Neutrophils % (Manual) 80 H Band Neutrophils % (Manual) 11 H Lymphocytes % Lymphocytes % (Manual) 6 L Monocytes % Monocytes % (Manual) 3 Eosinophils % Basophils % Nucleated Red Blood Cells % 0.1 H Neutrophils # Neutrophils # (Manual) 21.5 H Band Neutrophils # 2.8 H Absolute Lymphocytes (Manual) 1.5 Lymphocytes # Monocytes # Absolute Monocytes (Manual) 0.7 Eosinophils # Basophils # Nucleated Red Blood Cells # Platelet Estimate DECREASED Giant Platelets 2 H Poikilocytosis 2+ Anisocytosis 1+ Macrocytosis 1+ Sodium Level 140 Potassium Level 3.4 L Chloride Level 109 Carbon Dioxide Level 13 L Anion Gap 21 H Blood Urea Nitrogen 65 H Creatinine 4.44 H Glucose Level 186 Calcium Level 7.7 L Phosphorus Level 5.2 H Magnesium Level 1.6 L Total Bilirubin 16.6 H Direct Bilirubin 14.70 H Indirect Bilirubin 1.9 H Aspartate Amino Transf (AST/SGOT) 158 H Alanine Aminotransferase (ALT/SGPT) 29 Alkaline Phosphatase 169 H Ammonia 196 H Total Protein 5.9 L Albumin 2.0 L Globulin 3.90 H Albumin/Globulin Ratio 0.51 Medications Medications Current Medications Ondansetron HCl (Zofran Inj) 4 mg Q4H PRN IV NAUSEA AND/OR VOMITING Last administered on 07/10/17 22:56; Admin Dose 4 MG; Start 06/26/17 at 03:30 Rifaximin 550 mg 550 mg BID PO Last administered on 07/17/17 10:05; Admin Dose 550 MG; Start 07/03/17 at 21:00 Pantoprazole 80 mg/Sodium Chloride 100 ml @ 10 mls/hr Q10H IV Last administered on 07/17/17 06:11; Admin Dose 10 MLS/HR; Start 07/05/17 at 23:00 Octreotide Acetate 1 mg/ Sodium Chloride 100 ml @ 5 mls/hr Q20H IV Last administered on 07/16/17 18:57; Admin Dose 5 MLS/HR; Start 07/06/17 at 00:30 Cefepime HCl/ Sodium Chloride (Maxipime/NS) 50 ml @ 100 mls/hr Q24H IVPB Last administered on 07/16/17 15:21; Admin Dose 100 MLS/HR; Start 07/07/17 at 14:00 IV Flush 10 ml 10 ml PRN PRN IV IV PROTOCOL; Start 07/07/17 at 15:30 Fluconazole/ Sodium Chloride (Diflucan 100 Mg/ NS (Pmx)) 50 ml @ 50 mls/hr Q24H IVPB Last administered on 07/16/17 14:02; Admin Dose 50 MLS/HR; Start at 12:00 Simethicone 80 mg 80 mg Q6 GTB Last administered on 07/17/17 06:11; Admin Dose 80 MG; Start 07/09/17 at 12:00 Metronidazole 250 mg/N/A 50 ml @ 50 mls/hr Q8 IVPB Last administered on 06:10; Admin Dose 50 MLS/HR; Start 07/10/17 at 14:00 Bumetanide/ Dextrose (Bumex/D5W) 250 ml @ 10 mls/hr Q24H IV Last administered on 07/16/17 16:15; Admin Dose 10 MLS/HR; Start 07/10/17 at 17:00 Lactulose 30 gm 30 gm Q6 [place] Last administered on 07/17/17 06:11; Admin Dose 30 GM; Start 07/12/17 at 12:00 Linezolid (Zyvox 600mg/D5W (Pmx)) 300 ml @ 300 mls/hr BID IVPB Last administered on 07/17/17 10:06; Admin Dose 300 MLS/HR; Start 07/12/17 at 21: 00 Ferrous Sulfate 300 mg 300 mg BID NGT Last administered on 07/17/17 10:05; Admin Dose 300 MG; Start 07/13/17 at 09:00 Dextrose (D5W) 1,000 ml @ 100 mls/hr Q10H IV Last administered on 07/16/17 20:45; Admin Dose 100 MLS/HR; Start 07/14/17 at 09:30 DEMETRIUS BABCOCK MD Jul 17, 2017 11:08
[2017-07-17] MEDS: DEXTROSE 5% 1,000 ML IV SCH ×2 (11:29→19:55)
[2017-07-17] MEDS ORDERED: POTASSIUM CHLORIDE 20 MEQ POWDER FOR ORAL SOLN NGT ONE (11:30)
[2017-07-17] MEDS ORDERED: MAGNESIUM SULFATE 2 GM/50 ML 50 ML IVPB ONE (11:30)
--- NOTE | 2017-07-17 12:28 | PN ---
Date/Time of Note Date/Time of Note DATE: 07/17/17 TIME: 12:27 Assessment/Plan VTE Prophylaxis VTE Prophylaxis Intervention: contraindicated Lines/Catheters IV [facility] Type [facility]from [facility]): GOMEZ CATH Central line still needed: Yes Urinary Cath still in place: Yes Reason Cath still needed: other (indicate) Assessment/Plan Chief Complaint/Hosp Course 1. Acute encephalopathy. -Most probably toxic metabolic in origin. -Continue lactulose. 2. Decompensated alcoholic liver cirrhosis with ascites and portal hypertension. -Continue lactulose. -Status post ultrasound-guided paracentesis on 07/02/2017. 3. Acute kidney injury. -Nephrology following. -Plan was to initiate hemodialysis. However, the patient's condition has been progressively deteriorating. 4. Metabolic acidosis. -Worsening renal function. 5. Anemia. Normocytic, normochromic. -On iron supplements. 6. Transaminitis with hyperbilirubinemia. -Most probably secondary to #1 and #2. -Avoid hepatotoxic medications. 7. Grade III/IV esophageal varices with stigmata recent bleeding -Post endoscopic variceal ligation 5. -On octreotide and Protonix. 8. S/P sepsis with septic shock. -On antimicrobials as per ID. 9. Hypernatremia. -On free H20 via NGT. 10. Symptomatic cholelithiasis. -No evidence of cholecystitis. -Status post surgical evaluation. No surgical intervention. 11. Fluids, electrolytes, and nutrition. -N.p.o. -Fluid restriction. 12. DVT prophylaxis. -Contraindicated. 13. Plan. -Trend LFTs. -Replete potassium and magnesium. -Poor prognosis was explained to the patient's family who were at the bedside. -The patient is currently a DNR. Had a conversation with the spoke-person Niall in the presence of the patient's . The family wants to continue the current care as of now and does not want her to be a comfort care. The family will let the medical team know if they change their mind regarding the plan of care. Case discussed with Dr. Mauricio. Problems: Subjective 24 Hr Interval Summary Free Text/Dictation The patient's status is gradually deteriorating. Continues to have agonal breathing. Exam/Review of Systems Vital Signs Vitals Vital Signs Date Time Temp Pulse Resp B/P Pulse Ox O2 Delivery O2 Flow Rate FiO2 07/17/17 11:40 97.8 70 16 93/54 97 07/17/17 09:45 3.0 07/17/17 09:40 Nasal Cannula Intake and Output 07/16/17 07/16/17 07/17/17 15:00 23:00 07:00 Intake Total 1050 ml 1065 ml Output Total 150 ml 1400 ml 165 ml Balance -150 ml -350 ml 900 ml Exam General: Adequately build 47 year-old female lying in bed. HEENT: Normocephalic, atraumatic. Eyes: Icteric sclerae, conjunctivae clear. ENT : Nasal septum is midline, oral mucosa is dry. Neck supple. Respiratory: Bilaterally diminished breath sounds. Agonal breathing. No adventitious breath sounds. Cardiovascular: S1, S2 heard. Regular rate and rhythm. Abdomen: Soft. Bowel sounds positive in all 4 quadrants. Minimal distention. Left upper quadrant tenderness. Genitourinary: Deferred. Extremities: No cyanosis, no clubbing. Peripheral pulses palpable. Bilateral lower extremity 2-3+ pitting edema. Neurologic: The patient is Obtunded. Skin: Normal skin turgor. No skin rashes. Icterus. Results Result Diagram: 07/17/17 0603 07/17/17 0603 Results 24 hrs Laboratory Tests Test 07/16/17 17:45 07/17/17 06:03 Hemoglobin 7.3 L 6.5 *L White Blood Count 26.0 H Red Blood Count 2.07 #L Hematocrit 19.3 #L Mean Corpuscular Volume 93.2 Mean Corpuscular Hemoglobin 31.4 Mean Corpuscular Hemoglobin Concent 33.7 Red Cell Distribution Width 22.3 H Platelet Count 115 #L Mean Platelet Volume 11.9 H Neutrophils % Segmented Neutrophils % (Manual) 80 H Band Neutrophils % (Manual) 11 H Lymphocytes % Lymphocytes % (Manual) 6 L Monocytes % Monocytes % (Manual) 3 Eosinophils % Basophils % Nucleated Red Blood Cells % 0.1 H Neutrophils # Neutrophils # (Manual) 21.5 H Band Neutrophils # 2.8 H Absolute Lymphocytes (Manual) 1.5 Lymphocytes # Monocytes # Absolute Monocytes (Manual) 0.7 Eosinophils # Basophils # Nucleated Red Blood Cells # Platelet Estimate DECREASED Giant Platelets 2 H Poikilocytosis 2+ Anisocytosis 1+ Macrocytosis 1+ Sodium Level 140 Potassium Level 3.4 L Chloride Level 109 Carbon Dioxide Level 13 L Anion Gap 21 H Blood Urea Nitrogen 65 H Creatinine 4.44 H Glucose Level 186 Calcium Level 7.7 L Phosphorus Level 5.2 H Magnesium Level 1.6 L Total Bilirubin 16.6 H Direct Bilirubin 14.70 H Indirect Bilirubin 1.9 H Aspartate Amino Transf (AST/SGOT) 158 H Alanine Aminotransferase (ALT/SGPT) 29 Alkaline Phosphatase 169 H Ammonia 196 H Total Protein 5.9 L Albumin 2.0 L Globulin 3.90 H Albumin/Globulin Ratio 0.51 Medications Medications Current Medications Ondansetron HCl (Zofran Inj) 4 mg Q4H PRN IV NAUSEA AND/OR VOMITING Last administered on 07/10/17 22:56; Admin Dose 4 MG; Start 06/26/17 at 03:30 Rifaximin 550 mg 550 mg BID PO Last administered on 07/17/17 10:05; Admin Dose 550 MG; Start 07/03/17 at 21:00 Pantoprazole 80 mg/Sodium Chloride 100 ml @ 10 mls/hr Q10H IV Last administered on 07/17/17 06:11; Admin Dose 10 MLS/HR; Start 07/05/17 at 23:00 Octreotide Acetate 1 mg/ Sodium Chloride 100 ml @ 5 mls/hr Q20H IV Last administered on 07/16/17 18:57; Admin Dose 5 MLS/HR; Start 07/06/17 at 00:30 Cefepime HCl/ Sodium Chloride (Maxipime/NS) 50 ml @ 100 mls/hr Q24H IVPB Last administered on 07/16/17 15:21; Admin Dose 100 MLS/HR; Start 07/07/17 at 14:00 IV Flush 10 ml 10 ml PRN PRN IV IV PROTOCOL; Start 07/07/17 at 15:30 Fluconazole/ Sodium Chloride (Diflucan 100 Mg/ NS (Pmx)) 50 ml @ 50 mls/hr Q24H IVPB Last administered on 07/16/17 14:02; Admin Dose 50 MLS/HR; Start at 12:00 Simethicone 80 mg 80 mg Q6 GTB Last administered on 07/17/17 06:11; Admin Dose 80 MG; Start 07/09/17 at 12:00 Metronidazole 250 mg/N/A 50 ml @ 50 mls/hr Q8 IVPB Last administered on 06:10; Admin Dose 50 MLS/HR; Start 07/10/17 at 14:00 Bumetanide/ Dextrose (Bumex/D5W) 250 ml @ 10 mls/hr Q24H IV Last administered on 07/16/17 16:15; Admin Dose 10 MLS/HR; Start 07/10/17 at 17:00 Lactulose 30 gm 30 gm Q6 [place] Last administered on 07/17/17 06:11; Admin Dose 30 GM; Start 07/12/17 at 12:00 Linezolid (Zyvox 600mg/D5W (Pmx)) 300 ml @ 300 mls/hr BID IVPB Last administered on 07/17/17 10:06; Admin Dose 300 MLS/HR; Start 07/12/17 at 21: 00 Ferrous Sulfate 300 mg 300 mg BID NGT Last administered on 07/17/17 10:05; Admin Dose 300 MG; Start 07/13/17 at 09:00 Dextrose 1,000 ml @ 100 mls/hr Q10H IV Last administered on 07/17/17 11:29; Admin Dose 100 MLS/HR; Start 07/14/17 at 09:30 Magnesium Sulfate (Magnesium Sulfate 2 Gm/50 ml) 50 ml @ 25 mls/hr ONCE ONCE IVPB ; Start 07/17/17 at 11:30; Stop 07/17/17 at 13:29 RAKESH WEBBER NP Jul 17, 2017 12:28
--- NOTE | 2017-07-17 14:39 | CONS ---
Date/Time of Note Date/Time of Note DATE: 07/17/17 TIME: 14:38 Assessment/Plan Assessment/Plan Chief Complaint/Hosp Course SUBJECTIVE: No events overnight. Patient remains obtunded. Family at bedside. INDWELLINGS: NG tube, Vega catheter, PICC line placed on 07/07/2017 and new Gerardo catheter in her right groin placed 07/14/17. ANTIMICROBIALS: 1. Cefepime. 2. Zyvox. 3. Flagyl. PHYSICAL EXAMINATION: GENERAL: Chronically ill-appearing, middle-aged woman who is obtunded , in no distress. HEENT: Head atraumatic, normocephalic. Sclerae icteric. Buccal mucosa dry. NECK: Supple. CHEST: Rise symmetrical. Breath sounds diminished. HEART: S1, S2, tachycardic. ABDOMEN: Distended, positive for ascites. EXTREMITIES: With trace edema. SKIN: Positive for anasarca and jaundice. ASSESSMENT: 1. Status post shock. 2. Multisystem organ failure. 3. Decompensated alcoholic cirrhosis with ascites and portal hypertension. 4. Acute renal failure, possibly hepatorenal syndrome, status post Gerardo placement. 5. Possible spontaneous bacterial peritonitis. 6. Acute encephalopathy secondary to above. 7. Anemia. PLAN: The patient remains unchanged. Continue present care, prognosis very poor, patient is DNR status, palliative care team follows staff Problems: Consultation Date/Type/Reason Admit Date/Time Jun 26, 2017 at 00:00 Initial Consult Date 06/26/17 Type of Consultation: ID Exam/Review of Systems Vital Signs Vitals Vital Signs Date Time Temp Pulse Resp B/P Pulse Ox O2 Delivery O2 Flow Rate FiO2 07/17/17 12:09 100 07/17/17 11:40 97.8 16 93/54 97 07/17/17 09:45 3.0 07/17/17 09:40 Nasal Cannula Intake and Output 07/16/17 07/16/17 07/17/17 15:00 23:00 07:00 Intake Total 1050 ml 1065 ml Output Total 150 ml 1400 ml 165 ml Balance -150 ml -350 ml 900 ml Results Result Diagram: 07/17/17 0603 07/17/17 0603 Results 24 hrs Laboratory Tests Test 07/16/17 17:45 07/17/17 06:03 Hemoglobin 7.3 L 6.5 *L White Blood Count 26.0 H Red Blood Count 2.07 #L Hematocrit 19.3 #L Mean Corpuscular Volume 93.2 Mean Corpuscular Hemoglobin 31.4 Mean Corpuscular Hemoglobin Concent 33.7 Red Cell Distribution Width 22.3 H Platelet Count 115 #L Mean Platelet Volume 11.9 H Neutrophils % Segmented Neutrophils % (Manual) 80 H Band Neutrophils % (Manual) 11 H Lymphocytes % Lymphocytes % (Manual) 6 L Monocytes % Monocytes % (Manual) 3 Eosinophils % Basophils % Nucleated Red Blood Cells % 0.1 H Neutrophils # Neutrophils # (Manual) 21.5 H Band Neutrophils # 2.8 H Absolute Lymphocytes (Manual) 1.5 Lymphocytes # Monocytes # Absolute Monocytes (Manual) 0.7 Eosinophils # Basophils # Nucleated Red Blood Cells # Platelet Estimate DECREASED Giant Platelets 2 H Poikilocytosis 2+ Anisocytosis 1+ Macrocytosis 1+ Sodium Level 140 Potassium Level 3.4 L Chloride Level 109 Carbon Dioxide Level 13 L Anion Gap 21 H Blood Urea Nitrogen 65 H Creatinine 4.44 H Glucose Level 186 Calcium Level 7.7 L Phosphorus Level 5.2 H Magnesium Level 1.6 L Total Bilirubin 16.6 H Direct Bilirubin 14.70 H Indirect Bilirubin 1.9 H Aspartate Amino Transf (AST/SGOT) 158 H Alanine Aminotransferase (ALT/SGPT) 29 Alkaline Phosphatase 169 H Ammonia 196 H Total Protein 5.9 L Albumin 2.0 L Globulin 3.90 H Albumin/Globulin Ratio 0.51 Medications Medications Current Medications Ondansetron HCl (Zofran Inj) 4 mg Q4H PRN IV NAUSEA AND/OR VOMITING Last administered on 07/10/17 22:56; Admin Dose 4 MG; Start 06/26/17 at 03:30 Rifaximin 550 mg 550 mg BID PO Last administered on 07/17/17 10:05; Admin Dose 550 MG; Start 07/03/17 at 21:00 Pantoprazole 80 mg/Sodium Chloride 100 ml @ 10 mls/hr Q10H IV Last administered on 07/17/17 06:11; Admin Dose 10 MLS/HR; Start 07/05/17 at 23:00 Octreotide Acetate 1 mg/ Sodium Chloride 100 ml @ 5 mls/hr Q20H IV Last administered on 07/16/17 18:57; Admin Dose 5 MLS/HR; Start 07/06/17 at 00:30 Cefepime HCl/ Sodium Chloride (Maxipime/NS) 50 ml @ 100 mls/hr Q24H IVPB Last administered on 07/16/17 15:21; Admin Dose 100 MLS/HR; Start 07/07/17 at 14:00 IV Flush 10 ml 10 ml PRN PRN IV IV PROTOCOL; Start 07/07/17 at 15:30 Fluconazole/ Sodium Chloride (Diflucan 100 Mg/ NS (Pmx)) 50 ml @ 50 mls/hr Q24H IVPB Last administered on 07/16/17 14:02; Admin Dose 50 MLS/HR; Start at 12:00 Simethicone 80 mg 80 mg Q6 GTB Last administered on 07/17/17 06:11; Admin Dose 80 MG; Start 07/09/17 at 12:00 Metronidazole 250 mg/N/A 50 ml @ 50 mls/hr Q8 IVPB Last administered on 06:10; Admin Dose 50 MLS/HR; Start 07/10/17 at 14:00 Bumetanide/ Dextrose (Bumex/D5W) 250 ml @ 10 mls/hr Q24H IV Last administered on 07/16/17 16:15; Admin Dose 10 MLS/HR; Start 07/10/17 at 17:00 Lactulose 30 gm 30 gm Q6 AL Last administered on 07/17/17 06:11; Admin Dose 30 GM; Start 07/12/17 at 12:00 Linezolid (Zyvox 600mg/D5W (Pmx)) 300 ml @ 300 mls/hr BID IVPB Last administered on 07/17/17 10:06; Admin Dose 300 MLS/HR; Start 07/12/17 at 21: 00 Ferrous Sulfate 300 mg 300 mg BID NGT Last administered on 07/17/17 10:05; Admin Dose 300 MG; Start 07/13/17 at 09:00 Dextrose (D5W) 1,000 ml @ 100 mls/hr Q10H IV Last administered on 07/17/17 11:29; Admin Dose 100 MLS/HR; Start 07/14/17 at 09:30 FARHAT GARDINER NP Jul 17, 2017 14:39
[2017-07-17] MEDS: OCTREOTIDE 1 MG in SOD CHLORIDE 0.9% 95 ML IV SCH (15:45)
--- NOTE | 2017-07-17 15:51 | PN ---
Date/Time of Note Date/Time of Note DATE: 07/17/17 TIME: 15:51 Assessment/Plan Lines/Catheters IV Catheter Type (from Nrsg): GOMEZ CATH Vega in Place (from Nrsg): Yes Assessment/Plan Chief Complaint/Hosp Course IMPRESSION: Liver failure. RECOMMENDATIONS: SP dialysis catheter. placement will continue HD may need permcath Problems: Subjective 24 Hr Interval Summary Constitutional: improved Pain Control: mild Exam/Review of Systems Vital Signs Vitals Vital Signs Date Time Temp Pulse Resp B/P Pulse Ox O2 Delivery O2 Flow Rate FiO2 07/17/17 15:07 98.1 81 81 101/58 96 07/17/17 09:45 3.0 07/17/17 09:40 Nasal Cannula Intake and Output 07/16/17 07/16/17 07/17/17 15:00 23:00 07:00 Intake Total 1050 ml 1065 ml Output Total 150 ml 1400 ml 165 ml Balance -150 ml -350 ml 900 ml Exam ENMT: mucosa pink and moist, nl external ears & nose, nl lips & teeth, nl nasal mucosa & septum Neck: non-tender, supple Respiratory: clear to auscultation, normal air movement Cardiovascular: nl pulses, regular rate and rhythm Results Result Diagram: 07/17/1703 07/17/17602 NOEL ENAMORADO MD Jul 17, 2017 15:51
[2017-07-17] MEDS: BUMETANIDE 25 MG in DEXTROSE 5% 150 ML IV SCH (16:38)
--- NOTE | 2017-07-17 17:42 | PN ---
Date/Time of Note Date/Time of Note DATE: 07/17/17 TIME: 17:34 Assessment/Plan VTE Prophylaxis VTE Prophylaxis Intervention: SCD's Lines/Catheters IV Catheter Type (from Nrs): GOMEZ CATH Urinary Cath still in place: Yes Reason Cath still needed: urinary retention (Urine output) Assessment/Plan Chief Complaint/Hosp Course Assessment: Status DNR/DNI Anemia Hepatorenal Syndrome Decompensated liver cirrhosis with ascites Encephalopathy Anemia EGD 07/07/17 Impression: Grade III/IV esophageal varices with stigmata recent bleeding Post endoscopic variceal ligation 5 Portal hypertensive gastropathy. No evidence of cholecystitis- negative HIDA Acute kidney injury Sepsis S/p Paracentesis 2.2L Plan: 1 unit of PRBCs has been transfused Followed by warehouse specialist Continue Protonix and octreotide drip NG tube venting Monitor H&H transfuse for hemoglobin less than 7.5 Continue lactulose and rifaximin Patient seen in collaboration with Dr. Ny Subjective: No changes overnight, patient remains unresponsive and NPO. 1 unit of PRBCs has been transfused for hemoglobin of 6.5. Course reviewed with the bedside nurse. Patient examined. All laboratory results have been reviewed. PHYSICAL EXAMINATION: GENERAL: Incoherent, altered mental status, in no acute distress. SKIN: Sacral pressure soar covered with DuoDERM, stigmata present due to chronic liver disease, multiple bruising. Jaundiced. Icteric sclera. Pitting edema bilateral lower extremities. LYMPHATIC: No palpable lymphadenopathy. HEAD: Normocephalic, atraumatic, no tenderness. EYES: Pupils equal reactive to light and accommodation, full extraocular movements, sclera clear, icteric, no discharge. EARS/NOSE AND THROAT: Ears normal, NG tube is in place in the nostril. NECK: Supple, CHEST: Inspection within normal limits. CARDIOVASCULAR: Heart: Regular rate and rhythm,. RESPIRATORY: Lungs clear to auscultation GASTROINTESTINAL AND LIVER: Abdomen: very distended due to gas versus ascites, no hernias, no masses, moderate ascites, no splenomegaly, no guarding, no rebound tenderness, normoactive bowel sounds. Rectal: Blood clots are noted in the rectal tube GENITOURINARY: Female genitalia within normal limits. EXTREMITIES: No cyanosis, clubbing or edema. Problems: Exam/Review of Systems Vital Signs Vitals Vital Signs Date Time Temp Pulse Resp B/P Pulse Ox O2 Delivery O2 Flow Rate FiO2 07/17/17 16:04 93 07/17/17 15:07 98.1 81 101/58 96 07/17/17 09:45 3.0 07/17/17 09:40 Nasal Cannula Intake and Output 07/16/17 07/16/17 07/17/17 15:00 23:00 07:00 Intake Total 1050 ml 1065 ml Output Total 150 ml 1400 ml 165 ml Balance -150 ml -350 ml 900 ml Results Result Diagram: 07/17/17 0603 07/17/17 0603 Results 24 hrs Laboratory Tests Test 07/16/17 17:45 07/17/17 06:03 Hemoglobin 7.3 L 6.5 *L White Blood Count 26.0 H Red Blood Count 2.07 #L Hematocrit 19.3 #L Mean Corpuscular Volume 93.2 Mean Corpuscular Hemoglobin 31.4 Mean Corpuscular Hemoglobin Concent 33.7 Red Cell Distribution Width 22.3 H Platelet Count 115 #L Mean Platelet Volume 11.9 H Neutrophils % Segmented Neutrophils % (Manual) 80 H Band Neutrophils % (Manual) 11 H Lymphocytes % Lymphocytes % (Manual) 6 L Monocytes % Monocytes % (Manual) 3 Eosinophils % Basophils % Nucleated Red Blood Cells % 0.1 H Neutrophils # Neutrophils # (Manual) 21.5 H Band Neutrophils # 2.8 H Absolute Lymphocytes (Manual) 1.5 Lymphocytes # Monocytes # Absolute Monocytes (Manual) 0.7 Eosinophils # Basophils # Nucleated Red Blood Cells # Platelet Estimate DECREASED Giant Platelets 2 H Poikilocytosis 2+ Anisocytosis 1+ Macrocytosis 1+ Sodium Level 140 Potassium Level 3.4 L Chloride Level 109 Carbon Dioxide Level 13 L Anion Gap 21 H Blood Urea Nitrogen 65 H Creatinine 4.44 H Glucose Level 186 Calcium Level 7.7 L Phosphorus Level 5.2 H Magnesium Level 1.6 L Total Bilirubin 16.6 H Direct Bilirubin 14.70 H Indirect Bilirubin 1.9 H Aspartate Amino Transf (AST/SGOT) 158 H Alanine Aminotransferase (ALT/SGPT) 29 Alkaline Phosphatase 169 H Ammonia 196 H Total Protein 5.9 L Albumin 2.0 L Globulin 3.90 H Albumin/Globulin Ratio 0.51 Medications Medications Current Medications Ondansetron HCl (Zofran Inj) 4 mg Q4H PRN IV NAUSEA AND/OR VOMITING Last administered on 07/10/17 22:56; Admin Dose 4 MG; Start 06/26/17 at 03:30 Rifaximin 550 mg 550 mg BID PO Last administered on 07/17/17 10:05; Admin Dose 550 MG; Start 07/03/17 at 21:00 Pantoprazole 80 mg/Sodium Chloride 100 ml @ 10 mls/hr Q10H IV Last administered on 07/17/17 16:38; Admin Dose 10 MLS/HR; Start 07/05/17 at 23:00 Octreotide Acetate 1 mg/ Sodium Chloride 100 ml @ 5 mls/hr Q20H IV Last administered on 07/17/17 15:45; Admin Dose 5 MLS/HR; Start 07/06/17 at 00:30 Cefepime HCl/ Sodium Chloride (Maxipime/NS) 50 ml @ 100 mls/hr Q24H IVPB Last administered on 07/16/17 15:21; Admin Dose 100 MLS/HR; Start 07/07/17 at 14:00 IV Flush 10 ml 10 ml PRN PRN IV IV PROTOCOL; Start 07/07/17 at 15:30 Fluconazole/ Sodium Chloride (Diflucan 100 Mg/ NS (Pmx)) 50 ml @ 50 mls/hr Q24H IVPB Last administered on 07/16/17 14:02; Admin Dose 50 MLS/HR; Start at 12:00 Simethicone 80 mg 80 mg Q6 GTB Last administered on 07/17/17 06:11; Admin Dose 80 MG; Start 07/09/17 at 12:00 Metronidazole 250 mg/N/A 50 ml @ 50 mls/hr Q8 IVPB Last administered on 16:33; Admin Dose 50 MLS/HR; Start 07/10/17 at 14:00 Bumetanide/ Dextrose (Bumex/D5W) 250 ml @ 10 mls/hr Q24H IV Last administered on 07/17/17 16:38; Admin Dose 10 MLS/HR; Start 07/10/17 at 17:00 Lactulose 30 gm 30 gm Q6 MD Last administered on 07/17/17 06:11; Admin Dose 30 GM; Start 07/12/17 at 12:00 Linezolid (Zyvox 600mg/D5W (Pmx)) 300 ml @ 300 mls/hr BID IVPB Last administered on 07/17/17 10:06; Admin Dose 300 MLS/HR; Start 07/12/17 at 21: 00 Ferrous Sulfate 300 mg 300 mg BID NGT Last administered on 07/17/17 10:05; Admin Dose 300 MG; Start 07/13/17 at 09:00 Dextrose (D5W) 1,000 ml @ 100 mls/hr Q10H IV Last administered on 07/17/17 11:29; Admin Dose 100 MLS/HR; Start 07/14/17 at 09:30 COMPA GUARDADO NP Jul 17, 2017 17:41
[2017-07-17] MEDS: FLUCONAZOLE 100 MG/NS (PMX) 50 ML IVPB SCH (21:35)
[2017-07-17] MEDS: CEFEPIME HCL 0.5 GM in SOD CHLORIDE 0.9% 50 ML IVPB SCH (21:35)
[2017-07-18] VITALS (13 sets, daily range): BP systolic 80–104; BP diastolic 50–57; PULSE 92–101; RESP 18–24
[2017-07-18] MEDS: LACTULOSE 30ML CUP PR SCH ×4 (00:41→18:10)
[2017-07-18] MEDS: PANTOPRAZOLE IV 80 MG in SOD CHLORIDE 0.9% 100 ML IV SCH ×3 (03:00→21:36)
[2017-07-18] MEDS: metroNIDAZOLE 500 MG/NS (PMX) 250 MG in EVAC CONTAINER 1 BOTTLE IVPB SCH ×3 (05:35→21:36)
[2017-07-18] MEDS: DEXTROSE 5% 1,000 ML IV SCH ×2 (05:55→11:56)
[2017-07-18] MEDS ORDERED: LORAZEPAM 2 MG INJ IV ONE (07:30)
[2017-07-18 07:42] LABS: ABNORMAL IP MESSAGE 1; HEMATOCRIT 22.5 % (37.0-47.0); HEMOGLOBIN 7.7 g/dl (12.0-16.0); MEAN CORPUSCULAR HGB CONC 34.2 g/dl (32.0-37.0); MEAN CORPUSCULAR VOLUME 93.4 fl (82.0-101.0); MEAN PLATELET VOLUME 12.3 fl (7.4-10.4); NUCLEATED RED BLOOD CELLS% 0.2 /100WBC (0.0-0.0); PLATELET COUNT 106 10^3/UL (140-415); RED BLOOD COUNT 2.41 10^6/ul (4.20-5.40); RED CELL DISTRIBUTION WIDTH 20.1 % (11.5-14.5); WHITE BLOOD COUNT 33.1 10^3/ul (4.8-10.8)
[2017-07-18 07:53] LABS: POSITIVE DIFF @See below
[2017-07-18 08:16] LABS: ALBUMIN 2.2 g/dl (3.3-4.9); ALBUMIN/GLOBULIN RATIO 0.55; BILIRUBIN,INDIRECT 1.8 mg/dl (0-1.1); BILIRUBIN,TOTAL 17.7 mg/dl (0.2-1.3); CREATININE 4.83 mg/dl (0.44-1.00); TOTAL PROTEIN 6.2 g/dl (6.1-8.1)
[2017-07-18 08:17] LABS: MAGNESIUM 2.1 mg/dl (1.7-2.5); PHOSPHORUS 6.4 mg/dl (2.5-4.9)
[2017-07-18 08:33] LABS: BILIRUBIN,DIRECT 15.9 mg/dl (0.00-0.20)
[2017-07-18] MEDS: LINEZOLID 600 MG/D5W (PMX) 300 ML IVPB SCH ×2 (08:52→21:36)
[2017-07-18] MEDS: FERROUS SULFATE 60 MG/ML 5ML CUP NGT SCH ×2 (08:52→21:36)
[2017-07-18] MEDS: RIFAXIMIN 550 MG TAB PO SCH ×2 (08:52→21:36)
--- NOTE | 2017-07-18 09:30 | PN ---
Date/Time of Note Date/Time of Note DATE: 07/18/17 TIME: 09:29 Assessment/Plan VTE Prophylaxis VTE Prophylaxis Intervention: contraindicated Lines/Catheters IV [facility] Type [facility]from [facility]): GOMEZ CATH Central line still needed: Yes Urinary Cath still in place: Yes Reason Cath still needed: other (indicate) Assessment/Plan Chief Complaint/Hosp Course 1. Acute encephalopathy. -Most probably toxic metabolic in origin. -Continue lactulose. 2. Decompensated alcoholic liver cirrhosis with ascites and portal hypertension. -Continue lactulose. -Status post ultrasound-guided paracentesis on 07/02/2017. 3. Acute kidney injury. -Nephrology following. -Plan was to initiate hemodialysis. However, the patient's condition has been progressively deteriorating. 4. Metabolic acidosis. -Worsening renal function. 5. Anemia. Normocytic, normochromic. -On iron supplements. 6. Transaminitis with hyperbilirubinemia. -Most probably secondary to #1 and #2. -Avoid hepatotoxic medications. 7. Grade III/IV esophageal varices with stigmata recent bleeding -Post endoscopic variceal ligation 5. -On octreotide and Protonix. 8. S/P sepsis with septic shock. -On antimicrobials as per ID. 9. Hypernatremia. -On free H20 via NGT. 10. Symptomatic cholelithiasis. -No evidence of cholecystitis. -Status post surgical evaluation. No surgical intervention. 11. Fluids, electrolytes, and nutrition. -N.p.o. -Fluid restriction. 12. DVT prophylaxis. -Contraindicated. 13. Plan. -Trend LFTs. -Poor prognosis. -The patient is currently a DNR. Case discussed with Dr. Mauricio. Problems: Subjective 24 Hr Interval Summary Free Text/Dictation No changes in status. Exam/Review of Systems Vital Signs Vitals Vital Signs Date Time Temp Pulse Resp B/P Pulse Ox O2 Delivery O2 Flow Rate FiO2 07/18/17 08:37 98 07/18/17 08:09 102/50 07/18/17 07:33 98.7 22 98 07/17/17 23:30 3.0 07/17/17 21:00 Nasal Cannula Intake and Output 07/17/17 07/17/17 07/18/17 15:00 23:00 07:00 Intake Total 200 ml 1055 ml 380 ml Output Total 750 ml 325 ml Balance 200 ml 305 ml 55 ml Exam General: Adequately build 47 year-old female lying in bed. HEENT: Normocephalic, atraumatic. Eyes: Icteric sclerae, conjunctivae clear. ENT : Nasal septum is midline, oral mucosa is dry. Neck supple. Respiratory: Bilaterally diminished breath sounds. Agonal breathing. No adventitious breath sounds. Cardiovascular: S1, S2 heard. Regular rate and rhythm. Abdomen: Soft. Bowel sounds positive in all 4 quadrants. Minimal distention. Left upper quadrant tenderness. Genitourinary: Deferred. Extremities: No cyanosis, no clubbing. Peripheral pulses palpable. Bilateral lower extremity 2-3+ pitting edema. Neurologic: The patient is Obtunded. Skin: Normal skin turgor. No skin rashes. Icterus. Results Result Diagram: 07/18/17 0650 07/18/17 0650 Results 24 hrs Laboratory Tests Test 07/18/17 06:06 07/18/17 06:50 Lab Scanned Report BLOOD TRANSFUSION White Blood Count 33.1 #H Red Blood Count 2.41 L Hemoglobin 7.7 L Hematocrit 22.5 L Mean Corpuscular Volume 93.4 Mean Corpuscular Hemoglobin 32.0 Mean Corpuscular Hemoglobin Concent 34.2 Red Cell Distribution Width 20.1 H Platelet Count 106 L Mean Platelet Volume 12.3 H Neutrophils % Lymphocytes % Monocytes % Eosinophils % Basophils % Nucleated Red Blood Cells % 0.2 H Neutrophils # Lymphocytes # Monocytes # Eosinophils # Basophils # Nucleated Red Blood Cells # Sodium Level 139 Potassium Level 4.0 Chloride Level 109 Carbon Dioxide Level 10 L Anion Gap 24 H Blood Urea Nitrogen 77 H Creatinine 4.83 H Glucose Level 199 Calcium Level 8.0 L Phosphorus Level 6.4 H Magnesium Level 2.1 Total Bilirubin 17.7 H Direct Bilirubin 15.90 *H Indirect Bilirubin 1.8 H Aspartate Amino Transf (AST/SGOT) 157 H Alanine Aminotransferase (ALT/SGPT) 32 Alkaline Phosphatase 185 H Ammonia 156 H Total Protein 6.2 Albumin 2.2 L Globulin 4.00 H Albumin/Globulin Ratio 0.55 Medications Medications Current Medications Ondansetron HCl (Zofran Inj) 4 mg Q4H PRN IV NAUSEA AND/OR VOMITING Last administered on 07/10/17t 22:56; Admin Dose 4 MG; Start 06/26/17 at 03:30 Rifaximin 550 mg 550 mg BID PO Last administered on 07/18/17 08:52; Admin Dose 550 MG; Start 07/03/17 at 21:00 Pantoprazole 80 mg/Sodium Chloride 100 ml @ 10 mls/hr Q10H IV Last administered on 07/18/17 03:00; Admin Dose 10 MLS/HR; Start 07/05/17 at 23:00 Octreotide Acetate 1 mg/ Sodium Chloride 100 ml @ 5 mls/hr Q20H IV Last administered on 07/17/17 15:45; Admin Dose 5 MLS/HR; Start 07/06/17 at 00:30 Cefepime HCl/ Sodium Chloride (Maxipime/NS) 50 ml @ 100 mls/hr Q24H IVPB Last administered on 07/17/17 21:35; Admin Dose 100 MLS/HR; Start 07/07/17 at 14:00 IV Flush 10 ml 10 ml PRN PRN IV IV PROTOCOL; Start 07/07/17 at 15:30 Fluconazole/ Sodium Chloride (Diflucan 100 Mg/ NS (Pmx)) 50 ml @ 50 mls/hr Q24H IVPB Last administered on 07/17/17 21:35; Admin Dose 50 MLS/HR; Start at 12:00 Simethicone 80 mg 80 mg Q6 GTB Last administered on 07/18/17 05:36; Admin Dose 80 MG; Start 07/09/17 at 12:00 Metronidazole 250 mg/N/A 50 ml @ 50 mls/hr Q8 IVPB Last administered on 05:35; Admin Dose 50 MLS/HR; Start 07/10/17 at 14:00 Bumetanide/ Dextrose (Bumex/D5W) 250 ml @ 10 mls/hr Q24H IV Last administered on 07/17/17 16:38; Admin Dose 10 MLS/HR; Start 07/10/17 at 17:00 Lactulose 30 gm 30 gm Q6 [place] Last administered on 07/18/17 05:35; Admin Dose 30 GM; Start 07/12/17 at 12:00 Linezolid (Zyvox 600mg/D5W (Pmx)) 300 ml @ 300 mls/hr BID IVPB Last administered on 07/18/17 08:52; Admin Dose 300 MLS/HR; Start 07/12/17 at 21: 00 Ferrous Sulfate 300 mg 300 mg BID NGT Last administered on 07/18/17 08:52; Admin Dose 300 MG; Start 07/13/17 at 09:00 Dextrose (D5W) 1,000 ml @ 100 mls/hr Q10H IV Last administered on 07/17/17 11:29; Admin Dose 100 MLS/HR; Start 07/14/17 at 09:30 RAKESH WEBBER NP Jul 18, 2017 09:30
[2017-07-18] MEDS ORDERED: NA BICARBONATE 8.4% 50 ML SYG IV STA (10:12)
--- NOTE | 2017-07-18 10:18 | CONS ---
Date/Time of Note Date/Time of Note DATE: 07/18/17 TIME: :17 Assessment/Plan Assessment/Plan Additional Assessment/Plan 1. Acute renal failure, unchanged. 2. Palliative care eval noted, would not intervene again with HD as will not change clinical course 3. Decomp chronic liver disease 4. Bicarb is lower, will give 1 amp bicarb, await ABG Consultation Date/Type/Reason Admit Date/Time Jun 26, 2017 at 00:00 Initial Consult Date 06/26/17 Type of Consultation: ID [id number] HR Interval Summary Subjective hx not possible: pt critical Exam/Review of Systems Vital Signs Vitals Vital Signs Date Time Temp Pulse Resp B/P Pulse Ox O2 Delivery O2 Flow Rate FiO2 07/18/17 08:37 98 07/18/17 08:09 102/50 07/18/17 07:33 98.7 22 98 07/17/17 23:30 3.0 07/17/17 21:00 Nasal Cannula Intake and Output 07/17/17 07/17/17 07/18/17 15:00 23:00 07:00 Intake Total 200 ml 1055 ml 380 ml Output Total 750 ml 325 ml Balance 200 ml 305 ml 55 ml Exam Neck: No jvd Respiratory: diminished breath sounds Cardiovascular: regular rate and rhythm Gastrointestinal: distended Extremities: edema (sacral and leg edema 4+) Results Result Diagram: 07/18/17 0650 07/18/17 0650 Results 24 hrs Laboratory Tests Test 07/18/17 06:06 07/18/17 06:50 Lab Scanned Report BLOOD TRANSFUSION White Blood Count 33.1 #H Red Blood Count 2.41 L Hemoglobin 7.7 L Hematocrit 22.5 L Mean Corpuscular Volume 93.4 Mean Corpuscular Hemoglobin 32.0 Mean Corpuscular Hemoglobin Concent 34.2 Red Cell Distribution Width 20.1 H Platelet Count 106 L Mean Platelet Volume 12.3 H Neutrophils % Lymphocytes % Monocytes % Eosinophils % Basophils % Nucleated Red Blood Cells % 0.2 H Neutrophils # Lymphocytes # Monocytes # Eosinophils # Basophils # Nucleated Red Blood Cells # Sodium Level 139 Potassium Level 4.0 Chloride Level 109 Carbon Dioxide Level 10 L Anion Gap 24 H Blood Urea Nitrogen 77 H Creatinine 4.83 H Glucose Level 199 Calcium Level 8.0 L Phosphorus Level 6.4 H Magnesium Level 2.1 Total Bilirubin 17.7 H Direct Bilirubin 15.90 *H Indirect Bilirubin 1.8 H Aspartate Amino Transf (AST/SGOT) 157 H Alanine Aminotransferase (ALT/SGPT) 32 Alkaline Phosphatase 185 H Ammonia 156 H Total Protein 6.2 Albumin 2.2 L Globulin 4.00 H Albumin/Globulin Ratio 0.55 Medications Medications Current Medications Ondansetron HCl (Zofran Inj) 4 mg Q4H PRN IV NAUSEA AND/OR VOMITING Last administered on 07/10/17 22:56; Admin Dose 4 MG; Start 06/26/17 at 03:30 Rifaximin 550 mg 550 mg BID PO Last administered on 07/18/17 08:52; Admin Dose 550 MG; Start 07/03/17 at 21:00 Pantoprazole 80 mg/Sodium Chloride 100 ml @ 10 mls/hr Q10H IV Last administered on 07/18/17 03:00; Admin Dose 10 MLS/HR; Start 07/05/17 at 23:00 Octreotide Acetate 1 mg/ Sodium Chloride 100 ml @ 5 mls/hr Q20H IV Last administered on 07/17/17 15:45; Admin Dose 5 MLS/HR; Start 07/06/17 at 00:30 Cefepime HCl/ Sodium Chloride (Maxipime/NS) 50 ml @ 100 mls/hr Q24H IVPB Last administered on 07/17/17 21:35; Admin Dose 100 MLS/HR; Start 07/07/17 at 14:00 IV Flush 10 ml 10 ml PRN PRN IV IV PROTOCOL; Start 07/07/17 at 15:30 Fluconazole/ Sodium Chloride (Diflucan 100 Mg/ NS (Pmx)) 50 ml @ 50 mls/hr Q24H IVPB Last administered on 07/17/17 21:35; Admin Dose 50 MLS/HR; Start at 12:00 Simethicone 80 mg 80 mg Q6 GTB Last administered on 07/18/17 05:36; Admin Dose 80 MG; Start 07/09/17 at 12:00 Metronidazole 250 mg/N/A 50 ml @ 50 mls/hr Q8 IVPB Last administered on 05:35; Admin Dose 50 MLS/HR; Start 07/10/17 at 14:00 Bumetanide/ Dextrose (Bumex/D5W) 250 ml @ 10 mls/hr Q24H IV Last administered on 07/17/17 16:38; Admin Dose 10 MLS/HR; Start 07/10/17 at 17:00 Lactulose 30 gm 30 gm Q6 [place] Last administered on 07/18/17 05:35; Admin Dose 30 GM; Start 07/12/17 at 12:00 Linezolid (Zyvox 600mg/D5W (Pmx)) 300 ml @ 300 mls/hr BID IVPB Last administered on 07/18/17 08:52; Admin Dose 300 MLS/HR; Start 07/12/17 at 21: 00 Ferrous Sulfate 300 mg 300 mg BID NGT Last administered on 07/18/17 08:52; Admin Dose 300 MG; Start 07/13/17 at 09:00 Dextrose (D5W) 1,000 ml @ 50 mls/hr Q20H IV ; Start 07/18/17 at 10:30; Status UNDEMETRIUS THEODORE MD Jul 18, 2017 10:18
[2017-07-18 10:26] LABS: ACANTHOCYTES 1+ (0-0); ANISOCYTOSIS 2+ (0-0); BURR CELLS 2+ (0-0); GIANT THROMBO% (M) 1 % (0-0); MONOCYTES % (M) 2 % (0-11); PLATELET ESTIMATE DECREASED; POIKILOCYTOSIS 3+ (0-0); POLYCHROMASIA 2+ (0-0); TARGET CELLS 1+ (0-0)
[2017-07-18 11:16] LABS: AADO2 Arterial 96.7 mmHg (7.0-24.0); Allen Test ACCEPTAB; Arterial Base Excess -13.1 mmol/L (-3.0-3); Arterial COHb 0.6 % (0.0-3.0); Arterial MetHb 0.1 % (0.0-1.5); Arterial Total Hemglobin 7.8 g/dl (12.0-18.0); MODE NASAL CANNULA
[2017-07-18] MEDS: FLUCONAZOLE 100 MG/NS (PMX) 50 ML IVPB SCH (13:04)
[2017-07-18] MEDS: OCTREOTIDE 1 MG in SOD CHLORIDE 0.9% 95 ML IV SCH (13:08)
--- NOTE | 2017-07-18 13:21 | PN ---
Date/Time of Note Date/Time of Note DATE: 07/18/17 TIME: 13:17 Assessment/Plan VTE Prophylaxis VTE Prophylaxis Intervention: SCD's Lines/Catheters IV Catheter Type (from Nrs): GOMEZ CATH Urinary Cath still in place: Yes Reason Cath still needed: urinary retention Assessment/Plan Chief Complaint/Hosp Course Assessment: Status DNR/DNI Hepatorenal Syndrome Decompensated liver cirrhosis with ascites Encephalopathy Anemia EGD 07/07/17 Impression: Grade III/IV esophageal varices with stigmata recent bleeding Post endoscopic variceal ligation 5 Portal hypertensive gastropathy. No evidence of cholecystitis- negative HIDA Acute kidney injury Sepsis S/p Paracentesis 2.2L Plan: Followed by [facility] no dialysis Continue Protonix and octreotide drip NG tube venting Monitor H&H transfuse for hemoglobin less than 7.5 Continue lactulose and rifaximin Patient seen in collaboration with Dr. Ny Subjective: No changes overnight, patient remains unresponsive and NPO. Hemoglobin stable. Course reviewed with the bedside nurse. Patient examined. All laboratory results have been reviewed. PHYSICAL EXAMINATION: GENERAL: Incoherent, altered mental status, in no acute distress. SKIN: Sacral pressure soar covered with DuoDERM, stigmata present due to chronic liver disease, multiple bruising. Jaundiced. Icteric sclera. Pitting edema bilateral lower extremities. LYMPHATIC: No palpable lymphadenopathy. HEAD: Normocephalic, atraumatic, no tenderness. EYES: Pupils equal reactive to light and accommodation, full extraocular movements, sclera clear, icteric, no discharge. EARS/NOSE AND THROAT: Ears normal, NG tube is in place in the nostril. NECK: Supple, CHEST: Inspection within normal limits. CARDIOVASCULAR: Heart: Regular rate and rhythm, murmur. RESPIRATORY: Lungs clear to auscultation GASTROINTESTINAL AND LIVER: Abdomen: very distended due to gas versus ascites, no hernias, no masses, moderate ascites, no splenomegaly, no guarding, no rebound tenderness, normoactive bowel sounds. Rectal: Blood clots are noted in the rectal tube GENITOURINARY: Female genitalia within normal limits. EXTREMITIES: No cyanosis, clubbing or edema. Problems: Exam/Review of Systems Vital Signs Vitals Vital Signs Date Time Temp Pulse Resp B/P Pulse Ox O2 Delivery O2 Flow Rate FiO2 07/18/17 13:05 92 07/18/17 11:14 99.3 18 86/53 97 07/18/17 09:00 Nasal Cannula 2.0 Intake and Output 07/17/17 07/17/17 07/18/17 15:00 23:00 07:00 Intake Total 200 ml 1055 ml 380 ml Output Total 750 ml 325 ml Balance 200 ml 305 ml 55 ml Results Result Diagram: 07/18/17 0650 07/18/17 0650 Results 24 hrs Laboratory Tests Test 07/18/17 06:06 07/18/17 06:50 07/18/17 10:30 Lab Scanned Report BLOOD TRANSFUSION White Blood Count 33.1 #H Red Blood Count 2.41 L Hemoglobin 7.7 L Hematocrit 22.5 L Mean Corpuscular Volume 93.4 Mean Corpuscular Hemoglobin 32.0 Mean Corpuscular Hemoglobin Concent 34.2 Red Cell Distribution Width 20.1 H Platelet Count 106 L Mean Platelet Volume 12.3 H Neutrophils % Segmented Neutrophils % (Manual) 89 H Band Neutrophils % (Manual) 2 Lymphocytes % Lymphocytes % (Manual) 7 L Monocytes % Monocytes % (Manual) 2 Eosinophils % Basophils % Nucleated Red Blood Cells % 0.2 H Neutrophils # Neutrophils # (Manual) 29.7 H Band Neutrophils # 0.6 Absolute Lymphocytes (Manual) 2.3 Lymphocytes # Monocytes # Absolute Monocytes (Manual) 0.6 Eosinophils # Basophils # Nucleated Red Blood Cells # Platelet Estimate DECREASED Giant Platelets 1 H Polychromasia 2+ Poikilocytosis 3+ Anisocytosis 2+ Macrocytosis 2+ Target Cells 1+ Acanthocytes 1+ Sodium Level 139 Potassium Level 4.0 Chloride Level 109 Carbon Dioxide Level 10 L Anion Gap 24 H Blood Urea Nitrogen 77 H Creatinine 4.83 H Glucose Level 199 Calcium Level 8.0 L Phosphorus Level 6.4 H Magnesium Level 2.1 Total Bilirubin 17.7 H Direct Bilirubin 15.90 *H Indirect Bilirubin 1.8 H Aspartate Amino Transf (AST/SGOT) 157 H Alanine Aminotransferase (ALT/SGPT) 32 Alkaline Phosphatase 185 H Ammonia 156 H Total Protein 6.2 Albumin 2.2 L Globulin 4.00 H Albumin/Globulin Ratio 0.55 Blood Gas Specimen Source Blood arterial Arterial Blood Date Drawn 07/18/2017 11:06:24 AM Arterial Blood pH (Temp corrected) 7.347 L Arterial Blood pCO2 (Temp correct) 20.6 L Arterial Blood pO2 (Temp corrected) 93.0 Arterial Blood HCO3 11.0 L Arterial Blood Base Excess -13.1 L Arterial Blood Oxygen Saturation 96.7 George Test ACCEPTAB Arterial Blood Gas Puncture Site Right Brachial Arterial Blood Carboxyhemoglobin 0.6 Arterial Blood Methemoglobin 0.1 Blood Gas A-a O2 Differential 96.7 H Oxyhemoglobin Percent 96.0 Total Hemoglobin 7.8 L Blood Gas Temperature 37.0 Blood Gas Modality NASAL CANNULA FiO2 30.0 Blood Gas Notified Whom ds Blood Gas Notified Time 07/18/2017 11:16:02 AM Medications Medications Current Medications Ondansetron HCl (Zofran Inj) 4 mg Q4H PRN IV NAUSEA AND/OR VOMITING Last administered on 07/10/17 22:56; Admin Dose 4 MG; Start 06/26/17 at 03:30 Rifaximin 550 mg 550 mg BID PO Last administered on 07/18/17 08:52; Admin Dose 550 MG; Start 07/03/17 at 21:00 Pantoprazole 80 mg/Sodium Chloride 100 ml @ 10 mls/hr Q10H IV Last administered on 07/18/17 12:06; Admin Dose 10 MLS/HR; Start 07/05/17 at 23:00 Octreotide Acetate 1 mg/ Sodium Chloride 100 ml @ 5 mls/hr Q20H IV Last administered on 07/18/17 13:08; Admin Dose 5 MLS/HR; Start 07/06/17 at 00:30 Cefepime HCl/ Sodium Chloride (Maxipime/NS) 50 ml @ 100 mls/hr Q24H IVPB Last administered on 07/17/17 21:35; Admin Dose 100 MLS/HR; Start 07/07/17 at 14:00 IV Flush 10 ml 10 ml PRN PRN IV IV PROTOCOL; Start 07/07/17 at 15:30 Fluconazole/ Sodium Chloride (Diflucan 100 Mg/ NS (Pmx)) 50 ml @ 50 mls/hr Q24H IVPB Last administered on 07/18/17 13:04; Admin Dose 50 MLS/HR; Start at 12:00 Simethicone 80 mg 80 mg Q6 GTB Last administered on 07/18/17 11:56; Admin Dose 80 MG; Start 07/09/17 at 12:00 Metronidazole 250 mg/N/A 50 ml @ 50 mls/hr Q8 IVPB Last administered on 05:35; Admin Dose 50 MLS/HR; Start 07/10/17 at 14:00 Bumetanide/ Dextrose (Bumex/D5W) 250 ml @ 10 mls/hr Q24H IV Last administered on 07/17/17 16:38; Admin Dose 10 MLS/HR; Start 07/10/17 at 17:00 Lactulose 30 gm 30 gm Q6 [place] Last administered on 07/18/17 11:56; Admin Dose 30 GM; Start 07/12/17 at 12:00 Linezolid (Zyvox 600mg/D5W (Pmx)) 300 ml @ 300 mls/hr BID IVPB Last administered on 07/18/17 08:52; Admin Dose 300 MLS/HR; Start 07/12/17 at 21: 00 Ferrous Sulfate 300 mg 300 mg BID NGT Last administered on 07/18/17 08:52; Admin Dose 300 MG; Start 07/13/17 at 09:00 Dextrose (D5W) 1,000 ml @ 50 mls/hr Q20H IV Last administered on 07/18/17 11 :56; Admin Dose 50 MLS/HR; Start 07/18/17 at 10:30 Copies To: CC: FRANCINE [place] MD, ANASTASIA NP Jul 18, 2017 13:21
--- NOTE | 2017-07-18 13:51 | PN ---
Date/Time of Note Date/Time of Note DATE: 07/18/17 TIME: 13:51 Assessment/Plan Lines/Catheters IV Catheter Type (from Nrsg): GOMEZ CATH Vega in Place (from Nrsg): Yes Assessment/Plan Chief Complaint/Hosp Course IMPRESSION: Liver failure. RECOMMENDATIONS: SP dialysis catheter. placement will continue HD may need permcath Problems: Subjective 24 Hr Interval Summary Pain Control: mild Exam/Review of Systems Vital Signs Vitals Vital Signs Date Time Temp Pulse Resp B/P Pulse Ox O2 Delivery O2 Flow Rate FiO2 07/18/17 13:05 92 07/18/17 11:14 99.3 18 86/53 97 07/18/17 09:00 Nasal Cannula 2.0 Intake and Output 07/17/17 07/17/17 07/18/17 15:00 23:00 07:00 Intake Total 200 ml 1055 ml 380 ml Output Total 750 ml 325 ml Balance 200 ml 305 ml 55 ml Exam ENMT: mucosa pink and moist, nl external ears & nose, nl lips & teeth, nl nasal mucosa & septum Neck: non-tender, supple Respiratory: clear to auscultation, normal air movement Cardiovascular: nl pulses, regular rate and rhythm Results Result Diagram: 07/18/17 0650 07/18/17 0650 NOEL ENAMORADO MD Jul 18, 2017 13:51
[2017-07-18] MEDS ORDERED: NA BICARBONATE 8.4% 50 ML SYG IV ONE (14:00)
[2017-07-18] MEDS: CEFEPIME HCL 0.5 GM in SOD CHLORIDE 0.9% 50 ML IVPB SCH (15:04)
[2017-07-18] MEDS: BUMETANIDE 25 MG in DEXTROSE 5% 150 ML IV SCH (18:10)
[2017-07-18] MEDS: LORAZEPAM 2 MG INJ IV PRN (18:16)
--- NOTE | 2017-07-18 18:16 | CONS ---
Date/Time of Note Date/Time of Note DATE: 07/18/17 TIME: 18:11 Assessment/Plan Assessment/Plan Chief Complaint/Hosp Course ID PROGRESS NOTE TOTAL ABX DAY # CURRENT ABX=> *Zyvox + Cefepime + Flagyl s/p Vanco IV 24H INTERVAL SUMMARY * Lethargic, encephalopathy, w/labored breathing and vocalized moaning w/ expiration * (+)Jaundice w/ascites, generalized weakness * Multiple family members present 07/18/17 0650 07/18/17 0650 EXAM GENERAL: Afebrile, VSS,encephalopathic w/labored breathing and moaning w/each expiration HEENT: (+)Icteric (+)Jaundice, (+)NGT NECK: Supple, trachea midline. CHEST: Equal chest rise bilaterally, scattered rales, diminished BLL HEART: Pulse RRR ABDOMEN: Massive ascites : NL, FC EXTREMITIES: Warm, generalized anasarca ID ASSESSMENT 47 yo F admit with: 1. Sepsis w/persistent leukocytosis -> 2 to UTI + Presumptive spontaneous bacterial peritonitis * 06/26 & 07/05 BCx (-) * URINE CX: URINE CULTURE Final Organism 1 ENTEROCOCCUS SPECIES COLONY COUNT 30,000 - 40,000 CFU/ml Organism 2 BONIFACIO ALBICANS COLONY COUNT <10,000 CFU/ml ENT SPS M.I.C. RX --------- --- AMPICILLIN <=2 S CIPROFLOXACIN 2 I LEVOFLOXACIN 4 I PENICILLIN-G 16 R 2. Decompensated liver cirrhosis with ascites, status post paracentesis done on 07/02/2017, no cultures sent. 3. Acute kidney injury, possibly hepatorenal syndrome. 4. Acute anemia. 5. Symptomatic cholelithiasis without evidence of acute cholecystitis. (-)MRSA Nares INVASIVES: PICC (07/07/17), NG tube, Vega catheter, Gerardo catheter in her right groin placed 07/14/17. ABX ALLERGY: KNDA CURRENT ABX=>*Zyvox + Cefepime + Flagyl s/p Vanco IV ID RECOMMENDATIONS 1. Continues on ABX 2. DNR status noted . . Problems: Consultation Date/Type/Reason Admit Date/Time Jun 26, 2017 at 00:00 Initial Consult Date 06/26/17 Type of Consultation: ID Exam/Review of Systems Vital Signs Vitals Vital Signs Date Time Temp Pulse Resp B/P Pulse Ox O2 Delivery O2 Flow Rate FiO2 07/18/17 17:01 3.0 07/18/17 16:23 94 07/18/17 16:00 99.1 24 104/57 97 07/18/17 09:00 Nasal Cannula Intake and Output 07/17/17 07/17/17 07/18/17 15:00 23:00 07:00 Intake Total 200 ml 1055 ml 380 ml Output Total 750 ml 325 ml Balance 200 ml 305 ml 55 ml Results Result Diagram: 07/18/17 0650 07/18/17 0650 Results 24 hrs Laboratory Tests Test 07/18/17 06:06 07/18/17 06:50 07/18/17 10:30 Lab Scanned Report BLOOD TRANSFUSION White Blood Count 33.1 #H Red Blood Count 2.41 L Hemoglobin 7.7 L Hematocrit 22.5 L Mean Corpuscular Volume 93.4 Mean Corpuscular Hemoglobin 32.0 Mean Corpuscular Hemoglobin Concent 34.2 Red Cell Distribution Width 20.1 H Platelet Count 106 L Mean Platelet Volume 12.3 H Neutrophils % Segmented Neutrophils % (Manual) 89 H Band Neutrophils % (Manual) 2 Lymphocytes % Lymphocytes % (Manual) 7 L Monocytes % Monocytes % (Manual) 2 Eosinophils % Basophils % Nucleated Red Blood Cells % 0.2 H Neutrophils # Neutrophils # (Manual) 29.7 H Band Neutrophils # 0.6 Absolute Lymphocytes (Manual) 2.3 Lymphocytes # Monocytes # Absolute Monocytes (Manual) 0.6 Eosinophils # Basophils # Nucleated Red Blood Cells # Platelet Estimate DECREASED Giant Platelets 1 H Polychromasia 2+ Poikilocytosis 3+ Anisocytosis 2+ Macrocytosis 2+ Target Cells 1+ Acanthocytes 1+ Sodium Level 139 Potassium Level 4.0 Chloride Level 109 Carbon Dioxide Level 10 L Anion Gap 24 H Blood Urea Nitrogen 77 H Creatinine 4.83 H Glucose Level 199 Calcium Level 8.0 L Phosphorus Level 6.4 H Magnesium Level 2.1 Total Bilirubin 17.7 H Direct Bilirubin 15.90 *H Indirect Bilirubin 1.8 H Aspartate Amino Transf (AST/SGOT) 157 H Alanine Aminotransferase (ALT/SGPT) 32 Alkaline Phosphatase 185 H Ammonia 156 H Total Protein 6.2 Albumin 2.2 L Globulin 4.00 H Albumin/Globulin Ratio 0.55 Blood Gas Specimen Source Blood arterial Arterial Blood Date Drawn 07/18/2017 11:06:24 AM Arterial Blood pH (Temp corrected) 7.347 L Arterial Blood pCO2 (Temp correct) 20.6 L Arterial Blood pO2 (Temp corrected) 93.0 Arterial Blood HCO3 11.0 L Arterial Blood Base Excess -13.1 L Arterial Blood Oxygen Saturation 96.7 George Test ACCEPTAB Arterial Blood Gas Puncture Site Right Brachial Arterial Blood Carboxyhemoglobin 0.6 Arterial Blood Methemoglobin 0.1 Blood Gas A-a O2 Differential 96.7 H Oxyhemoglobin Percent 96.0 Total Hemoglobin 7.8 L Blood Gas Temperature 37.0 Blood Gas Modality NASAL CANNULA FiO2 30.0 Blood Gas Notified Whom ds Blood Gas Notified Time 07/18/2017 11:16:02 AM Medications Medications Current Medications Ondansetron HCl (Zofran Inj) 4 mg Q4H PRN IV NAUSEA AND/OR VOMITING Last administered on 07/10/17 22:56; Admin Dose 4 MG; Start 06/26/17 at 03:30 Rifaximin 550 mg 550 mg BID PO Last administered on 07/18/17 08:52; Admin Dose 550 MG; Start 07/03/17 at 21:00 Pantoprazole 80 mg/Sodium Chloride 100 ml @ 10 mls/hr Q10H IV Last administered on 07/18/17 12:06; Admin Dose 10 MLS/HR; Start 07/05/17 at 23:00 Octreotide Acetate 1 mg/ Sodium Chloride 100 ml @ 5 mls/hr Q20H IV Last administered on 07/18/17 13:08; Admin Dose 5 MLS/HR; Start 07/06/17 at 00:30 Cefepime HCl/ Sodium Chloride (Maxipime/NS) 50 ml @ 100 mls/hr Q24H IVPB Last administered on 07/18/17 15:04; Admin Dose 100 MLS/HR; Start 07/07/17 at 14:00 IV Flush 10 ml 10 ml PRN PRN IV IV PROTOCOL; Start 07/07/17 at 15:30 Fluconazole/ Sodium Chloride (Diflucan 100 Mg/ NS (Pmx)) 50 ml @ 50 mls/hr Q24H IVPB Last administered on 07/18/17 13:04; Admin Dose 50 MLS/HR; Start at 12:00 Simethicone 80 mg 80 mg Q6 GTB Last administered on 07/18/17 11:56; Admin Dose 80 MG; Start 07/09/17 at 12:00 Metronidazole 250 mg/N/A 50 ml @ 50 mls/hr Q8 IVPB Last administered on 13:59; Admin Dose 50 MLS/HR; Start 07/10/17 at 14:00 Bumetanide/ Dextrose (Bumex/D5W) 250 ml @ 10 mls/hr Q24H IV Last administered on 07/17/17 16:38; Admin Dose 10 MLS/HR; Start 07/10/17 at 17:00 Lactulose 30 gm 30 gm Q6 [place] Last administered on 07/18/17 11:56; Admin Dose 30 GM; Start 07/12/17 at 12:00 Linezolid (Zyvox 600mg/D5W (Pmx)) 300 ml @ 300 mls/hr BID IVPB Last administered on 07/18/17 08:52; Admin Dose 300 MLS/HR; Start 07/12/17 at 21: 00 Ferrous Sulfate 300 mg 300 mg BID NGT Last administered on 07/18/17 08:52; Admin Dose 300 MG; Start 07/13/17 at 09:00 Dextrose (D5W) 1,000 ml @ 50 mls/hr Q20H IV Last administered on 07/18/17 11 :56; Admin Dose 50 MLS/HR; Start 07/18/17 at 10:30 Lorazepam (Ativan) 0.5 mg Q6H PRN IV Seizures; Start 07/18/17 at 15:30 NANCY CANNON NP Jul 18, 2017 18:16
[2017-07-19 00:19] VITALS: PULSE 105
[2017-07-19] MEDS: LORAZEPAM 2 MG INJ IV PRN (00:55)
[2017-07-19] MEDS: LACTULOSE 30ML CUP PR SCH ×2 (00:55→05:48)
[2017-07-19 04:12] VITALS: BP 87/49; RESP 19
[2017-07-19 04:31] VITALS: PULSE 95
[2017-07-19] MEDS: metroNIDAZOLE 500 MG/NS (PMX) 250 MG in EVAC CONTAINER 1 BOTTLE IVPB SCH (05:48)
[2017-07-19] MEDS: DEXTROSE 5% 1,000 ML IV SCH (05:48)
[2017-07-19 06:51] LABS: ABNORMAL IP MESSAGE 1; HEMATOCRIT 17.9 % (37.0-47.0); MEAN CORPUSCULAR HEMOGLOBIN 32.5 pg (29.0-33.0); MEAN CORPUSCULAR HGB CONC 30.7 g/dl (32.0-37.0); MEAN CORPUSCULAR VOLUME 105.9 fl (82.0-101.0); MEAN PLATELET VOLUME 13.3 fl (7.4-10.4); PLATELET COUNT 167 10^3/UL (140-415); RED BLOOD COUNT 1.69 10^6/ul (4.20-5.40); RED CELL DISTRIBUTION WIDTH 20.6 % (11.5-14.5); WHITE BLOOD COUNT 44.7 10^3/ul (4.8-10.8)
[2017-07-19 07:09] VITALS: PULSE 48
[2017-07-19 07:09] LABS: ALANINE AMINOTRANSFERASE 76 IU/L (13-69); ALBUMIN/GLOBULIN RATIO 0.58; ALKALINE PHOSPHATASE 131 IU/L (42-121); ASPARTATE AMINO TRANSFERASE 611 IU/L (15-46); BILIRUBIN,INDIRECT 1.3 mg/dl (0-1.1); BILIRUBIN,TOTAL 13.9 mg/dl (0.2-1.3); BLOOD UREA NITROGEN 77 mg/dl (7-20); CALCIUM 7.7 mg/dl (8.4-10.2); CHLORIDE 108 mmol/L (97-110); GLUCOSE 137 mg/dl (70-220); POTASSIUM 5.8 mmol/L (3.5-5.1); SODIUM 140 mmol/L (135-144); TOTAL PROTEIN 5.4 g/dl (6.1-8.1)
[2017-07-19 07:10] VITALS: PULSE 0
--- NOTE | 2017-07-19 07:18 | EN ---
Date/Time of Note Date/Time of Note DATE: 07/19/17 TIME: 07:11 Event Note Medicine Medicine Event Note Pronouncement note Patient seen and examined at the bedside. Patient non-responsive to verbal stimuli. Patient non-responsive to vigorous sternal rub. No heart sounds appreciated on auscultation. Pulpils non-reactive to light bilaterally. Tele monitoring showing asystole. Patient was a DNR/DNI. Family present at the bedside. primary team aware. Patient pronounced at 7:01AM. JUANA LOCKETT Jul 19, 2017 07:18
[2017-07-19 07:23] LABS: HEMOGLOBIN 5.5 g/dl (12.0-16.0); POSITIVE DIFF @See below
[2017-07-19 07:25] LABS: MAGNESIUM 2.4 mg/dl (1.7-2.5); PHOSPHORUS 12.2 mg/dl (2.5-4.9)
[2017-07-19 07:40] LABS: ANION GAP 33 (8-16); CREATININE 5.48 mg/dl (0.44-1.00)
[2017-07-19 07:42] LABS: CARBON DIOXIDE < 5 mmol/L (21-31)
--- NOTE | 2017-07-19 08:01 | CONS ---
Date/Time of Note Date/Time of Note DATE: 07/19/17 TIME: 07:55 Consultation Date/Type/Reason Admit Date/Time Jun 26, 2017 at 00:00 Initial Consult Date 06/26/17 Type of Consultation: ID 24 HR Interval Summary Constitutional: other (Patient approx 1 hr ago-->kiki->flat line. I tried to console the family at the bedside and again stressed that her suffering was finally over and she could rest that which she so desperately needed. Labs rev which reflected profund hypoperfusion.) Exam/Review of Systems Vital Signs Vitals Vital Signs Date Time Temp Pulse Resp B/P Pulse Ox O2 Delivery O2 Flow Rate FiO2 07/19/17 07:10 0 07/19/17 04:12 98.4 19 87/49 95 07/18/17 20:30 Nasal Cannula 2.0 Intake and Output 07/18/17 07/18/17 07/19/17 15:00 23:00 07:00 Intake Total 515 ml 780 ml 120 ml Output Total 1700 ml 550 ml Balance 515 ml -920 ml -430 ml Results Result Diagram: 07/19/17 0553 07/19/17 0553 Results 24 hrs Laboratory Tests Test 07/18/17 10:30 07/19/17 05:53 Blood Gas Specimen Source Blood arterial Arterial Blood Date Drawn 07/18/2017 11:06:24 AM Arterial Blood pH (Temp corrected) 7.347 L Arterial Blood pCO2 (Temp correct) 20.6 L Arterial Blood pO2 (Temp corrected) 93.0 Arterial Blood HCO3 11.0 L Arterial Blood Base Excess -13.1 L Arterial Blood Oxygen Saturation 96.7 George Test ACCEPTAB Arterial Blood Gas Puncture Site Right Brachial Arterial Blood Carboxyhemoglobin 0.6 Arterial Blood Methemoglobin 0.1 Blood Gas A-a O2 Differential 96.7 H Oxyhemoglobin Percent 96.0 Total Hemoglobin 7.8 L Blood Gas Temperature 37.0 Blood Gas Modality NASAL CANNULA FiO2 30.0 Blood Gas Notified Whom ds Blood Gas Notified Time 07/18/2017 11:16:02 AM White Blood Count 44.7 #H Red Blood Count 1.69 #L Hemoglobin 5.5 #*L Hematocrit 17.9 #L Mean Corpuscular Volume 105.9 H Mean Corpuscular Hemoglobin 32.5 Mean Corpuscular Hemoglobin Concent 30.7 L Red Cell Distribution Width 20.6 H Platelet Count 167 # Mean Platelet Volume 13.3 H Neutrophils % Lymphocytes % Monocytes % Eosinophils % Basophils % Nucleated Red Blood Cells % 3.0 H Neutrophils # Lymphocytes # Monocytes # Eosinophils # Basophils # Nucleated Red Blood Cells # Sodium Level 140 Potassium Level 5.8 H Chloride Level 108 Carbon Dioxide Level < 5 #*L Anion Gap 33 #H Blood Urea Nitrogen 77 H Creatinine 5.48 H Glucose Level 137 # Calcium Level 7.7 L Phosphorus Level 12.2 #H Magnesium Level 2.4 Total Bilirubin 13.9 H Direct Bilirubin 12.60 H Indirect Bilirubin 1.3 H Aspartate Amino Transf (AST/SGOT) 611 H Alanine Aminotransferase (ALT/SGPT) 76 H Alkaline Phosphatase 131 H Ammonia 449 #H Total Protein 5.4 L Albumin 2.0 L Globulin 3.40 H Albumin/Globulin Ratio 0.58 Medications Medications Current Medications Ondansetron HCl (Zofran Inj) 4 mg Q4H PRN IV NAUSEA AND/OR VOMITING Last administered on 07/10/17 22:56; Admin Dose 4 MG; Start 06/26/17 at 03:30 Rifaximin 550 mg 550 mg BID PO Last administered on 07/18/17 21:36; Admin Dose 550 MG; Start 07/03/17 at 21:00 Pantoprazole 80 mg/Sodium Chloride 100 ml @ 10 mls/hr Q10H IV Last administered on 07/18/17 21:36; Admin Dose 10 MLS/HR; Start 07/05/17 at 23:00 Octreotide Acetate 1 mg/ Sodium Chloride 100 ml @ 5 mls/hr Q20H IV Last administered on 07/18/17 13:08; Admin Dose 5 MLS/HR; Start 07/06/17 at 00:30 Cefepime HCl/ Sodium Chloride (Maxipime/NS) 50 ml @ 100 mls/hr Q24H IVPB Last administered on 07/18/17 15:04; Admin Dose 100 MLS/HR; Start 07/07/17 at 14:00 IV Flush 10 ml 10 ml PRN PRN IV IV PROTOCOL; Start 07/07/17 at 15:30 Fluconazole/ Sodium Chloride (Diflucan 100 Mg/ NS (Pmx)) 50 ml @ 50 mls/hr Q24H IVPB Last administered on 07/18/17 13:04; Admin Dose 50 MLS/HR; Start at 12:00 Simethicone 80 mg 80 mg Q6 GTB Last administered on 07/19/17 05:48; Admin Dose 80 MG; Start 07/09/17 at 12:00 Metronidazole 250 mg/N/A 50 ml @ 50 mls/hr Q8 IVPB Last administered on 05:48; Admin Dose 50 MLS/HR; Start 07/10/17 at 14:00 Bumetanide/ Dextrose (Bumex/D5W) 250 ml @ 10 mls/hr Q24H IV Last administered on 07/18/17 18:10; Admin Dose 10 MLS/HR; Start 07/10/17 at 17:00 Lactulose 30 gm 30 gm Q6 [place] Last administered on 07/19/17 05:48; Admin Dose 30 GM; Start 07/12/17 at 12:00 Linezolid (Zyvox 600mg/D5W (Pmx)) 300 ml @ 300 mls/hr BID IVPB Last administered on 07/18/17 21:36; Admin Dose 300 MLS/HR; Start 07/12/17 at 21: 00 Ferrous Sulfate 300 mg 300 mg BID NGT Last administered on 07/18/17 21:36; Admin Dose 300 MG; Start 07/13/17 at 09:00 Dextrose (D5W) 1,000 ml @ 50 mls/hr Q20H IV Last administered on 07/18/17 11 :56; Admin Dose 50 MLS/HR; Start 07/18/17 at 10:30 Lorazepam (Ativan) 0.5 mg Q6H PRN IV Seizures Last administered on 07/19/17 00:55; Admin Dose 0.5 MG; Start 07/18/17 at 15:30 DEMETRIUS BABCOCK MD Jul 19, 2017 08:01
[2017-07-19 08:04] LABS: ANISOCYTOSIS 2+ (0-0); BURR CELLS 2+ (0-0); ERYTHROBLAST% (NRBC) (M) 4 % (0-0); MONOCYTES % (M) 5 % (0-11); PLATELET ESTIMATE NORMAL; POIKILOCYTOSIS 3+ (0-0); TARGET CELLS 1+ (0-0)
--- NOTE | 2017-07-19 09:40 | DES ---
Date/Time of Note Date/Time of Note DATE: 07/19/17 TIME: 09:40 Discharge/ Summary Admission/Discharge Info Admit Date/Time Jun 26, 2017 at 00:00 Discharge Date/Time Date and time of expiration: July 19, 2017 at 07:01 AM. Final Diagnosis 1. Decompensated alcoholic liver cirrhosis with ascites and portal hypertension. 2. Acute kidney injury. 3. Metabolic acidosis. 4. Anemia. 5. Transaminitis with hyperbilirubinemia. 6. Grade III/IV esophageal varices. 7. S/P sepsis with septic shock. 8. Coagulopathy. Preliminary Cause of 1. Cardiopulmonary arrest. 2. Metabolic acidosis. 3. Hyperkalemia. Hx of Present Illness This is a 47 year old female with a past medical history of liver cirrhosis who came to the ER with chief complaints of abdominal pain, abdominal distension, and jaundice. The patient's gall bladder ultrasound showed liver cirrhosis and gallbladder sludge with moderate gallbladder wall thickening and pericholecystic fluid. The patient had a positive urinalysis upon admission. She had leukocytosis upon presentation. The patient also had significant transaminitis with hyperbilirubinemia upon ED presentation. The patient's BUN and creatinine were 18 and 2.87 respectively. Provided the patient's history of present illness and the diagnostic findings, a clinical decision was made to admit the patient to inpatient setting to have her further evaluated. Hospital Course Consultants 1. Yehuda Andrade MD, General Surgery. 2. Ishmael Lowe MD, Nephrology. 3. Paulino Donovan MD, Infectious Diseases. 4. Jayne Bocanegra MD, Palliative Care. 5. Evan Patton MD, Vascular Surgery. A nephrology and general surgery consult was obtained. The patient underwent a HIDA scan that showed no evidence of cystic obstruction and non-visualization of gastrointestinal activity up to 4 hours post injection. As per the surgeon, the patient had no evidence of any cholecystitis and no surgical intervention was indicated. The patient continued to have significant transaminitis with hyperbilirubinemia. A gastroenterology consult was obtained. The patient was continued on lactulose and rifaximin. The patient underwent an esophagogastroduodenoscopy that showed grade III/IV esophageal varices with stigmata of recent bleeding. Consequently, the patient was maintained on a Protonix drip and octreotide gtt. The patient underwent a paracentesis on 2016. The patient had underlying coagulopathy secondary to her endstage liver disease. The patient received a total of 7 units of PRBC and 3 units FFP during her hospital stay. The patient came in with non-oliguric BARBARA. The patient's renal function became progressively worse and the patient became oliguric to anuric. The reason for the patient's worsening renal function could have been hepatorenal syndrome. At one point of time the patient had a hemodialysis access inserted for initiating on hemodialysis. However, the patient's clinical condition was deteriorating and unstable for any hemodailysis. The patient was moved to the ICU on 2016 because of hypotension for blood pressure support.The reason for the patient's hypotension could have been her underlying sepsis form urinary tract infection and presumed spontaneous bacterial peritonitis. She was maintained on antibiotics as per ID. The patient was later weaned off pressors. The patient was later started on a Bumex drip for help with diuresis. Palliative care evaluated the patient and the patient was made a DNR on 07/13/2017. The patient' s family wanted more time to think about making the patient patient a comfort care. As such, the patient was maintained on standard therapy for her condition. The patient was later transferred from ICU to a private room on telemetry floor. On 07/19/17, the patient was noticed to be bradycardic with the rhythm later changing to asystole. The patient was declared by the zoning technician hospitalist on 07/19/17 at 0701 AM. The patient's family was provided with psychological support. The case was discussed with Dr. Mauricio. Pending Labs/Cultures Laboratory Tests Test 07/18/17 10:30 07/19/17 05:53 Blood Gas Specimen Source Blood arterial Arterial Blood Date Drawn 07/18/2017 11:06:24 AM Arterial Blood pH (Temp corrected) 7.347 (7.350-7.450) Arterial Blood pCO2 (Temp correct) 20.6mmhg (35-45) Arterial Blood pO2 (Temp corrected) 93.0mmHG (80-100.0) Arterial Blood HCO3 11.0mmol/L (22.0-26.0) Arterial Blood Base Excess -13.1mmol/L (-3.0-3) Arterial Blood Oxygen Saturation 96.7mmHG (95.0-98.0) George Test ACCEPTAB Arterial Blood Gas Puncture Site Right Brachial Arterial Blood Carboxyhemoglobin 0.6% (0.0-3.0) Arterial Blood Methemoglobin 0.1% (0.0-1.5) Blood Gas A-a O2 Differential 96.7mmHg (7.0-24.0) Oxyhemoglobin Percent 96.0% (93.0-99.0) Total Hemoglobin 7.8g/dl (12.0-18.0) Blood Gas Temperature 37.0C Blood Gas Modality NASAL CANNULA FiO2 30.0% Blood Gas Notified Whom ds Blood Gas Notified Time 07/18/2017 11:16:02 AM White Blood Count 44.710^3/ul (4.8-10.8) Red Blood Count 1.6910^6/ul (4.20-5.40) Hemoglobin 5.5g/dl (12.0-16.0) Hematocrit 17.9% (37.0-47.0) Mean Corpuscular Volume 105.9fl (82.0-101.0) Mean Corpuscular Hemoglobin 32.5pg (29.0-33.0) Mean Corpuscular Hemoglobin Concent 30.7g/dl (32.0-37.0) Red Cell Distribution Width 20.6% (11.5-14.5) Platelet Count 70799^3/UL (140-415) Mean Platelet Volume 13.3fl (7.4-10.4) Neutrophils % % (39.0-77.0) Segmented Neutrophils % (Manual) 66% (39-77) Band Neutrophils % (Manual) 12% (0-4) Lymphocytes % % (15.0-51.0) Lymphocytes % (Manual) 17% (15-51) Monocytes % % (0.0-11.0) Monocytes % (Manual) 5% (0-11) Eosinophils % % (0.0-7.0) Basophils % % (0.0-2.0) Nucleated Red Blood Cells % 4% (0-0) Neutrophils # 10^3/ul (1.6-7.5) Neutrophils # (Manual) 31.910^3/ul (1.7-7.5) Band Neutrophils # 5.310^3/ul (0.0-0.6) Absolute Lymphocytes (Manual) 7.510^3/ul (0.8-2.9) Lymphocytes # 10^3/ul (0.8-2.9) Monocytes # 10^3/ul (0.3-0.9) Absolute Monocytes (Manual) 2.210^3/ul (0.3-0.9) Eosinophils # 10^3/ul (0.0-0.5) Basophils # 10^3/ul (0.0-0.1) Nucleated Red Blood Cells # 10^3/ul (0.0-0.0) Platelet Estimate NORMAL Poikilocytosis 3+ (0-0) Anisocytosis 2+ (0-0) Macrocytosis 2+ (0-0) Target Cells 1+ (0-0) Sodium Level 140mmol/L (135-144) Potassium Level 5.8mmol/L (3.5-5.1) Chloride Level 108mmol/L (97-110) Carbon Dioxide Level < 5mmol/L (21-31) Anion Gap 33 (8-16) Blood Urea Nitrogen 77mg/dl (7-20) Creatinine 5.48mg/dl (0.44-1.00) Glucose Level 137mg/dl (70-220) Calcium Level 7.7mg/dl (8.4-10.2) Phosphorus Level 12.2mg/dl (2.5-4.9) Magnesium Level 2.4mg/dl (1.7-2.5) Total Bilirubin 13.9mg/dl (0.2-1.3) Direct Bilirubin 12.60mg/dl (0.00-0.20) Indirect Bilirubin 1.3mg/dl (0-1.1) Aspartate Amino Transf (AST/SGOT) 611IU/L (15-46) Alanine Aminotransferase (ALT/SGPT) 76IU/L (13-69) Alkaline Phosphatase 131IU/L (42-121) Ammonia 449umol/l (9-30) Total Protein 5.4g/dl (6.1-8.1) Albumin 2.0g/dl (3.3-4.9) Globulin 3.40g/dl (1.3-3.2) Albumin/Globulin Ratio 0.58 RAKESH WEBBER NP Jul 19, 2017 09:40
== END 2017-07-19 11:09 | disposition expired | DRG 871 ==
LOC: E/R 14:34 → MS1 06-26 → MS4 07-06 00:03 → ICU 07-06 19:38 → MS2 07-17 02:22 → TEL 07-17 03:36
PROVIDERS: ADMIT Internal Medicine; ATTEND Internal Medicine
PROC: 30233N1 Transfusion of Nonautologous Red Blood Cells into Peripheral Vein, Percutaneous Approach (ICD-10-PCS; 2017-06-27)
PROC: 0W9G3ZX Drainage of Peritoneal Cavity, Percutaneous Approach, Diagnostic (ICD-10-PCS; 2017-07-02)
PROC: 30233L1 Transfusion of Nonautologous Fresh Plasma into Peripheral Vein, Percutaneous Approach (ICD-10-PCS; 2017-07-07)
PROC: 0W3P8ZZ Control Bleeding in Gastrointestinal Tract, Via Natural or Artificial Opening Endoscopic (ICD-10-PCS; 2017-07-07)
PROC: 02HV33Z Insertion of Infusion Device into Superior Vena Cava, Percutaneous Approach (ICD-10-PCS; 2017-07-07)
PROC: 06HM33Z Insertion of Infusion Device into Right Femoral Vein, Percutaneous Approach (ICD-10-PCS; principal; 2017-07-13)
DX: A41.81 Sepsis due to Enterococcus (principal); K76.7 Hepatorenal syndrome; R65.21 Severe sepsis with septic shock; I85.11 Secondary esophageal varices with bleeding; K65.9 Peritonitis, unspecified; K92.0 Hematemesis; N17.9 Acute kidney failure, unspecified; G92 Toxic encephalopathy; E87.2 Acidosis; I95.9 Hypotension, unspecified; K65.2 Spontaneous bacterial peritonitis; D68.9 Coagulation defect, unspecified; K76.6 Portal hypertension; N39.0 Urinary tract infection, site not specified; K92.1 Melena; D62 Acute posthemorrhagic anemia; E87.0 Hyperosmolality and hypernatremia; R17 Unspecified jaundice; K70.31 Alcoholic cirrhosis of liver with ascites; K80.20 Calculus of gallbladder without cholecystitis without obstruction; D50.9 Iron deficiency anemia, unspecified; K70.11 Alcoholic hepatitis with ascites; K31.89 Other diseases of stomach and duodenum; K72.90 Hepatic failure, unspecified without coma; E87.6 Hypokalemia; R16.1 Splenomegaly, not elsewhere classified; R74.0 Nonspecific elevation of levels of transaminase and lactic acid dehydrogenase [LDH]; I46.9 Cardiac arrest, cause unspecified; Z51.5 Encounter for palliative care; Z66 Do not resuscitate
CPT/HCPCS: 36415; 36430; 36569; 36600; 71010; 74000; 74176; 76705; 76937; 78226; 80048; 80053; 80202; 81001; 82140; 82270; 82728; 82803; 82962; 83540; 83605; 83690; 83735; 84100; 84300; 84443; 84484; 85014; 85018; 85025; 85049; 85610; 85670; 85730; 86704; 86709; 86803; 86850; 86900; 86901; 86920; 87040; 87081; 87086; 87340; 88104; 88305; 90686; 93005; 96372; 96374; 96375; 96376; J1940; A9537; C1752; C1769; C9113; J0692; J0696; J1450; J2060; J2270; J2405; J2543; J3010; J3370; J3475; J3480; J7030; J7040; J7042; J7050; J7060; J7070; P9016; P9047; P9059